=== PATIENT | female | born 1945 | race Caucasian/White ===

== ENCOUNTER 2017-08-03 08:03 | Day surgery (SDC) | payer MEDICARE, BC ==
[~2017-08-03] VITALS: Ht 167.6 cm; Wt 85.5 kg
[2017-08-03] VITALS (8 sets, daily range): BP systolic 139–147; BP diastolic 83–88; PULSE 77–86; RESP 18–20; TEMP 97.4–98.1; O2SAT 94–98
[2017-08-03] MEDS ORDERED: IOHEXOL 350 MG/ML 100 ML BTL (for Cath Lab) OTHER ONE (08:04)
[2017-08-03] MEDS ORDERED: AMLO5TAB2 PO (09:03)
[2017-08-03] MEDS ORDERED: FLUO10TA PO (09:03)
[2017-08-03] MEDS ORDERED: ATOR40TA16 PO (09:03)
[2017-08-03] MEDS ORDERED: COQ-50CA2 PO (09:03)
[2017-08-03] MEDS ORDERED: GLUC750C PO (09:03)
[2017-08-03] MEDS ORDERED: ASPI81TA11 PO (09:03)
[2017-08-03] MEDS ORDERED: NITR0.4S SL (09:03)
[2017-08-03] MEDS ORDERED: METO25TA6 PO (09:03)
[2017-08-03] MEDS ORDERED: LOSA25TA PO (09:03)
[2017-08-03 09:13] LABS: AUTOMATED NEUTROPHIL # 6.9 TH/MM3 (1.8-7.7); BASOPHIL # 0.1 TH/MM3 (0-0.2); BASOPHIL % 1.5 % (0.0-2.0); EOSINOPHIL # 0.2 TH/MM3 (0-0.4); EOSINOPHIL % 2.5 % (0.0-4.0); HEMATOCRIT 36.6 % (35.0-46.0); HEMO FLAGS DIFF FINAL; LYMPH % 18.9 % (9.0-44.0); LYMPHOCYTE # 1.9 TH/MM3 (1.0-4.8); MEAN CORPUSCULAR HEMOGLOBIN 27.7 PG (27.0-34.0); MEAN CORPUSCULAR HGB CONC 32.6 % (32.0-36.0); MONO % 8.5 % (0.0-8.0); NEUT % 68.6 % (16.0-70.0); PLATELET COUNT 302 TH/MM3 (150-450); RED BLOOD COUNT 4.31 MIL/MM3 (4.00-5.30)
[2017-08-03 09:23] LABS: APTT (PATIENT) 29.7 SEC (24.3-30.1); PROTHROMBIN TIME - PATIENT 10.9 SEC (9.8-11.6)
[2017-08-03 09:36] LABS: BICARBONATE 27.5 MEQ/L (21.0-32.0); POTASSIUM 3.7 MEQ/L (3.5-5.1)
[2017-08-03] MEDS ORDERED: HEPARIN-NS/PF INJ 1,000 ML ONE (10:03)
[2017-08-03] MEDS ORDERED: SODIUM CHLORID 0.9% 500 ML INJ 500 ML ONE (10:03)
[2017-08-03] MEDS ORDERED: MIDAZOLAM HCL 2 MG/2 ML VIAL ONE (10:03)
[2017-08-03] MEDS ORDERED: HEPARIN SODIUM - IV 10,000 UNITS/10 ML VIAL ONE (11:10)
[2017-08-03] MEDS ORDERED: TICAGRELOR 90 MG TAB PO ONE (12:01)
[2017-08-03] MEDS ORDERED: oxyCODONE/ACETAMINOPHEN 5 MG/325 MG TAB PO PRN (12:15)
[2017-08-03] MEDS ORDERED: ACETAMINOPHEN 325 MG TAB PO PRN (12:15)
[2017-08-03] MEDS ORDERED: ONDANSETRON HCL 4 MG/2 ML VIAL IV PUSH PRN (12:15)
[2017-08-03] MEDS ORDERED: MORPHINE SULFATE 4 MG/ML INJ IV PUSH PRN (12:15)
[2017-08-03] MEDS ORDERED: oxyCODONE/ACETAMINOPHEN 10 MG/325 MG TAB PO PRN (12:15)
[2017-08-03] MEDS ORDERED: SODIUM CHLOR 0.9% 250 ML INJ 250 ML IV PRN (12:15)
[2017-08-03] MEDS ORDERED: MISC INFORMATION XX ONE (12:15)
[2017-08-03] MEDS ORDERED: ATROPINE SULFATE 1 MG/ML VIAL IV PUSH PRN (12:15)
--- NOTE | 2017-08-03 16:06 | EKG ---
Date Performed: 08/03/2017 Time Performed: 09:01:54 PTAGE: 71 years EKG: Sinus rhythm Left axis deviation Possible left ventricular hypertrophy Lateral T wave changes are probably due to ventricular hypertrophy Poor R wave progression, cannot rule out old anterior infarction Cannot rule out old inferior infarction Abnormal ECG NO PREVIOUS TRACING DOCTOR: Roderick Clements Interpretating Date/Time 08/03/2017 16:06:07
[2017-08-03] MEDS: TICAGRELOR 90 MG TAB PO SCH (19:59)
[2017-08-03] MEDS ORDERED: ATORVASTATIN 40 MG TAB PO SCH (21:00)
[2017-08-04] VITALS (9 sets, daily range): BP systolic 129–149; BP diastolic 66–91; PULSE 72–87; RESP 16–20; TEMP 97–98.1; O2SAT 92–97
--- NOTE | 2017-08-04 05:44 | MA ---
cc: CUONG ROOT DO DATE August 03, 2017 PROCEDURE Left heart catheterization, coronary angiogram, bypass angiogram, Spider filter for distal protection, Jarret drug-eluting stent (2.5 x 8) to the SVG to posterior lateral branch. Moderate sedation of 105 minutes PREPROCEDURE DIAGNOSIS Chest pain/shortness of breath/fatigue. History of CABG x 5 (believed to have 3/5 grafts patent). POSTPROCEDURE DIAGNOSIS Unstable angina status post Jarret drug-eluting stent (2.5 x 8) to the SVG to the PLV, CABG x five (4/5 grafts patent). MEDICATIONS 1. Versed 1.5 mg. 2. Fentanyl 175 mcg. 3. Heparin 10,100 units. 4. Brilinta 180 mg. CONTRAST USED 200 cc. FLUOROSCOPY 7.1 minutes. MODERATE SEDATION 105 minutes ESTIMATED BLOOD LOSS 30 cc. PROCEDURAL SUMMARY Julisa Stratton is a pleasant 71-year-old female who sees my partner Dr. Peterson in the office. She underwent stress testing which was read as possibly normal, although difficult with possible breast attenuation artifact. She continued to have symptoms including chest pain, shortness of breath and fatigue concerning for an anginal equivalent. Because of this she was recommended cardiac catheterization. The risks, benefits and alternatives were explained to her and she consented as such. She was brought to lab and prepped in the usual sterile fashion. The right femoral artery was accessed using a modified Seldinger technique and placement of a 5-[place] sheath. This was easily aspirated and flushed. A JR-4 was advanced over a J-wire to the ascending aorta and across the aortic valve for measurement of left ventricular pressure. This was pulled back across the aortic valve showing no significant gradient of aortic stenosis. JR-4 was used for selective angiography of the vein graft to the first obtuse marginal, PLV and second obtuse marginal as well as the douglas RCA. A vein graft to the diagonal could not be found and was previously thought to be occluded on her previous catheterization. I attempted to use the JR-4 for engagement in the INIGUEZ was but was unable to. This was exchanged for an IM catheter and, due to the significant tortuosity of her subclavian was unable to engage the left main but a nonselective shot was taken of the INIGUEZ to LAD. This was exchanged out for a JL-4 which was used for angiography of the [place]ouglas left coronary artery system. Please see interventional notes below for further procedure notes. The sheath was sutured in place with a plan to remove once ACT levels were appropriate. The patient left the lab analyst cardiovascularly stable. FINDINGS LEFT MAIN: Normal-sized vessel with adequate reflux and 10% disease throughout. It bifurcates into an LAD and circumflex. LAD: Normal-sized vessel with 100% occlusion in the midportion. It does give off one small diagonal which has multiple subtotal occlusions throughout. LEFT CIRCUMFLEX: Normal-sized vessel with 100% occlusion in the midportion. It gives off the first obtuse marginal which looks like there is 100% occlusion in the midportion. RCA: Normal-sized vessel. Ostially there looks like there is at least 60% disease with an 80% lesion in the proximal portion. There is a subtotal occlusion of the PDA. There appears to be competitive flow in the distal PLV. INIGUEZ to LAD: Nonselective angiography shows the INIG[place]Z bifurcates with one-vessel going to the LAD and the other vessel going to the anterior wall. The vessel going to the LAD appears to have no significant lesions. It appears to touch down and distal runoff of the LAD is difficult but appears to be patent. SVG to DIAGONAL: 100% occluded from previous cardiac catheterization. SVG to OM1: Patent with good outflow and no significant disease. SVG to OM2: Patent with no significant disease throughout. SVG to PLV: 90% lesion in the proximal portion. Distally, the SVG fills antegrade to the distal PLB as well as retrograde into the distal RCA. LVEDP: 30. INTERVENTION Because of the significance of the lesion in the SVG to the RCA as well as her symptoms, I felt this was reasonable to intervene on. The sheath was exchanged for a 6-[place] sheath. I attempted to use a JR-4 guide but was unable to engage it well into the vein graft and so this was exchanged for a multipurpose guide. A [employer] wire was advanced in the distal portion of the vein grafts. A 3-mm Spider filter was then placed in the midportion of the graft. An Jarret drug-eluting stent (2.5 x 8) was then placed in the ostium of the vein graft and inflated. Because of the mismatch at the ostium of the vein graft compared to the overall size of the graft, a Non-Compliant balloon (2.75 x 6) was then used on the proximal portion of the stent. Filter was captured. Final angiography shows a well apposed stent with no perforations or dissections. She was loaded with 180mg of Brilinta. IMPRESSIONS: 1) Unstable angina with CP/SOB/Fatigue on multiple anti-anginals 2) CAD, Hx of CABG (4/5 grafts patent) 3) [place] ANN (2.5x8) to the ostial SVG to PLB, post dilated to 2.75 mm RECOMMENDATIONS: 1) ASA/Brilinta 2) Continue beta [place]/statin/ARB 3) Watch overnight, if stable in the morning plan discharge 4) Follow up with Dr. Peterson in 2 weeks Cuong Root DO VGP/SSB /10:00 PM /5:25 AM LC
[2017-08-04 07:14] LABS: AUTOMATED NEUTROPHIL # 7.5 TH/MM3 (1.8-7.7); BASOPHIL # 0.1 TH/MM3 (0-0.2); EOSINOPHIL # 0.2 TH/MM3 (0-0.4); EOSINOPHIL % 2.4 % (0.0-4.0); HEMATOCRIT 34.9 % (35.0-46.0); HEMO FLAGS DIFF FINAL; LYMPH % 13.5 % (9.0-44.0); LYMPHOCYTE # 1.4 TH/MM3 (1.0-4.8); MEAN CELL VOLUME 85.5 FL (80.0-100.0); MEAN CORPUSCULAR HEMOGLOBIN 28.1 PG (27.0-34.0); MEAN CORPUSCULAR HGB CONC 32.8 % (32.0-36.0); MONO % 9.3 % (0.0-8.0); NEUT % 73.8 % (16.0-70.0); PLATELET COUNT 282 TH/MM3 (150-450); RED BLOOD COUNT 4.08 MIL/MM3 (4.00-5.30); RED CELL DISTRIBUTION WIDTH 14.1 % (11.6-17.2); WHITE BLOOD COUNT 10.2 TH/MM3 (4.0-11.0)
[2017-08-04 07:17] LABS: BICARBONATE 29.1 MEQ/L (21.0-32.0); POTASSIUM 3.8 MEQ/L (3.5-5.1)
[2017-08-04] MEDS: TICAGRELOR 90 MG TAB PO SCH (08:59)
[2017-08-04] MEDS ORDERED: FLUoxetine HCL 10 MG CAP PO SCH (09:00)
[2017-08-04] MEDS ORDERED: amLODIPine BESYLATE 5 MG TAB PO SCH (09:00)
[2017-08-04] MEDS ORDERED: ASPIRIN EC 81 MG TABEC PO SCH (09:00)
[2017-08-04] MEDS ORDERED: LOSARTAN 25 MG TAB PO SCH (09:00)
[2017-08-04] MEDS ORDERED: METOPROLOL SUCCINATE 25 MG EXTENDED RELEASE TAB PO SCH (09:00)
--- NOTE | 2017-08-04 10:00 | PD.CARD.PN ---
Subjective Subjective Remarks No events overnight Feels well, no chest pain/SOB Objective Medications Current Medications Medications (Trade) Dose Ordered Sig/Ramakrishna Route Start Time Stop Time Status Last Admin (Norvasc) 5 mg DAILY PO 08/04/17 09:00 08/04/17 09:00 (Ecotrin Ec) 81 mg DAILY PO 08/04/17 09:00 08/04/17 08:59 (Lipitor) 40 mg HS PO 08/03/17 21:00 08/03/17 19:59 (PROzac) 10 mg DAILY PO 08/04/17 09:00 (Cozaar) 25 mg DAILY PO 08/04/17 09:00 08/04/17 08:59 (Toprol Xl) 25 mg DAILY PO 08/04/17 09:00 08/04/17 08:59 (Tylenol) 325 mg Q4H PRN PO 08/03/17 12:15 (Percocet 5-325 Mg) 1 tab Q4H PRN PO 08/03/17 12:15 08/03/17 22:28 (Percocet 10-325 Mg) 1 tab Q4H PRN PO 08/03/17 12:15 (Morphine Inj) 2 mg Q30M PRN IV PUSH 08/03/17 12:15 (Brilinta) 90 mg BID PO 08/03/17 21:00 08/04/17 08:59 (Atropine Inj) 0.5 mg UNSCH PRN IV PUSH 08/03/17 12:15 Sodium Chloride 250 ml @ 500 mls/hr ONCE PRN IV 08/03/17 12:15 08/04/17 12:14 (Zofran Inj) 4 mg Q4H PRN IV PUSH 08/03/17 12:15 08/03/17 13:40 Vital Signs / I&O Vital Signs Date Time Temp Pulse Resp B/P (MAP) Pulse Ox O2 Delivery O2 Flow Rate FiO2 08/04/17 07:30 97.4 80 16 129/71 (90) 92 08/04/17 07:30 97.4 80 16 129/71 (90) 92 08/04/17 06:00 72 08/04/17 05:00 72 08/04/17 04:00 97.0 87 20 149/66 (93) 94 08/04/17 03:00 80 08/04/17 02:00 80 08/04/17 01:00 82 08/04/17 00:00 80 08/04/17 00:00 98.1 81 20 144/91 (108) 97 08/03/17 23:00 80 08/03/17 22:00 82 08/03/17 21:00 86 08/03/17 20:00 77 08/03/17 20:00 98.1 81 20 147/88 (107) 95 08/03/17 19:00 86 08/03/17 17:45 78 08/03/17 17:30 98.1 84 18 143/83 (103) 98 08/03/17 12:15 93 Room Air I/O 08/03/17 08/03/17 08/03/17 08/04/17 08/04/17 08/04/17 07:00 15:00 23:00 07:00 15:00 23:00 Intake Total 240 ml Balance 240 ml Intake Oral 240 ml # Voids 1 2 Physical Exam GENERAL: NAD, AAOx3 SKIN: Warm and dry. HEAD: Atraumatic. Normocephalic. EYES: Pupils equal and round. No scleral icterus. No injection or drainage. ENT: No nasal bleeding or discharge. Mucous membranes pink and moist. NECK: Trachea midline. No JVD. CARDIOVASCULAR: Regular rate and rhythm. RESPIRATORY: No accessory muscle use. Clear to auscultation. Breath sounds equal bilaterally. GASTROINTESTINAL: Abdomen soft, non-tender, nondistended. Hepatic and splenic margins not palpable. MUSCULOSKELETAL: Extremities without clubbing, cyanosis, or edema. No obvious deformities. Right femoral no hematoma/bruit, distal pulses intact NEUROLOGICAL: Awake and alert. No obvious cranial nerve deficits. Motor grossly within normal limits. Five out of 5 muscle strength in the arms and legs. Normal speech. PSYCHIATRIC: Appropriate mood and affect; insight and judgment normal. Laboratory Laboratory Tests Test 08/04/17 05:38 White Blood Count 10.2 TH/MM3 Red Blood Count 4.08 MIL/MM3 Hemoglobin 11.5 GM/DL Hematocrit 34.9 % Mean Corpuscular Volume 85.5 FL Mean Corpuscular Hemoglobin 28.1 PG Mean Corpuscular Hemoglobin Concent 32.8 % Red Cell Distribution Width 14.1 % Platelet Count 282 TH/MM3 Mean Platelet Volume 7.3 FL Neutrophils (%) (Auto) 73.8 % Lymphocytes (%) (Auto) 13.5 % Monocytes (%) (Auto) 9.3 % Eosinophils (%) (Auto) 2.4 % Basophils (%) (Auto) 1.0 % Neutrophils # (Auto) 7.5 TH/MM3 Lymphocytes # (Auto) 1.4 TH/MM3 Monocytes # (Auto) 0.9 TH/MM3 Eosinophils # (Auto) 0.2 TH/MM3 Basophils # (Auto) 0.1 TH/MM3 CBC Comment DIFF FINAL Differential Comment Blood Urea Nitrogen 14 MG/DL Creatinine 0.56 MG/DL Random Glucose 106 MG/DL Calcium Level 9.0 MG/DL Sodium Level 138 MEQ/L Potassium Level 3.8 MEQ/L Chloride Level 101 MEQ/L Carbon Dioxide Level 29.1 MEQ/L Anion Gap 8 MEQ/L Estimat Glomerular Filtration Rate 107 ML/MIN Assessment and Plan Problem List: (1) Unstable angina ICD Codes: I20.0 - Unstable angina (2) Hx of CABG ICD Codes: Z95.1 - Presence of aortocoronary bypass graft (3) CAD (coronary artery disease) ICD Codes: I25.10 - Atherosclerotic heart disease of [place] coronary artery without angina pectoris (4) HLD (hyperlipidemia) ICD Codes: E78.5 - Hyperlipidemia, unspecified (5) HTN (hypertension) ICD Codes: I10 - Essential (primary) hypertension Assessment and Plan 1) Unstable angina with CP/SOB/Fatigue on multiple anti-anginals 2) CAD Hx of CABGx5 (4/5 grafts patent) [place] ANN (2.5x8) to SVG to PLB 3) ASA indefinitely, Brilinta for at least 12 months Discussed with the patient the importance of anti-platelet meds Will get a free 30 days of Brilinta and ask [facility] for refills, if too expensive will call myself or Dr. Peterson to change to Plavix 4) Cardiovascularly stable for discharge Follow up with Dr. JUAN in 4 weeks 5) Con't BB/Statin/ARB therapy 6) Greater than 45 minutes for discharge including scripts, giving information to the patient and answering questions for the patient Luis ACuong Raul CHEN Aug 04, 2017 10:00
[2017-08-04] MEDS ORDERED: BRIL90TA PO (10:02)
--- NOTE | 2017-08-06 08:53 | CATHPROC ---
[facility] HIS Report Study Information Study Number Admission Scheduled Start Study Start [id number] Aug 03 2017 8:03AM 08/03/2017 Aug 03 2017 9:50AM [facility] Cardiac Catheterization Admit Source Facility Department Other [facility] Physician and Clinical Staff Initial Cuong Atkinson Geothermal Field Technician Corby Perales,JAMES Recorder Chevy Bautista RCIS(BS) Scrub Raoul Mack RT(R) Scrub Brit Vaughan RN Procedures Performed Procedure Location (Site) Vessel Name Coronary Angiograms LCA Left Coronary Coronary Angiograms INIGUEZ-LAD Left Coronary Coronary Angiograms SVG-OM CIRC Coronary Angiograms SVG-OM 2 CIRC Coronary Angiograms SVG-PDA Right Coronary Drug Eluting Inflatio SVG-PDA Right Coronary PTCA SVG-PDA Right Coronary Wire insertion Fem Art (right) Femoral Art Equipment Time Reception Specialist Description Size Mfg Part Number Used/Scraped [id number] 11:11 [employer] WIRE, ASAArmorText PROWATER 180CM 180CM Used *[id number] TRANSDUCER, TRUWAVE [id number] 10:12 SALAZAR KULKARNI * Used W/STOCKCOCK *[id number]- INTRODUCER SET, 10:12 [employer] FR 5 SC-NT-U-SST Used MICROPUNCTURE, STIFFENED *[id number] 534-560T *[id number] 534-520T *[id number] *[id number] [id number] *[id number] *[id number] WIRE, HYDROSTEER 150CM [id number] 10:35 [employer]IG[employer] 150CM Used ANGLED GLIDE *[id number] ENDOVASCULAR WIRE, SPIDERFX 3.0 X [id number] 11:18 30 X 320CM Used COMPANY 320/190CM *[id number] 10:12 [employer] PACK, CCL CUSTOM * Used *[id number] BALLOON, 2.75 X 6MM NC [id number] 11:48 [employer] 6MM Used EUPHORA *[id number] 11:43 [employer] STENT, 2.5 8MM SHELLY 2.5 8MM Used *[id number] [id number] 11:27 [employer] STENT, 2.75 12MM SHELLY 2.75 12MM Used *[id number] 11:43 [employer] MEDICAL 30 MELIDA INDEFLATOR Used *[id number] 10:12 [employer] MEDICAL WIRE, 3MMJ .035 180CM 180CM Used *[id number] 10:39 [employer] MEDICAL WIRE, EXCHANGE 260CM 3MMJ 260CM Used *[id number] 10:12 NAMIC MANIFOLD, 4 PORT * Used *[id number] 10:12 [employer] OMNIPAQUE, 350 MG, 150ML 150ML [id number] Used [id number] 10:12 [facility] BLANKET,WARM AIR CCL * Used *[id number] 10:44 [employer] SHEATH, FR5 TERUMO (10CM) FR 5 Used *[id number] 10:46 [employer] SHEATH, FR5 TERUMO (10CM) FR 5 Used *[id number] 11:11 [employer] SHEATH, FR6 TERUMO (10CM) FR 6 Used *[id number] Equipment Model, Serial, Lot Number and Expiration Data Description Model Number Serial Number Lot Number Expiration Date BALLOON, 2.75 X 6MM NC [id number] 10-06-2018 EUPHORA INTRODUCER SET, [id number] 07-01-2020 MICROPUNCTURE, STIFFENED STENT, 2.5 8MM SHELLY [id number] 03-31-2019 WIRE, EXCHANGE 260CM 3MMJ [id number] 06-25-2020 WIRE, HYDROSTEER 150CM [id number] 03-25-2020 ANGLED GLIDE History: Current Medications Medication Dosage/Unit Route Frequency Last Date/Time Taken NORVASC ASA Statins (any) 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: Allergies Allergy Reaction lisinopril Cough epinephrine Hypotension History: Risk Factors Family History of Hypertension Dyslipidemia Previous ME Previous Heart Failure Premature CAD Yes Yes No No No Prior Valve Prior PCI Prior CABG Prior CABGDate Surgery No No Yes 10/26/2010 Cerebrovascular Peripheral Artery Chronic Lung On Dialysis Diabetes Disease Disease Disease No No No Yes No History: Stress Tests Stress or Imaging Studies Performed Yes Standard Exercise Stress Test No Stress Echo No Stress Test SPECT Stress Test SPECT Result Stress Test SPECT Ischemia Risk/Extent Yes Positive Low Stress Test CMR No Cardiac CTA Coronary Calcium Score No No History: Other Current Smoker No Labs Hgb (g/dl) Hct (%) RBC (MIL/MM3) WBC (l/cumm) Platelets (thousands) 11.60-17.00 35.00-51.00 4.00-5.90 4.00-11.00 150.00-450.00 12.0 36.6 4.3 10 302 Glucose (mg/dl) BUN (mg/dl) Creatinine (mg/dl) BUN:Creatinine (1:x) 74.00-106.00 7.00-18.00 0.50-1.30 10.00-20.00 102 23 0.3 76.7 Na (meq/l) K (meq/l) Cl (meq/l) CO2 (mmol/L) 136.00-145.00 3.50-5.10 98.00-107.00 21.00-32.00 140 3.7 104 27.5 PT (sec) PTT (sec) INR (PTT:PT) 9.80-11.60 24.30-30.10 0.90-1.10 10.9 29.7 1 CPK-MB (ng/ML) 0.50-3.60 Not Drawn Medication Medication Total Dose (Bolus/Oral) Medication Total Dosage/Unit 1% XYLOCAINE 20 mL BRILLINTA 180 mg FENTANYL 175 mcg HEPARIN 49931 units VERSED 1.5 mg Medications (Bolus/Oral) Medication Time Given Dosage/Unit Administered By Reason VERSED 08/03/2017 10:16:13 AM 0.5 mg Corby Perales 0.5 mg VERSED given in lab by Corby Perales RN in Left Forearm via Peripheral IV. Ordered by Cuong Lopez. FENTANYL 08/03/2017 10:16:26 AM 25 mcg Corby Perales 25 mcg FENTANYL given in lab by Corby Perales RN in Left Forearm via Peripheral IV. Ordered by Cuong Del Toro. 1% XYLOCAINE 08/03/2017 10:17:41 AM 20 mL Cuong Gunn 20 mL 1% XYLOCAINE given in lab by Cuong Gunn in Right Groin via Subcutaneous. Ordered by Cuong Del Toro. FENTANYL 08/03/2017 10:27:25 AM 50 mcg Corby Perales 50 mcg FENTANYL given in lab by FerCorby chatman RN in Left Forearm via Peripheral IV. Ordered by Cuong Del Toro. VERSED 08/03/2017 10:43:13 AM 0.5 mg Corby Perales 0.5 mg VERSED given in lab by Corby Perales RN in Left Forearm via Peripheral IV. Ordered by Cuong Lopez. FENTANYL 08/03/2017 10:43:21 AM 25 mcg Corby Perales 25 mcg FENTANYL given in lab by Corby Perales RN in Left Forearm via Peripheral IV. Ordered by Cuong Del Toro. VERSED 08/03/2017 11:03:44 AM 0.5 mg Corby Perales 0.5 mg VERSED given in lab by Corby Perales RN in Left Forearm via Peripheral IV. Ordered by Cuong Lopez. FENTANYL 08/03/2017 11:03:49 AM 25 mcg FerCorby chatman 25 mcg FENTANYL given in lab by Corby Perales RN in Left Forearm via Peripheral IV. Ordered by Cuong Del Toro. FENTANYL 08/03/2017 11:12:24 AM 50 mcg Corby Perales 50 mcg FENTANYL given in lab by Corby Perales RN in Left Forearm via Peripheral IV. Ordered by Cuong Del Toro. HEPARIN 08/03/2017 11:14:42 AM 6100 units Corby Perales 6100 units HEPARIN given in lab by Corby Perales RN in Left Forearm via Peripheral IV. Ordered by Cuong Samano. HEPARIN 08/03/2017 11:30:30 AM 2000 units Corby Perales 2000 units HEPARIN given in lab by Corby Perales RN via Peripheral IV. Ordered by Cuong Gunn . HEPARIN 08/03/2017 11:45:12 AM 2000 units Corby Perales 2000 units HEPARIN given in lab by Corby Perales RN via Peripheral IV. Ordered by Cuong Gunn . BRILLINTA 08/03/2017 12:03:23 PM 180 mg Corby Perales 180 mg BRILLINTA given in lab by Corby Perales RN in Per mouth via Oral. Ordered by Leo Gunn nt. Medication (Drip) Medication Time Given Dosage/Unit Concentration/Unit Diluent (ml) Solution IV Solutions 08/03/2017 9:55:37 AM 0 mL (IV) 500 NaCl .9 Patient arrived on IV Solutions in Left Forearm via Peripheral IV. Pump/Drip Flow = 20 ml/hr using Na Cl .9. Ordered by Cuong Gunn. Initial Case Assessment Cardiovascular HR Rhythm NIBP Chest Pain 72 SR 150/88 0 Edema Present Skin color Skin None Normal Warm Dry Circulatory - Right Pulses Dorsalis Pedis Femoral 1 1 Scale (0,1,2,3,4,d) Circulatory - Left Pulses Dorsalis Pedis Femoral 1 1 Scale (0,1,2,3,4,d) Circulatory - Lower Extremities Color Lower Right Color Lower Left Normal Normal Neurological State Oriented to time-place- Alert Moves all extremities person Respiration - General Respiration Rate SpO2 (%) (B/min) 13 96 Chronological Log Time Study Chronological Log 9:50:01 Patient arrived via Bed. 9:50:02 Patient Name, D.O.B, / Armband Verified By R.N. 9:50:03 Consent signed by the physician and the patient and verified by the [facility] [facility] staff. 9:50:04 Pre-op and post- op instructions given; patient acknowledges understanding of instructions. 9:50:05 Verbal Stimulation=2 Physical Stimulation=1 Airway=2 Respiration=2 TOTAL=7. (0=absent, 1=li mited, 2=present) 9:55:32 Patient has been NPO for Less than 6Hrs. 9:55:33 Skin Breakdown- 9:55:33 Patient Warmer Placed on the Table. 9:55:36 A # 20 IV was noted in the Forearm (left). Grade = 0 Patient arrived on IV Solutions in Left Forearm via Peripheral IV. Pump/Drip Flow = 20 ml/hr us ing NaCl .9. Ordered by 9:55:37 Cuong Gunn. 9:55:38 History and physical on the chart or being dictated. Assessment: Initial Case, HR=72 BPM, Rhythm=SR, DQYH=509/88 mmhg, Chest Pain=0, Edema=None, Col or=Normal, Skin = Warm, Dry Right Pulses: Dong Ped=1, Femoral=1 Left Pulses: Dong Ped=1, Femoral=1 9:55:39 Lower Right Extremities: Color=Normal Lower Left Extremities: Color=Normal Neurological: State=Alert, Ox3, TAYLOR Respiration: Resp=13 B/min, SpO2=96 % 10:00:00 MD arrived. Vitals capture started with the following parameters, Patient=Adult, Interval=3 min, Initial Pr afauxe=920 mmHg, 10:00:08 Deflation Rate=5 mmHg, Cuff placed on Left Ankle 10:00:51 HR=72 bpm, ARQA=370/88 mmhg, SpO2=97.0 %, Resp=16 B/min, Pain=0, Armando=10, Johnston=2 10:03:45 HR=75 bpm, OVMJ=976/92 mmhg, SpO2=97.0 %, Resp=7 B/min, Pain=0, Armando=10, Johnston=2 10:06:50 HR=72 bpm, IWQB=298/88 mmhg, SpO2=98.0 %, Resp=19 B/min, Pain=0, Armando=10, Johnston=2 10:08:00 Pressure channel 1 zeroed. 10:09:43 Reference ECG taken 10:09:48 HR=76 bpm, MGTA=080/90 mmhg, SpO2=96.0 %, Resp=12 B/min, Pain=0, Armando=10, Johnston=2 10:12:45 Bilateral groins prepped with 2% chlorhexidine, and draped after a 3 minute waiting time. 10:12:48 HR=71 bpm, FXRH=484/86 mmhg, SpO2=98.0 %, Resp=12 B/min, Pain=0, Armando=10, Johnston=2 10:15:46 HR=78 bpm, VTTF=879/85 mmhg, SpO2=97.0 %, Resp=16 B/min, Pain=0, Armando=10, Johnston=2 Time Out. Correct patient, correct procedure, correct physician, power injector not loaded with contrast with surgical 10:15:50 team present. Time Out Concurred by MD and individual staff in procedure. 10:16:12 Case Start 10:16:13 0.5 mg VERSED given in lab by Corby Perales RN in Left Forearm via Peripheral IV. Ordered by Cuong Gunn. 10:16:26 25 mcg FENTANYL given in lab by Corby Perales, RN in Left Forearm via Peripheral IV. Order ed by Cuong Gunn. 10:17:41 20 mL 1% XYLOCAINE given in lab by Cuong Gunn in Right Groin via Subcutaneous. Order ed by Cuong Gunn. A INTRODUCER SET, MICROPUNCTURE, STIFFENED FR 5 was advanced into the Fem Art (right) using the :18:27 Percutaneous technique. A SHEATH, FR5 TERUMO (10CM) FR 5 was exchanged in the Fem Art (right). This was necessary in or quan to 10:18:29 accomodate a larger catheter. 10:18:49 HR=76 bpm, BIHH=702/90 mmhg, SpO2=95.0 %, Resp=16 B/min, Pain=0, Armando=10, Johnston=2 Recorded Pressure: Ao, HR=64, Condition=Condition 1 10:21:14 (Aorta) Ao 162/78/110 10:21:47 HR=72 bpm, NMVE=973/88 mmhg, SpO2=95.0 %, Resp=16 B/min, Pain=0, Armando=10, Johnston=2 A JR 4.0 INFINITI CATHETER FR 5 was advanced over a wire. OMNIPAQUE, 350 MG, 150ML 150ML was us ed for 10:22:02 injections. Recorded Pressure: LV, HR=53, Condition=Condition 1 10:23:08 (Left Ventricle) LV 134/16/34 Recorded Pressure: LV, Ao, HR=73, Condition=Condition 1 10:23:14 (Left Ventricle) LV 146/21/34, (Aorta) Ao 153/79/110 10:23:45 The SVG-OM was injected and visualized at various angles. OMNIPAQUE, 350 MG, 150ML 150ML us ed. 10:24:47 HR=72 bpm, QJQF=921/87 mmhg, SpO2=95.0 %, Resp=14 B/min, Pain=0, Armando=10, Johnston=2 10:27:25 50 mcg FENTANYL given in lab by Corby Perales, RN in Left Forearm via Peripheral IV. Order ed by Cuong Gunn. 10:27:49 HR=70 bpm, BJYV=513/82 mmhg, SpO2=96.0 %, Resp=15 B/min, Pain=0, Armando=10, Johnston=2 10:28:51 The SVG-PDA was injected and visualized at various angles. OMNIPAQUE, 350 MG, 150ML 150ML u sed. 10:30:48 HR=75 bpm, GHJE=492/82 mmhg, SpO2=97.0 %, Resp=13 B/min, Pain=0, Armando=10, Johnston=2 Recorded Pressure: Ao, HR=69, Condition=Condition 1 10:31:33 (Aorta) Ao 145/81/107 10:32:10 The SVG-OM 2 was injected and visualized at various angles. OMNIPAQUE, 350 MG, 150ML 150ML used. 10:33:48 HR=70 bpm, FHSU=642/88 mmhg, SpO2=94.0 %, Resp=17 B/min, Pain=0, Armando=10, Johnston=2 10:35:44 A WIRE, HYDROSTEER 150CM ANGLED GLIDE 150CM was inserted via Fem Art (right). 10:36:50 HR=73 bpm, IGEW=031/85 mmhg, SpO2=91.0 %, Resp=20 B/min, Pain=0, Armando=10, Johnston=2 10:39:50 HR=73 bpm, MQHZ=241/81 mmhg, SpO2=92.0 %, Resp=8 B/min, Pain=0, Armando=10, Johnston=2 10:42:49 HR=71 bpm, XYPS=505/86 mmhg, SpO2=93.0 %, Resp=17 B/min, Pain=0, Armando=10, Johnston=2 10:43:13 0.5 mg VERSED given in lab by Corby Perales, JAMES in Left Forearm via Peripheral IV. Ordered by Cuong Gunn. 10:43:21 25 mcg FENTANYL given in lab by Corby Perales, JAMES in Left Forearm via Peripheral IV. Order ed by Cuong Gunn. 10:44:35 Catheter was removed A SHEATH, FR5 TERUMO (10CM) FR 5 was exchanged in the Fem Art (right). This was necessary in or quan to 10:44:38 accomodate a larger catheter. 10:45:49 HR=72 bpm, XWJA=096/85 mmhg, SpO2=97.0 %, Resp=17 B/min, Pain=0, Armando=10, Johnston=2 A ROSSY INFINITI CATHETER FR 5 was advanced over a wire. OMNIPAQUE, 350 MG, 150ML 150ML was used for 10:46:39 injections. 10:48:03 A WIRE, HYDROSTEER 150CM ANGLED GLIDE 150CM was inserted via Fem Art (right). 10:48:49 HR=66 bpm, FQIB=042/84 mmhg, SpO2=94.0 %, Resp=14 B/min, Pain=0, Armando=10, Johnston=2 10:51:47 HR=74 bpm, HXUR=689/91 mmhg, SpO2=92.0 %, Resp=20 B/min, Pain=0, Armando=10, Johnston=2 10:52:17 The INIGUEZ-LAD was injected and visualized at various angles. OMNIPAQUE, 350 MG, 150ML 150ML used. 10:54:50 HR=69 bpm, PXJN=037/89 mmhg, SpO2=95.0 %, Resp=16 B/min, Pain=0, Armando=10, Johnston=2 10:57:50 HR=68 bpm, ZHFY=335/81 mmhg, SpO2=94.0 %, Resp=16 B/min, Pain=0, Armando=10, Johnston=2 11:00:56 HR=62 bpm, JRCF=666/80 mmhg, SpO2=94.0 %, Resp=19 B/min, Pain=0, Armando=10, Johnston=2 11:03:44 0.5 mg VERSED given in lab by Corby Perales, RN in Left Forearm via Peripheral IV. Ordered by Cuong Gunn. 11:03:49 25 mcg FENTANYL given in lab by Corby Perales, JAMES in Left Forearm via Peripheral IV. Order ed by Cuong Gunn. 11:03:54 HR=67 bpm, FYEP=904/89 mmhg, SpO2=94.0 %, Resp=21 B/min, Pain=0, Armando=10, Johnston=2 11:06:53 HR=69 bpm, EMXM=471/85 mmhg, SpO2=96.0 %, Resp=14 B/min, Pain=0, Armando=10, Johnston=2 After removing the current catheter a JL 4.0 INFINITI CATHETER FR 5 was advanced over a WIRE, E XCHANGE 260CM 11:07:42 3MMJ 260CM. 11:09:55 HR=83 bpm, GYES=063/89 mmhg, SpO2=88.0 %, Resp=23 B/min, Pain=0, Armando=10, Johnston=2 11:11:45 The LCA was injected and visualized at various angles. OMNIPAQUE, 350 MG, 150ML 150ML used . A SHEATH, FR6 TERUMO (10CM) FR 6 was exchanged in the Fem Art (right). This was necessary in or quan to 11:12:14 accomodate a larger catheter. 11:12:24 50 mcg FENTANYL given in lab by Corby Perales RN in Left Forearm via Peripheral IV. Order ed by Cuong Gunn. 11:12:55 HR=66 bpm, IRHC=706/93 mmhg, SpO2=92.0 %, Resp=39 B/min, Pain=0, Armando=10, Johnston=2 11:14:42 6100 units HEPARIN given in lab by Corby Perales RN in Left Forearm via Peripheral IV. Or dered by Cuong Gunn. A JR 4.0 GUIDE CATHETER FR 6 was advanced over a wire. OMNIPAQUE, 350 MG, 150ML 150ML was used for 11:14:58 injections. 11:15:55 HR=38 bpm, TUPH=804/85 mmhg, SpO2=97.0 %, Resp=21 B/min, Pain=0, Armando=10, Johnston=2 11:18:56 HR=74 bpm, QDKX=674/87 mmhg, SpO2=91.0 %, Resp=26 B/min, Pain=0, Armando=10, Johnston=2 11:19:41 Catheter was removed A MPA-1 GUIDE CATHETER FR 6 was advanced over a wire. OMNIPAQUE, 350 MG, 150ML 150ML was used f or 11:21:32 injections. 11:21:56 HR=35 bpm, LDDA=278/90 mmhg, SpO2=95.0 %, Resp=30 B/min, Pain=0, Armando=10, Johnston=2 11:22:57 Activated Clotting Time Drawn 11:24:01 A WIRE, ASAHI PROWATER 180CM 180CM was inserted via Fem Art (right). 11:24:56 HR=74 bpm, XOOW=721/92 mmhg, SpO2=95.0 %, Resp=21 B/min, Pain=0, Armando=10, Johnston=2 11:27:14 A WIRE, SPIDERFX 3.0 X 320/190CM 30 X 320CM was inserted via Fem Art (right). 11:27:57 ACT (Normal Range 90-180) = 257 11:27:58 HR=66 bpm, VPON=465/96 mmhg, SpO2=93.0 %, Resp=40 B/min, Pain=0, Armando=10, Johnston=2 11:30:30 2000 units HEPARIN given in lab by Corby Perales, JAMES via Peripheral IV. Ordered by Cuong Leahy. 11:30:56 HR=71 bpm, AOTV=593/85 mmhg, SpO2=93.0 %, Resp=18 B/min, Pain=0, Armando=10, Johnston=2 11:33:57 HR=41 bpm, MRSP=389/86 mmhg, SpO2=96.0 %, Resp=17 B/min, Pain=0, Armando=10, Johnston=2 11:34:43 Wire removed 11:36:59 HR=56 bpm, EZFA=421/81 mmhg, SpO2=95.0 %, Resp=22 B/min, Pain=0, Armando=10, Johnston=2 11:37:38 A WIRE, SPIDERFX 3.0 X 320/190CM 30 X 320CM was inserted via Fem Art (right). 11:39:47 Activated Clotting Time Drawn 11:39:59 HR=27 bpm, IGHF=660/84 mmhg, SpO2=93.0 %, Resp=22 B/min, Pain=0, Armando=10, Johnston=2 SPIDER DEPLOYED 11:41:25 A STENT, 2.5 8MM SHELLY 2.5 8MM was advanced through a MPA-1 GUIDE CATHETER FR 6 over a WIRE, SPI DERFX 3.0 11:42:05 X 320/190CM 30 X 320CM. 11:42:59 HR=86 bpm, RJVM=950/889 mmhg, SpO2=93.0 %, Resp=23 B/min, Pain=0, Armando=10, Johnston=2 A STENT, 2.5 8MM SHELLY 2.5 8MM was deployed using a 30 MELIDA INDEFLATOR at 12 atmospheres for 20 s econds in 11:42:59 the SVG-PDA. 11:45:12 2000 units HEPARIN given in lab by Corby Perales RN via Peripheral IV. Ordered by Cuong Leahy. 11:45:44 ACT (Normal Range 90-180) = 263 11:46:02 HR=42 bpm, TTED=858/80 mmhg, SpO2=96.0 %, Resp=22 B/min, Pain=0, Armando=10, Johnston=2 A STENT, 2.5 8MM SHELLY 2.5 8MM was deployed using a 30 MELIDA INDEFLATOR at 18 atmospheres for 18 s econds in 11:46:04 the SVG-PDA. 11:46:33 The SVG-PDA was injected and visualized at various angles. OMNIPAQUE, 350 MG, 150ML 150ML u sed. 11:47:30 Delivery device removed A BALLOON, 2.75 X 6MM NC EUPHORA 6MM was inserted over WIRE, SPIDERFX 3.0 X 320/190CM 30 X 320C M via the 11:48:22 SVG-PDA. 11:49:02 HR=59 bpm, ZXPG=016/85 mmhg, SpO2=94.0 %, Resp=25 B/min, Pain=0, Armando=10, Johnston=2 A BALLOON, 2.75 X 6MM NC EUPHORA 6MM over a WIRE, SPIDERFX 3.0 X 320/190CM 30 X 320CM in the SV G-PDA 11:49:21 was inflated using a 30 MELIDA INDEFLATOR at 12 melida for 16 sec. A BALLOON, 2.75 X 6MM NC EUPHORA 6MM over a WIRE, SPIDERFX 3.0 X 320/190CM 30 X 320CM in the SV G-PDA 11:49:57 was inflated using a 30 MELIDA INDEFLATOR at 14 melida for 20 sec. 11:50:24 Balloon Removed. 11:52:00 HR=56 bpm, TDTE=292/88 mmhg, SpO2=95.0 %, Resp=18 B/min, Pain=0, Armando=10, Johnston=2 11:52:44 RETRIEVAL CATHETER INSERTED 11:53:01 SPIDER Wire removed 11:54:58 HR=61 bpm, BXIH=392/92 mmhg, SpO2=95.0 %, Resp=30 B/min, Pain=0, Armando=10, Johnston=2 11:55:38 Catheter was removed 11:58:01 HR=45 bpm, TIRM=839/101 mmhg, SpO2=96 %, Resp=20 B/min, Pain=0, Armando=10, Johnston=2 11:58:12 Case End 12:01:01 HR=68 bpm, DORX=688/81 mmhg, Pain=0, Armando=10, Johnston=2 12:03:23 180 mg BRILLINTA given in lab by Corby Perales, RN in Per mouth via Oral. Ordered by Cuong Cooper. 12:04:10 Vitals capture stopped. End Study - Contrast Media Used In Study Contrast Total Opened (mL) Total Used (mL) Total Wasted (mL) Omnipaque 200 200 0 End Study - Maximum Contrast Load Max Contrast Load (mL) 1450.0 End Study - Radiation Exposure Fluoro Time (minutes) 37.0 End Study - Patient Disposition Complications Transferred To Interventional Outcome No Outpatient Bed successful
== END 2017-08-04 11:15 | disposition home or self-care (01) ==
LOC: HCAT 08:03 → HDIC 08:04 → HCIS 17:24 → HCAT 08-04 11:15
PROVIDERS: ATTEND Nuclear Medicine Nuclear Cardiology
DX: R07.9 Chest pain, unspecified (principal); I25.110 Atherosclerotic heart disease of native coronary artery with unstable angina pectoris; R94.31 Abnormal electrocardiogram [ECG] [EKG]; I10 Essential (primary) hypertension; E78.5 Hyperlipidemia, unspecified; Z95.1 Presence of aortocoronary bypass graft
CPT/HCPCS: 80048; 85002; 85025; 85347; 85610; 85730; 92937; 93005; 93458; C1725; C1769; C1874; C1884; C1887; C1893; J1644; J2250; J2405; J3010; J7040; Q9967

== ENCOUNTER → 2017-08-25 | Outpatient (CLI) | payer MEDICARE, BC ==
[~2017-08-25] MED LIST: AMLO5TAB2 PO; ASPI81TA11 PO; ATOR40TA16 PO; BRIL90TA PO; COQ-50CA2 PO; FLUO10TA PO; GLUC750C PO; LOSA25TA PO; METO25TA6 PO; NITR0.4S SL
--- NOTE | 2017-08-31 11:18 | RSPPFT ---
DATE OF PROCEDURE: 08/25/17 COMMENTS: VOLUMES DYNAMIC: FVC and FEV1 moderately reduced. STATIC: TLC moderately reduced; FRC mildly reduced; RV normal FLOWS: FEV1% normal; FEF 25-75 moderately reduced. DIFFUSION: Moderately reduced. FLOW VOLUME LOOP: Restrictive configuration with terminal airflow obstruction. IMPRESSION: Moderately severe restrictive ventilatory defect with reduction in diffusion. There is terminal airflow obstruction and some improvement post-bronchodilator suggesting there may be a mild obstructive with reactive airways.
== END ==
LOC: HRSP 13:09
PROVIDERS: ATTEND Internal Medicine
DX: R06.02 Shortness of breath (principal); R05 Cough
CPT/HCPCS: 94060; 94620; 94726; 94729; 95012

== ENCOUNTER 2017-09-10 06:34 | Day surgery (SDC) | payer MEDICARE, BC ==
[2017-09-10] VITALS (8 sets, daily range): BP systolic 125–161; BP diastolic 66–93; PULSE 81–102; RESP 17–20; TEMP 98.4–98.6; O2SAT 92–99
[~2017-09-10] VITALS: Ht 165.1 cm; Wt 87.3 kg
[~2017-09-10 06:34] MED LIST changes: -ASPI81TA11 PO; +ASPI81TA23 PO; +METO1TAB42 PO; -METO25TA6 PO
[2017-09-10] MEDS ORDERED: VITACAP7 PO (06:54)
[2017-09-10] MEDS ORDERED: VITA500T4 PO (06:54)
[2017-09-10] MEDS ORDERED: PSYLPOW4 PO (06:54)
[2017-09-10] MEDS ORDERED: VITA2000 PO (06:54)
[2017-09-10] MEDS ORDERED: PLAV75TA29 PO (06:54)
[2017-09-10] MEDS ORDERED: MIRTA15 PO (06:54)
[2017-09-10] MEDS ORDERED: LACTCAP8 PO (06:54)
[2017-09-10] MEDS ORDERED: MSM1000C PO (06:54)
[2017-09-10] MEDS ORDERED: ESTETAB3 (06:54)
[2017-09-10] MEDS ORDERED: SODIUM CHLOR 0.9% 1000 ML IV SCH (07:00)
[2017-09-10] MEDS: LIDOCAINE 1%/EPINEPHrine 1:100,000 SOLN 20 ML VIAL ONE (07:12)
[2017-09-10 07:24] LABS: BASOPHIL # 0.1 TH/MM3 (0-0.2); BASOPHIL % 1.3 % (0.0-2.0); EOSINOPHIL # 0.3 TH/MM3 (0-0.4); EOSINOPHIL % 2.7 % (0.0-4.0); HEMATOCRIT 33.7 % (35.0-46.0); HEMO FLAGS DIFF FINAL; LYMPH % 17.2 % (9.0-44.0); LYMPHOCYTE # 1.7 TH/MM3 (1.0-4.8); MEAN CELL VOLUME 83.5 FL (80.0-100.0); MEAN CORPUSCULAR HGB CONC 33.5 % (32.0-36.0); MONO % 8.8 % (0.0-8.0); PLATELET COUNT 307 TH/MM3 (150-450); RED BLOOD COUNT 4.03 MIL/MM3 (4.00-5.30); RED CELL DISTRIBUTION WIDTH 14.5 % (11.6-17.2)
[2017-09-10 07:35] LABS: APTT (PATIENT) 29.2 SEC (24.3-30.1); PROTHROMBIN TIME - PATIENT 11.2 SEC (9.8-11.6)
[2017-09-10] MEDS ORDERED: LIDOCAINE HCL 1% 20 ML VIAL ONE (08:13)
[2017-09-10] MEDS ORDERED: MIDAZOLAM HCL 2 MG/2 ML VIAL ONE (08:19)
[2017-09-10] MEDS ORDERED: THROMBIN (TOPICAL) 5,000 UNIT VIAL ONE (08:20)
[2017-09-10] MEDS ORDERED: oxyCODONE/ACETAMINOPHEN 5 MG/325 MG TAB PO PRN (09:15)
[2017-09-10] MEDS ORDERED: GELATIN 12 MM/7 MM FOAM ONE (09:17)
--- NOTE | 2017-09-10 09:19 | PD.RAD ---
Post CT Procedure Prog Note Pre Procedure Diagnosis: (1) Lung mass Post Procedure Diagnosis: (1) Lung mass Procedure Date: Sep 10, 2017 Supervising Radiologist: Danny Stone JR Anesthesia: Conscious Sedation Plan of Activity Patient to Unit: ROPU Patient Condition: Good See PACS Report for procedural detail/treatment Biopsy Imaging Guidance: CT Biopsy Procedure: Mediastinal Mass Specimen: Core Biopsy Findings: Core sampling of large mediastinal mass performed without difficulty. Gelfoam/ thrombin utilized. No hemorrhage or PTX on post images. Jr. Chase,Danny Booker MD Sep 10, 2017 09:19
[2017-09-10] MEDS ORDERED: HYDROmorphone HCL PF 2 MG/ML VIAL ONE (09:20)
[2017-09-10] MEDS ORDERED: HYDROmorphone HCL PF 1 MG/ML VIAL IV PUSH ONE (09:30)
--- NOTE | 2017-09-10 09:49 | RADRPT ---
EXAM DATE/TIME: 09/10/2017 08:32 [facility] COMPARISON: No previous studies available for comparison. INDICATIONS : Right lung mass. SEDATION TIME: 30 minutes BIOPSY SITE: Right MEDICATION(S): 1.) 3 mg midazolam (Versed) IV 2.) 150 mcg fentanyl (Sublimaze) IV DEVICE(S): 1.) 18 gauge Temno core biopsy needle MEDICAL HISTORY : Cardiovascular disease. SURGICAL HISTORY : CABG ENCOUNTER: Initial ACUITY: 1 day PAIN SCORE: 0/10 LOCATION: Right chest A total of four core specimen(s) were obtained and sent to the laboratory for pathologic evaluation. PROCEDURE: 1. CT guided lung biopsy. 2. Conscious sedation with continuous EKG and oximetry monitoring. 3. EKG and oximetry remained stable throughout the procedure. Prior to the procedure informed consent was obtained. Any appropriate prior imaging studies were rev iewed. Using automated exposure control and adjustment of the mA and/or kV according to patient size, radiation dose was kept as low as reasonably achievable to obtain optimal diagnostic quality images. DICOM format image data is available electronically for review and comparison. The site was prepped in a sterile fashion. Full sterile technique was used, including cap, mask, emmy rile gloves and gown and a large sterile sheet. Hand hygiene and 2% chlorhexidine and/or betadine/al cohol prep was utilized per protocol for cutaneous antisepsis. The skin and subcutaneous tissues wer e infiltrated with local anesthetic solution. 1% lidocaine without epinephrine was utilized. With CT guidance the large mediastinal mass was localized. Utilizing a right parasternal approach bio psy was performed using the prescribed needle as above. Gelfoam and thrombin was injected to aid in h emostasis in this patient that is currently on Plavix. Adequate hemostasis was obtained with compress ion at the puncture site. Follow-up CT scan reveals no pneumothorax or hemorrhage. Conscious sedation was performed with the prescribed dosages and duration as above in the presence of an independent trained radiology nurse to assist in the monitoring of the patient. EKG and oximetry remained stable throughout the procedure. The patient tolerated the procedure well and there were no complications. The patient was sent to Radiology Outpatient Unit in stable condition. CONCLUSION: Uncomplicated CT guided core biopsy of a mediastinal mass. Danny Stnoe Jr., MD on September 10, 2017 at 9:45 Board Certified Radiologist. This report was verified electronically.
--- NOTE | 2017-09-10 12:08 | RADRPT ---
EXAM DATE/TIME: 09/10/2017 11:02 [facility] COMPARISON: No previous studies available for comparison. INDICATIONS : Evaluate for pneumothorax. Right lung biopsy. MEDICAL HISTORY : Cardiovascular disease. SURGICAL HISTORY : CABG. ENCOUNTER: Initial ACUITY: 1 day PAIN SCORE: 0/10 LOCATION: Bilateral chest FINDINGS: A single frontal view of the chest shows no pneumothorax following mediastinal biopsy. Large mediasti nal mass is seen on the right. Heart is mildly enlarged. Median sternotomy wires and mediastinal vasc ular clips noted. No effusions. CONCLUSION: No pneumothorax following mediastinal mass biopsy. Danny Stone Jr., MD on September 10, 2017 at 12:05 Board Certified Radiologist. This report was verified electronically.
[2017-09-10] MEDS ORDERED: ACETAMINOPHEN 325 MG TAB PO ONE (12:30)
== END 2017-09-10 13:20 | disposition home or self-care (01) ==
LOC: HRAD 06:34 → HRIP 06:38 → HRAD 13:20
PROVIDERS: ATTEND Internal Medicine
DX: C34.91 Malignant neoplasm of unspecified part of right bronchus or lung (principal); I25.10 Atherosclerotic heart disease of native coronary artery without angina pectoris; Z95.1 Presence of aortocoronary bypass graft
CPT/HCPCS: 32405; 71010; 77012; 85025; 85610; 85730; 88305; J1170; J2250; J3010; J7030

== ENCOUNTER 2017-09-11 11:04 | Observation (INO) | payer MEDICARE, BC ==
[~2017-09-11] VITALS: Ht 165.1 cm; Wt 87.0 kg
[2017-09-11] VITALS (7 sets, daily range): BP systolic 129–151; BP diastolic 69–84; PULSE 93–108; RESP 16–20; TEMP 97.6–99; O2SAT 92–96
[~2017-09-11 11:04] MED LIST changes: -BRIL90TA PO; -COQ-50CA2 PO; +ESTETAB3; -FLUO10TA PO; +LACTCAP8 PO; -METO1TAB42 PO; +MIRTA15 PO; +MSM1000C PO; +PLAV75TA29 PO; +PSYLPOW4 PO; +VITA2000 PO; +VITA500T4 PO; +VITACAP7 PO
[2017-09-11] MEDS ORDERED: IOHEXOL 350 MG/ML 10 ML VIAL (for RAD DIAG) IVCONTRAST ONE ×2 (11:05→15:43)
[2017-09-11] MEDS ORDERED: SODIUM CHLORIDE 0.9% FLUSH 10 ML FLUSH IVF PRN (11:30)
--- NOTE | 2017-09-11 11:41 | PD ---
HPI Chief Complaint: Respiratory Symptoms Time Seen by Provider: 11:24 Travel History International Travel<30 days: No Contact w/Intl Traveler<30days: No Traveled to known affect area: No History of Present Illness HPI 71-year-old female with history of chest mass recently biopsied yesterday with a needle biopsy right lower anterior chest wall, presents to emergency Department with increasing dyspnea shortness of breath and hypoxia. Patient states she was up all night despite. She was noted to have hypoxia in the 80s low 90s by EMS. Patient denies specific chest pain but overall feels unwell. Patient is followed by Dr. Hannon her quality control assistant. He denies fever, chills, or cough. Pain is about a 4 out of 10. Patient denies nausea or vomiting. She is allergic to lisinopril and epinephrine. PFSH Past Medical History Asthma: Yes Atrial Fibrillation: Yes Heart Rhythm Problems: Yes Cancer: Yes (MELANOMA) Cardiac Catheterization: Yes Cardiovascular Problems: Yes COPD: Yes Coronary Artery Disease: Yes Diabetes: No Diminished Hearing: No Endocrine: No Genitourinary: No Hiatal Hernia: Yes Hypertension: Yes Immune Disorder: No Reproductive: No Respiratory: Yes Thyroid Disease: No Past Surgical History Appendectomy: Yes Cardiac Surgery: Yes Coronary Artery Bypass Graft: Yes Thoracic Surgery: Yes Other Surgery: Yes (RIGHT LUNG BIOPSY) Social History Alcohol Use: No Tobacco Use: Yes Substance Use: No Allergies-Medications (Allergen,Severity, Reaction): Coded Allergies: epinephrine (Verified Adverse Reaction, Severe, Hypotension, 09/10/17) lisinopril (Verified Adverse Reaction, Severe, Cough, 09/10/17) Reported Meds & Prescriptions Reported Meds & Active Scripts Active Reported Probiotic (Lactobacillus Acidophilus) 10 Billion Cell Cap 1 Cap PO DAILY Psyllium Powder 100 % Pow 1 Scoop PO BID PRN 1 rounded TEASPOON in 8 oz of liquid at the first sign of irregularity. Vitamin B-12 (Cyanocobalamin) 500 Mcg Tab 1,000 Mcg PO DAILY B Complex (B-Complex Vitamins) 1 Cap 2 Cap PO DAILY Katharine-C 500 mg Tablet (Ascorbate Calcium/Bioflavonoid) 500 Mg-200 Mg Tablet DAILY Vitamin D3 (Cholecalciferol) 2,000 Unit Cap 2,000 Units PO DAILY Msm (Methylsulfonylmethane) 1,000 Mg Cap 1,500 Mg PO DAILY Mirtazapine 15 Mg Tab 22 Mg PO HS Plavix (Clopidogrel Bisulfate) 75 Mg Tab 75 Mg PO DAILY Nitrostat SL (Nitroglycerin) 0.4 Mg Subl 0.4 Mg SL DIRECTED PRN 1 tablet under the tongue as needed for chest pain. Repeat every 5 minutes for a total of 3 DOSES or call 911 if NO relief. Losartan (Losartan Potassium) 25 Mg Tab 50 Mg PO DAILY Glucosamine (Glucosamine Sulfate) 750 Mg Cap 1,500 Mg PO DAILY Atorvastatin (Atorvastatin Calcium) 40 Mg Tab 40 Mg PO HS Aspirin EC (Aspirin) 81 Mg Tabdr 81 Mg PO DAILY Review of Systems Except as stated in HPI: all other systems reviewed are Neg General / Constitutional: No: Fever Eyes: No: Visual changes HENT: No: Headaches Cardiovascular: Positive: Chest Pain or Discomfort, Dyspnea on exertion, No: Palpitations, Irregular Rhythm, Tachycardia, Diaphoresis, Edema, Cyanosis Respiratory: Positive: Shortness of Breath (see history present illness) Gastrointestinal: No: Abdominal Pain Genitourinary: No: Dysuria Musculoskeletal: No: Pain Skin: No Rash Neurologic: No: Weakness Psychiatric: No: Depression Endocrine: No: Polydipsia Hematologic/Lymphatic: No: Easy Bruising Physical Exam Narrative GENERAL: Patient is visibly dyspneic and anxious. SKIN: Warm and dry. Decreased pallor. Normal turgor. She has bruising around the needle biopsy site in the right anterior lower chest, without signs of acute bleeding or wound dehiscence. No signs of cellulitis. HEAD: Atraumatic. Normocephalic. EYES: Pupils equal and round. No scleral icterus. No injection or drainage. ENT: No nasal bleeding or discharge. Mucous membranes pink and moist. Pharynx is clear. Airway is patent. NECK: Trachea midline. Supple nontender. CARDIOVASCULAR: Regular rate and rhythm. No murmurs gallops or rubs appreciated. RESPIRATORY: No accessory muscle use. Clear to auscultation. Breath sounds equal bilaterally. No wheezes rales or crackles. GASTROINTESTINAL: Abdomen soft, non-tender, nondistended. Hepatic and splenic margins not palpable. MUSCULOSKELETAL: Extremities without clubbing, cyanosis, or edema. No obvious deformities. NEUROLOGICAL: Awake and alert. No obvious cranial nerve deficits. Motor grossly within normal limits. Five out of 5 muscle strength in the arms and legs. Normal speech. PSYCHIATRIC: Appropriate mood and affect; insight and judgment normal. Data Data Last Documented VS Vital Signs Date Time Temp Pulse Resp B/P (MAP) Pulse Ox O2 Delivery O2 Flow Rate FiO2 09/11/17 14:59 97.8 108 20 151/84 (106) 95 Nasal Cannula 3.00 Orders Orders Complete Blood Count With Diff (09/11/17 11:27) Comprehensive Metabolic Panel (09/11/17 11:27) B-Type Natriuretic Peptide (09/11/17 11:27) Act Partial Throm Time (Ptt) (09/11/17 11:27) Prothrombin Time / Inr (Pt) (09/11/17 11:27) Magnesium (Mg) (09/11/17 11:27) Ckmb (Isoenzyme) Profile (09/11/17 11:27) Troponin I (09/11/17 11:27) Urinalysis - C+S If Indicated (09/11/17 11:27) Iv Access Insert/Monitor (09/11/17 11:27) Electrocardiogram (09/11/17 11:27) Ecg Monitoring (09/11/17 11:27) Oximetry (09/11/17 11:27) Oxygen Administration (09/11/17 11:27) Sodium Chloride 0.9% Flush (Ns Flush) (09/11/17 11:30) Chest, Single Ap (09/11/17 11:49) Lactic Acid (09/11/17 12:11) Blood Culture (09/11/17 12:11) Ct Pulmonary Angiogram (09/11/17 12:15) Ceftriaxone Inj (Rocephin Inj) (09/11/17 12:30) Azithromycin Inj (Zithromax Inj) (09/11/17 12:30) Acetaminophen (Tylenol) (09/11/17 12:30) Albuterol-Ipratropium Neb (Duoneb Neb) (09/11/17 12:30) Methylprednisolone So Succ Inj (Solumedr (09/11/17 12:30) Iohexol 350 Inj (Omnipaque 350 Inj) (09/11/17 11:05) Consult Pulmonology (09/11/17 ) Labs Laboratory Tests Test 09/11/17 11:30 09/11/17 12:28 09/11/17 14:12 White Blood Count 13.4 TH/MM3 Red Blood Count 3.94 MIL/MM3 Hemoglobin 10.8 GM/DL Hematocrit 32.7 % Mean Corpuscular Volume 83.0 FL Mean Corpuscular Hemoglobin 27.4 PG Mean Corpuscular Hemoglobin Concent 33.0 % Red Cell Distribution Width 14.1 % Platelet Count 300 TH/MM3 Mean Platelet Volume 7.2 FL Neutrophils (%) (Auto) 81.9 % Lymphocytes (%) (Auto) 7.4 % Monocytes (%) (Auto) 9.6 % Eosinophils (%) (Auto) 0.1 % Basophils (%) (Auto) 1.0 % Neutrophils # (Auto) 11.0 TH/MM3 Lymphocytes # (Auto) 1.0 TH/MM3 Monocytes # (Auto) 1.3 TH/MM3 Eosinophils # (Auto) 0.0 TH/MM3 Basophils # (Auto) 0.1 TH/MM3 CBC Comment DIFF FINAL Differential Comment Prothrombin Time 11.6 SEC Prothromb Time International Ratio 1.0 RATIO Activated Partial Thromboplast Time 28.9 SEC Blood Urea Nitrogen 12 MG/DL Creatinine 0.63 MG/DL Random Glucose 140 MG/DL Total Protein 7.6 GM/DL Albumin 2.8 GM/DL Calcium Level 9.2 MG/DL Magnesium Level 1.7 MG/DL Alkaline Phosphatase 141 U/L Aspartate Amino Transf (AST/SGOT) 87 U/L Alanine Aminotransferase (ALT/SGPT) 21 U/L Total Bilirubin 0.6 MG/DL Sodium Level 135 MEQ/L Potassium Level 3.6 MEQ/L Chloride Level 98 MEQ/L Carbon Dioxide Level 27.9 MEQ/L Anion Gap 9 MEQ/L Estimat Glomerular Filtration Rate 93 ML/MIN Total Creatine Kinase 70 U/L Troponin I 0.02 NG/ML B-Type Natriuretic Peptide 212 PG/ML Lactic Acid Level 1.4 mmol/L [facility] Medical Decision Making Medical Screen Exam Complete: Yes Emergency Medical Condition: Yes Medical Record Reviewed: Yes Differential Diagnosis Dyspnea secondary to chest mass. Hemothorax. Pneumothorax. Pneumonia. Cardiac syndrome. Narrative Course Patient is dyspneic but appears medically stable. EKG shows sinus rhythm at 95 bpm with marked left axis deviation. Question anterior myocardial infarction by EKG, but this is reviewed with Dr. de la rosa who feels this is probably old. Labs ordered including CBC, CMP, magnesium, cardiac panel, and urinalysis. Chest x-ray is ordered. Patient is placed on 2 L nasal cannula O2. CBC shows leukocytosis of 13.4, hemoglobin is 12.8, hematocrit is 32.7. Differential shows 81.9% neutrophils, 7.4% lymphocytes, and 9.6% monocytes. Coagulation studies are normal. CMP is unremarkable except for sodium 135, random glucose is 140, alkaline phosphatase is elevated 141, BNP is 212, albumin is 2.8. Lactic acid is lactic acid is 1.4. Blood cultures are ordered due to the leukocytosis. Chest x-ray is read as unchanged from yesterday. CTA is ordered to rule out PE as well as possible pneumonia not seen on chest x- ray. Patient is given azithromycin 500 mg IV as well as 1000 mg ceftriaxone IV, 650 mg Tylenol by mouth. DuoNeb 3 is ordered. Methylprednisone 125 mg IV push was given. CTA shows: CONCLUSION: 1. No evidence for pulmonary embolism. 2. Large right upper lobe mass with scattered pulmonary nodules likely metastatic. 3. Mediastinal lymphadenopathy. 4. Patchy densities right lower lobe. 5. Small right pleural effusion. Call was placed to Dr. Hannon, the patient's quality control assistant to discuss the patient. Patient was discussed with Dr. Misha Hannon, who agreed the patient warranted observation. Dr. Hannon also recommended cardiology consult as the patient has recent stent placement and he wants to make sure she is on the correct medications as these were stopped for her needle biopsy yesterday. Call is placed to the hospitalist for admission. Diagnosis Primary Impression: Hypoxia Additional Impressions: Lung mass Elevated white blood cell count, unspecified Qualified Codes: D72.829 - Elevated white blood cell count, unspecified Admitting Information Admitting Physician Requests: Admit Condition: Stable Candelario Huynh Sep 11, 2017 11:41
[2017-09-11 11:46] LABS: BASOPHIL # 0.1 TH/MM3 (0-0.2); EOSINOPHIL % 0.1 % (0.0-4.0); HEMATOCRIT 32.7 % (35.0-46.0); HEMO FLAGS DIFF FINAL; LYMPH % 7.4 % (9.0-44.0); MEAN CORPUSCULAR HEMOGLOBIN 27.4 PG (27.0-34.0); MONO % 9.6 % (0.0-8.0); NEUT % 81.9 % (16.0-70.0); PLATELET COUNT 300 TH/MM3 (150-450); RED BLOOD COUNT 3.94 MIL/MM3 (4.00-5.30); RED CELL DISTRIBUTION WIDTH 14.1 % (11.6-17.2); WHITE BLOOD COUNT 13.4 TH/MM3 (4.0-11.0)
[2017-09-11 11:55] LABS: APTT (PATIENT) 28.9 SEC (24.3-30.1); PROTHROMBIN TIME - PATIENT 11.6 SEC (9.8-11.6)
[2017-09-11 12:13] LABS: ALT (GPT) 21 U/L (10-53); ANION GAP 9 MEQ/L (5-15); AST (GOT) 87 U/L (15-37); BICARBONATE 27.9 MEQ/L (21.0-32.0); BLOOD UREA NITROGEN 12 MG/DL (7-18); CHLORIDE 98 MEQ/L (98-107); GLOMERULAR FILTRATION RATE 93 ML/MIN (>89); MAGNESIUM 1.7 MG/DL (1.5-2.5); POTASSIUM 3.6 MEQ/L (3.5-5.1); SODIUM (NA) 135 MEQ/L (136-145)
[2017-09-11 12:18] LABS: ALKALINE PHOSPHATASE 141 U/L (45-117); TOTAL BILIRUBIN ADULT 0.6 MG/DL (0.2-1.0)
[2017-09-11 12:22] LABS: CREATINE KINASE 70 U/L (26-192)
--- NOTE | 2017-09-11 12:28 | RADRPT ---
EXAM DATE/TIME: 09/11/2017 12:02 [facility] COMPARISON: CHEST EXPIRATION ONLY, September 10, 2017, 11:02. INDICATIONS : Shortness of breath, s/p right lung biopsy yesterday. MEDICAL HISTORY : Myocardial infarction. Right lung mass, SURGICAL HISTORY : CABG. Right lung biopsy ENCOUNTER: Subsequent ACUITY: 2 days PAIN SCORE: 10/10 LOCATION: Right chest FINDINGS: There's been no change in the large mediastinal mass extending over the right hemithorax. There is no evidence of pneumothorax. The heart size is stable. No definite acute infiltrates. There no pleural effusions. Compared to the prior study there has been no significant changes. CONCLUSION: Stable AP view the chest compared to the prior study. No evidence of pneumothorax. Edwar Coon MD on September 11, 2017 at 12:26 Board Certified Radiologist. This report was verified electronically.
[2017-09-11] MEDS: RESP: ALBUTEROL 2.5 MG/IPRATROPIUM 0.5 MG NEB (SCH) INH ×3 (12:29→20:07)
[2017-09-11] MEDS ORDERED: methylPREDNISolone SOD SUCC 125 MG/2 ML VIAL IV PUSH ONE (12:30)
[2017-09-11] MEDS ORDERED: AZITHROMYCIN INJ 500 MG in SODIUM CHLOR 0.9% 250 ML INJ 250 ML IV ONE (12:30)
[2017-09-11] MEDS ORDERED: cefTRIAXone INJ 1,000 MG in SODIUM CHLORIDE 0.9% INJ 100 ML IV ONE (12:30)
[2017-09-11] MEDS ORDERED: ACETAMINOPHEN 325 MG TAB PO ONE (12:30)
--- NOTE | 2017-09-11 13:53 | RADRPT ---
EXAM DATE/TIME: 09/11/2017 13:23 [facility] COMPARISON: No previous studies available for comparison. INDICATIONS : Post needle biopsy for mass, evaluate for PE. Shortness of breath. IV CONTRAST: 75 cc Omnipaque 350 (iohexol) IV RADIATION DOSE: 23.17 CTDIvol (mGy) MEDICAL HISTORY : Cardiovascular disease. Hypertension. Chronic obstructive pulmonary disease.Asthma, Melanoma. SURGICAL HISTORY : None. ENCOUNTER: Initial ACUITY: 1 day PAIN SCALE: 6/10 LOCATION: chest TECHNIQUE: Volumetric scanning of the chest was performed using a pulmonary embolism protocol MIP images were re constructed. Using automated exposure control and adjustment of the mA and/or kV according to patien t size, radiation dose was kept as low as reasonably achievable to obtain optimal diagnostic quality images. DICOM format image data is available electronically for review and comparison. Follow-up recommendations for detected pulmonary nodules are based at a minimum on nodule size and pa tient risk factors according to Fleischner Society Guidelines. FINDINGS: PULMONARY ARTERIES: No filling defects are seen in the pulmonary arteries through the segmental level. LUNGS: There is a large right upper lobe mass which is contiguous with the mediastinum measuring 11.8 x 6.9 cm. A few scattered subcentimeter nodules measuring 5-6 mm in the right lung. Patchy densities right lower lobe. Nodule left lower lobe measures 1.3 x 0.8 cm. PLEURAE: There is no pleural thickening or pleural effusion on the left. Small right pleural effusion. MEDIASTINUM: There are some borderline prominent lymph nodes in AP window. Subcarinal adenopathy measures 1.6 cm i n AP dimension. Right distal paratracheal/precarinal adenopathy measures 3.0 x 1.4 cm.There is good v isualization of the great vessels of the middle mediastinum. MUSCULOSKELETAL: Within normal limits for patient age. MISCELLANEOUS: The visualized upper abdominal organs demonstrate no acute abnormality. CONCLUSION: 1. No evidence for pulmonary embolism. 2. Large right upper lobe mass with scattered pulmonary nodules likely metastatic. 3. Mediastinal lymphadenopathy. 4. Patchy densities right lower lobe. 5. Small right pleural effusion. Mumtaz Jang MD on September 11, 2017 at 13:30 Board Certified Radiologist. This report was verified electronically.
[2017-09-11 15:38] LABS: BLOOD, URINE NEG (NEG); GLUCOSE,URINE NEG (NEG); KETONE, URINE NEG (NEG); NITRITE,URINE NEG (NEG); PH, URINE 5.5 (5.0-8.5); URINE COLOR YELLOW (YELLW/STRAW)
[2017-09-11 15:39] LABS: WBC, URINE 0-2 /hpf (0-5)
[2017-09-11 15:40] LABS: BACTERIA, URINE RARE /hpf; COMMENT (UR) CULT NOT INDICATED; CULTURE IF INDICATED CULT NOT INDICATED; RBC, URINE 0 /hpf (0-3); TRANSITIONAL EPI CELLS, URINE 0-5 /hpf
[2017-09-11] MEDS ORDERED: NALOXONE HCL 0.4 MG/ML AMP IV PUSH PRN (15:45)
[2017-09-11] MEDS ORDERED: SODIUM CHLORIDE 0.9% FLUSH 10 ML FLUSH IV FLUSH PRN (15:45)
[2017-09-11] MEDS ORDERED: ONDANSETRON HCL 4 MG/2 ML VIAL IVP PRN (16:00)
[2017-09-11] MEDS ORDERED: MAGNESIUM HYDROXIDE SUSP 30 ML CUP PO PRN (16:00)
--- NOTE | 2017-09-11 16:53 | MB ---
cc: CHRIS CERVANTES MD, GLEN DATE OF CONSULTATION: 09/11/2017. REASON FOR CONSULTATION: Shortness of breath, fairly recent cardiac stenting. HISTORY OF PRESENT ILLNESS: The patient is a 71-year-old white female, followed in our office by Dr. Chris Cervantes, with a history of coronary artery disease, asthma, COPD, hypertension, remote history of paroxysmal atrial fibrillation who presented to the hospital with severe shortness of breath. She had undergone a needle biopsy of a right lung mass yesterday and shortly thereafter she began to experience progressively worsening shortness of breath. Since coming into the hospital, particularly with breathing treatments and oxygen and supplemental oxygen, her breathing has considerably improved. She denies any recent angina, dizziness, syncope, near-syncope, palpitations. Chronically she experiences intermittent dependent pedal edema. She has had minimal nonproductive cough and denies any wheezing. PAST MEDICAL HISTORY: 1. Coronary artery disease status post bypass surgery in 2010, status post stent of the vein graft to the posterolateral branch with a 2.5-mm Resolute Jarret stent 08/03/[address] Cuong Gunn. At that time, heart catheterization showed minimal left main disease, totally occluded mid left anterior descending, totally occluded mid left circumflex, totally occluded mid obtuse marginal, 80% mid right coronary artery stenosis, subtotally occluded posterior descending artery, patent left internal mammary artery to the left anterior descending, vein graft to the first obtuse marginal, vein graft to the second obtuse marginal, 90% lesion in the proximal portion of the vein graft to the posterolateral branch, known chronically occluded vein graft to the diagonal. 2. Asthma. 3. Paroxysmal atrial fibrillation in (from what I can tell it is only at the time of her bypass surgery). 4. Hyperlipidemia. 5. Hypertension 6. COPD. CARDIAC MEDICATIONS AT HOME: 1. Aspirin 81 milligrams daily. 2. Atorvastatin 40 milligrams at bedtime. 3. Losartan 50 milligrams daily. 4. Plavix 75 milligrams daily. ALLERGIES: 1. EPINEPHRINE. 2. LISINOPRIL. FAMILY HISTORY: Noncontributory. SOCIAL HISTORY: The patient quit smoking thirty years ago. She denies alcohol abuse. REVIEW OF SYSTEMS: Review of systems as in the history of present illness otherwise negative or noncontributory. She also denies headache, abdominal pain, melena, dyspepsia, bright red blood per rectum, fevers, chills. PHYSICAL EXAMINATION: VITAL SIGNS: On physical examination her blood pressure 151/84 with a pulse of 110, respirations 20. GENERAL: In general she is a well-developed, well-nourished white female in no acute distress HEAD, EYES, EARS, NOSE, THROAT: On HEENT examination, jugular venous pressure is normal. Carotid pulses are 2+ bilaterally and without bruits. CHEST: Examination of the chest reveals diminished breath sounds at the bases. CARDIAC: On cardiac examination she has a tachycardiac regular rhythm without S3, S4 or murmur. ABDOMEN: On abdominal examination she has a soft, obese, nontender abdomen. Bowel sounds are present. There is no definite hepatosplenomegaly. EXTREMITIES: Examination of extremities reveals no clubbing, cyanosis or edema. EKGS: EKG shows sinus rhythm, poor R-wave progression, left axis deviation. LABORATORY DATA: Laboratory data includes WBCs 13.4, hemoglobin 10.8, platelets 300. Potassium 3.6, BUN 12, creatinine 0.63. CK 70, troponin 0.02. Brain natriuretic peptide level 212. IMAGING STUDIES: Chest CT shows no evidence for pulmonary embolism, right upper lobe mass with scattered pulmonary nodules, mediastinal lymphadenopathy IMPRESSION: Probably overall stable cardiac status in this 71-year-old white female with a history of coronary artery disease status post bypass surgery 2010, status post stent of the vein graft to the posterolateral branch last month, history of hyperlipidemia, hypertension, COPD, paroxysmal atrial fibrillation. There is no definite evidence for acute coronary syndrome. No diagnostic S-T segment or T-wave changes are seen on EKG. Initial cardiac enzymes are negative. There is no definitive evidence for congestive heart failure. It appears most of her dyspnea is due to the large right upper lobe mass as well as COPD. She remains in sinus rhythm. From what I can tell, her atrial fibrillation was only at the time of her bypass surgery six years ago. Lastly, reportedly they did not have to stop her antiplatelet therapy for the needle biopsy yesterday. RECOMMENDATIONS: Continue her usual home cardiac medications. MD KANE Byrne/JCC /4:36 PM /4:47 PM [id number]
--- NOTE | 2017-09-11 16:55 | HHI.HP ---
HPI Service [facility] Primary Care Physician Ekta Bro MD Admission Diagnosis Hypoxia/Lung Mass/Dyspnea Diagnoses: Chief Complaint: Increase SOB Travel History International Travel<30 Days: No Contact w/Intl Traveler <30 Da: No Traveled to Known Affected Are: No Sepsis Criteria SIRS Criteria (2 or more): Heart rate over 90, WBC > 94318, < 4000 or > 10% bands Sepsis Criteria (SIRS+source): Infect source susp/known Criteria Outcome: Meets SIRS criteria, Meets sepsis criteria History of Present Illness Written by Kentrell Ovalle, acting as scribe for Dr. Billy on 09/11/17 at 16: 55. Patient is a 71 year old female with PMHX chest mass, COPD, CAD, Afib who came in to the hospital for increasing SOB. Patient had needle lung biopsy done yesterday Right lower anterior chest wall. States that yesterday, she was feeling "okay" after the needle biopsy and she went home with brother. Last night, she started to be SOB, unable to sleep. Shortness of breath continued until the AM, EMS called and noted her O2 sat 80's low 90's. She was given nebulizer treatments, IV steroid, antibiotics and states she felt improved on exam. Occasionally SOB especially with exertion Denies chest pain, palpitations. Denies fevers, chills, n/v/d. Denies pain or discomfort. Review of Systems Except as stated in HPI: all other systems reviewed are Neg Past Family Social History Past Medical History Asthma Atrial fibrillation, paroxysmal Melanoma COPD HTN HLD Past Surgical History Lung biopsy CABG in 2011 Stent placement Appendectomy Reported Medications Reported Meds & Active Scripts Active Reported Probiotic (Lactobacillus Acidophilus) 10 Billion Cell Cap 1 Cap PO DAILY Psyllium Powder 100 % Pow 1 Scoop PO BID PRN 1 rounded TEAS[place] in 8 oz of liquid at the first sign of irregularity. Vitamin B-12 (Cyanocobalamin) 500 Mcg Tab 1,000 Mcg PO DAILY B Complex (B-Complex Vitamins) 1 Cap 2 Cap PO DAILY Katharine-C 500 mg Tablet (Ascorbate Calcium/Bioflavonoid) 500 Mg-200 Mg Tablet DAILY Vitamin D3 (Cholecalciferol) 2,000 Unit Cap 2,000 Units PO DAILY Msm (Methylsulfonylmethane) 1,000 Mg Cap 1,500 Mg PO DAILY Mirtazapine 15 Mg Tab 22 Mg PO HS Plavix (Clopidogrel Bisulfate) 75 Mg Tab 75 Mg PO DAILY Nitrostat SL (Nitroglycerin) 0.4 Mg Subl 0.4 Mg SL DIRECTED PRN 1 tablet under the tongue as needed for chest pain. Repeat every 5 minutes for a total of 3 DOSES or call 911 if NO relief. Losartan (Losartan Potassium) 25 Mg Tab 50 Mg PO DAILY Glucosamine (Glucosamine Sulfate) 750 Mg Cap 1,500 Mg PO DAILY Atorvastatin (Atorvastatin Calcium) 40 Mg Tab 40 Mg PO HS Aspirin EC (Aspirin) 81 Mg Tabdr 81 Mg PO DAILY Allergies: Coded Allergies: epinephrine (Verified Adverse Reaction, Severe, Hypotension, 09/10/17) lisinopril (Verified Adverse Reaction, Severe, Cough, 09/10/17) Active Ordered Medications Current Medications Medications (Trade) Dose Ordered Sig/Ramakrishna Route Start Time Stop Time Status Last Admin (NS Flush) 2 ml UNSCH PRN IVF 09/11/17 11:30 (NS Flush) 2 ml UNSCH PRN IV FLUSH 09/11/17 15:45 (NS Flush) 2 ml BID IV FLUSH 09/11/17 21:00 (Zofran Inj) 4 mg Q6H PRN IVP 09/11/17 16:00 (Narcan Inj) 0.4 mg UNSCH PRN IV PUSH 09/11/17 15:45 (Milk Of Magnesia Liq) 30 ml Q12HR PRN PO 09/11/17 16:00 (Plavix) 75 mg DAILY PO 09/11/17 16:45 09/11/17 17:08 (Ecotrin Ec) 81 mg DAILY PO 09/11/17 16:45 09/11/17 17:08 (Lipitor) 40 mg HS PO 09/11/17 21:00 (Cozaar) 50 mg DAILY PO 09/11/17 16:45 09/11/17 17:08 (Duoneb Neb) 1 ampule TID NEB INH 09/11/17 20:00 UNV (SoluMEDROL INJ) 40 mg Q8HR IV PUSH 09/11/17 22:00 UNV Family History Father's of cancer from smoking Mother of complications of COPD Siblings have coronary artery bypass and stent placements Social History Denies alcohol use Former smoker, quit 30 years ago Denies illicit drug use Physical Exam Vital Signs Vital Signs Date Time Temp Pulse Resp B/P (MAP) Pulse Ox O2 Delivery O2 Flow Rate FiO2 09/11/17 16:25 97.8 102 20 129/69 (89) 96 Nasal Cannula 3.00 09/11/17 14:59 97.8 108 20 151/84 (106) 95 Nasal Cannula 3.00 09/11/17 12:30 99 16 141/79 (99) 96 Nasal Cannula 2.00 09/11/17 11:05 99.0 93 20 133/74 (93) 95 09/11/17 11:05 94 20 95 Nasal Cannula 2.00 09/11/17 11:05 95 Nasal Cannula 2.00 09/11/17 11:05 95 Nasal Cannula 2.00 Physical Exam GENERAL: This is an obese, well-developed patient, short of breath. SKIN: No rashes, ecchymoses or lesions. Cool and dry. HEAD: Normocephalic. EYES: Pupils equal round and reactive. Extraocular motions intact. No scleral icterus. No injection or drainage. ENT: Nose without bleeding. Throat without erythema. Uvula midline. Airway patent. NECK: Trachea midline. Supple. CARDIOVASCULAR: Irregular without murmurs, gallops, or rubs. RESPIRATORY:No rales, or rhonchi. Left side wheezing. GASTROINTESTINAL: Abdomen soft, non-tender, nondistended. Bowel sounds active 4. MUSCULOSKELETAL: Extremities without clubbing, cyanosis, or edema. No joint tenderness, effusion, or edema noted. No calf tenderness. NEUROLOGICAL: Awake and alert. Cranial nerves II through XII intact. Motor and sensory grossly within normal limits. Normal speech. Laboratory Laboratory Tests Test 09/11/17 11:30 09/11/17 12:28 09/11/17 14:12 White Blood Count 13.4 Red Blood Count 3.94 Hemoglobin 10.8 Hematocrit 32.7 Mean Corpuscular Volume 83.0 Mean Corpuscular Hemoglobin 27.4 Mean Corpuscular Hemoglobin Concent 33.0 Red Cell Distribution Width 14.1 Platelet Count 300 Mean Platelet Volume 7.2 Neutrophils (%) (Auto) 81.9 Lymphocytes (%) (Auto) 7.4 Monocytes (%) (Auto) 9.6 Eosinophils (%) (Auto) 0.1 Basophils (%) (Auto) 1.0 Neutrophils # (Auto) 11.0 Lymphocytes # (Auto) 1.0 Monocytes # (Auto) 1.3 Eosinophils # (Auto) 0.0 Basophils # (Auto) 0.1 CBC Comment DIFF FINAL Differential Comment Prothrombin Time 11.6 Prothromb Time International Ratio 1.0 Activated Partial Thromboplast Time 28.9 Blood Urea Nitrogen 12 Creatinine 0.63 Random Glucose 140 Total Protein 7.6 Albumin 2.8 Calcium Level 9.2 Magnesium Level 1.7 Alkaline Phosphatase 141 Aspartate Amino Transf (AST/SGOT) 87 Alanine Aminotransferase (ALT/SGPT) 21 Total Bilirubin 0.6 Sodium Level 135 Potassium Level 3.6 Chloride Level 98 Carbon Dioxide Level 27.9 Anion Gap 9 Estimat Glomerular Filtration Rate 93 Total Creatine Kinase 70 Troponin I 0.02 B-Type Natriuretic Peptide 212 Lactic Acid Level 1.4 Urine Color YELLOW Urine Turbidity CLEAR Urine pH 5.5 Urine Specific Witten 1.028 Urine Protein NEG Urine Glucose (UA) NEG Urine Ketones NEG Urine Occult Blood NEG Urine Nitrite NEG Urine Bilirubin NEG Urine Urobilinogen LESS THAN 2.0 Urine Leukocyte Esterase NEG Urine RBC 0 Urine WBC 0-2 Urine Transitional Epithelial Cells 0-5 Urine Bacteria RARE Microscopic Urinalysis Comment CULT NOT INDICATED Date/Time Source Procedure Growth Status 09/11/17 12:28 Blood Peripheral Aerobic Blood Culture Pending Received 09/11/17 12:28 Blood Peripheral Anaerobic Blood Culture Pending Received Result Diagram: 09/11/17 1130 09/11/17 [address] Angiography 09/11/17 1215 Signed Impressions: Service Date/Time: Monday, September 11, 2017 13:23 - CONCLUSION: 1. No evidence for pulmonary embolism. 2. Large right upper lobe mass with scattered pulmonary nodules likely metastatic. 3. Mediastinal lymphadenopathy. 4. Patchy densities right lower lobe. 5. Small right pleural effusion. Mumtaz Jang MD Chest X-Ray 09/11/17 1149 Signed Impressions: Service Date/Time: Monday, September 11, 2017 12:02 - CONCLUSION: Stable AP view the chest compared to the prior study. No evidence of pneumothorax. Edwar J. Siragusa, MD Caprini VTE Risk Assessment Caprini VTE Risk Assessment: Mod/High Risk (score >= 2) Caprini Risk Assessment Model Point Value = 1 Point Value = 2 Point Value = 3 Point Value = 5 Age 41-60 Minor surgery BMI > 25 kg/m2 Swollen legs Varicose veins or History of unexplained or recurrent spontaneous Oral contraceptives or hormone replacement Sepsis (< 1 month) Serious lung disease, including pneumonia (< 1 month) Abnormal pulmonary function Acute myocardial infarction Congestive heart failure (< 1 month) History of inflammatory bowel disease Medical patient at bed rest Age 61-74 Arthroscopic surgery Major open surgery (> 45 min) Laparoscopic surgery (> 45 min) Malignancy Confined to bed (> 72 hours) Immobilizing plaster cast Central venous access Age >= 75 History of VTE Family history of VTE Factor V Leiden Prothrombin [id number] Lupus anticoagulant Anticardiolipin antibodies Elevated serum homocysteine Heparin-induced thrombocytopenia Other congenital or acquired thrombophilia Stroke (< 1 month) Elective arthroplasty Hip, pelvis, or leg fracture Acute spinal cord injury (< 1 month) Prophylaxis Regimen Total Risk Factor Score Risk Level Prophylaxis Regimen 0-1 Low Early ambulation 2 Moderate Order ONE of the following: *Sequential Compression Device (SCD) *Heparin 5000 units SQ BID 3-4 Higher Order ONE of the following medications: *Heparin 5000 units SQ TID *Enoxaparin/Lovenox 40 mg SQ daily (WT < 150 kg, CrCl > 30 mL/min) *Enoxaparin/Lovenox 30 mg SQ daily (WT < 150 kg, CrCl > 10-29 mL/min) *Enoxaparin/Lovenox 30 mg SQ BID (WT < 150 kg, CrCl > 30 mL/min) AND/OR *Sequential Compression Device (SCD) 5 or more Highest Order ONE of the following medications: *Heparin 5000 units SQ TID (Preferred with Epidurals) *Enoxaparin/Lovenox 40 mg SQ daily (WT < 150 kg, CrCl > 30 mL/min) *Enoxaparin/Lovenox 30 mg SQ daily (WT < 150 kg, CrCl > 10-29 mL/min) *Enoxaparin/Lovenox 30 mg SQ BID (WT < 150 kg, CrCl > 30 mL/min) AND *Sequential Compression Device (SCD) Assessment and Plan Problem List: (1) CAD (coronary artery disease) ICD Code: I25.10 - Atherosclerotic heart disease of [place] coronary artery without angina pectoris (2) HTN (hypertension) ICD Code: I10 - Essential (primary) hypertension (3) HLD (hyperlipidemia) ICD Code: E78.5 - Hyperlipidemia, unspecified (4) Lung mass ICD Code: R91.8 - Other nonspecific abnormal finding of lung field (5) Hypoxia ICD Code: R09.02 - Hypoxemia Status: Acute (6) Hx of CABG ICD Code: Z95.1 - Presence of aortocoronary bypass graft Assessment and Plan Patient is a 71 year old female with PMHX chest mass, COPD, CAD, Afib who came in to the hospital for increasing SOB. Acute Respiratory Failure Sepsis Right Chest Mass, S/P Needle Lung Biopsy Suspect Inflammation vs PNA Infection vs COPD exacerbation R/O PE - WBC 13.4, HR>90 - Chest x-ray showed stable AP view and chest compared to prior study. No evidence of pneumothorax. - CTA showed 1. No evidence for pulmonary embolism. 2. Large right upper lobe mass with scattered pulmonary nodules likely metastatic. 3. Mediastinal lymphadenopathy. 4. Patchy densities right lower lobe. 5. Small right pleural effusion. - Suspicious for inflammatory changes possibly status post needle lung biopsy , also patient may have accumulated blood in the pleura - She was given ceftriaxone IV, azithromycin IV, Solu-Medrol 125 mg 1 dose ED - Continue medium dose Solu-Medrol 40 mg every 8 hours - Blood cultures, follow-up results. Lactic acid 1.4 - Duonebs scheduled and PRN - O2 nc, maintain O2 sat greater than 90% - Walk test, may need O2 at home - Consult pulmonology, pt. being followed by Dr. Hannon for further recommendations Afib, paroxysmal, chronic CAD, Hx CABG HTN - BNP 212 - Continue atorvastatin, aspirin, Plavix, losartan - Monitor BP trend - Consult cardiology secondary to patient's cardiac history that may contribute to respiratory failure Case management - Consult for walk test possibly may need O2 for home DVT Prop SCDs Code Status Full code Discussed Condition With Patient, nursing, ED Attending This note was transcribed by graham [Kentrell Ovalle]. I, Dr. El Billy personally performed the history, physical exam, and medical decision making; and confirmed the accuracy of the information in the transcribed note. Authenticated by Dr. El Billy on 11/17/17 at 18:23. Kentrell Li Sep 11, 2017 16:55 El Billy MD Sep 11, 2017 18:24
[2017-09-11] MEDS: CLOPIDOGREL 75 MG TAB PO SCH (17:08)
[2017-09-11] MEDS: ASPIRIN EC 81 MG TABEC PO SCH (17:08)
[2017-09-11] MEDS: LOSARTAN 50 MG TAB PO SCH (17:08)
[2017-09-11] MEDS ORDERED: PSYLLIUM FIBER SF/GF 6 GM POWD PKT PO PRN (18:15)
[2017-09-11] MEDS ORDERED: methylPREDNISolone SOD SUCC 40 MG/1 ML VIAL IV PUSH ONE (18:30)
[2017-09-11] MEDS ORDERED: NITROGLYCERIN 0.4 MG SL 25 TABS/BTL SL PRN (18:30)
--- NOTE | 2017-09-11 18:37 | EKG ---
Date Performed: 09/11/2017 Time Performed: 11:24:36 PTAGE: 71 years EKG: Sinus rhythm MARKED LEFT AXIS DEVIATION LEFT VENTRICULAR HYPERTROPHY AND ST-T CHANGE POSSIBLE ANTERIOR MYOCARDIAL INFARCTION ABNORMAL ECG PREVIOUS TRACING 08/03/2017 09..54 Since previous tracing, no significant change noted DOCTOR: Pipe Javed Interpretating Date/Time 09/11/2017 18:36:30
[2017-09-11] MEDS: ATORVASTATIN 40 MG TAB PO SCH (20:04)
[2017-09-11] MEDS: MIRTAZAPINE 15 MG TAB PO SCH (20:04)
[2017-09-11] MEDS: SODIUM CHLORIDE 0.9% FLUSH 10 ML FLUSH IV FLUSH SCH (20:04)
[2017-09-11] MEDS ORDERED: ATORVASTATIN 40 MG TAB PO SCH (21:00)
[2017-09-11 21:13] LABS: TRANSFERRIN IRON PROFILE 236 MG/DL (200-360)
[2017-09-11 21:16] LABS: FERRITIN 273 NG/ML (8-252)
--- NOTE | 2017-09-11 21:17 | MB ---
cc: LUKE PERSON M.D. DATE OF CONSULTATION: 09/11/2017. REASON FOR CONSULTATION / CHIEF COMPLAINT: Dr. Hannon requests a consultation for Mrs. Stratton with newly diagnosed nonsmall cell lung cancer. REFERRING PHYSICIAN: Dr. Hannon. HISTORY OF PRESENT ILLNESS: Mrs. Stratton is a 71-year-old woman with history of coronary artery disease. She is a well-known patient of Dr. Mindy Peterson. She has a history of hypertension, paroxysmal atrial fibrillation. She had coronary artery bypass grafting [place] [address] Cuong Gunn. She had progressive symptoms of shortness of breath. Evaluation by her previous bottle washer diagnosed her with asthma which she disagrees with. She was found to have a 90% lesion that was stented several weeks ago. After the stent placement, her shortness of breath did not improve. She came under the care of Dr. Misha Hannon. Dr. Hannon coordinated additional imaging studies. She was found to have abnormality with a large right lung mass measuring 9.1 cm on chest x-ray. CT scan of the thorax was recommended and performed on the same day. CT scan of the chest further delineated the large anterior mediastinal mass on the right side measuring 11.5 cm. There is pre-tracheal and pre-carinal adenopathy and mildly enlarged AP window and anterior mediastinal lymph nodes. She was recommended to proceed with a biopsy. She underwent a right lung mass biopsy September 10, 2017. Post biopsy she had worsened symptoms of shortness of breath. She presented back to the emergency room with acute symptoms post biopsy. She was seen by Dr. Sree Damon and Dr. Hannon. Hematology / oncology is consulted for the newly diagnosed nonsmall cell lung cancer, squamous cell histology. Biopsy results for the right lung needle showed a poorly differentiated squamous cell carcinoma signed out by Dr. Carrasquillo. CT angiogram from 09/11 showed the same lung mass. No evidence of pulmonary embolism. There is mediastinal adenopathy and a small right-sided pleural effusion. She has worsening symptoms from the lung mass. She has evidence of anemia with a hemoglobin of 10.8. MCV is trending down. She denies any overt bleeding. She has been compliant with her anti-platelet therapy for her stent. She reports some weight loss, decrease in appetite. She has had shortness of breath that required evaluation that finally lead to this diagnosis. PAST MEDICAL HISTORY: 1. COPD. 2. History of tobacco use; quit 30 years ago. 3. Paroxysmal atrial fibrillation. 4. Malignant melanoma resected right forearm. 5. Hypertension. 6. Fatty liver disease. 7. Anemia. 8. Unintentional weight loss. 9. Coronary artery disease. PAST SURGICAL HISTORY: 1. CT-guided lung biopsy. 2. CABG in 2010. 3. Stent placement. 4. Appendectomy. FAMILY HISTORY: The father of metastatic head and neck cancer diagnosed at age 57. SOCIAL HISTORY: She lives alone with several cats. She denies any alcohol use. She quit smoking thirty years ago after her father . She denies any illicit drug use. PHYSICAL EXAMINATION: VITAL SIGNS: Temperature 97.6, heart rate 100, respiratory rate 20, blood pressure 134/78, oxygen saturation 96%. GENERAL: Ms. Stratton is a well-developed, well-nourished woman who looks her stated age. Her pupils are round and reactive to light and accommodation. She has a fair complexion. She is tachycardic after respiratory treatment. HEAD, EYES, EARS, NOSE, THROAT: Her pupils are round and reactive to light and accommodation. LUNGS: Clear. CARDIOVASCULAR: Tachycardia. ABDOMEN: Benign. EXTREMITIES: Enlarged lower extremities with new edema. NEUROLOGICAL EXAM: Nonfocal. She occasionally is breathless with speaking long sentences. LABS: Significant for: Hemoglobin 10.8. BUN and creatinine are normal. ASSESSMENT AND PLAN: Ms. Stratton is a 71-year-old woman with multiple medical problems newly diagnosed nonsmall cell lung cancer. She presented with shortness of breath attributed to cardiac etiology. All the while she has a large left lung mass with mediastinal adenopathy. I had a lengthy discussion with Ms. Stratton and plan to stage her. I will obtain a CT scan of the abdomen and pelvis. Ideally we should have a CT / PET scan on an outpatient basis. Given her acute symptoms, she would benefit from treatment immediately. I will consult with radiation oncology. I am not certain that she does not have metastatic disease. She is acutely symptomatic from the chest mass. We discussed the role of chemotherapy for palliation. Our best response rates are around 35%. We discussed concurrent chemotherapy and radiation to treat a locally advanced disease; however, this would not be indicated if she is proven to have metastatic disease elsewhere. Ideally we should stabilize her and let her go home on oxygen and follow up in clinic on an outpatient basis. I can see her on Thursday to initiate treatment as an outpatient. We need to take care to select chemotherapy that would be most healthy for the heart given her coronary artery disease and recent stent placement. I am concerned about new microcytic anemia. Her hemoglobin is trending down and MCV is trending down. Iron studies are obtained, although they may be difficult to interpret. No transfusion is needed. She will need to stay on antiplatelet therapy as recommended by her flight line service attendant. Her questions were answered to her satisfaction. I will coordinate her care with the radiation oncologist and bottle washer also per her request. MD SURYA Ledezma/JCCintia /8:43 PM /8:55 PM
[2017-09-12] VITALS (11 sets, daily range): BP systolic 121–156; BP diastolic 67–82; PULSE 68–106; RESP 18–24; TEMP 97.3–98.6; O2SAT 92–98
[2017-09-12] MEDS: methylPREDNISolone SOD SUCC 40 MG/1 ML VIAL IV PUSH SCH ×2 (02:07→06:01)
[2017-09-12 02:26] LABS: AUTOMATED NEUTROPHIL # 13.5 TH/MM3 (1.8-7.7); BASOPHIL % 0.2 % (0.0-2.0); HEMATOCRIT 33.9 % (35.0-46.0); HEMO FLAGS DIFF FINAL; MEAN CELL VOLUME 83.5 FL (80.0-100.0); MEAN CORPUSCULAR HEMOGLOBIN 27.4 PG (27.0-34.0); MEAN CORPUSCULAR HGB CONC 32.9 % (32.0-36.0); MONO % 2.2 % (0.0-8.0); NEUT % 90.6 % (16.0-70.0); PLATELET COUNT 310 TH/MM3 (150-450); RED BLOOD COUNT 4.07 MIL/MM3 (4.00-5.30); RED CELL DISTRIBUTION WIDTH 14.6 % (11.6-17.2); WHITE BLOOD COUNT 14.9 TH/MM3 (4.0-11.0)
[2017-09-12 02:50] LABS: CREATINE KINASE 150 U/L (26-192)
[2017-09-12] MEDS ORDERED: SODIUM CHLOR 0.9% 250 ML INJ 250 ML IV ONE (06:00)
[2017-09-12] MEDS ORDERED: methylPREDNISolone SOD SUCC 40 MG/1 ML VIAL IV PUSH SCH (07:00)
[2017-09-12] MEDS: RESP: ALBUTEROL 2.5 MG/IPRATROPIUM 0.5 MG NEB (SCH) INH ×3 (07:37→20:55)
[2017-09-12] MEDS ORDERED: ACETAMINOPHEN 325 MG TAB PO PRN (07:45)
[2017-09-12] MEDS ORDERED: DIATRIZOATE MEGLUM/DIATRIZOATE SOD 9 ML CUP PO ONE (08:30)
[2017-09-12] MEDS: VITAMIN B COMPLEX/VIT C TAB PO SCH (08:56)
[2017-09-12] MEDS: CHOLECALCIFEROL (VIT D3) 1000 UNIT TAB PO SCH (08:57)
[2017-09-12] MEDS: LOSARTAN 50 MG TAB PO SCH (08:57)
[2017-09-12] MEDS: LACTOBACILLUS ACIDOPHILUS TAB PO SCH (08:57)
[2017-09-12] MEDS: CLOPIDOGREL 75 MG TAB PO SCH (08:58)
[2017-09-12] MEDS: ASPIRIN EC 81 MG TABEC PO SCH (08:58)
[2017-09-12] MEDS ORDERED: METHYLSULFONYLMETHANE 1500 MG PO SCH (09:00)
[2017-09-12] MEDS ORDERED: ASPIRIN EC 81 MG TABEC PO SCH (09:00)
[2017-09-12] MEDS ORDERED: LOSARTAN 25 MG TAB PO SCH (09:00)
[2017-09-12] MEDS ORDERED: CLOPIDOGREL 75 MG TAB PO SCH (09:00)
[2017-09-12] MEDS ORDERED: NON-FORMULARY DRUG (Glucosamine 1,500 MG) PO SCH (09:00)
[2017-09-12] MEDS: CYANOCOBALAMIN 1,000 MCG TAB PO SCH (09:15)
[2017-09-12] MEDS: SODIUM CHLORIDE 0.9% FLUSH 10 ML FLUSH IV FLUSH SCH ×2 (09:15→21:32)
--- NOTE | 2017-09-12 10:41 | PD.CARD.PN ---
Subjective Subjective Remarks Dyspnea "much better". No CP, dizziness, palpitations. Slept well. Objective Medications Item Value Date Time Atorvastatin 40 mg 09/11/172099 Calcium HS/PO 09/11/172003 (Lipitor) Clopidogrel 75 mg 09/11/171644 Bisulfate DAILY/PO 09/12/17857 (Plavix) Aspirin 81 mg 09/11/171644 (Ecotrin Ec) DAILY/PO 09/12/17857 Losartan Potassium 50 mg 09/11/171644 (Cozaar) DAILY/PO 09/12/17 0857 Current Medications Medications (Trade) Dose Ordered Sig/Ramakrishna Route Start Time Stop Time Status Last Admin (NS Flush) 2 ml UNSCH PRN IV FLUSH 09/11/17 15:45 (NS Flush) 2 ml BID IV FLUSH 09/11/17 21:00 09/12/17 09:15 (Zofran Inj) 4 mg Q6H PRN IVP 09/11/17 16:00 (Narcan Inj) 0.4 mg UNSCH PRN IV PUSH 09/11/17 15:45 (Milk Of [place] Liq) 30 ml Q12HR PRN PO 09/11/17 16:00 (Plavix) 75 mg DAILY PO 09/11/17 16:45 09/12/17 08:58 (Ecotrin Ec) 81 mg DAILY PO 09/11/17 16:45 09/12/17 08:58 (Lipitor) 40 mg HS PO 09/11/17 21:00 09/11/17 20:04 (Cozaar) 50 mg DAILY PO 09/11/17 16:45 09/12/17 08:57 (Duoneb Neb) 1 ampule TID NEB INH 09/11/17 20:00 09/12/17 07:37 (SoluMEDROL INJ) 40 mg Q8HR IV PUSH 09/11/17 22:00 09/12/17 06:01 (Vitamin D3) 2,000 units DAILY PO 09/12/17 09:00 09/12/17 08:57 (Vitamin B12) 1,000 mcg DAILY PO 09/12/17 09:00 09/12/17 09:15 (Lactinex) 1 tab DAILY PO 09/12/17 09:00 09/12/17 08:57 (Remeron) 15 mg HS PO 09/11/17 21:00 09/11/17 20:04 (Allbee C) 2 tab DAILY PO 09/12/17 09:00 09/12/17 08:56 (Metamucil Smooth Texture Sf/ Gf Pkt) 1 pkt BID PRN PO 09/11/17 18:15 (Nitrostat Sl) 0.4 mg Q5M PRN SL 09/11/17 18:30 (Tylenol) 650 mg Q4H PRN PO 09/12/17 07:45 09/12/17 08:03 Vital Signs / I&O Vital Signs Date Time Temp Pulse Resp B/P (MAP) Pulse Ox O2 Delivery O2 Flow Rate FiO2 09/12/17 09:06 20 09/12/17 08:00 102 09/12/17 07:49 97.6 96 24 142/82 (102) 98 09/12/17 07:37 96 Nasal Cannula 2.00 09/12/17 03:56 98.1 89 18 142/75 (97) 92 09/12/17 00:00 98.2 68 18 138/78 (98) 97 09/11/17 20:44 98.5 105 18 141/84 (103) 92 09/11/17 20:09 95 Nasal Cannula 2.00 09/11/17 17:25 97.6 100 20 134/78 (96) 96 09/11/17 16:25 97.8 102 20 129/69 (89) 96 Nasal Cannula 3.00 09/11/17 14:59 97.8 108 20 151/84 (106) 95 Nasal Cannula 3.00 09/11/17 12:30 99 16 141/79 (99) 96 Nasal Cannula 2.00 09/11/17 11:05 99.0 93 20 133/74 (93) 95 09/11/17 11:05 94 20 95 Nasal Cannula 2.00 09/11/17 11:05 95 Nasal Cannula 2.00 09/11/17 11:05 95 Nasal Cannula 2.00 I/O 09/11/17 09/11/17 09/11/17 09/12/17 09/12/17 09/12/17 07:00 15:00 23:00 07:00 15:00 23:00 Intake Total 350 ml 200 ml 350 ml Balance 350 ml 200 ml 350 ml Intake Oral 200 ml 100 ml IV Total 350 ml 250 ml # Voids 1 Physical Exam GENERAL: Well developed, well nourished. No acute distress. HEENT: Jugular venous pressure is normal. CHEST: Lungs clear to auscultation bilaterally. Unlabored respiratory effort. CARDIAC: Regular rate and rhythm without S3, S4, or murmur. ABDOMEN: Soft, nontender, no hepatosplenomegaly. Bowel sounds present. EXTREMITIES: No clubbing, cyanosis, or edema. Laboratory Laboratory Tests Test 09/11/17 11:30 09/11/17 12:28 09/11/17 14:12 09/11/17 19:20 White Blood Count 13.4 TH/MM3 Red Blood Count 3.94 MIL/MM3 Hemoglobin 10.8 GM/DL Hematocrit 32.7 % Mean Corpuscular Volume 83.0 FL Mean Corpuscular Hemoglobin 27.4 PG Mean Corpuscular Hemoglobin Concent 33.0 % Red Cell Distribution Width 14.1 % Platelet Count 300 TH/MM3 Mean Platelet Volume 7.2 FL Neutrophils (%) (Auto) 81.9 % Lymphocytes (%) (Auto) 7.4 % Monocytes (%) (Auto) 9.6 % Eosinophils (%) (Auto) 0.1 % Basophils (%) (Auto) 1.0 % Neutrophils # (Auto) 11.0 TH/MM3 Lymphocytes # (Auto) 1.0 TH/MM3 Monocytes # (Auto) 1.3 TH/MM3 Eosinophils # (Auto) 0.0 TH/MM3 Basophils # (Auto) 0.1 TH/MM3 CBC Comment DIFF FINAL Differential Comment Prothrombin Time 11.6 SEC Prothromb Time International Ratio 1.0 RATIO Activated Partial Thromboplast Time 28.9 SEC Blood Urea Nitrogen 12 MG/DL Creatinine 0.63 MG/DL Random Glucose 140 MG/DL Total Protein 7.6 GM/DL Albumin 2.8 GM/DL Calcium Level 9.2 MG/DL Magnesium Level 1.7 MG/DL Alkaline Phosphatase 141 U/L Aspartate Amino Transf (AST/SGOT) 87 U/L Alanine Aminotransferase (ALT/SGPT) 21 U/L Total Bilirubin 0.6 MG/DL Sodium Level 135 MEQ/L Potassium Level 3.6 MEQ/L Chloride Level 98 MEQ/L Carbon Dioxide Level 27.9 MEQ/L Anion Gap 9 MEQ/L Estimat Glomerular Filtration Rate 93 ML/MIN Total Creatine Kinase 70 U/L 75 U/L Troponin I 0.02 NG/ML B-Type Natriuretic Peptide 212 PG/ML Lactic Acid Level 1.4 mmol/L Urine Color YELLOW Urine Turbidity CLEAR Urine pH 5.5 Urine Specific Patten 1.028 Urine Protein NEG mg/dL Urine Glucose (UA) NEG mg/dL Urine Ketones NEG mg/dL Urine Occult Blood NEG Urine Nitrite NEG Urine Bilirubin NEG Urine Urobilinogen LESS THAN 2.0 MG/DL Urine Leukocyte Esterase NEG Urine RBC 0 /hpf Urine WBC 0-2 /hpf Urine Transitional Epithelial Cells 0-5 /hpf Urine Bacteria RARE /hpf Microscopic Urinalysis Comment CULT NOT INDICATED Iron Level 21 MCG/DL Total Iron Binding Capacity 330 MCG/DL Percent Iron Saturation 6.4 % Ferritin 273 NG/ML Test 09/12/17 01:47 09/12/17 01:48 Total Creatine Kinase 150 U/L Troponin I LESS THAN 0.02 NG/ML White Blood Count 14.9 TH/MM3 Red Blood Count 4.07 MIL/MM3 Hemoglobin 11.2 GM/DL Hematocrit 33.9 % Mean Corpuscular Volume 83.5 FL Mean Corpuscular Hemoglobin 27.4 PG Mean Corpuscular Hemoglobin Concent 32.9 % Red Cell Distribution Width 14.6 % Platelet Count 310 TH/MM3 Mean Platelet Volume 7.7 FL Neutrophils (%) (Auto) 90.6 % Lymphocytes (%) (Auto) 7.0 % Monocytes (%) (Auto) 2.2 % Eosinophils (%) (Auto) 0.0 % Basophils (%) (Auto) 0.2 % Neutrophils # (Auto) 13.5 TH/MM3 Lymphocytes # (Auto) 1.0 TH/MM3 Monocytes # (Auto) 0.3 TH/MM3 Eosinophils # (Auto) 0.0 TH/MM3 Basophils # (Auto) 0.0 TH/MM3 CBC Comment DIFF FINAL Differential Comment Imaging Last [address] Angiography 09/11/17 1215 Signed Impressions: Service Date/Time: Monday, September 11, 2017 13:23 - CONCLUSION: 1. No evidence for pulmonary embolism. 2. Large right upper lobe mass with scattered pulmonary nodules likely metastatic. 3. Mediastinal lymphadenopathy. 4. Patchy densities right lower lobe. 5. Small right pleural effusion. Mumtaz Jang MD Chest X-Ray 09/11/17 1149 Signed Impressions: Service Date/Time: Monday, September 11, 2017 12:02 - CONCLUSION: Stable AP view the chest compared to the prior study. No evidence of pneumothorax. Edwar Coon MD Assessment and Plan Problem List: (1) CAD (coronary artery disease) ICD Codes: I25.10 - Atherosclerotic heart disease of [place] coronary artery without angina pectoris Plan: Overall stable cardiac status. Status post stent of vein graft to posterolateral branch last month. No definite recurrent angina. Suspect dyspnea primarily pulmonary in origin. REC continue usual cardiac medications, including Plavix/aspirin will f/u as needed (2) HTN (hypertension) ICD Codes: I10 - Essential (primary) hypertension Status: Chronic Plan: Slightly elevated BP's. Rec continue to monitor. (3) HLD (hyperlipidemia) ICD Codes: E78.5 - Hyperlipidemia, unspecified Status: Chronic Plan: Continue statin, outpatient monitoring and f/u. Code Status full code Discussed Condition With patient Problem Qualifiers (1) CAD (coronary artery disease): Qualified Codes: I25.10 - Atherosclerotic heart disease of [place] coronary artery without angina pectoris (2) HTN (hypertension): Qualified Codes: I10 - Essential (primary) hypertension (3) HLD (hyperlipidemia): Qualified Codes: E78.2 - Mixed hyperlipidemia Edgar Damon MD Sep 12, 2017 10:41
--- NOTE | 2017-09-12 11:04 | RADRPT ---
EXAM DATE/TIME: 09/12/2017 10:44 [facility] COMPARISON: CT PULMONARY ANGIOGRAM, September 11, 2017, 13:23. INDICATIONS : Lung mass; evaluate for metastatic disease. IV CONTRAST: 90 cc Omnipaque 350 (iohexol) IV ORAL CONTRAST: Prescribed oral contrast ingested. RADIATION DOSE: 16.03 CTDIvol (mGy) MEDICAL HISTORY : Cardiovascular disease. Chronic obstructive pulmonary disease. Hernia, hiatal.Hypertension, Melanoma. SURGICAL HISTORY : Appendectomy. CABG ENCOUNTER: Initial ACUITY: 1 day PAIN SCALE: 0/10 LOCATION: chest TECHNIQUE: Volumetric scanning of the abdomen and pelvis was performed. Using automated exposure control and ad justment of the mA and/or kV according to patient size, radiation dose was kept as low as reasonably achievable to obtain optimal diagnostic quality images. DICOM format image data is available electro nically for review and comparison. FINDINGS: LOWER LUNGS: Atelectasis at the lung bases. LIVER: Homogeneous density without lesion. There is no dilation of the biliary tree. No calcified gall[place] es. SPLEEN: Normal size without lesion. PANCREAS: Within normal limits. KIDNEYS: Normal in size and shape. There is no mass, stone or hydronephrosis. ADRENAL GLANDS: Within normal limits. VASCULAR: Diffuse arterial calcification. No abdominal aortic aneurysm. BOWEL/MESENTERY: Scattered colonic diverticula. No evidence of acute diverticulitis. No bowel dilatation. No free air or free fluid. Appendix not identified. ABDOMINAL WALL: Within normal limits. RETROPERITONEUM: There is no lymphadenopathy. BLADDER: No wall thickening or mass. REPRODUCTIVE: Within normal limits. INGUINAL: There is no lymphadenopathy or hernia. MUSCULOSKELETAL: Within normal limits for patient age. CONCLUSION: No evidence of metastatic disease in the abdomen and pelvis. Tramaine Minor MD on September 12, 2017 at 10:59 Board Certified Radiologist. This report was verified electronically.
--- NOTE | 2017-09-12 12:31 | HHI.PR ---
Subjective Remarks Stable, no active complain... Patient's ring facer and oncologist, CTA negative for PE Objective Vitals Vital Signs Date Time Temp Pulse Resp B/P (MAP) Pulse Ox O2 Delivery O2 Flow Rate FiO2 09/12/17 11:51 98.2 106 24 156/80 (105) 94 09/12/17 09:06 20 09/12/17 08:00 102 09/12/17 07:49 97.6 96 24 142/82 (102) 98 09/12/17 07:37 96 Nasal Cannula 2.00 09/12/17 03:56 98.1 89 18 142/75 (97) 92 09/12/17 00:00 98.2 68 18 138/78 (98) 97 09/11/17 20:44 98.5 105 18 141/84 (103) 92 09/11/17 20:09 95 Nasal Cannula 2.00 09/11/17 17:25 97.6 100 20 134/78 (96) 96 09/11/17 16:25 97.8 102 20 129/69 (89) 96 Nasal Cannula 3.00 09/11/17 14:59 97.8 108 20 151/84 (106) 95 Nasal Cannula 3.00 I/O 09/11/17 09/11/17 09/11/17 09/12/17 09/12/17 09/12/17 07:00 15:00 23:00 07:00 15:00 23:00 Intake Total 350 ml 200 ml 350 ml Balance 350 ml 200 ml 350 ml Intake Oral 200 ml 100 ml IV Total 350 ml 250 ml # Voids 1 Result Diagram: 09/12/17 0148 09/11/17 1130 Objective Remarks GENERAL: This is a well-nourished, well-developed patient, in no apparent distress. SKIN: No rashes, warm and dry HEAD: Atraumatic. Normocephalic. EYES: Pupils equal round and reactive. Extraocular motions intact. No scleral icterus. ENT: Nose without bleeding, or drainage, Airway patent. NECK: Trachea midline. Supple CARDIOVASCULAR: Irregularly irregular without murmurs, gallops, or rubs. RESPIRATORY: Fair air entry bilaterally. No wheezes, rales, or rhonchi. GASTROINTESTINAL: Abdomen soft, non-tender, nondistended. Positive bowel sounds MUSCULOSKELETAL: Extremities without clubbing, cyanosis, or edema. Pedal pulses appreciated NEUROLOGICAL: Awake and alert. Moves all extremity. Normal speech.no focal neurological deficit A/P Problem List: (1) CAD (coronary artery disease) ICD Code: I25.10 - Atherosclerotic heart disease of [place] coronary artery without angina pectoris (2) HTN (hypertension) ICD Code: I10 - Essential (primary) hypertension Status: Chronic (3) HLD (hyperlipidemia) ICD Code: E78.5 - Hyperlipidemia, unspecified Status: Chronic (4) Lung mass ICD Code: R91.8 - Other nonspecific abnormal finding of lung field (5) Hypoxia ICD Code: R09.02 - Hypoxemia Status: Acute (6) Hx of CABG ICD Code: Z95.1 - Presence of aortocoronary bypass graft Assessment and Plan Patient is a 71 year old female with PMHX chest mass, COPD, CAD, Afib who came in to the hospital for increasing SOB. Acute Respiratory Failure Sepsis Right Chest Mass, S/P Needle Lung Biopsy Suspect Inflammation vs PNA Infection vs COPD exacerbation R/O PE - Chest x-ray showed stable AP view and chest compared to prior study. No evidence of pneumothorax. - CTA showed 1. No evidence for pulmonary embolism. 2. Large right upper lobe mass with scattered pulmonary nodules likely metastatic. 3. Mediastinal lymphadenopathy. 4. Patchy densities right lower lobe. 5. Small right pleural effusion. - Suspicious for inflammatory changes possibly status post needle lung biopsy , also patient may have accumulated blood in the pleura - She was given ceftriaxone IV, azithromycin IV, Solu-Medrol 125 mg 1 dose ED - Continue medium dose Solu-Medrol 40 mg every 8 hours - Blood cultures, follow-up results. Lactic acid 1.4 - Duonebs scheduled and PRN - O2 nc, maintain O2 sat greater than 90% - Walk test, may need O2 at home -Appreciate pulmonary consultation started on prednisone and Symbicort -Appreciate Dr. Sosa consult>> recommended radiation therapy, palliative chemotherapy, ordered CT abdomen and pelvic for staging Afib, paroxysmal, chronic CAD, Hx CABG HTN - BNP 212 - Continue atorvastatin, aspirin, Plavix, losartan - Monitor BP trend -Appreciate consultation Case management - Consult for walk test possibly may need O2 for home DVT Prop SCDs Problem Qualifiers (1) CAD (coronary artery disease): Qualified Codes: I25.10 - Atherosclerotic heart disease of [place] coronary artery without angina pectoris (2) HTN (hypertension): Qualified Codes: I10 - Essential (primary) hypertension (3) HLD (hyperlipidemia): Qualified Codes: E78.2 - Mixed hyperlipidemia Angelo Navarro MD Sep 12, 2017 12:31
--- NOTE | 2017-09-12 14:43 | MB ---
cc: FREDERIC CAMP M.D., RUBY ANNE E. M.D. DATE OF CONSULTATION: 09/12/2017. HISTORY OF PRESENT ILLNESS: This is a 71-year-old female who came in to the hospital with symptoms of increasing shortness of breath and a feeling of pressure in her chest. Several weeks ago because of progressive feelings of heaviness in her chest, she had a coronary angiogram. Apparently, a 90% obstruction was noted and stenting was performed. It is also noted that she has had quadruple bypass surgery several years ago in the past. Unfortunately this did not alleviate her pulmonary symptoms. She was seen by Dr. Hannon and chest x-ray revealed a large mass involving the right lung. CT scan revealed a large anterior mediastinal mass measuring 11.5 cm in size. There is pretracheal and precarinal adenopathy and an enlarged AP window and anterior mediastinal nodes. She underwent a right lung biopsy on September 10, 2017. Unfortunately her pulmonary symptoms worsened and she subsequently came into the emergency room, where she is presently. 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 On admission to the hospital, the CT angiogram was performed which again showed the large lung mass with no evidence of a pulmonary embolism. Since being in the hospital, her pulmonary status has stabilized. She is using oxygen by 2 liters but she is no longer short of breath and she feels significantly better. It is noted that she lives alone with her three cats. She has no local family. She did previously smoke but stopped many years ago. PAST MEDICAL AND SURGICAL HISTORY: Includes: 1. History of past tobacco use having quit many years ago. 2. COPD. 3. Paroxysmal atrial fibrillation. 4. Coronary artery disease with vessel bypass surgery and recent stenting. 5. Malignant melanoma resected from the right forearm. 6. Hypertension. 7. Anemia. 8. Weight loss. 9. Coronary artery bypass surgery in 2010. 10. Coronary artery stenting in the past several weeks. 11. Appendectomy. SOCIAL HISTORY / FAMILY HISTORY: She lives alone with cats. She has never been . She has no children. There is no local family. ALLERGIES: 1. EPINEPHRINE. 2. LISINOPRIL. REVIEW OF SYSTEMS: A Detailed system review is well documented in her hospital chart. Her symptomatology has been associated with a feeling of heaviness in her chest and worsening shortness of breath. She has a cough, which is mostly dry and there is no hemoptysis. She had also has decreased appetite with nonspecific weight loss. She denies other head, eyes, ears, nose or throat Complaints. No GI, , endocrine, neurologic, musculoskeletal or other specific symptoms noted today. PHYSICAL EXAMINATION: GENERAL: Today on exam she is alert and oriented and sitting comfortably in bed in no distress. VITAL SIGNS: Her last recorded vital signs included that she is afebrile, pulse of 106 and regular, respiratory rate of 24, blood pressure of 156/80 and O2 sat on 2 liters of oxygen of 94%. SKIN, HEAD, EYES, EARS, NOSE, THROAT: There is no jaundice. Her conjunctivae and eyelids were normal. She had full EOMs. Inspection of the oral cavity and oropharynx was normal. There is no adenopathy in any region including supraclavicular regions. Trachea is midline. Thyroid is not enlarged. LUNGS: Her lung foy were clear. There is no effusion. HEART: Her heart sounds were normal. There are murmurs, rubs or bruits. ABDOMEN: There are no abdominal masses, tenderness or splenomegaly. EXTREMITIES: No ankle edema. NEUROLOGIC: Power and tone were normal. REVIEW OF DATA TODAY: I have reviewed this lady's pathology report as indicated in the history. I have also discussed her care with Dr. Sosa. She has had a CT scan of the abdomen and pelvis which shows no evidence of metastatic disease. She underwent a CT angiogram with this hospitalization and this revealed a large right upper lobe mass contiguous with the mediastinum measuring 11.8 and 6.9 cm. There are few scattered sub centimeter nodules measuring 5-6 mm in the right lung and patchy densities right lower lobe, nodule left lower lobe being 1.3 x 0.8 cm. There is no pleural effusion. There are some borderline prominent lymph nodes in the AP window, subcarinal adenopathy measures 1.6 cm. The right distal paratracheal and precarinal adenopathy measuring 3.0 x 1.4 cm. All of this data was discussed with and shared with the patient. RECOMMENDATIONS: This lady has a large anterior mediastinal mass. It is causing her symptoms of shortness of breath and chest heaviness. There is no clear evidence of metastatic disease at this time. I believe she would benefit by combined radiation treatment and chemotherapy. I think we have to endeavor to shrink this mass as much as possible to improve her pulmonary status. After we complete this, she be a candidate for PDL-1 medications which in some patients have been extremely helpful and has been shown to have an improved progression-free survival; however, in the short-term I think we need to work hard to shrink this tumor and improve her well-being in the short-term. I have discussed this with her. I have discussed potential acute side effects including fatigue and esophagitis. Esophagitis can lead to the need for PEG tube feeding but this should resolve after treatment is completed. As well, there will be some damage to normal lung; however, if we can significantly reduce the volume of this tumor that should negate any negative effects of the radiation treatment on her lung tissue; however, this is very difficult to predict and I have discussed this with her. I hope to simulate this lady tomorrow and have her treatment started in the immediate future. MD IRENE Guillaume/THAD /1:10 PM /2:28 PM
--- NOTE | 2017-09-12 19:53 | PD.ONC.PN ---
Subjective Subjective Remarks "I want a PET SCan" Discussed CT scan abdomen findings. Objective Data Date Time Temp Pulse Resp B/P (MAP) Pulse Ox O2 Delivery O2 Flow Rate FiO2 09/12/17 15:50 97.3 101 24 121/67 (85) 92 09/12/17 11:51 98.2 106 24 156/80 (105) 94 09/12/17 09:06 20 09/12/17 08:00 102 09/12/17 07:49 97.6 96 24 142/82 (102) 98 09/12/17 07:37 96 Nasal Cannula 2.00 09/12/17 03:56 98.1 89 18 142/75 (97) 92 09/12/17 00:00 98.2 68 18 138/78 (98) 97 09/11/17 20:44 98.5 105 18 141/84 (103) 92 09/11/17 20:09 95 Nasal Cannula 2.00 09/12/17 09/12/17 09/12/17 07:00 15:00 23:00 Intake Total 350 ml Balance 350 ml Result Diagram: 09/12/17 0148 09/11/17 1130 Laboratory Results Laboratory Tests Test 09/12/17 01:47 09/12/17 01:48 Total Creatine Kinase 150 U/L Troponin I LESS THAN 0.02 NG/ML White Blood Count 14.9 TH/MM3 Red Blood Count 4.07 MIL/MM3 Hemoglobin 11.2 GM/DL Hematocrit 33.9 % Mean Corpuscular Volume 83.5 FL Mean Corpuscular Hemoglobin 27.4 PG Mean Corpuscular Hemoglobin Concent 32.9 % Red Cell Distribution Width 14.6 % Platelet Count 310 TH/MM3 Mean Platelet Volume 7.7 FL Neutrophils (%) (Auto) 90.6 % Lymphocytes (%) (Auto) 7.0 % Monocytes (%) (Auto) 2.2 % Eosinophils (%) (Auto) 0.0 % Basophils (%) (Auto) 0.2 % Neutrophils # (Auto) 13.5 TH/MM3 Lymphocytes # (Auto) 1.0 TH/MM3 Monocytes # (Auto) 0.3 TH/MM3 Eosinophils # (Auto) 0.0 TH/MM3 Basophils # (Auto) 0.0 TH/MM3 CBC Comment DIFF FINAL Differential Comment Culture Results Microbiology Date/Time Source Procedure Growth Status 09/11/17 12:28 Blood Peripheral Aerobic Blood Culture - Preliminary NO GROWTH IN 1 DAY Resulted 09/11/17 12:28 Blood Peripheral Anaerobic Blood Culture - Preliminary NO GROWTH IN 1 DAY Resulted 09/11/17 12:20 Blood Peripheral Aerobic Blood Culture - Preliminary NO GROWTH IN 1 DAY Resulted 09/11/17 12:20 Blood Peripheral Anaerobic Blood Culture - Preliminary NO GROWTH IN 1 DAY Resulted Imaging Studies Last 24 hours Impressions Abdomen/Pelvis CT 09/12/17 0600 Signed Impressions: Service Date/Time: Tuesday, September 12, 2017 10:44 - CONCLUSION: No evidence of metastatic disease in the abdomen and pelvis. Tramaine Minor MD Administered Medications Medications (Trade) Dose Ordered Sig/Ramakrishna Route PRN Reason Start Time Stop Time Status Last Admin Dose Admin Sodium Chloride (NS Flush) 2 ml BID IV FLUSH 09/11/17 21:00 09/12/17 09:15 Clopidogrel Bisulfate (Plavix) 75 mg DAILY PO 09/11/17 16:45 09/12/17 08:58 Aspirin (Ecotrin Ec) 81 mg DAILY PO 09/11/17 16:45 09/12/17 08:58 Atorvastatin Calcium (Lipitor) 40 mg HS PO 09/11/17 21:00 09/11/17 20:04 Losartan Potassium (Cozaar) 50 mg DAILY PO 09/11/17 16:45 09/12/17 08:57 Albuterol/ Ipratropium (Duoneb Neb) 1 ampule TID NEB INH 09/11/17 20:00 09/12/17 14:40 Cholecalciferol (Vitamin D3) 2,000 units DAILY PO 09/12/17 09:00 09/12/17 08:57 Cyanocobalamin (Vitamin B12) 1,000 mcg DAILY PO 09/12/17 09:00 09/12/17 09:15 Lactobacillus Acidophilus (Lactinex) 1 tab DAILY PO 09/12/17 09:00 09/12/17 08:57 Mirtazapine (Remeron) 15 mg HS PO 09/11/17 21:00 09/11/17 20:04 Vitamin B Complex/ Vitamin C (Allbee C) 2 tab DAILY PO 09/12/17 09:00 09/12/17 08:56 Acetaminophen (Tylenol) 650 mg Q4H PRN PO headache/fever/pain1-4 09/12/17 07:45 09/12/17 08:03 Objective Remarks GENERAL: Well-nourished, Elderly, well-developed patient. SKIN: Warm and dry. HEAD: Normocephalic. EYES: No scleral icterus. No injection or drainage. NECK: Supple, trachea midline. No JVD or lymphadenopathy. LYMPHATIC: No adenopathy. CARDIOVASCULAR: Regular rate and rhythm without murmurs. Midline scar. RESPIRATORY: Breath sounds equal bilaterally. No accessory muscle use. GASTROINTESTINAL: Abdomen soft, non-tender, mildly distended/ large. EXTREMITIES: No cyanosis, or edema. MUSCULOSKELETAL: Adequate muscle tone. NEUROLOGICAL: No obvious focal deficit. Awake, alert, and oriented x3. PSYCHIATRIC: Appropriate mood and affect; insight and judgment normal. Assessment/Plan Problem List: (1) Non-small cell cancer of right lung ICD Codes: C34.91 - Malignant neoplasm of unspecified part of right bronchus or lung Status: Acute Plan: Newly dx locally advanced NSCLCA. Squamous cell histology. Recommend concurrent chemo XRT. Discussed with Dr. Gonzalez plan to simulate tomorrow. FU in oncology clinic at on Thursday AM to discuss chemotherapy. Plan concurrent tx, start SRINATH to improve her breathing. Complete staging as out pt. CT abdomen was negative for metastatic disease. Assessment 71 y/o woman with multiple medical problems with locally advanced NSCLCA. Plan to tx concurrent chemo and XRT. Rupali Sosa MD Sep 12, 2017 19:53
[2017-09-12] MEDS ORDERED: diphenhydrAMINE HCL 25 MG CAP PO ONE (21:15)
[2017-09-12] MEDS ORDERED: ZOLPIDEM TARTRATE 5 MG TAB PO ONE (21:30)
[2017-09-12] MEDS: predniSONE 20 MG TAB PO SCH (21:33)
[2017-09-12] MEDS: MIRTAZAPINE 15 MG TAB PO SCH (21:33)
[2017-09-12] MEDS: ATORVASTATIN 40 MG TAB PO SCH (21:33)
[2017-09-12] MEDS: BUDESONIDE-FORMOTEROL 160/4.5 MCG INHALER INH SCH (21:47)
[2017-09-13] VITALS (8 sets, daily range): BP systolic 141–167; BP diastolic 77–94; PULSE 89–102; RESP 18–24; TEMP 97.2–98.2; O2SAT 92–95
[2017-09-13] MEDS: RESP: ALBUTEROL 2.5 MG/IPRATROPIUM 0.5 MG NEB (SCH) INH ×3 (07:05→14:58)
[2017-09-13] MEDS: LACTOBACILLUS ACIDOPHILUS TAB PO SCH (08:34)
[2017-09-13] MEDS: CYANOCOBALAMIN 1,000 MCG TAB PO SCH (08:34)
[2017-09-13] MEDS: VITAMIN B COMPLEX/VIT C TAB PO SCH (08:36)
[2017-09-13] MEDS: ASPIRIN EC 81 MG TABEC PO SCH (08:36)
[2017-09-13] MEDS: CHOLECALCIFEROL (VIT D3) 1000 UNIT TAB PO SCH (08:36)
[2017-09-13] MEDS: BUDESONIDE-FORMOTEROL 160/4.5 MCG INHALER INH SCH (08:37)
[2017-09-13] MEDS: CLOPIDOGREL 75 MG TAB PO SCH (08:37)
[2017-09-13] MEDS: predniSONE 20 MG TAB PO SCH (08:39)
[2017-09-13] MEDS: LOSARTAN 50 MG TAB PO SCH (08:39)
--- NOTE | 2017-09-13 09:24 | PD.ONC.PN ---
Subjective Subjective Remarks Afebrile overnight. Patient resting in room. Waiting to go down for simulation. NO complaints. Objective Data Date Time Temp Pulse Resp B/P (MAP) Pulse Ox O2 Delivery O2 Flow Rate FiO2 09/13/17 07:20 97.2 102 24 159/82 (107) 95 09/13/17 07:06 93 21 09/13/17 04:38 09/13/17 04:05 91 141/77 (98) 09/13/17 03:55 89 09/13/17 03:10 97.7 95 18 163/94 (117) 92 09/13/17 00:16 101 09/12/17 23:07 98.6 95 18 134/74 (94) 93 09/12/17 20:57 93 21 09/12/17 20:46 98.3 94 18 129/72 (91) 93 09/12/17 20:00 100 09/12/17 15:50 97.3 101 24 121/67 (85) 92 09/12/17 11:51 98.2 106 24 156/80 (105) 94 09/13/17 09/13/17 09/13/17 07:00 15:00 23:00 Intake Total 500 ml Output Total 2 ml Balance 498 ml Result Diagram: 09/12/17 0148 09/11/17 1130 Culture Results Microbiology Date/Time Source Procedure Growth Status 09/11/17 12:28 Blood Peripheral Aerobic Blood Culture - Preliminary NO GROWTH IN 1 DAY Resulted 09/11/17 12:28 Blood Peripheral Anaerobic Blood Culture - Preliminary NO GROWTH IN 1 DAY Resulted 09/11/17 12:20 Blood Peripheral Aerobic Blood Culture - Preliminary NO GROWTH IN 1 DAY Resulted 09/11/17 12:20 Blood Peripheral Anaerobic Blood Culture - Preliminary NO GROWTH IN 1 DAY Resulted Administered Medications Medications (Trade) Dose Ordered Sig/Ramakrishna Route PRN Reason Start Time Stop Time Status Last Admin Dose Admin Sodium Chloride (NS Flush) 2 ml BID IV FLUSH 09/11/17 21:00 09/12/17 21:32 Clopidogrel Bisulfate (Plavix) 75 mg DAILY PO 09/11/17 16:45 09/13/17 08:37 Aspirin (Ecotrin Ec) 81 mg DAILY PO 09/11/17 16:45 09/13/17 08:36 Atorvastatin Calcium (Lipitor) 40 mg HS PO 09/11/17 21:00 09/12/17 21:33 Losartan Potassium (Cozaar) 50 mg DAILY PO 09/11/17 16:45 09/13/17 08:39 Albuterol/ Ipratropium (Duoneb Neb) 1 ampule TID NEB INH 09/11/17 20:00 09/13/17 07:05 Cholecalciferol (Vitamin D3) 2,000 units DAILY PO 09/12/17 09:00 09/13/17 08:36 Cyanocobalamin (Vitamin B12) 1,000 mcg DAILY PO 09/12/17 09:00 09/13/17 08:34 Lactobacillus Acidophilus (Lactinex) 1 tab DAILY PO 09/12/17 09:00 09/13/17 08:34 Mirtazapine (Remeron) 15 mg HS PO 09/11/17 21:00 09/12/17 21:33 Vitamin B Complex/ Vitamin C (Allbee C) 2 tab DAILY PO 09/12/17 09:00 09/13/17 08:36 Acetaminophen (Tylenol) 650 mg Q4H PRN PO headache/fever/pain1-4 09/12/17 07:45 09/12/17 08:03 Prednisone (Deltasone) 20 mg BID PO 09/12/17 21:00 09/13/17 08:39 Budesonide/ Formoterol Fumarate (Symbicort 160-4.5 Inh) 2 puff Q12HR INH 09/12/17 21:00 09/13/17 08:37 Objective Remarks GENERAL: Elderly female sitting up on side of bed in nad. On supplemental O2 via NC SKIN: Warm and dry. HEAD: Normocephalic. EYES: No injection or drainage. NECK: Supple, trachea midline. CARDIOVASCULAR: Regular rate and rhythm RESPIRATORY: diminished at bases, occasional rhonchi. GASTROINTESTINAL: Abdomen soft, non-tender, nondistended. EXTREMITIES: No cyanosis NEUROLOGICAL: awake and alert, normal speech. Assessment/Plan Problem List: (1) Non-small cell cancer of right lung ICD Codes: C34.91 - Malignant neoplasm of unspecified part of right bronchus or lung Status: Acute Plan: Newly dx locally advanced NSCLCA. Squamous cell histology. Recommend concurrent chemo XRT. Discussed with Dr. Gonzalez plan to simulate tomorrow. FU in oncology clinic at on Terry AM to discuss chemotherapy. Plan concurrent tx, start SRINATH to improve her breathing. Complete staging as out pt. CT abdomen was negative for metastatic disease. Assessment 71 y/o woman with locally advanced NSCLCA. Plan to tx concurrent chemo and XRT. h/o COPD. History of tobacco use; quit 30 years ago. Paroxysmal atrial fibrillation. Malignant melanoma resected right forearm. Hypertension. Fatty liver disease. Anemia. Unintentional weight loss. Coronary artery disease. Plan 1. follow up tomorrow at 930AM in [facility] 2. simulation today Delilah Cole Sep 13, 2017 09:24
[2017-09-13] MEDS ORDERED: NEBULIZER1 MI1 (09:55)
--- NOTE | 2017-09-13 14:32 | HHI.DS ---
Discharge Summary Admission Date Sep 11, 2017 at 15:42 Discharge Date: Sep 13, 2017 Admitting Diagnosis Hypoxia/Lung Mass/Dyspnea (1) CAD (coronary artery disease) ICD Code: I25.10 - Atherosclerotic heart disease of [place] coronary artery without angina pectoris (2) HTN (hypertension) ICD Code: I10 - Essential (primary) hypertension Status: Chronic (3) HLD (hyperlipidemia) ICD Code: E78.5 - Hyperlipidemia, unspecified Status: Chronic (4) Lung mass ICD Code: R91.8 - Other nonspecific abnormal finding of lung field (5) Hypoxia ICD Code: R09.02 - Hypoxemia Status: Acute (6) Hx of CABG ICD Code: Z95.1 - Presence of aortocoronary bypass graft Procedures See below Brief History - From Admission Written by Kentrell Ovalle, acting as scribe for Dr. Billy on 09/11/17 at 16: 55. Patient is a 71 year old female with PMHX chest mass, COPD, CAD, Afib who came in to the hospital for increasing SOB. Patient had needle lung biopsy done yesterday Right lower anterior chest wall. States that yesterday, she was feeling "okay" after the needle biopsy and she went home with brother. Last night, she started to be SOB, unable to sleep. Shortness of breath continued until the AM, EMS called and noted her O2 sat 80's low 90's. She was given nebulizer treatments, IV steroid, antibiotics and states she felt improved on exam. Occasionally SOB especially with exertion Denies chest pain, palpitations. Denies fevers, chills, n/v/d. Denies pain or discomfort. CBC/BMP: 09/12/17 0148 09/11/17 1130 Significant Findings Laboratory Tests Test 09/11/17 11:30 09/11/17 12:28 09/11/17 14:12 09/11/17 19:20 White Blood Count 13.4 TH/MM3 (4.0-11.0) Red Blood Count 3.94 MIL/MM3 (4.00-5.30) Hemoglobin 10.8 GM/DL (11.6-15.3) Hematocrit 32.7 % (35.0-46.0) Neutrophils (%) (Auto) 81.9 % (16.0-70.0) Lymphocytes (%) (Auto) 7.4 % (9.0-44.0) Monocytes (%) (Auto) 9.6 % (0.0-8.0) Neutrophils # (Auto) 11.0 TH/MM3 (1.8-7.7) Monocytes # (Auto) 1.3 TH/MM3 (0-0.9) Random Glucose 140 MG/DL (74-106) Albumin 2.8 GM/DL (3.4-5.0) Alkaline Phosphatase 141 U/L (45-117) Aspartate Amino Transf (AST/SGOT) 87 U/L (15-37) Sodium Level 135 MEQ/L (136-145) B-Type Natriuretic Peptide 212 PG/ML (0-100) Urine Bacteria RARE /hpf (NONE) Iron Level 21 MCG/DL (50-170) Percent Iron Saturation 6.4 % (20-50) Ferritin 273 NG/ML (8-252) Test 09/12/17 01:47 09/12/17 01:48 Troponin I LESS THAN 0.02 NG/ML White Blood Count 14.9 TH/MM3 (4.0-11.0) Hemoglobin 11.2 GM/DL (11.6-15.3) Hematocrit 33.9 % (35.0-46.0) Neutrophils (%) (Auto) 90.6 % (16.0-70.0) Lymphocytes (%) (Auto) 7.0 % (9.0-44.0) Neutrophils # (Auto) 13.5 TH/MM3 (1.8-7.7) PE at Discharge GENERAL: This is a well-nourished, well-developed patient, in no apparent distress. SKIN: No rashes, warm and dry HEAD: Atraumatic. Normocephalic. EYES: Pupils equal round and reactive. Extraocular motions intact. No scleral icterus. ENT: Nose without bleeding, or drainage, Airway patent. NECK: Trachea midline. Supple CARDIOVASCULAR: Irregularly irregular without murmurs, gallops, or rubs. RESPIRATORY: Fair air entry bilaterally. No wheezes, rales, or rhonchi. GASTROINTESTINAL: Abdomen soft, non-tender, nondistended. Positive bowel sounds MUSCULOSKELETAL: Extremities without clubbing, cyanosis, or edema. Pedal pulses appreciated NEUROLOGICAL: Awake and alert. Moves all extremity. Normal speech.no focal neurological deficit Hospital Course Patient is a 71 year old female with PMHX chest mass, COPD, CAD, Afib who came in to the hospital for increasing SOB. Acute Respiratory Failure Sepsis Right Chest Mass, S/P Needle Lung Biopsy Suspect Inflammation vs PNA Infection vs COPD exacerbation R/O PE Chest x-ray showed stable AP view and chest compared to prior study. No evidence of pneumothorax. CTA showed 1. No evidence for pulmonary embolism. 2. Large right upper lobe mass with scattered pulmonary nodules likely metastatic. 3. Mediastinal lymphadenopathy. 4. Patchy densities right lower lobe. 5. Small right pleural effusion. Suspicious for inflammatory changes possibly status post needle lung biopsy, also patient may have accumulated blood in the pleura She was given ceftriaxone IV, azithromycin IV, Solu-Medrol 125 mg 1 dose ED Continue medium dose Solu-Medrol 40 mg every 8 hours Blood cultures,Duonebs scheduled and PRN O2 nc, maintain O2 sat greater than 90% pulmonary consulted started on prednisone and Symbicort Medical oncology Dr. Sosa consulted>> recommended radiation therapy, palliative chemotherapy, ordered CT abdomen and pelvic for staging Patient cleared to be discharged and follow up as an outpatient [place] encounter performed with the patient on discharge day, as well as physical exam, summary of hospitalization course and postdischarge plan has been D/W the patient. D/W nurse D/W family independence case manager. Discharge medications reviewed and printed and signed, post discharge follow up visit with PCP and other specialist as well as Brief hospital course and discharge summary has been placed. Pt Condition on Discharge: Stable Discharge Disposition: Discharge Home Discharge Time: > 30 minutes Discharge Instructions DIET: Follow Instructions for: Heart Healthy Diet Activities you can perform: Weight Bearing as Jamie Follow up Referrals: Oncology - 1 Week with Rupali Sosa MD Pulmonology - 1 Week with Charo Hannon MD New Medications: Nebulizer (Nebulizer) 1 Mis Mis EA .ROUTE DIRECTED for Breathing Treatment, #1 0 Refills Continued Medications: Ascorbate Calcium/Bioflavonoid (Katharine-C 500 mg Tablet) 500 Mg-200 Mg Tablet DAILY Aspirin (Aspirin EC) 81 Mg Tabdr 81 MG PO DAILY, TAB 0 Refills Atorvastatin (Atorvastatin) 40 Mg Tab 40 MG PO HS for Cholesterol Management, TAB 0 Refills B-Complex Vitamins (B Complex) 1 Cap 2 CAP PO DAILY for Nutritional Supplement, #30 CAP 0 Refills Cholecalciferol (Vitamin D3) 2,000 Unit Cap 2000 UNITS PO DAILY for Nutritional Supplement, #1 BOTTLE 0 Refills Clopidogrel (Plavix) 75 Mg Tab 75 MG PO DAILY for Blood Clot Prevention, #30 TAB 0 Refills Cyanocobalamin (Vitamin B-12) 500 Mcg Tab 1000 MCG PO DAILY for Nutritional Supplement, #1 BOTTLE 0 Refills Glucosamine (Glucosamine) 750 Mg Cap 1500 MG PO DAILY for Herbal Supplements, CAP 0 Refills Lactobacillus Acidophilus (Probiotic) 10 Billion Cell Cap 1 CAP PO DAILY for Nutritional Supplement, #90 CAP 0 Refills Losartan (Losartan) 25 Mg Tab 50 MG PO DAILY for Blood Pressure Management, TAB 0 Refills Mirtazapine (Mirtazapine) 15 Mg Tab 22 MG PO HS for Depression Control, #30 TAB 0 Refills Nitroglycerin SL (Nitrostat SL) 0.4 Mg Subl 0.4 MG SL DIRECTED PRN for CHEST PAIN, TAB.SL 0 Refills 1 tablet under the tongue as needed for chest pain. Repeat every 5 minutes for a total of 3 DOSES or call 911 if NO relief. Angelo Navarro MD Sep 13, 2017 14:32
[2017-09-13] MEDS ORDERED: ALBU1.25 NEB (15:39)
--- NOTE | 2017-09-14 07:50 | MD ---
cc: Charo HOFFMAN ADMISSION DATE: 09/11/2017 DISCHARGE DATE: 09/13/2017 BRIEF HISTORY: Ms. Stratton is a 71-year-old white female known to me prior to this admission being evaluated as an outpatient for a large mediastinal and right upper lobe mass. That was biopsied as an outpatient last week and is returned as squamous cell carcinoma. She had severe shortness of breath 24 hours after the procedure and was referred back to the emergency room. On presentation she was in respiratory distress with low O2 sats and was admitted for observation. Follow up CT scan revealed no evidence of pneumothorax. No pulmonary embolism and no new infiltrates just the large mass. She was probably having an acute exacerbation of COPD, was treated with aerosolized bronchodilators and corticosteroids and improved rather rapidly. When I saw her later the evening of admission she was comfortable at rest. Since that time Dr. Sosa is seen her in consultation and is recommending combined radiation and chemotherapy. Her pulmonary status has improved dramatically and O2 sats are currently 95% on room air and O2 walk test revealed no significant desaturation. She had not previously been on bronchodilators. She does have underlying COPD with a prior smoking history, so she will go home on a nebulizer with Albuterol and atrovent two to three times a day, a tapering course of steroids over the next 5-7 days and Symbicort. Although the patient is requesting oxygen, it is unnecessary and I have explained that her. Her followup will be with Dr. Sosa and radiation therapy, that is being arranged today before discharge. I will see her back in several weeks in the office to follow up the underlying COPD. The patient is stable at the time of discharge, afebrile, pulse 90, respirations 18, O2 sat 95% with clear lung foy and no edema. MD FELISHA Fair/RODO /10:27 AM /7:54 AM
== END 2017-09-13 16:36 | disposition home or self-care (01) ==
LOC: NEPE 11:04 → NEDA 15:42 → NEPGCP 16:56
PROVIDERS: ADMIT Hospitalist; ATTEND Hospitalist
DX: R06.03 Acute respiratory distress (principal); J44.1 Chronic obstructive pulmonary disease with (acute) exacerbation; C34.11 Malignant neoplasm of upper lobe, right bronchus or lung; R59.1 Generalized enlarged lymph nodes; R09.02 Hypoxemia; R06.00 Dyspnea, unspecified; I25.10 Atherosclerotic heart disease of native coronary artery without angina pectoris; I10 Essential (primary) hypertension; I48.0 Paroxysmal atrial fibrillation; D64.9 Anemia, unspecified; K44.9 Diaphragmatic hernia without obstruction or gangrene; Z85.820 Personal history of malignant melanoma of skin; Z95.1 Presence of aortocoronary bypass graft; Z72.0 Tobacco use; Z95.5 Presence of coronary angioplasty implant and graft
CPT/HCPCS: 71010; 71275; 74177; 77334; 80053; 81001; 82550; 82728; 83540; 83550; 83605; 83735; 83880; 84484; 85025; 85610; 85730; 87040; 93005; 94620; 94640; 94664; 96365; 96375; 96376; 99285; G0378; G0463; J0456; J0696; J2920; J2930; J7050; J7512; Q9963; Q9967; 77263; 99204; 99212

== ENCOUNTER 2017-09-21 18:31 | Inpatient (IN) | payer MEDICARE, BC ==
[~2017-09-21] VITALS: Ht 165.1 cm; Wt 86.9 kg
[~2017-09-21 18:31] MED LIST changes: +ALBU1.25 NEB; -AMLO5TAB2 PO; +NEBULIZER1 MI1
[2017-09-21 18:33] VITALS: BP 132/88; PULSE 172; RESP 28; O2SAT 91
[2017-09-21 19:05] LABS: AUTOMATED NEUTROPHIL # 8.3 TH/MM3 (1.8-7.7); BASOPHIL # 0.2 TH/MM3 (0-0.2); BASOPHIL % 1.4 % (0.0-2.0); EOSINOPHIL # 0.2 TH/MM3 (0-0.4); EOSINOPHIL % 1.7 % (0.0-4.0); HEMATOCRIT 32.6 % (35.0-46.0); HEMO FLAGS DIFF FINAL; LYMPHOCYTE # 1.3 TH/MM3 (1.0-4.8); MEAN CELL VOLUME 84.4 FL (80.0-100.0); MEAN CORPUSCULAR HEMOGLOBIN 27.8 PG (27.0-34.0); MEAN CORPUSCULAR HGB CONC 32.9 % (32.0-36.0); MONO % 7.2 % (0.0-8.0); NEUT % 77.7 % (16.0-70.0); PLATELET COUNT 323 TH/MM3 (150-450); RED BLOOD COUNT 3.86 MIL/MM3 (4.00-5.30); RED CELL DISTRIBUTION WIDTH 14.7 % (11.6-17.2); WHITE BLOOD COUNT 10.7 TH/MM3 (4.0-11.0)
[2017-09-21 19:19] LABS: APTT (PATIENT) 27.2 SEC (24.3-30.1); PROTHROMBIN TIME - PATIENT 11.5 SEC (9.8-11.6)
[2017-09-21 19:35] LABS: BICARBONATE 29.1 MEQ/L (21.0-32.0); MAGNESIUM 1.7 MG/DL (1.5-2.5); POTASSIUM 4.1 MEQ/L (3.5-5.1)
[2017-09-21] MEDS ORDERED: DILTIAZEM INJ 125 MG in SODIUM CHLORIDE 0.9% INJ 100 ML IV PRN ×3 (19:45→22:00)
[2017-09-21] MEDS ORDERED: DILTIAZEM HCL 25 MG/5 ML VIAL IV PUSH ONE (19:45)
--- NOTE | 2017-09-21 19:45 | PD ---
HPI Chief Complaint: Cardiac Complaint Time Seen by Provider: 19:24 Travel History International Travel<30 days: No Contact w/Intl Traveler<30days: No Traveled to known affect area: No History of Present Illness HPI 71-year-old female complains of palpitation, heart racing and shortness of breath. Patient states that the symptoms started 3 days ago. Patient states that the palpitation has been intermittent however mostly constant for the past 2 days. Patient states that she has shortness of breath with that. Patient denies any coughing congestion fever chills. Patient denies any chest pain. Patient states that she has history of atrial fibrillation in 2010 which lasted a short period of time and resolved completely. Patient has history of CAD status post stent placement 6 weeks ago. Patient is on aspirin 81 mg daily and Plavix daily. Patient states that she took aspirin and Plavix today. Patient also has history hypertension, hyperlipidemia. Patient quit smoking 30 years ago. Patient recently was diagnosed with right lung cancer pending radiation and chemotherapy. Patient's neurologist seen Dr. Peterson. Patient's oncologist Dr. Sosa. [facility] Past Medical History Hx Anticoagulant Therapy: Yes (PLAVIX) Asthma: Yes Atrial Fibrillation: Yes Heart Rhythm Problems: Yes (AFIB) Cancer: Yes (MELANOMA) Cardiac Catheterization: Yes Cardiovascular Problems: Yes COPD: Yes Coronary Artery Disease: Yes Diabetes: No Diminished Hearing: No Endocrine: No Gastrointestinal Disorders: Yes (HIATAL HERNIA) Genitourinary: No Hiatal Hernia: Yes Hypertension: Yes Immune Disorder: No Implanted Vascular Access Dvce: Yes Reproductive: No Respiratory: Yes Thyroid Disease: No Tetanus Vaccination: Unknown Influenza Vaccination: Yes Past Surgical History Appendectomy: Yes Body Medical Devices: CARDIAC STENTS Cardiac Surgery: Yes Coronary Artery Bypass Graft: Yes Thoracic Surgery: Yes Other Surgery: Yes (RIGHT LUNG BIOPSY) Social History Alcohol Use: No Tobacco Use: No Substance Use: No Allergies-Medications (Allergen,Severity, Reaction): Coded Allergies: epinephrine (Verified Adverse Reaction, Severe, Hypotension, 09/21/17) lisinopril (Verified Adverse Reaction, Severe, Cough, 09/21/17) Reported Meds & Prescriptions Reported Meds & Active Scripts Active Albuterol Neb (Albuterol Sulfate) 1.25 Mg/3 Ml Neb 1.25 Mg NEB Q6HR NEB PRN Reported Probiotic (Lactobacillus Acidophilus) 10 Billion Cell Cap 1 Cap PO DAILY Psyllium Powder 100 % Pow 1 Scoop PO BID PRN 1 rounded TEAS[place] in 8 oz of liquid at the first sign of irregularity. Vitamin B-12 (Cyanocobalamin) 500 Mcg Tab 1,000 Mcg PO DAILY B Complex (B-Complex Vitamins) 1 Cap 2 Cap PO DAILY Katharine-C 500 mg Tablet (Ascorbate Calcium/Bioflavonoid) 500 Mg-200 Mg Tablet DAILY Vitamin D3 (Cholecalciferol) 2,000 Unit Cap 2,000 Units PO DAILY Msm (Methylsulfonylmethane) 1,000 Mg Cap 1,500 Mg PO DAILY Mirtazapine 15 Mg Tab 22 Mg PO HS Plavix (Clopidogrel Bisulfate) 75 Mg Tab 75 Mg PO DAILY Nitrostat SL (Nitroglycerin) 0.4 Mg Subl 0.4 Mg SL DIRECTED PRN 1 tablet under the tongue as needed for chest pain. Repeat every 5 minutes for a total of 3 DOSES or call 911 if NO relief. Losartan (Losartan Potassium) 25 Mg Tab 50 Mg PO DAILY Glucosamine (Glucosamine Sulfate) 750 Mg Cap 1,500 Mg PO DAILY Atorvastatin (Atorvastatin Calcium) 40 Mg Tab 40 Mg PO HS Aspirin EC (Aspirin) 81 Mg Tabdr 81 Mg PO DAILY Review of Systems General / Constitutional: No: Fever Eyes: No: Visual changes HENT: No: Headaches Cardiovascular: Positive: Palpitations, Tachycardia, No: Chest Pain or Discomfort Respiratory: Positive: Shortness of Breath Gastrointestinal: No: Abdominal Pain Genitourinary: No: Dysuria Musculoskeletal: No: Pain Skin: No Rash Neurologic: No: Weakness Psychiatric: No: Depression Endocrine: No: Polydipsia Hematologic/Lymphatic: No: Easy Bruising Physical Exam Narrative GENERAL: Well-nourished, well-developed patient. SKIN: Focused skin assessment warm/dry. HEAD: Normocephalic. EYES: No scleral icterus. No injection or drainage. NECK: Supple, trachea midline. No JVD or lymphadenopathy. CARDIOVASCULAR: Irregularly irregular rate and rhythm without murmurs, gallops, or rubs. RESPIRATORY: Breath sounds equal bilaterally. No accessory muscle use. GASTROINTESTINAL: Abdomen soft, non-tender, nondistended. MUSCULOSKELETAL: No cyanosis, or edema. BACK: Nontender without obvious deformity. No CVA tenderness. Neurologic exam normal. Data Data Last Documented VS Vital Signs Date Time Temp Pulse Resp B/P (MAP) Pulse Ox O2 Delivery O2 Flow Rate FiO2 09/21/17 21:00 112 20 116/74 (88) 98 Nasal Cannula 3.00 Orders Orders Electrocardiogram (09/21/17 18:37) Basic Metabolic Panel (Bmp) (09/21/17 18:37) B-Type Natriuretic Peptide (09/21/17 18:37) Ckmb (Isoenzyme) Profile (09/21/17 18:37) Complete Blood Count With Diff (09/21/17 18:37) Magnesium (Mg) (09/21/17 18:37) Prothrombin Time / Inr (Pt) (09/21/17 18:37) Act Partial Throm Time (Ptt) (09/21/17 18:37) Troponin I (09/21/17 18:37) Chest, Pa & Lat (09/21/17 18:37) Vital Signs (Adult) Q15MX4,Q4H (09/21/17 19:32) Human Resources Operations Director / Telemetry ROSANNE.Q8H (09/21/17 19:32) Cardiac Rhythm ROSANNE.Q8H (09/21/17 19:32) Notify Dr: Other (09/21/17 19:32) Diltiazem Inj (Cardizem Inj) (09/21/17 19:45) Diltiazem Inj (Cardizem Inj) (09/21/17 19:45) Sodium Chlor 0.9% 1000 Ml Inj (Ns 1000 M (09/21/17 21:00) Metoprolol Tartrate (Lopressor) (09/21/17 21:30) Labs Laboratory Tests Test 09/21/17 18:48 White Blood Count 10.7 TH/MM3 Red Blood Count 3.86 MIL/MM3 Hemoglobin 10.7 GM/DL Hematocrit 32.6 % Mean Corpuscular Volume 84.4 FL Mean Corpuscular Hemoglobin 27.8 PG Mean Corpuscular Hemoglobin Concent 32.9 % Red Cell Distribution Width 14.7 % Platelet Count 323 TH/MM3 Mean Platelet Volume 7.5 FL Neutrophils (%) (Auto) 77.7 % Lymphocytes (%) (Auto) 12.0 % Monocytes (%) (Auto) 7.2 % Eosinophils (%) (Auto) 1.7 % Basophils (%) (Auto) 1.4 % Neutrophils # (Auto) 8.3 TH/MM3 Lymphocytes # (Auto) 1.3 TH/MM3 Monocytes # (Auto) 0.8 TH/MM3 Eosinophils # (Auto) 0.2 TH/MM3 Basophils # (Auto) 0.2 TH/MM3 CBC Comment DIFF FINAL Differential Comment Prothrombin Time 11.5 SEC Prothromb Time International Ratio 1.0 RATIO Activated Partial Thromboplast Time 27.2 SEC Blood Urea Nitrogen 18 MG/DL Creatinine 0.73 MG/DL Random Glucose 152 MG/DL Calcium Level 8.9 MG/DL Magnesium Level 1.7 MG/DL Sodium Level 142 MEQ/L Potassium Level 4.1 MEQ/L Chloride Level 108 MEQ/L Carbon Dioxide Level 29.1 MEQ/L Anion Gap 5 MEQ/L Estimat Glomerular Filtration Rate 79 ML/MIN Total Creatine Kinase 74 U/L Troponin I 0.14 NG/ML B-Type Natriuretic Peptide 333 PG/ML [facility] Medical Decision Making Medical Screen Exam Complete: Yes Emergency Medical Condition: Yes Interpretation(s) 2055 PM. Chest x-ray shows right lung mass. Stable chest. CBC with hemoglobin 10.7 hematocrit 32.6. WBC 10.7. 77 neutrophil. Troponin 0.14. BNP 333. Differential Diagnosis Differential diagnosis including atrial fibrillation with RVR, electrolyte imbalance, thyroid disease. Narrative Course 71-year-old female complains of palpitation and heart racing. EKG showed atrial fibrillation with RVR. Patient with history of CAD status post stent placement 6 weeks ago. Patient on aspirin and Plavix. Cardizem 15 mg IV bolus and Cardizem drip started. Normal saline solution 1 25 cc an hour. Metoprolol 25 mg by mouth given. Lovenox 70 acute given. I spoke with farm equipment maintenance supervisor Dr. Beauchamp. Advised continue Lovenox and metoprolol 25 mg 2 times a day. Continue with Cardizem drip. Cardiology consultation with Dr. Peterson. Consultation with Dr. Sosa, oncologist and Dr. Hannon heading repairer. Diagnosis Primary Impression: Atrial fibrillation with RVR Additional Impression: Elevated troponin Admitting Information Admitting Physician Requests: Admit Brayan Guzmán MD Sep 21, 2017 19:45
[2017-09-21 20:07] VITALS: BP 127/78; PULSE 132; RESP 20; O2SAT 98
--- NOTE | 2017-09-21 20:31 | RADRPT ---
EXAM DATE/TIME: 09/21/2017 19:10 [place] COMPARISON: CHEST SINGLE AP, September 11, 2017, 12:02. INDICATIONS : Patient experiencing chest pain and shortness of breath. MEDICAL HISTORY : Cardiovascular disease. Chronic obstructive pulmonary disease. Hernia, hiatal.Hypertension, SURGICAL HISTORY : Appendectomy. CABG. ENCOUNTER: Initial ACUITY: 3 days PAIN SCORE: 2/10 LOCATION: Bilateral upper chest FINDINGS: PA and lateral views of the chest demonstrate a large stable mass lesion in the anterior right medias tinum extending into the right hemithorax. Heart size remains normal and well compensated. Stable pos tsurgical changes characteristic of prior CABG. Osseous structures are intact with some degenerative changes in the dorsal spine. CONCLUSION: Stable chest with a large mass lesion filling the anterior mediastinal space and extending into the right upper mid chest. Pradeep El MD on September 21, 2017 at 20:26 Board Certified Radiologist. This report was verified electronically.
[2017-09-21 21:00] VITALS: BP 116/74; PULSE 112; RESP 20; O2SAT 98
[2017-09-21] MEDS ORDERED: SODIUM CHLOR 0.9% 1000 ML INJ 1,000 ML IV SCH (21:00)
[2017-09-21] MEDS ORDERED: METOPROLOL TARTRATE 25 MG TAB PO ONE (21:30)
[2017-09-21] MEDS ORDERED: ENOXAPARIN SODIUM 80 MG/0.8 ML SYRINGE SQ ONE (21:30)
[2017-09-21] MEDS ORDERED: SODIUM CHLORIDE 0.9% FLUSH 10 ML FLUSH IV FLUSH PRN (21:45)
[2017-09-21 22:15] VITALS: BP_SYST 124; BP_SYST 131; BP_DIAS 78; BP_DIAS 84; PULSE 102; PULSE 20; PULSE 94; RESP 20; O2SAT 98
[2017-09-21] MEDS ORDERED: SYMB160A INH (22:23)
--- NOTE | 2017-09-21 22:56 | HHI.HP ---
[facility] Primary [facility] Physician Ekta Bro MD Admission Diagnosis atrial fibrillation with RVR. Diagnoses: Travel History International Travel<30 Days: No Contact w/Intl Traveler <30 Da: No Traveled to Known Affected Are: No History of Present Illness 71-year-old female with a past medical history significant for non-small cell lung cancer, squamous cell, coronary artery disease status post CABG 5 and cardiac stenting 6 weeks ago, hypertension and hyperlipidemia presents with chest pressure, shortness of breath and heart palpitations since Thursday. The patient states her chest pressure is chronic and unchanged from normal. EKG in the emergency department significant for atrial fibrillation with rapid ventricular response. Troponin 0.14. On presentation to the emergency department, the patient's pulse was 172, respiratory rate 28, blood pressure 132 /88 and pulse ox 91% on room air. She was placed on a Cardizem drip and her pulse came down to 102. The patient is supposed to start chemotherapy with Dr. Sosa tomorrow. Review of Systems Denies fever or chills Denies blurry vision, otorrhea, rhinorrhea Denies sore throat and cough No chest pain, Positive palpitations and shortness of breath with chest pressure No abdominal pain Denies constipation/diarrhea/nausea/vomiting Denies muscle pain/weakness No rashes Past Family Social History Past Medical History Non-small cell lung cancer CAD status post stent placement 6 weeks ago Hypertension Hyperlipidemia Past Surgical History Appendectomy CABG 5 in 2010 Reported Medications Reported Meds & Active Scripts Active Albuterol Neb (Albuterol Sulfate) 1.25 Mg/3 Ml Neb 1.25 Mg NEB Q6HR NEB PRN Reported Symbicort Inh (Budesonide/Formoterol Fumarate) 160-4.5 Mcg/Act Aero 1 Puff INH Q12HR Probiotic (Lactobacillus Acidophilus) 10 Billion Cell Cap 1 Cap PO DAILY Psyllium Powder 100 % Pow 1 Scoop PO BID PRN 1 rounded TEASPO[place] in 8 oz of liquid at the first sign of irregularity. Vitamin B-12 (Cyanocobalamin) 500 Mcg Tab 1,000 Mcg PO DAILY B Complex (B-Complex Vitamins) 1 Cap 2 Cap PO DAILY Katharine-C 500 mg Tablet (Ascorbate Calcium/Bioflavonoid) 500 Mg-200 Mg Tablet DAILY Vitamin D3 (Cholecalciferol) 2,000 Unit Cap 2,000 Units PO DAILY Msm (Methylsulfonylmethane) 1,000 Mg Cap 1,500 Mg PO DAILY Mirtazapine 15 Mg Tab 22 Mg PO HS Plavix (Clopidogrel Bisulfate) 75 Mg Tab 75 Mg PO DAILY Nitrostat SL (Nitroglycerin) 0.4 Mg Subl 0.4 Mg SL DIRECTED PRN 1 tablet under the tongue as needed for chest pain. Repeat every 5 minutes for a total of 3 DOSES or call 911 if NO relief. Losartan (Losartan Potassium) 25 Mg Tab 50 Mg PO DAILY Glucosamine (Glucosamine Sulfate) 750 Mg Cap 1,500 Mg PO DAILY Atorvastatin (Atorvastatin Calcium) 40 Mg Tab 40 Mg PO HS Aspirin EC (Aspirin) 81 Mg Tabdr 81 Mg PO DAILY Allergies: Coded Allergies: epinephrine (Verified Adverse Reaction, Severe, Hypotension, 09/21/17) lisinopril (Verified Adverse Reaction, Severe, Cough, 09/21/17) Family History Diabetes mellitus in mother and brother. Social History Quit smoking 31 years ago, [id number] history of smoking. Rare alcohol. Denies illicit drugs. Physical Exam Vital Signs Vital Signs Date Time Temp Pulse Resp B/P (MAP) Pulse Ox O2 Delivery O2 Flow Rate FiO2 09/21/17 22:26 09/21/17 22:15 102 20 124/78 (93) 98 Nasal Cannula 3.00 09/21/17 22:15 94 20 131/84 (100) 98 Nasal Cannula 3.00 09/21/17 21:00 112 20 116/74 (88) 98 Nasal Cannula 3.00 09/21/17 20:09 132 127/78 09/21/17 20:07 132 20 127/78 (94) 98 Nasal Cannula 2.00 09/21/17 19:27 152 24 98 Nasal Cannula 2.00 09/21/17 18:33 172 28 132/88 (103) 91 Physical Exam GENERAL: female sitting up in bed SKIN: No rashes, ecchymoses or lesions. Cool and dry. HEAD: Atraumatic. Normocephalic. No temporal or scalp tenderness. EYES: Pupils equal round and reactive. Extraocular motions intact. No scleral icterus. No injection or drainage. ENT: Nose without bleeding, purulent drainage or septal hematoma. Throat without erythema, tonsillar hypertrophy or exudate. Uvula midline. Airway patent. NECK: Trachea midline. No JVD or lymphadenopathy. Supple, nontender, no meningeal signs. CARDIOVASCULAR: Tachycardic. Irregularly irregular rhythm. No murmurs/rubs/ gallops. RESPIRATORY: Clear to auscultation. Breath sounds equal bilaterally. No wheezes , rales, or rhonchi. GASTROINTESTINAL: Abdomen soft, non-tender, nondistended. No hepato-splenomegaly , or palpable masses. No guarding. MUSCULOSKELETAL: Extremities without clubbing, cyanosis, or edema. No joint tenderness, effusion, or edema noted. No calf tenderness. Negative Homans sign bilaterally. NEUROLOGICAL: Awake and alert. Cranial nerves II through XII intact. Motor and sensory grossly within normal limits. Normal speech. Laboratory Laboratory Tests Test 09/21/17 18:48 White Blood Count 10.7 Red Blood Count 3.86 Hemoglobin 10.7 Hematocrit 32.6 Mean Corpuscular Volume 84.4 Mean Corpuscular Hemoglobin 27.8 Mean Corpuscular Hemoglobin Concent 32.9 Red Cell Distribution Width 14.7 Platelet Count 323 Mean Platelet Volume 7.5 Neutrophils (%) (Auto) 77.7 Lymphocytes (%) (Auto) 12.0 Monocytes (%) (Auto) 7.2 Eosinophils (%) (Auto) 1.7 Basophils (%) (Auto) 1.4 Neutrophils # (Auto) 8.3 Lymphocytes # (Auto) 1.3 Monocytes # (Auto) 0.8 Eosinophils # (Auto) 0.2 Basophils # (Auto) 0.2 CBC Comment DIFF FINAL Differential Comment Prothrombin Time 11.5 Prothromb Time International Ratio 1.0 Activated Partial Thromboplast Time 27.2 Blood Urea Nitrogen 18 Creatinine 0.73 Random Glucose 152 Calcium Level 8.9 Magnesium Level 1.7 Sodium Level 142 Potassium Level 4.1 Chloride Level 108 Carbon Dioxide Level 29.1 Anion Gap 5 Estimat Glomerular Filtration Rate 79 Total Creatine Kinase 74 Troponin I 0.14 B-Type Natriuretic Peptide 333 Result Diagram: 09/21/17184709/21/171847 Caprini VTE Risk Assessment Caprini VTE Risk Assessment: Mod/High Risk (score >= 2) Caprini Risk Assessment Model Point Value = 1 Point Value = 2 Point Value = 3 Point Value = 5 Age 41-60 Minor surgery BMI > 25 kg/m2 Swollen legs Varicose veins or History of unexplained or recurrent spontaneous Oral contraceptives or hormone replacement Sepsis (< 1 month) Serious lung disease, including pneumonia (< 1 month) Abnormal pulmonary function Acute myocardial infarction Congestive heart failure (< 1 month) History of inflammatory bowel disease Medical patient at bed rest Age 61-74 Arthroscopic surgery Major open surgery (> 45 min) Laparoscopic surgery (> 45 min) Malignancy Confined to bed (> 72 hours) Immobilizing plaster cast Central venous access Age >= 75 History of VTE Family history of VTE Factor V Leiden Prothrombin 62580T Lupus anticoagulant Anticardiolipin antibodies Elevated serum homocysteine Heparin-induced thrombocytopenia Other congenital or acquired thrombophilia Stroke (< 1 month) Elective arthroplasty Hip, pelvis, or leg fracture Acute spinal cord injury (< 1 month) Prophylaxis Regimen Total Risk Factor Score Risk Level Prophylaxis Regimen 0-1 Low Early ambulation 2 Moderate Order ONE of the following: *Sequential Compression Device (SCD) *Heparin 5000 units SQ BID 3-4 Higher Order ONE of the following medications: *Heparin 5000 units SQ TID *Enoxaparin/Lovenox 40 mg SQ daily (WT < 150 kg, CrCl > 30 mL/min) *Enoxaparin/Lovenox 30 mg SQ daily (WT < 150 kg, CrCl > 10-29 mL/min) *Enoxaparin/Lovenox 30 mg SQ BID (WT < 150 kg, CrCl > 30 mL/min) AND/OR *Sequential Compression Device (SCD) 5 or more Highest Order ONE of the following medications: *Heparin 5000 units SQ TID (Preferred with Epidurals) *Enoxaparin/Lovenox 40 mg SQ daily (WT < 150 kg, CrCl > 30 mL/min) *Enoxaparin/Lovenox 30 mg SQ daily (WT < 150 kg, CrCl > 10-29 mL/min) *Enoxaparin/Lovenox 30 mg SQ BID (WT < 150 kg, CrCl > 30 mL/min) AND *Sequential Compression Device (SCD) Assessment and Plan Assessment and Plan 71-year-old female with a past medical history significant for non-small cell lung cancer, coronary artery disease status post stenting 6 weeks ago, hypertension and hyperlipidemia presents with heart palpitations, shortness of breath and chest pressure 3 days. 1. Atrial fibrillation with rapid ventricular response EKG significant for A. fib with RVR, images reviewed by me Bri morin Metoprolol 25 mg twice a day Telemetry 2. CAD/elevated troponin/chest pressure Troponin elevated to 0.14 Therapeutic Lovenox Continue Plavix, holding aspirin Trend troponins/EKGs Cardiology consulted, appreciate recommendations. 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 Non-small cell lung cancer Patient was supposed to start chemotherapy tomorrow Consult oncology Dr. Sosa 4. Hypertension Continue losartan 5. Hyperlipidemia Continue home statin 6. Depression/insomnia Continue home Remeron FEN NPO after midnight NS at 125 cc/hr Electrolytes: Monitor and replete when necessary Therapeutic Lovenox This discussed with ER physician at length Physician Certification 2 Midnight Certification Type: Admission for Inpatient Services Order for Inpatient Services The services are ordered in accordance with Medicare regulations or non- Medicare payer requirements, as applicable. In the case of services not specified as inpatient-only, they are appropriately provided as inpatient services in accordance with the 2-midnight benchmark. Estimated LOS (days): 2 2 days is the estimated time the patient will need to remain in the hospital, assuming treatment plan goals are met and no additional complications. Post-Hospital Plan: Not yet determined Joanne Albarran MD Sep 21, 2017 22:56
[2017-09-21 23:00] VITALS: BP 139/78; PULSE 88; TEMP 98.5; O2SAT 98
[2017-09-21] MEDS: MIRTAZAPINE 15 MG TAB PO SCH (23:00)
[2017-09-21] MEDS: ATORVASTATIN 40 MG TAB PO SCH (23:00)
[2017-09-22] VITALS (25 sets, daily range): BP systolic 124–161; BP diastolic 81–122; PULSE 70–138; RESP 20–42; TEMP 98.1–98.6; O2SAT 91–97
[2017-09-22] MEDS ORDERED: RESP: ALBUTEROL 2.5 MG/IPRATROPIUM 0.5 MG NEB (PRN) NEB (05:00)
[2017-09-22 05:31] LABS: BLOOD GAS BASE EXCESS -0.5 mmol/L (-2-2); BLOOD GAS CARBOXYHEMOGLOBIN 0.8 % (0-4); BLOOD GAS HCO3 24 mmol/L (22-26); BLOOD GAS METHEMOGLOBIN 1.2 % (0-2); BLOOD GAS O2 HGB SATURATION 91 % (90-100); BLOOD GAS OXYGEN CONTENT 14.7 Vol % (12.0-20.0); BLOOD GAS PCO2 43 mmHg (38-42); BLOOD GAS PO2 75 mmHg (61-120); BLOOD GAS TOTAL HGB 11.4 G/DL (12.0-16.0); CRITICAL VALUE NO; DRAW SITE RT RADIAL; LITER FLOW 4 L/M; NUMBER OF ARTERIAL PUNCTURES 1; OXYGEN DEVICE NASAL CANNULA; STAT YES; TEMP CORR TO 98.6; ULNAR PULSE PRESENT
--- NOTE | 2017-09-22 05:50 | RADRPT ---
EXAM DATE/TIME: 09/22/2017 05:19 [place] COMPARISON: CHEST PA & LAT, September 21, 2017, 19:10. CHEST SINGLE AP, September 11, 2017, 12:02. INDICATIONS : Short of breath. MEDICAL HISTORY : Cardiovascular disease. Chronic obstructive pulmonary disease. Hernia, hiatal.Hypertension, SURGICAL HISTORY : Appendectomy. CABG. ENCOUNTER: Subsequent ACUITY: 2 weeks PAIN SCORE: 0/10 LOCATION: Bilateral chest FINDINGS: The patient is status post sternotomy. There is increased density in the right perihilar region. Ther e is diffuse increased interstitial markings which have worsened since the prior exam. Significant ef fusions are not closing. CONCLUSION: 1. Worsening interstitial disease likely representing worsening edema. 2. Masslike area seen in the right perihilar region. Fernando Mercado MD on September 22, 2017 at 5:47 Board Certified Radiologist. This report was verified electronically.
[2017-09-22] MEDS ORDERED: FUROSEMIDE 40 MG/4 ML VIAL IV PUSH ONE (06:15)
[2017-09-22 06:41] LABS: HEMATOCRIT 35.5 % (35.0-46.0); MEAN CELL VOLUME 84.7 FL (80.0-100.0); MEAN CORPUSCULAR HEMOGLOBIN 27.2 PG (27.0-34.0); MEAN CORPUSCULAR HGB CONC 32.1 % (32.0-36.0); PLATELET COUNT 305 TH/MM3 (150-450); RED BLOOD COUNT 4.19 MIL/MM3 (4.00-5.30); REVIEW FLAG FINAL; WHITE BLOOD COUNT 13.2 TH/MM3 (4.0-11.0)
[2017-09-22 07:00] LABS: BICARBONATE 26.9 MEQ/L (21.0-32.0); POTASSIUM 3.7 MEQ/L (3.5-5.1)
[2017-09-22] MEDS ORDERED: DILTIAZEM HCL 30 MG TAB PO PRN (07:45)
--- NOTE | 2017-09-22 08:04 | MB ---
cc: [facility] DATE OF CONSULTATION 09/22/2017 REASON FOR CONSULTATION A-fib. HISTORY OF PRESENT ILLNESS Ms. Julisa Stratton is a 71-year-old patient of mine who does have a prior history of CABG. She underwent cardiac catheterization and stenting of the SVG to the PLB last month utilizing a ANN. She subsequently was diagnosed with a lung cancer after finding a large mass on CT. The patient presented to the office yesterday with A-fib, RVR. 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 The patient does have ongoing shortness of breath. PAST MEDICAL HISTORY 1. Significant for CAD with prior CABG and recent ANN. 2. Non-small cell lung cancer with a 12 x 7 right upper lobe mass. 3. Hypertension. 4. Hyperlipidemia. 5. COPD. 6. Obesity. OUTPATIENT MEDICATIONS 1. Symbicort. 2. Probiotic. 3. Vitamins. 4. Aspirin. 5. Plavix. 6. Losartan. 7. Atorvastatin. ALLERGIES LISINOPRIL. EPINEPHRINE. FAMILY HISTORY Positive for diabetes. SOCIAL HISTORY The patient is a former smoker. REVIEW OF SYSTEMS Except what is mentioned in the HPI, all 12 systems are negative. PHYSICAL EXAMINATION VITAL SIGNS: 98.1, 97, 35, 131/91. GENERAL: She is an overweight female who is tachypneic and in moderate respiratory distress. NECK: Free from JVD. LUNGS: Decreased but clear to auscultation. CARDIOVASCULAR EXAMINATION: She has an irregular tachycardic rhythm; no rubs or gallops were appreciated. ABDOMEN: Soft. EXTREMITIES: Free from edema. LAB VALUES White count of 13.2. Creatinine 0.6. Serial troponins of 0.14, 0.23, 0.22. BNP of 333. TELEMETRY A-fib with rapid ventricular rate. IMPRESSIONS Atrial fibrillation - This is essentially new onset atrial fibrillation as she has not had any for several years since her CABG. She presented in A-fib, RVR to the 170s yesterday. She is on a Cardizem drip with reasonable rate control around 100 to 110 beat/minute. At this point I am going to start to change her over to the p.o. Cardizem . Of note, she will not be able to tolerate q. 2 nebs as this will significantly increase her heart rate. Regarding anticoagulation, her CHADS-VASC score is 3 with a 0.4, over 65, hypertension and female. We discussed the risks and benefits yesterday in the office as her rate is around 3 or 4 percent per year off of strong anticoagulation. Given her risk of bleeding and recent ANN that would mandate she stays on Plavix, she has elected to stay on aspirin and Plavix and not any stronger anticoagulation at this point. Shortness of breath - While clearly there is a component from the A-fib, at this point with her heart rate just over 100, I believe her dyspnea is disproportionate to her A-fib and likely reflects her lung cancer. Diastolic heart failure - The patient does have mildly elevated BNP. While this is a nonspecific finding, she likely does have some mild CHF. Beta blockers are felt relatively contraindicated given her lung cancer and severe COPD. CAD - The patient had a history of CABG and recent ANN. She will continue on aspirin and Plavix. She is felt to be stable from this regard. Non-ST elevation AZ - This is a secondary AZ second to her A-fib, RVR. There is no intention of going to cardiac catheterization at this point. Mindy Peterson M.D. TRUDY/ANTHONY /7:27 AM /7:36 AM
[2017-09-22] MEDS: BUDESONIDE-FORMOTEROL 160/4.5 MCG INHALER INH SCH ×2 (08:41→20:35)
[2017-09-22] MEDS: LOSARTAN 25 MG TAB PO SCH (08:56)
[2017-09-22] MEDS: METOPROLOL TARTRATE 25 MG TAB PO SCH ×2 (08:57→20:39)
[2017-09-22] MEDS: CLOPIDOGREL 75 MG TAB PO SCH (08:57)
[2017-09-22] MEDS: LACTOBACILLUS ACIDOPHILUS TAB PO SCH (08:57)
[2017-09-22] MEDS: ASPIRIN EC 81 MG TABEC PO SCH (09:15)
--- NOTE | 2017-09-22 09:19 | HHI.PR ---
Subjective Remarks f/u; a-fib/ sob/ lung cancer still with sob although she says that she's slightly improved. denies chest pain. still on cardizem drip. d/w the RN. Objective Vitals Vital Signs Date Time Temp Pulse Resp B/P (MAP) Pulse Ox O2 Delivery O2 Flow Rate FiO2 09/22/17 07:30 98.6 100 36 161/122 (135) 91 09/22/17 05:15 95 Nasal Cannula 4.00 09/22/17 04:00 98.1 97 42 131/91 (104) 91 09/22/17 02:00 88 09/22/17 01:00 94 09/22/17 00:00 99 09/21/17 23:00 98.5 88 139/78 (98) 98 09/21/17 22:26 09/21/17 22:15 102 20 124/78 (93) 98 Nasal Cannula 3.00 09/21/17 22:15 94 20 131/84 (100) 98 Nasal Cannula 3.00 09/21/17 21:00 112 20 116/74 (88) 98 Nasal Cannula 3.00 09/21/17 20:09 132 127/78 09/21/17 20:07 132 20 127/78 (94) 98 Nasal Cannula 2.00 09/21/17 19:27 152 24 98 Nasal Cannula 2.00 09/21/17 18:33 172 28 132/88 (103) 91 Result Diagram: 09/22/17 0603 09/22/17 0603 Imaging Last Impressions Chest X-Ray 09/21/17 1837 Signed Impressions: Service Date/Time: Thursday, September 21, 2017 19:10 - CONCLUSION: Stable chest with a large mass lesion filling the anterior mediastinal space and extending into the right upper mid chest. Pradeep El MD Objective Remarks GENERAL: with some respiratory distress CARDIOVASCULAR: Regular rate and irregular rhythm without murmurs, gallops, or rubs. RESPIRATORY: Clear to auscultation. Breath sounds equal bilaterally. No wheezes , rales, or rhonchi. GASTROINTESTINAL: Abdomen soft, non-tender, nondistended. Normal, active bowel sounds MUSCULOSKELETAL: Extremities without clubbing, cyanosis, or edema. NEURO: Alert & Oriented x4 to person, place, time, situation. Moves all ext x4 Medications and IVs Current Medications Diltiazem HCl (Cardizem Inj) 15 mg ONCE ONCE IV PUSH Last administered on 19:42; Start 09/21/17 at 19:45; Stop 09/21/17 at 19:46; Status DC Diltiazem HCl 125 mg/Sodium Chloride 125 ml @ 5 mls/hr TITRATE PRN IV Tachycardia Last administered on 09/21/17 20:09; Start 09/21/17 at 19:45; Stop 09/21/17 at 21:46; Status DC Sodium Chloride 1,000 ml @ 125 mls/hr Q8H IV Last administered on 09/21/17 21:21; Start 09/21/17 at 21:00; Stop 09/22/17 at 06:12; Status DC Metoprolol Tartrate (Lopressor) 25 mg ONCE ONCE PO Last administered on 21:47; Start 09/21/17 at 21:30; Stop 09/21/17 at 21:31; Status DC Enoxaparin Sodium (Lovenox Inj) 70 mg ONCE ONCE SQ Last administered on 21:47; Start 09/21/17 at 21:30; Stop 09/21/17 at 21:31; Status DC Metoprolol Tartrate (Lopressor) 25 mg Q12HR PO Last administered on 09/22/17 08:57; Start 09/22/17 at 09:00 Diltiazem HCl 125 mg/Sodium Chloride 125 ml @ 5 mls/hr TITRATE PRN IV Tachycardia; Start 09/21/17 at 21:45; Stop 09/21/17 at 21:51; Status DC Sodium Chloride (NS Flush) 2 ml UNSCH PRN IV FLUSH FLUSH AFTER USING IV ACCESS ; Start 09/21/17 at 21:45 Sodium Chloride (NS Flush) 2 ml BID IV FLUSH ; Start 09/22/17 at 09:00 Atorvastatin Calcium (Lipitor) 40 mg HS PO ; Start 09/21/17 at 22:00 Clopidogrel Bisulfate (Plavix) 75 mg DAILY PO Last administered on 09/22/17 08:57; Start 09/22/17 at 09:00 Lactobacillus Acidophilus (Lactinex) 1 tab DAILY PO Last administered on 08:57; Start 09/22/17 at 09:00 Losartan Potassium (Cozaar) 50 mg DAILY PO Last administered on 09/22/17 08: 56; Start 09/22/17 at 09:00 Mirtazapine (Remeron) 22 mg HS PO ; Start 09/21/17 at 22:00 Diltiazem HCl 125 mg/Sodium Chloride 125 ml @ 5 mls/hr TITRATE PRN IV Tachycardia; Start 09/21/17 at 22:00 Budesonide/ Formoterol Fumarate (Symbicort 160-4.5 Inh) 1 puff Q12HR INH Last administered on 09/22/17 08:41; Start 09/22/17 at 09:00 Albuterol/ Ipratropium (Duoneb Neb) 1 ampule Q2HR NEB PRN NEB SOB/WHEEZING Last administered on 09/22/17 05:14; Start 09/22/17 at 05:00 Furosemide (Lasix Inj) 40 mg ONCE ONCE IV PUSH Last administered on 07:15; Start 09/22/17 at 06:15; Stop 09/22/17 at 06:16; Status DC Diltiazem HCl (Cardizem Cd) 300 mg DAILY PO ; Start 09/22/17 at 09:00 Diltiazem HCl (Cardizem) 30 mg Q6HR PRN PO RAPID HEART RATE > 100 BPM; Start 09/22/17 at 07:45 A/P Assessment and Plan 1. Atrial fibrillation with rapid ventricular response EKG significant for A. fib with RVR Cardizem drip Metoprolol 25 mg twice a day cardizem was added. continue Telemetry continue with aspirin and plavix for now with no further anticoagulation. cardiology consult appreciated. 2. CAD/elevated troponin/chest pressure with recent stent placement. Troponin elevated to 0.14 continue aspirin and plavix dc'ed therapeutic Lovenox- as noted above. cardiology consult appreciated. 3. Non-small cell lung cancer Patient was supposed to start chemotherapy today Consulted oncology Dr. Sosa will consider pulmonary evaluation ( ) if sob doesn't improve. change duoneb to Xopenex due to rapid a-fib ( d/w the pharmacy). 4. Hypertension Continue losartan 5. Hyperlipidemia Continue home statin 6. Depression/insomnia Continue home Tonya Howell MD Sep 22, 2017 09:19
[2017-09-22] MEDS: DILTIAZEM-CD 300 MG CAP ER PO SCH (10:43)
[2017-09-22] MEDS ORDERED: RESP: LEVALBUTEROL HYDROCHLORIDE 0.63 MG/3 ML NEB (PRN) NEB (12:00)
--- NOTE | 2017-09-22 17:13 | EKG ---
Date Performed: 09/22/2017 Time Performed: 06:28:24 PTAGE: 71 years EKG: Atrial fibrillation Left axis deviation Inferior infarct - age undetermined QRS changes V3/ V4 may be due to LVH but cannot rule out anterior infarct Lateral ST-T changes are nonspecific When c ompared to previous tracing rate has decresed. Since previous tracing, no significant change noted Ab normal ECG PREVIOUS TRACING : 09/22/2017 01.19 DOCTOR: Mindy Peterson Interpretating Date/Time 09/22/2017 17:13:30
--- NOTE | 2017-09-22 17:13 | EKG ---
Date Performed: 09/22/2017 Time Performed: 01:19:06 PTAGE: 71 years EKG: Atrial fibrillation Leftward axis Possible anterior infarct - age undetermined Lateral ST-T changes are nonspecific When compared to previous tracing, the rate has decreased. Abnormal ECG PREVIOUS TRACING : 09/21/2017 18.41 DOCTOR: Mindy Peterson Interpretating Date/Time 09/22/2017 17:12:49
--- NOTE | 2017-09-22 17:13 | EKG ---
Date Performed: 09/21/2017 Time Performed: 18:41:53 PTAGE: 71 years EKG: ATRIAL FIBRILLATION WITH RAPID VENTRICULAR RESPONSE INFERIOR MYOCARDIAL INFARCTION When com pared to previous tracing, patient is now in atrial Fibrillation with rapid ventricular rate. ABNORMA L ECG PREVIOUS TRACING : 09/11/2017 11.24 DOCTOR: Mindy Peterson Interpretating Date/Time 09/22/2017 17:12:02
--- NOTE | 2017-09-22 19:44 | MB ---
cc: RANDELL GUZMÁN MD, RUBY ANNE E. M.D. DATE OF CONSULTATION 09/22/[address] Randell Guzmán CHIEF COMPLAINT Dr. King requests a consultation for Ms. Stratton regarding her recent diagnosis of xyu-jrgqo-xvfy lung cancer. HISTORY OF PRESENT ILLNESS Ms. Stratton is a 71-year-old woman presenting with shortness of breath. CT-guided lung biopsy confirmed a diagnosis of kdh-sihnw-qycu lung cancer, squamous cell histology. Her course was complicated by pneumothorax after a CT-guided biopsy. Imaging study shows no disease outside of the chest. The right mediastinal mass measured 11.5 cm. She also has pretracheal and precarinal adenopathy. Her course was complicated by coronary artery disease and recent stent placement. She is a well-known patient to Dr. Mindy Peterson. She was pending to start concurrent chemotherapy and radiation today. She reports having palpitation and increased heart rate since Thursday. She stayed home over the week end and presented to Dr. Peterson on an emergent basis on Thursday09/21/2017. She was not able to sisal picker her medications for her atrial fibrillation, rapid ventricular response. She ultimately presented to the emergency room and was seen by Dr. Randell Guzmán. She was admitted to the hospital. She continued anticoagulant therapy with aspirin and Plavix. She was started on a Cardizem drip with improvement in her heart rate. Her shortness of breath, however, still persists. Dr. Peterson is managing her atrial fibrillation which is now rate controlled. She is however disproportionately still short of breath reflecting the disease in the lung which is still untreated. She denies any fevers, chills or night sweats. Her main symptom is shortness of breath. She is concerned of being brought lying down. She would like to proceed with her treatment. She s eager to start her treatment. She denies any bleeding associated with anticoagulant therapy with aspirin and Plavix. She has not had an opportunity to see a surgeon for port. She is unable to lay down at this point. The rest of her review of systems is negative. She is stable from a COPD standpoint. PAST MEDICAL HISTORY 1. Anemia, 2. Arthritis 3. Qux-ggyba-trff lung cancer, 4. Coronary artery disease 5. Emphysema 6. Hypertension 7. Atrial fibrillation 8. History of malignant melanoma 9. History of pneumonia. 10. Previous TIA 11. Locally advanced uil-syhwk-rlzt lung cancer, squamous cell histology. PAST SURGICAL HISTORY 1. CT-guided biopsy 2. Appendectomy 3. Tubal ligation 4. Colonoscopy 5. Heart bypass in 2010. 6. Breast biopsy in 1979. ALLERGIES LISINOPRIL FAMILY HISTORY Father of metastatic head and neck cancer age 57. SOCIAL HISTORY She lives alone. She has a brother nearby. She denies any alcohol or illicit drug use. She quit smoking 30 years ago. MEDICATIONS Current, 1. Xopenex. 2. Aspirin. 3. Lopressor. 4. Plavix 5. Lactinex. 6. Cozaar. 7. Symbicort 8. Cardizem PHYSICAL EXAMINATION VITAL SIGNS: Temperature 98.2, heart rate 70, respiratory rate 20, blood pressure 139/90, saturation 95%. GENERAL: Ms. Stratton is a pale appearing woman who is overtly short of breath. She has difficulty with long sentences. HEENT: Her pupils are round, reactive to light and accommodation. Oropharynx is clear. NECK: Supple. LUNGS: Clear. CARDIOVASCULAR: A rate-controlled rhythm. ABDOMEN: Large and benign. EXTREMITIES: Lower extremity with no edema. NEUROLOGIC: Nonfocal. LABORATORY DATA BUN of 12, creatinine 0.6, hemoglobin of 11.4, white blood cell count 13.2. ASSESSMENT/PLAN Ms. Stratton is a 71-year-old woman with locally advanced jtz-gliki-mqjn lung cancer. She has a large mass in the anterior mediastinum measuring at least 11.5 cm. She is pending to start concurrent chemotherapy and radiation and was admitted to the hospital instead with atrial fibrillation, rapid ventricular response. We discussed the risks and benefits of chemotherapy and radiation. We will coordinate her chemotherapy along with radiation. Dr. Gonzalez will be consulted. She was supposed to have her filming today. We discussed coordinating her chemotherapy anticipate tomorrow to start pending her radiation. We will check with cardiology for clearance for her to start chemotherapy. She has a mild increase in her troponin. This is after her atrial fibrillation, rapid ventricular response. We discussed the risks and benefits of concurrent chemotherapy and radiation as definitive treatment for her lung cancer. She is most symptomatic. She is in a vicious [place] of needing to control her heart rate, being able to start her treatment to improve her shortness of breath. She is acutely symptomatic for the non-small cell lung cancer. For this reason, I recommend starting treatment in the hospital as soon as possible. We will try to coordinate with radiation oncology treatment related with radiation. Risk and benefit of chemo was reviewed. MD SURYA Ledezma/ /6:33 PM /7:24 PM
[2017-09-22] MEDS: ATORVASTATIN 40 MG TAB PO SCH (20:35)
[2017-09-22] MEDS: MIRTAZAPINE 15 MG TAB PO SCH (20:40)
[2017-09-22] MEDS: SODIUM CHLORIDE 0.9% FLUSH 10 ML FLUSH IV FLUSH SCH ×2 (20:50→21:00)
[2017-09-23] VITALS (14 sets, daily range): BP systolic 104–143; BP diastolic 62–92; PULSE 78–92; RESP 18–24; TEMP 97.7–98.8; O2SAT 90–95
[2017-09-23] MEDS: BUDESONIDE-FORMOTEROL 160/4.5 MCG INHALER INH SCH ×2 (08:32→23:08)
[2017-09-23] MEDS: DILTIAZEM-CD 300 MG CAP ER PO SCH (08:32)
[2017-09-23] MEDS: METOPROLOL TARTRATE 25 MG TAB PO SCH ×2 (08:32→23:08)
[2017-09-23] MEDS: CLOPIDOGREL 75 MG TAB PO SCH (08:32)
[2017-09-23] MEDS: LOSARTAN 25 MG TAB PO SCH (08:32)
[2017-09-23] MEDS: ASPIRIN EC 81 MG TABEC PO SCH (08:32)
[2017-09-23] MEDS: SODIUM CHLORIDE 0.9% FLUSH 10 ML FLUSH IV FLUSH SCH ×2 (08:33→23:08)
[2017-09-23] MEDS: LACTOBACILLUS ACIDOPHILUS TAB PO SCH (08:33)
--- NOTE | 2017-09-23 09:26 | HHI.PR ---
Subjective Remarks in no acute distress. but still with some sob and currently on oxygen via N/C. denies chest pain. Objective Vitals Vital Signs Date Time Temp Pulse Resp B/P (MAP) Pulse Ox O2 Delivery O2 Flow Rate FiO2 09/23/17 08:21 98.8 91 24 130/84 (99) 95 09/23/17 07:57 92 09/23/17 06:00 80 09/23/17 05:00 84 09/23/17 04:00 81 09/23/17 04:00 98.7 86 24 116/73 (87) 92 09/23/17 03:00 82 09/23/17 02:15 87 09/23/17 02:00 78 09/23/17 01:00 78 09/23/17 00:00 98.3 79 24 120/82 (95) 95 09/23/17 00:00 94 09/23/17 00:00 82 09/22/17 23:00 108 09/22/17 22:00 138 09/22/17 22:00 138 09/22/17 21:00 106 09/22/17 20:00 98.5 104 24 141/95 (110) 94 09/22/17 20:00 100 09/22/17 19:00 94 09/22/17 18:02 100 09/22/17 18:00 100 09/22/17 17:44 98.2 70 20 139/90 (106) 95 09/22/17 17:37 79 09/22/17 17:12 100 09/22/17 16:15 85 09/22/17 15:00 89 09/22/17 14:24 89 09/22/17 12:51 84 09/22/17 12:00 70 130/90 09/22/17 11:41 98.4 89 20 124/81 (95) 97 09/22/17 11:06 104 I/O 09/22/17 09/22/17 09/22/17 09/23/17 09/23/17 09/23/17 07:00 15:00 23:00 07:00 15:00 23:00 Intake Total 720 ml 150 ml Output Total 2060 ml 200 ml Balance -1340 ml -50 ml Intake Oral 720 ml 150 ml Output Urine Total 2060 ml 200 ml # Voids 4 # Bowel Movements 1 Result Diagram: 09/22/17 0603 09/22/17 0603 Imaging Last Impressions Chest X-Ray 09/22/17 0000 Signed Impressions: Service Date/Time: Friday, September 22, 2017 05:19 - CONCLUSION: 1. Worsening interstitial disease likely representing worsening edema. 2. Masslike area seen in the right perihilar region. Fernando Mercado MD Objective Remarks GENERAL: with some respiratory distress CARDIOVASCULAR: Regular rate and irregular rhythm without murmurs, gallops, or rubs. RESPIRATORY: Clear to auscultation. Breath sounds equal bilaterally. No wheezes , rales, or rhonchi. GASTROINTESTINAL: Abdomen soft, non-tender, nondistended. Normal, active bowel sounds MUSCULOSKELETAL: Extremities without clubbing, cyanosis, or edema. NEURO: Alert & Oriented x4 to person, place, time, situation. Moves all ext x4 Medications and IVs Current Medications Diltiazem HCl (Cardizem Inj) 15 mg ONCE ONCE IV PUSH Last administered on 19:42; Start 09/21/17 at 19:45; Stop 09/21/17 at 19:46; Status DC Diltiazem HCl 125 mg/Sodium Chloride 125 ml @ 5 mls/hr TITRATE PRN IV Tachycardia Last administered on 09/21/17 20:09; Start 09/21/17 at 19:45; Stop 09/21/17 at 21:46; Status DC Sodium Chloride 1,000 ml @ 125 mls/hr Q8H IV Last administered on 09/21/17 21:21; Start 09/21/17 at 21:00; Stop 09/22/17 at 06:12; Status DC Metoprolol Tartrate (Lopressor) 25 mg ONCE ONCE PO Last administered on 21:47; Start 09/21/17 at 21:30; Stop 09/21/17 at 21:31; Status DC Enoxaparin Sodium (Lovenox Inj) 70 mg ONCE ONCE SQ Last administered on 21:47; Start 09/21/17 at 21:30; Stop 09/21/17 at 21:31; Status DC Metoprolol Tartrate (Lopressor) 25 mg Q12HR PO Last administered on 09/23/17 08:32; Start 09/22/17 at 09:00 Diltiazem HCl 125 mg/Sodium Chloride 125 ml @ 5 mls/hr TITRATE PRN IV Tachycardia; Start 09/21/17 at 21:45; Stop 09/21/17 at 21:51; Status DC Sodium Chloride (NS Flush) 2 ml UNSCH PRN IV FLUSH FLUSH AFTER USING IV ACCESS ; Start 09/21/17 at 21:45 Sodium Chloride (NS Flush) 2 ml BID IV FLUSH Last administered on 09/23/17 08 :33; Start 09/22/17 at 09:00 Atorvastatin Calcium (Lipitor) 40 mg HS PO Last administered on 09/22/17 20: 35; Start 09/21/17 at 22:00 Clopidogrel Bisulfate (Plavix) 75 mg DAILY PO Last administered on 09/23/17 08:32; Start 09/22/17 at 09:00 Lactobacillus Acidophilus (Lactinex) 1 tab DAILY PO Last administered on 08:33; Start 09/22/17 at 09:00 Losartan Potassium (Cozaar) 50 mg DAILY PO Last administered on 09/23/17 08: 32; Start 09/22/17 at 09:00 Mirtazapine (Remeron) 22 mg HS PO Last administered on 09/22/17 20:40; Start 09/21/17 at 22:00 Diltiazem HCl 125 mg/Sodium Chloride 125 ml @ 5 mls/hr TITRATE PRN IV Tachycardia; Start 09/21/17 at 22:00 Budesonide/ Formoterol Fumarate (Symbicort 160-4.5 Inh) 1 puff Q12HR INH Last administered on 09/23/17 08:32; Start 09/22/17 at 09:00 Albuterol/ Ipratropium (Duoneb Neb) 1 ampule Q2HR NEB PRN NEB SOB/WHEEZING Last administered on 09/22/17 05:14; Start 09/22/17 at 05:00; Stop 09/22/17 at 11:55; Status DC Furosemide (Lasix Inj) 40 mg ONCE ONCE IV PUSH Last administered on 07:15; Start 09/22/17 at 06:15; Stop 09/22/17 at 06:16; Status DC Diltiazem HCl (Cardizem Cd) 300 mg DAILY PO Last administered on 09/23/17 08: 32; Start 09/22/17 at 09:00 Diltiazem HCl (Cardizem) 30 mg Q6HR PRN PO RAPID HEART RATE > 100 BPM; Start 09/22/17 at 07:45 Aspirin (Ecotrin Ec) 81 mg DAILY PO Last administered on 09/23/17 08:32; Start 09/22/17 at 09:15 Levalbuterol HCl (Xopenex Neb) 0.63 mg Q6HR NEB PRN NEB SOB/WHEEZING Last administered on 09/23/17 03:57; Start 09/22/17 at 12:00 Granisetron HCl (Kytril Inj) 1 mg ONCE ONCE IV PUSH ; Start 09/23/17 at 11:00 ; Stop 09/23/17 at 11:01 Dexamethasone Sodium Phosphate 20 mg/Sodium Chloride 55 ml @ 220 mls/hr ONCE ONCE IV ; Start 09/23/17 at 11:00; Stop 09/23/17 at 11:14 Diphenhydramine HCl (Benadryl) 25 mg ONCE ONCE PO ; Start 09/23/17 at 11:00; Stop 09/23/17 at 11:01 Famotidine (Pepcid Inj) 20 mg ONCE ONCE IV PUSH ; Start 09/23/17 at 11:00; Stop 09/23/17 at 11:01 Paclitaxel 87.3 mg/Sodium Chloride 264.55 ml @ 132.275 mls/hr ONCE ONCE IV ; Start 09/23/17 at 12:00; Stop 09/23/17 at 13:59 Carboplatin 284 mg/Sodium Chloride 250 ml @ 500 mls/hr ONCE ONCE IV ; Start 09/23/17 at 14:00; Stop 09/23/17 at 14:29 A/P Assessment and Plan A/P 1. Atrial fibrillation with rapid ventricular response- HR overall better. EKG significant for A. fib with RVR Cardizem drip continue po metoprolol and cardizem. continue Telemetry continue with aspirin and plavix for now with no further anticoagulation- per cardiology. cardiology following. 2. CAD/elevated troponin/chest pressure with recent stent placement. Troponin elevated to 0.14 continue aspirin and plavix cardiology consult appreciated. 3. Non-small cell lung cancer Consulted oncology Dr. Deveras plan for chemo/radiation- as inpatient. change duoneb to Xopenex due to rapid a-fib ( d/w the pharmacy). pulmonary consulted. 4. Hypertension Continue losartan 5. Hyperlipidemia Continue home statin 6. Depression/insomnia Continue home Remeron DVT prophylaxis with SCD's. consult PT when stable. Tonya Davis MD Sep 23, 2017 09:26
--- NOTE | 2017-09-23 10:42 | PD.ONC.PN ---
Subjective Subjective Remarks Afebrile overnight. Patient resting in bed. Remains short of breath and anxious. "I feel the same way I always do." Denies nausea. Nervous about getting chemotherapy. Afraid she will get nauseated. Objective Data Date Time Temp Pulse Resp B/P (MAP) Pulse Ox O2 Delivery O2 Flow Rate FiO2 09/23/17 08:21 98.8 91 24 130/84 (99) 95 09/23/17 07:57 92 09/23/17 06:00 80 09/23/17 05:00 84 09/23/17 04:00 81 09/23/17 04:00 98.7 86 24 116/73 (87) 92 09/23/17 03:00 82 09/23/17 02:15 87 09/23/17 02:00 78 09/23/17 01:00 78 09/23/17 00:00 98.3 79 24 120/82 (95) 95 09/23/17 00:00 94 09/23/17 00:00 82 09/22/17 23:00 108 09/22/17 22:00 138 09/22/17 22:00 138 09/22/17 21:00 106 09/22/17 20:00 98.5 104 24 141/95 (110) 94 09/22/17 20:00 100 09/22/17 19:00 94 09/22/17 18:02 100 09/22/17 18:00 100 09/22/17 17:44 98.2 70 20 139/90 (106) 95 09/22/17 17:37 79 09/22/17 17:12 100 09/22/17 16:15 85 09/22/17 15:00 89 09/22/17 14:24 89 09/22/17 12:51 84 09/22/17 12:00 70 130/90 09/22/17 11:41 98.4 89 20 124/81 (95) 97 09/22/17 11:06 104 09/23/17 09/23/17 09/23/17 07:00 15:00 23:00 Intake Total 150 ml 240 ml Output Total 200 ml 100 ml Balance -50 ml 140 ml Result Diagram: 09/22/1703 09/22/1703 Administered Medications Medications (Trade) Dose Ordered Sig/Ramakrishna Route PRN Reason Start Time Stop Time Status Last Admin Dose Admin Metoprolol Tartrate (Lopressor) 25 mg Q12HR PO 09/22/17 09:00 09/23/17 08:32 Sodium Chloride (NS Flush) 2 ml BID IV FLUSH 09/22/17 09:00 09/23/17 08:33 Atorvastatin Calcium (Lipitor) 40 mg HS PO 09/21/17 22:00 09/22/17 20:35 Clopidogrel Bisulfate (Plavix) 75 mg DAILY PO 09/22/17 09:00 09/23/17 08:32 Lactobacillus Acidophilus (Lactinex) 1 tab DAILY PO 09/22/17 09:00 09/23/17 08:33 Losartan Potassium (Cozaar) 50 mg DAILY PO 09/22/17 09:00 09/23/17 08:32 Mirtazapine (Remeron) 22 mg HS PO 09/21/17 22:00 09/22/17 20:40 Budesonide/ Formoterol Fumarate (Symbicort 160-4.5 Inh) 1 puff Q12HR INH 09/22/17 09:00 09/23/17 08:32 Diltiazem HCl (Cardizem Cd) 300 mg DAILY PO 09/22/17 09:00 09/23/17 08:32 Aspirin (Ecotrin Ec) 81 mg DAILY PO 09/22/17 09:15 09/23/17 08:32 Levalbuterol HCl (Xopenex Neb) 0.63 mg Q6HR NEB PRN NEB SOB/WHEEZING 09/22/17 12:00 09/23/17 03:57 Objective Remarks GENERAL: Elderly female sitting up in bed in [facility]. SKIN: Warm and dry. HEAD: Normocephalic. EYES: No injection or drainage. NECK: Supple, trachea midline. CARDIOVASCULAR: +S1/S2 RESPIRATORY: diminished at bases, anterior foy with occasional rhonchi. GASTROINTESTINAL: Abdomen soft, non-tender, nondistended. EXTREMITIES: No cyanosis NEUROLOGICAL: awake and alert, normal speech. moving all extremities. Assessment/Plan Problem List: (1) Non-small cell cancer of right lung ICD Codes: C34.91 - Malignant neoplasm of unspecified part of right bronchus or lung Status: Acute Plan: --starting radiation tonight at 6PM --will give radiation sensitizing dose Carbo/Taxol today. +large mass in the anterior mediastinum measuring at least +squamous cell histology. +pretracheal and precarinal adenopathy. --was going to start concurrent chemo/XRT inpatient but was admitted (2) CAD (coronary artery disease) ICD Codes: I25.10 - Atherosclerotic heart disease of [place] coronary artery without angina pectoris Plan: --coronary artery disease and recent stent --placement. --patient of Mindy Peterson. --presented to Dr. Peterson on an emergent basis on Thursday09/21/2017. She was not able to burr picker her medications for her atrial fibrillation, rapid ventricular response. She ultimately presented to the emergency room and was seen by Dr. Brayan Guzmán. She was admitted to the hospital. She continued anticoagulant therapy with aspirin and Plavix. She was started on a Cardizem drip with improvement in her heart rate. (3) COPD (chronic obstructive pulmonary disease) ICD Codes: J44.9 - Chronic obstructive pulmonary disease, unspecified (4) Atrial fibrillation with RVR ICD Codes: I48.91 - Unspecified atrial fibrillation Status: Acute Plan: --rate controlled --on PO Cardizem and Lopressor. Assessment 71y/o female with newly diagnosed lpf-myoto-nazj lung cancer. h/o Anemia, Arthritis. Coronary artery disease. Emphysema. Hypertension. Atrial fibrillation. History of malignant melanoma. History of pneumonia. Previous TIA Locally advanced sbx-juboy-dniz lung cancer, squamous cell histology. Plan 1. start chemotherapy with Carbo/Taxol today 2. monitor CBC, CMP, magnesium Delilah Cole Sep 23, 2017 10:42
[2017-09-23] MEDS ORDERED: diphenhydrAMINE HCL 25 MG CAP PO ONE (11:00)
[2017-09-23] MEDS ORDERED: GRANISETRON HCL 1 MG/ML VIAL IV PUSH ONE (11:00)
[2017-09-23] MEDS ORDERED: FAMOTIDINE 20 MG/2 ML VIAL IV PUSH ONE (11:00)
[2017-09-23] MEDS ORDERED: DEXAMETHASONE INJ 20 MG in SODIUM CHLORIDE 0.9% INJ 50 ML IV ONE (11:00)
[2017-09-23] MEDS ORDERED: SODIUM CHLOR 0.9% IV ONE ×2 (12:00→14:00)
[2017-09-23] MEDS ORDERED: PACLITAXEL IV ONE (12:00)
[2017-09-23] MEDS ORDERED: LORazepam 0.5 MG TAB PO ONE (12:45)
[2017-09-23 13:14] LABS: AUTOMATED NEUTROPHIL # 13.4 TH/MM3 (1.8-7.7); BASOPHIL # 0.2 TH/MM3 (0-0.2); EOSINOPHIL # 0.1 TH/MM3 (0-0.4); EOSINOPHIL % 0.6 % (0.0-4.0); HEMO FLAGS DIFF FINAL; LYMPH % 5.3 % (9.0-44.0); LYMPHOCYTE # 0.8 TH/MM3 (1.0-4.8); MEAN CELL VOLUME 85.1 FL (80.0-100.0); MEAN CORPUSCULAR HEMOGLOBIN 27.5 PG (27.0-34.0); MEAN CORPUSCULAR HGB CONC 32.2 % (32.0-36.0); MONO % 7.5 % (0.0-8.0); NEUT % 85.6 % (16.0-70.0); PLATELET COUNT 300 TH/MM3 (150-450); RED BLOOD COUNT 3.76 MIL/MM3 (4.00-5.30); RED CELL DISTRIBUTION WIDTH 14.9 % (11.6-17.2); WHITE BLOOD COUNT 15.6 TH/MM3 (4.0-11.0)
[2017-09-23 13:31] LABS: ANION GAP 2 MEQ/L (5-15); AST (GOT) 64 U/L (15-37); BICARBONATE 31.8 MEQ/L (21.0-32.0); BLOOD UREA NITROGEN 13 MG/DL (7-18); CHLORIDE 104 MEQ/L (98-107); GLOMERULAR FILTRATION RATE 90 ML/MIN (>89); MAGNESIUM 1.8 MG/DL (1.5-2.5); POTASSIUM 3.8 MEQ/L (3.5-5.1); SODIUM (NA) 138 MEQ/L (136-145)
[2017-09-23 13:35] LABS: ALKALINE PHOSPHATASE 137 U/L (45-117); ALT (GPT) 87 U/L (10-53); TOTAL BILIRUBIN ADULT 0.6 MG/DL (0.2-1.0)
[2017-09-23] MEDS ORDERED: CARBOPLATIN IV ONE (14:00)
[2017-09-23] MEDS ORDERED: FUROSEMIDE 20 MG TAB PO ONE (15:00)
[2017-09-23] MEDS ORDERED: ONDANSETRON HCL 4 MG/2 ML VIAL IV PUSH PRN (17:30)
--- NOTE | 2017-09-23 18:43 | PD.CARD.PN ---
Subjective Subjective Remarks Follow up for Dr. Peterson No events overnight Started on chemo, for radiation today Objective Medications Current Medications Medications (Trade) Dose Ordered Sig/Ramakrishna Route Start Time Stop Time Status Last Admin (Lopressor) 25 mg Q12HR PO 09/22/17 09:00 09/23/17 08:32 (NS Flush) 2 ml UNSCH PRN IV FLUSH 09/21/17 21:45 (NS Flush) 2 ml BID IV FLUSH 09/22/17 09:00 09/23/17 08:33 (Lipitor) 40 mg HS PO 09/21/17 22:00 09/22/17 20:35 (Plavix) 75 mg DAILY PO 09/22/17 09:00 09/23/17 08:32 (Lactinex) 1 tab DAILY PO 09/22/17 09:00 09/23/17 08:33 (Cozaar) 50 mg DAILY PO 09/22/17 09:00 09/23/17 08:32 (Remeron) 22 mg HS PO 09/21/17 22:00 09/22/17 20:40 Diltiazem HCl 125 mg/Sodium Chloride 125 ml @ 5 mls/hr TITRATE PRN IV 09/21/17 22:00 (Symbicort 160-4.5 Inh) 1 puff Q12HR INH 09/22/17 09:00 09/23/17 08:32 (Cardizem Cd) 300 mg DAILY PO 09/22/17 09:00 09/23/17 08:32 (Cardizem) 30 mg Q6HR PRN PO 09/22/17 07:45 (Ecotrin Ec) 81 mg DAILY PO 09/22/17 09:15 09/23/17 08:32 (Atrovent Neb) 0.5 mg TID NEB NEB 09/23/17 14:00 (Zofran Inj) 4 mg Q6H PRN IV PUSH 09/23/17 17:30 Vital Signs / I&O Vital Signs Date Time Temp Pulse Resp B/P (MAP) Pulse Ox O2 Delivery O2 Flow Rate FiO2 09/23/17 15:07 97.8 92 22 143/92 (109) 90 09/23/17 13:00 90 Nasal Cannula 5.00 09/23/17 10:58 98.4 89 18 104/62 (76) 94 09/23/17 08:21 98.8 91 24 130/84 (99) 95 09/23/17 07:57 92 09/23/17 06:00 80 09/23/17 05:00 84 09/23/17 04:00 81 09/23/17 04:00 98.7 86 24 116/73 (87) 92 09/23/17 03:00 82 09/23/17 02:15 87 09/23/17 02:00 78 09/23/17 01:00 78 09/23/17 00:00 98.3 79 24 120/82 (95) 95 09/23/17 00:00 94 09/23/17 00:00 82 09/22/17 23:00 108 09/22/17 22:00 138 09/22/17 22:00 138 09/22/17 21:00 106 09/22/17 20:00 98.5 104 24 141/95 (110) 94 09/22/17 20:00 100 09/22/17 19:00 94 I/O 09/22/17 09/22/17 09/22/17 09/23/17 09/23/17 09/23/17 07:00 15:00 23:00 07:00 15:00 23:00 Intake Total 720 ml 150 ml 240 ml 319.5 ml Output Total 2060 ml 200 ml 100 ml Balance -1340 ml -50 ml 140 ml 319.5 ml Intake Oral 720 ml 150 ml 240 ml IV Total 319.5 ml Output Urine Total 2060 ml 200 ml 100 ml # Voids 4 # Bowel Movements 1 Physical Exam GENERAL: AAOx3 SKIN: Warm and dry. HEAD: Atraumatic. Normocephalic. EYES: Pupils equal and round. No scleral icterus. No injection or drainage. ENT: No nasal bleeding or discharge. Mucous membranes pink and moist. NECK: Trachea midline. No JVD. CARDIOVASCULAR: Irregularly irregular RESPIRATORY: No accessory muscle use. Decreased breath sounds bilaterally GASTROINTESTINAL: Abdomen soft, non-tender, nondistended. Hepatic and splenic margins not palpable. MUSCULOSKELETAL: Extremities without clubbing, cyanosis, or edema. No obvious deformities. NEUROLOGICAL: Awake and alert. No obvious cranial nerve deficits. Motor grossly within normal limits. Five out of 5 muscle strength in the arms and legs. Normal speech. PSYCHIATRIC: Appropriate mood and affect; insight and judgment normal. Laboratory Laboratory Tests Test 09/23/17 12:40 White Blood Count 15.6 TH/MM3 Red Blood Count 3.76 MIL/MM3 Hemoglobin 10.3 GM/DL Hematocrit 32.0 % Mean Corpuscular Volume 85.1 FL Mean Corpuscular Hemoglobin 27.5 PG Mean Corpuscular Hemoglobin Concent 32.2 % Red Cell Distribution Width 14.9 % Platelet Count 300 TH/MM3 Mean Platelet Volume 7.5 FL Neutrophils (%) (Auto) 85.6 % Lymphocytes (%) (Auto) 5.3 % Monocytes (%) (Auto) 7.5 % Eosinophils (%) (Auto) 0.6 % Basophils (%) (Auto) 1.0 % Neutrophils # (Auto) 13.4 TH/MM3 Lymphocytes # (Auto) 0.8 TH/MM3 Monocytes # (Auto) 1.2 TH/MM3 Eosinophils # (Auto) 0.1 TH/MM3 Basophils # (Auto) 0.2 TH/MM3 CBC Comment DIFF FINAL Differential Comment Blood Urea Nitrogen 13 MG/DL Creatinine 0.65 MG/DL Random Glucose 127 MG/DL Total Protein 7.4 GM/DL Albumin 2.7 GM/DL Calcium Level 9.0 MG/DL Magnesium Level 1.8 MG/DL Alkaline Phosphatase 137 U/L Aspartate Amino Transf (AST/SGOT) 64 U/L Alanine Aminotransferase (ALT/SGPT) 87 U/L Total Bilirubin 0.6 MG/DL Sodium Level 138 MEQ/L Potassium Level 3.8 MEQ/L Chloride Level 104 MEQ/L Carbon Dioxide Level 31.8 MEQ/L Anion Gap 2 MEQ/L Estimat Glomerular Filtration Rate 90 ML/MIN Assessment and Plan Problem List: (1) Non-small cell cancer of right lung ICD Codes: C34.91 - Malignant neoplasm of unspecified part of right bronchus or lung Status: Acute (2) CAD (coronary artery disease) ICD Codes: I25.10 - Atherosclerotic heart disease of [place] coronary artery without angina pectoris (3) Hx of CABG ICD Codes: Z95.1 - Presence of aortocoronary bypass graft (4) Atrial fibrillation with RVR ICD Codes: I48.91 - Unspecified atrial fibrillation Status: Acute (5) Elevated troponin ICD Codes: R74.8 - Abnormal levels of other serum enzymes Status: Acute (6) HLD (hyperlipidemia) ICD Codes: E78.5 - Hyperlipidemia, unspecified Status: Chronic (7) HTN (hypertension) ICD Codes: I10 - Essential (primary) hypertension Status: Chronic (8) Lung mass ICD Codes: R91.8 - Other nonspecific abnormal finding of lung field Assessment and Plan 1) Afib with RVR Was placed on medications by Dr. JUAN, but never got to start them due to SOB and coming into the ER Currently better controlled on Cardizem/Lopressor Patient discussed anti-coagulation with Dr. JUAN, and wants to con't on ASA/ Plavix and not be placed on NOAC/Coumadin 2) SOB Multifactorial in nature 3) Lung CA For chemo and radiation 4) CAD/Hx CABG Con't ASA/Plavix Cuong Gunn DO Sep 23, 2017 18:43
[2017-09-23] MEDS ORDERED: SODIUM CHLOR 0.9% 1000 ML INJ 1,000 ML IV SCH (20:15)
[2017-09-23] MEDS: RESP: IPRATROPIUM 0.5 MG/2.5 ML NEB NEB SCH (20:30)
--- NOTE | 2017-09-23 20:48 | MB ---
cc: FLOYD LEON M.D. DATE OF CONSULTATION: 09/23/2017 REASON FOR CONSULTATION: [id number] placement, urgent HISTORY OF PRESENT ILLNESS The patient is a 71-year-old female who has history of non-small cell carcinoma of the lung who developed atrial fibrillation with rapid ventricular rate over the weekend. This is now been controlled and the patient needs to have IV access for IV chemotherapy with Taxol and carboplatin. The patient has already begun radiation therapy. She has a very large tumor with mediastinal mass. PAST MEDICAL HISTORY: Significant for: 1. Hypertension. 2. Hyperlipidemia. 3. Coronary artery disease with stent placement six weeks ago. 4. Nonsmall cell lung cancer. 5. CABG x5 in 2010. REVIEW OF SYSTEMS: Positive for palpitations and shortness of breath with chest pressure. The remaining 10-point review of systems is negative. PHYSICAL EXAMINATION: Reveals an obese female, who is laying with nasal cannula in her mouth but is arousable. VITAL SIGNS: Blood pressure 143/92, pulse 92, irregular. Respiratory rate 22, temperature 97.8, 90% sat with five liters cannula in the mouth. CHEST: Chest demonstrates decreased breath sounds on the right. No rales or crackles. Cardiac exam reveals irregular rate. Abdomen: Abdomen is soft and nontender. Pulses are present. NEUROLOGIC EXAMINATION: The patient is alert, oriented. She follows commands and is alert and oriented. LABORATORY VALUES: WBC 15.6, platelet count 300,000, hemoglobin 10.3, hematocrit 32.0. Chemistry: Sodium 138, potassium 3.8, BUN and creatinine 13/0.65. Bilirubin is normal. AST, ALT and alkaline phosphatase are all slightly elevated. Coagulation: INR is 1.0. PT 11.5. IMAGING STUDIES: Demonstrates a large mediastinal mass with mass like area in the perihilar region. ASSESSMENT Non small-cell lung cancer with need for urgent IV chemotherapy. PLAN Edreqe-B-Ccfl tomorrow in approximately 16 hours. Chemotherapy may be started immediately after the port is placed. I have discussed with the patient risks of the procedure with increased risk of bleeding given the fact that she is on aspirin and Plavix and this cannot be stopped due to her stent. I have also discussed with her the risk of pneumothorax, catheter thrombosis, catheter infection and catheter shearing. I have discussed remedies, consequences, alternatives and convalescence. She vocalizes understanding and has agreed to proceed. MD JIN Melendez/RODO /8:06 PM /8:35 PM
[2017-09-23] MEDS: ATORVASTATIN 40 MG TAB PO SCH (23:07)
[2017-09-23] MEDS: MIRTAZAPINE 15 MG TAB PO SCH (23:07)
[2017-09-24] VITALS (11 sets, daily range): BP systolic 108–135; BP diastolic 58–91; PULSE 74–90; RESP 16–22; TEMP 97–98.6; O2SAT 91–98
[2017-09-24] MEDS: RESP: IPRATROPIUM 0.5 MG/2.5 ML NEB NEB SCH ×3 (07:39→18:58)
--- NOTE | 2017-09-24 08:22 | RC ---
cc: CHRISTINA LANGLEY MD,LUKE Waters M.D. DATE OF SERVICE 09/23/2017 DATE OF 1945 DIAGNOSIS Locally advanced glm-pbida-shmh carcinoma. CHIEF COMPLAINT Shortness of breath. REASON FOR VISIT The patient being evaluated for continuation of care. HISTORY OF PRESENT ILLNESS This is a 71-year-old white female, a patient of Dr. Gonzalez, who was seen by him initially on 09/12/2017. The patient started experiencing increased shortness of breath and as a result of this came in to the hospital, was admitted the day before yesterday. A consult has now been placed for continuation of care, startup radiation therapy. I have checked the plan that is made for radiation therapy and discussed this case today with Dr. Sosa. PAST MEDICAL HISTORY 1. As above. 2. History of COPD. 3. Atrial fibrillation. 4. Coronary artery disease, vessel bypass. 5. Malignant melanoma. 6. Hypertension. 7. Anemia. 8. Weight loss. 9. Coronary stenting. 10. Appendectomy. MEDICATIONS As per hospital chart. ALLERGIES EPINEPHRINE. LISINOPRIL. FAMILY HISTORY As previously recorded. SOCIAL HISTORY As recorded in the electronic medical records. REVIEW OF SYSTEMS CONSTITUTIONAL: Decreased appetite. General malaise. The patient say she feels better after being admitted to the hospital. ALLERGIC: Unremarkable. EYES: Unremarkable. ENT: Unremarkable. NECK: Unremarkable. INTEGUMENTARY: Unremarkable. CARDIOVASCULAR: Unremarkable. Denies any chest pain. RESPIRATORY: Shortness of breath which is better since being admitted into the hospital. Cough is stable. No hemoptysis. GASTROINTESTINAL: Unremarkable. GENITOURINARY: Unremarkable. MUSCULOSKELETAL: Unremarkable. NEUROLOGIC: Unremarkable. PSYCHIATRIC: Unremarkable. ENDOCRINE: Unremarkable. HEMATOLOGIC: Unremarkable. DERMATOLOGICAL: Unremarkable. PHYSICAL EXAMINATION GENERAL: The patient is oriented x3, in no acute distress or discomfort at the present time. VITAL SIGNS: Temperature 97.8, pulse 92, respiratory rate 22, blood pressure 143/92, pulse ox 98% on oxygen. PAIN RATING SCALE: 0/10. LUNGS: :To auscultation there is decreased ventilatory and respiratory effort, more so in the right upper lobe. Otherwise clear to auscultation. HEART: Appears to be regular in rate and rhythm; no murmurs. NECK: Palpation of the neck and bilateral supraclavicular areas are free. ABDOMEN: Palpation of the abdominal cavity reveals no hepatosplenomegaly. No pain elicited. NEUROLOGICAL: Neurological deficit not detected. Cognitive functions are preserved. Motor functions preserved. EXTREMITIES: Without edema bilaterally lower extremities. No other positive findings. CHEST X-RAY 09/22/2017. IMPRESSION Worsening interstitial disease likely representing worsening edema. Mass-like area seen in the right perihilar region. PATHOLOGY As recorded in the electronic medical records. 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 The patient is being evaluated for continuation of care. PLAN I have discussed this case today with Dr. Sosa. Dr. Gonzalez has evaluated the patient and explained radiation purposes, side effects and complications. The plan is to start radiation therapy. We will start radiation therapy today. The patient advised if I could be of any further assistance to please let me know, otherwise we will proceed as above. Christina Langley MD Radiation Oncologist ABIEL PARISI/ANTHONY /6:02 PM /7:57 AM LC
[2017-09-24 08:31] LABS: AUTOMATED NEUTROPHIL # 16.5 TH/MM3 (1.8-7.7); BASOPHIL # 0.1 TH/MM3 (0-0.2); BASOPHIL % 0.3 % (0.0-2.0); HEMATOCRIT 32.7 % (35.0-46.0); HEMO FLAGS DIFF FINAL; LYMPH % 2.5 % (9.0-44.0); LYMPHOCYTE # 0.4 TH/MM3 (1.0-4.8); MEAN CELL VOLUME 85.2 FL (80.0-100.0); MEAN CORPUSCULAR HEMOGLOBIN 27.5 PG (27.0-34.0); MEAN CORPUSCULAR HGB CONC 32.3 % (32.0-36.0); NEUT % 96.2 % (16.0-70.0); PLATELET COUNT 308 TH/MM3 (150-450); RED BLOOD COUNT 3.84 MIL/MM3 (4.00-5.30); RED CELL DISTRIBUTION WIDTH 14.8 % (11.6-17.2); WHITE BLOOD COUNT 17.2 TH/MM3 (4.0-11.0)
[2017-09-24] MEDS: BUDESONIDE-FORMOTEROL 160/4.5 MCG INHALER INH SCH ×2 (08:33→21:10)
[2017-09-24] MEDS: LOSARTAN 25 MG TAB PO SCH (08:33)
[2017-09-24] MEDS: SODIUM CHLORIDE 0.9% FLUSH 10 ML FLUSH IV FLUSH SCH ×2 (08:33→21:12)
[2017-09-24] MEDS: ASPIRIN EC 81 MG TABEC PO SCH (08:33)
[2017-09-24] MEDS: LACTOBACILLUS ACIDOPHILUS TAB PO SCH (08:33)
[2017-09-24] MEDS: CLOPIDOGREL 75 MG TAB PO SCH (08:33)
[2017-09-24] MEDS: METOPROLOL TARTRATE 25 MG TAB PO SCH ×2 (08:33→21:12)
[2017-09-24] MEDS: DILTIAZEM-CD 300 MG CAP ER PO SCH (08:37)
[2017-09-24] MEDS ORDERED: DEXT 5%-NACL 0.9% 1000 ML INJ 1,000 ML IV SCH (08:45)
[2017-09-24 09:10] LABS: ALKALINE PHOSPHATASE 145 U/L (45-117); ALT (GPT) 81 U/L (10-53); ANION GAP 5 MEQ/L (5-15); AST (GOT) 55 U/L (15-37); BICARBONATE 31.9 MEQ/L (21.0-32.0); BLOOD UREA NITROGEN 16 MG/DL (7-18); CHLORIDE 104 MEQ/L (98-107); GLOMERULAR FILTRATION RATE 112 ML/MIN (>89); MAGNESIUM 2.1 MG/DL (1.5-2.5); POTASSIUM 4.7 MEQ/L (3.5-5.1); SODIUM (NA) 141 MEQ/L (136-145); TOTAL BILIRUBIN ADULT 0.5 MG/DL (0.2-1.0)
--- NOTE | 2017-09-24 11:27 | PD.ONC.PN ---
Subjective Subjective Remarks Afebrile Anxious about port placement today Tolerated radiation last night Reports her breathing is about the same No other acute complaints Objective Data Date Time Temp Pulse Resp B/P (MAP) Pulse Ox O2 Delivery O2 Flow Rate FiO2 09/24/17 10:09 82 09/24/17 08:57 91 Nasal Cannula 4.00 09/24/17 08:26 98.6 88 20 131/81 (98) 91 09/24/17 07:39 98 Nasal Cannula 4.00 09/24/17 04:53 89 09/24/17 04:00 87 22 125/82 (96) 91 09/24/17 00:09 86 09/24/17 00:00 Nasal Cannula 4.00 09/24/17 00:00 97.3 74 16 108/58 (75) 96 09/23/17 22:29 87 09/23/17 20:34 95 Nasal Cannula 4.00 09/23/17 20:00 97.7 83 20 124/69 (87) 92 09/23/17 15:07 97.8 92 22 143/92 (109) 90 09/23/17 13:00 90 Nasal Cannula 5.00 09/24/17 09/24/17 09/24/17 07:00 15:00 23:00 Intake Total 306 ml Output Total 400 ml Balance -94 ml Result Diagram: 09/24/1774409/24/17744 Laboratory Results Laboratory Tests Test 09/23/17 12:40 09/24/17 07:45 White Blood Count 15.6 TH/MM3 17.2 TH/MM3 Red Blood Count 3.76 MIL/MM3 3.84 MIL/MM3 Hemoglobin 10.3 GM/DL 10.6 GM/DL Hematocrit 32.0 % 32.7 % Mean Corpuscular Volume 85.1 FL 85.2 FL Mean Corpuscular Hemoglobin 27.5 PG 27.5 PG Mean Corpuscular Hemoglobin Concent 32.2 % 32.3 % Red Cell Distribution Width 14.9 % 14.8 % Platelet Count 300 TH/MM3 308 TH/MM3 Mean Platelet Volume 7.5 FL 7.5 FL Neutrophils (%) (Auto) 85.6 % 96.2 % Lymphocytes (%) (Auto) 5.3 % 2.5 % Monocytes (%) (Auto) 7.5 % 1.0 % Eosinophils (%) (Auto) 0.6 % 0.0 % Basophils (%) (Auto) 1.0 % 0.3 % Neutrophils # (Auto) 13.4 TH/MM3 16.5 TH/MM3 Lymphocytes # (Auto) 0.8 TH/MM3 0.4 TH/MM3 Monocytes # (Auto) 1.2 TH/MM3 0.2 TH/MM3 Eosinophils # (Auto) 0.1 TH/MM3 0.0 TH/MM3 Basophils # (Auto) 0.2 TH/MM3 0.1 TH/MM3 CBC Comment DIFF FINAL DIFF FINAL Differential Comment Blood Urea Nitrogen 13 MG/DL 16 MG/DL Creatinine 0.65 MG/DL 0.54 MG/DL Random Glucose 127 MG/DL 129 MG/DL Total Protein 7.4 GM/DL 7.7 GM/DL Albumin 2.7 GM/DL 2.6 GM/DL Calcium Level 9.0 MG/DL 9.2 MG/DL Magnesium Level 1.8 MG/DL 2.1 MG/DL Alkaline Phosphatase 137 U/L 145 U/L Aspartate Amino Transf (AST/SGOT) 64 U/L 55 U/L Alanine Aminotransferase (ALT/SGPT) 87 U/L 81 U/L Total Bilirubin 0.6 MG/DL 0.5 MG/DL Sodium Level 138 MEQ/L 141 MEQ/L Potassium Level 3.8 MEQ/L 4.7 MEQ/L Chloride Level 104 MEQ/L 104 MEQ/L Carbon Dioxide Level 31.8 MEQ/L 31.9 MEQ/L Anion Gap 2 MEQ/L 5 MEQ/L Estimat Glomerular Filtration Rate 90 ML/MIN 112 ML/MIN Administered Medications Medications (Trade) Dose Ordered Sig/Ramakrishna Route PRN Reason Start Time Stop Time Status Last Admin Dose Admin Metoprolol Tartrate (Lopressor) 25 mg Q12HR PO 09/22/17 09:00 09/24/17 08:33 Sodium Chloride (NS Flush) 2 ml BID IV FLUSH 09/22/17 09:00 09/23/17 23:08 Atorvastatin Calcium (Lipitor) 40 mg HS PO 09/21/17 22:00 09/23/17 23:07 Clopidogrel Bisulfate (Plavix) 75 mg DAILY PO 09/22/17 09:00 09/24/17 08:33 Lactobacillus Acidophilus (Lactinex) 1 tab DAILY PO 09/22/17 09:00 09/24/17 08:33 Losartan Potassium (Cozaar) 50 mg DAILY PO 09/22/17 09:00 09/24/17 08:33 Mirtazapine (Remeron) 22 mg HS PO 09/21/17 22:00 09/23/17 23:07 Budesonide/ Formoterol Fumarate (Symbicort 160-4.5 Inh) 1 puff Q12HR INH 09/22/17 09:00 09/24/17 08:33 Diltiazem HCl (Cardizem Cd) 300 mg DAILY PO 09/22/17 09:00 09/24/17 08:37 Aspirin (Ecotrin Ec) 81 mg DAILY PO 09/22/17 09:15 09/24/17 08:33 Ipratropium [place] (Atrovent Neb) 0.5 mg TID NEB NEB 09/23/17 14:00 09/24/17 07:39 Dextrose/Sodium Chloride 1,000 ml @ 42 mls/hr [id number] IV 09/24/17 08:45 09/24/17 09:53 Objective Remarks GENERAL: Chronically ill-appearing elderly female getting ready to go down for port placement. She appears somewhat SOB with activity SKIN: Warm and dry. HEAD: Normocephalic. EYES: No injection or drainage. NECK: Supple, trachea midline. CARDIOVASCULAR: Regular rate and rhythm without murmurs. RESPIRATORY: Bilateral crackles at the bases. On 4 L nasal cannula GASTROINTESTINAL: Abdomen soft, non-tender, nondistended. EXTREMITIES: No cyanosis, or edema. MUSCULOSKELETAL: Adequate muscle tone. NEUROLOGICAL: No obvious focal deficit. Awake, alert, and oriented x3. Assessment/Plan Problem List: (1) Non-small cell cancer of right lung ICD Codes: C34.91 - Malignant neoplasm of unspecified part of right bronchus or lung Status: Acute Plan: --Status post radiation last night --will give radiation sensitizing dose Carbo/Taxol today. +large mass in the anterior mediastinum measuring at least +squamous cell histology. +pretracheal and precarinal adenopathy. --was going to start concurrent chemo/XRT outpatient but was admitted (2) CAD (coronary artery disease) ICD Codes: I25.10 - Atherosclerotic heart disease of [place] coronary artery without angina pectoris Plan: --coronary artery disease and recent stent --placement. --patient of Mindy Peterson. --Currently on aspirin and Plavix (3) COPD (chronic obstructive pulmonary disease) ICD Codes: J44.9 - Chronic obstructive pulmonary disease, unspecified (4) Atrial fibrillation with RVR ICD Codes: I48.91 - Unspecified atrial fibrillation Status: Acute Plan: --rate controlled --on PO Cardizem and Lopressor. Assessment 71y/o female with newly diagnosed fcg-tzhrw-ipsb lung cancer. h/o Anemia, Arthritis. Coronary artery disease. Emphysema. Hypertension. Atrial fibrillation. History of malignant melanoma. History of pneumonia. Previous TIA Locally advanced avg-vyxpy-fyhb lung cancer, squamous cell histology. Plan 1. Patient tolerated radiation sensitizing dose of carboplatin and Taxol yesterday 2. Port placement today. Platelets ordered to give during procedure 3. Monitor CBC, CMP and magnesium. 4.Plan in place for XRT M-F into October. Attending Statement The exam, history, and the medical decision-making described in the above note were completed with the assistance of the mid-level provider. I reviewed and agree with the findings presented. I attest that I had a [id number] encounter with the patient on the same day, and personally performed and documented my assessment and findings in the medical record. PT seen and examined. Upset she did not eat anything and is NPO for port placement. Pending cont XRT. Breathing better post chemo. Anticipate DC home before weekend, fu in clinic for next chemo. Elizabeth Henry Sep 24, 2017 11:27 Rupali Sosa MD Sep 24, 2017 22:55
[2017-09-24] MEDS ORDERED: diphenhydrAMINE HCL 25 MG CAP PO PRN (12:00)
[2017-09-24] MEDS ORDERED: ACETAMINOPHEN 325 MG TAB PO PRN (12:00)
[2017-09-24] MEDS ORDERED: ceFAZolin INJ 1,000 MG VIAL IV ONE (12:25)
[2017-09-24] MEDS ORDERED: LIDOCAINE HCL 1% 20 ML VIAL INFIL ONE (12:37)
[2017-09-24] MEDS ORDERED: ceFAZolin INJ 1,000 MG VIAL IRRIGATION ONE (12:37)
[2017-09-24] MEDS ORDERED: HEPARIN SODIUM - IV 10,000 UNITS/10 ML VIAL OTHER ONE (12:37)
--- NOTE | 2017-09-24 13:29 | HHI.PR ---
cc: Bashir Sena MD Immediate Post Op Note Procedure Date: Sep 24, 2017 Pre Op Diagnosis: Non small cell carcinoma lung with need for IV chemoRx Post Op Diagnosis: Same Surgeon: Bashir Sena Steam Box Operator(s): Suzanne Rascon CFA Procedure: Lqcwwx-n-mxyw placement with intraoperative use of fluoroscopy Complications: None Specimen(s) removed: None Estimated blood loss: 30 ml Anesthesia: TIVA Drains: None IVF (200 ml) Patient to: PACU Patient Condition: Good Date/Time of Procedure: SEE SURGICAL CARE RECORD Bashir Sena MD Sep 24, 2017 13:28
[2017-09-24] MEDS ORDERED: DO NOT ADM ANY ANTICOAGULANT DRUGS PRN (13:30)
--- NOTE | 2017-09-24 13:41 | HHI.PR ---
Subjective Remarks in no acute distress. had port placement today. denies pain. Objective Vitals Vital Signs Date Time Temp Pulse Resp B/P (MAP) Pulse Ox O2 Delivery O2 Flow Rate FiO2 09/24/17 10:09 82 09/24/17 08:57 91 Nasal Cannula 4.00 09/24/17 08:26 98.6 88 20 131/81 (98) 91 09/24/17 07:39 98 Nasal Cannula 4.00 09/24/17 04:53 89 09/24/17 04:00 87 22 125/82 (96) 91 09/24/17 00:09 86 09/24/17 00:00 Nasal Cannula 4.00 09/24/17 00:00 97.3 74 16 108/58 (75) 96 09/23/17 22:29 87 09/23/17 20:34 95 Nasal Cannula 4.00 09/23/17 20:00 97.7 83 20 124/69 (87) 92 09/23/17 15:07 97.8 92 22 143/92 (109) 90 I/O 09/23/17 09/23/17 09/23/17 09/24/17 09/24/17 09/24/17 07:00 15:00 23:00 07:00 15:00 23:00 Intake Total 150 ml 240 ml 319.5 ml 306 ml 200 ml Output Total 200 ml 100 ml 200 ml 400 ml 30 ml Balance -50 ml 140 ml 119.5 ml -94 ml 170 ml Intake Oral 150 ml 240 ml IV Total 319.5 ml 306 ml Other 200 ml Output Urine Total 200 ml 100 ml 200 ml 400 ml Estimated Blood Loss 30 ml # Voids 3 Result Diagram: 09/24/17 0745 09/24/17 0745 Imaging Last Impressions Chest X-Ray 09/22/17 0000 Signed Impressions: Service Date/Time: Friday, September 22, 2017 05:19 - CONCLUSION: 1. Worsening interstitial disease likely representing worsening edema. 2. Masslike area seen in the right perihilar region. Fernando Mercado MD Objective Remarks GENERAL: with some respiratory distress CARDIOVASCULAR: Regular rate and irregular rhythm without murmurs, gallops, or rubs. RESPIRATORY: Clear to auscultation. Breath sounds equal bilaterally. No wheezes , rales, or rhonchi. GASTROINTESTINAL: Abdomen soft, non-tender, nondistended. Normal, active bowel sounds MUSCULOSKELETAL: Extremities without clubbing, cyanosis, or edema. NEURO: Alert & Oriented x4 to person, place, time, situation. Moves all ext x4 Procedures port placement. Medications and IVs Current Medications Diltiazem HCl (Cardizem Inj) 15 mg ONCE ONCE IV PUSH Last administered on 19:42; Start 09/21/17 at 19:45; Stop 09/21/17 at 19:46; Status DC Diltiazem HCl 125 mg/Sodium Chloride 125 ml @ 5 mls/hr TITRATE PRN IV Tachycardia Last administered on 09/21/17 20:09; Start 09/21/17 at 19:45; Stop 09/21/17 at 21:46; Status DC Sodium Chloride 1,000 ml @ 125 mls/hr Q8H IV Last administered on 09/21/17 21:21; Start 09/21/17 at 21:00; Stop 09/22/17 at 06:12; Status DC Metoprolol Tartrate (Lopressor) 25 mg ONCE ONCE PO Last administered on 21:47; Start 09/21/17 at 21:30; Stop 09/21/17 at 21:31; Status DC Enoxaparin Sodium (Lovenox Inj) 70 mg ONCE ONCE SQ Last administered on 21:47; Start 09/21/17 at 21:30; Stop 09/21/17 at 21:31; Status DC Metoprolol Tartrate (Lopressor) 25 mg Q12HR PO Last administered on 09/24/17 08:33; Start 09/22/17 at 09:00 Diltiazem HCl 125 mg/Sodium Chloride 125 ml @ 5 mls/hr TITRATE PRN IV Tachycardia; Start 09/21/17 at 21:45; Stop 09/21/17 at 21:51; Status DC Sodium Chloride (NS Flush) 2 ml UNSCH PRN IV FLUSH FLUSH AFTER USING IV ACCESS ; Start 09/21/17 at 21:45 Sodium Chloride (NS Flush) 2 ml BID IV FLUSH Last administered on 09/23/17 23 :08; Start 09/22/17 at 09:00 Atorvastatin Calcium (Lipitor) 40 mg HS PO Last administered on 09/23/17 23: 07; Start 09/21/17 at 22:00 Clopidogrel Bisulfate (Plavix) 75 mg DAILY PO Last administered on 09/24/17 08:33; Start 09/22/17 at 09:00 Lactobacillus Acidophilus (Lactinex) 1 tab DAILY PO Last administered on 08:33; Start 09/22/17 at 09:00 Losartan Potassium (Cozaar) 50 mg DAILY PO Last administered on 09/24/17 08: 33; Start 09/22/17 at 09:00 Mirtazapine (Remeron) 22 mg HS PO Last administered on 09/23/17 23:07; Start 09/21/17 at 22:00 Diltiazem HCl 125 mg/Sodium Chloride 125 ml @ 5 mls/hr TITRATE PRN IV Tachycardia; Start 09/21/17 at 22:00 Budesonide/ Formoterol Fumarate (Symbicort 160-4.5 Inh) 1 puff Q12HR INH Last administered on 09/24/17 08:33; Start 09/22/17 at 09:00 Albuterol/ Ipratropium (Duoneb Neb) 1 ampule Q2HR NEB PRN NEB SOB/WHEEZING Last administered on 09/22/17 05:14; Start 09/22/17 at 05:00; Stop 09/22/17 at 11:55; Status DC Furosemide (Lasix Inj) 40 mg ONCE ONCE IV PUSH Last administered on 07:15; Start 09/22/17 at 06:15; Stop 09/22/17 at 06:16; Status DC Diltiazem HCl (Cardizem Cd) 300 mg DAILY PO Last administered on 09/24/17 08: 37; Start 09/22/17 at 09:00 Diltiazem HCl (Cardizem) 30 mg Q6HR PRN PO RAPID HEART RATE > 100 BPM; Start 09/22/17 at 07:45 Aspirin (Ecotrin Ec) 81 mg DAILY PO Last administered on 09/24/17 08:33; Start 09/22/17 at 09:15 Levalbuterol HCl (Xopenex Neb) 0.63 mg Q6HR NEB PRN NEB SOB/WHEEZING Last administered on 09/23/17 03:57; Start 09/22/17 at 12:00; Stop 09/23/17 at 12 :50; Status DC Granisetron HCl (Kytril Inj) 1 mg ONCE ONCE IV PUSH Last administered on 09/23 13:10; Start 09/23/17 at 11:00; Stop 09/23/17 at 11:01; Status DC Dexamethasone Sodium Phosphate 20 mg/Sodium Chloride 55 ml @ 220 mls/hr ONCE ONCE IV Last administered on 09/23/17 13:09; Start 09/23/17 at 11:00; Stop 09/23/17 at 11:14; Status DC Diphenhydramine HCl (Benadryl) 25 mg ONCE ONCE PO Last administered on 13:09; Start 09/23/17 at 11:00; Stop 09/23/17 at 11:01; Status DC Famotidine (Pepcid Inj) 20 mg ONCE ONCE IV PUSH Last administered on 13:10; Start 09/23/17 at 11:00; Stop 09/23/17 at 11:01; Status DC Paclitaxel 87.3 mg/Sodium Chloride 264.55 ml @ 132.275 mls/hr ONCE ONCE IV Last administered on 09/23/17 14:00; Start 09/23/17 at 12:00; Stop 09/23/17 at 13:59; Status DC Carboplatin 284 mg/Sodium Chloride 250 ml @ 500 mls/hr ONCE ONCE IV Last administered on 09/23/17 15:56; Start 09/23/17 at 14:00; Stop 09/23/17 at 14 :29; Status DC Lorazepam (Ativan) 0.5 mg ONCE ONCE PO Last administered on 09/23/17 13:08; Start 09/23/17 at 12:45; Stop 09/23/17 at 12:46; Status DC Furosemide (Lasix) 20 mg ONCE ONCE PO Last administered on 09/23/17 15:52; Start 09/23/17 at 15:00; Stop 09/23/17 at 15:01; Status DC Ipratropium [place] (Atrovent Neb) 0.5 mg TID NEB NEB Last administered on 07:39; Start 09/23/17 at 14:00 Ondansetron HCl (Zofran Inj) 4 mg Q6H PRN IV PUSH nausea; Start 09/23/17 at 17 :30 Sodium Chloride 1,000 ml @ 42 mls/hr [id number] IV Last administered on 23:08; Start 09/23/17 at 20:15; Stop 09/24/17 at 08:37; Status DC Dextrose/Sodium Chloride 1,000 ml @ 42 mls/hr [id number] IV Last administered on 09/24/17 09:53; Start 09/24/17 at 08:45; Stop 09/24/17 at 13:30; Status DC Acetaminophen (Tylenol) 650 mg Q4H PRN PO SEE LABEL COMMENTS; Start 09/24/17 at 12:00 Diphenhydramine HCl (Benadryl) 25 mg Q4H PRN PO SEE LABEL COMMENTS; Start at 12:00 Acetaminophen/ Hydrocodone Bitart ([place] 5-325 Mg) 1 tab Q4H PRN PO pain 1-10 ; Start 09/24/17 at 13:30 A/P Assessment and Plan A/P 1. Atrial fibrillation with rapid ventricular response- HR overall better. continue po metoprolol and cardizem. continue Telemetry continue with aspirin and plavix with no further anticoagulation- per cardiology. cardiology following. 2. CAD/elevated troponin/chest pressure with recent stent placement. continue aspirin and plavix cardiology consult appreciated. 3. Non-small cell lung cancer Consulted oncology ( ) and radiation oncology. s/p port placement today. plan for chemo/radiation- as inpatient. continue neb treatment. pulmonary consulted ( ). 4. Hypertension Continue losartan 5. Hyperlipidemia Continue home statin 6. Depression/insomnia Continue home Remeron DVT prophylaxis with SCD's. consult PT when stable. Tonya Davis MD Sep 24, 2017 13:41
--- NOTE | 2017-09-24 14:20 | RADRPT ---
EXAM DATE/TIME: 09/24/2017 13:52 [facility] COMPARISON: CHEST SINGLE AP, September 22, 2017, 5:19. INDICATIONS : Evaluate for pneumothorax. Infusaport placement. MEDICAL HISTORY : Cardiovascular disease. Chronic obstructive pulmonary disease. Hernia, hiatal. Hypertension. Melanoma . SURGICAL HISTORY : Appendectomy. CABG ENCOUNTER: Initial ACUITY: 1 day PAIN SCORE: 0/10 LOCATION: Bilateral chest FINDINGS: Single view of the thorax demonstrates placement of [id number] via right jugular approach. The cat heter overlies the course of the SVC with the tip at the level right atrium. There is no pneumothorax. The heart is enlarged. Patient is post median sternotomy. There is diffuse bilateral parenchymal infi ltrate and small bilateral effusions. CONCLUSION: 1. The [id number] in good position without evidence of pneumothorax. There are extensive bilateral infiltrates. El Mcdonald MD on September 24, 2017 at 14:17 Board Certified Radiologist. This report was verified electronically.
[2017-09-24] MEDS: ACETAMINOPHEN/HYDROcodone 325 MG/5 MG TAB PO PRN ×2 (15:11→21:11)
--- NOTE | 2017-09-24 21:07 | PD.CARD.PN ---
Subjective Subjective Remarks Follow up for Dr. Peterson No events overnight Started on chemo, radiation tomorrow Feels like breathing is better at this time Objective Medications Current Medications Medications (Trade) Dose Ordered Sig/Ramakrishna Route Start Time Stop Time Status Last Admin (Lopressor) 25 mg Q12HR PO 09/22/17 09:00 09/24/17 08:33 (NS Flush) 2 ml UNSCH PRN IV FLUSH 09/21/17 21:45 (NS Flush) 2 ml BID IV FLUSH 09/22/17 09:00 09/23/17 23:08 (Lipitor) 40 mg HS PO 09/21/17 22:00 09/23/17 23:07 (Plavix) 75 mg DAILY PO 09/22/17 09:00 09/24/17 08:33 (Lactinex) 1 tab DAILY PO 09/22/17 09:00 09/24/17 08:33 (Cozaar) 50 mg DAILY PO 09/22/17 09:00 09/24/17 08:33 (Remeron) 22 mg HS PO 09/21/17 22:00 09/23/17 23:07 Diltiazem HCl 125 mg/Sodium Chloride 125 ml @ 5 mls/hr TITRATE PRN IV 09/21/17 22:00 (Symbicort 160-4.5 Inh) 1 puff Q12HR INH 09/22/17 09:00 09/24/17 08:33 (Cardizem Cd) 300 mg DAILY PO 09/22/17 09:00 09/24/17 08:37 (Cardizem) 30 mg Q6HR PRN PO 09/22/17 07:45 (Ecotrin Ec) 81 mg DAILY PO 09/22/17 09:15 09/24/17 08:33 (Atrovent Neb) 0.5 mg TID NEB NEB 09/23/17 14:00 09/24/17 18:58 (Zofran Inj) 4 mg Q6H PRN IV PUSH 09/23/17 17:30 (Tylenol) 650 mg Q4H PRN PO 09/24/17 12:00 (Benadryl) 25 mg Q4H PRN PO 09/24/17 12:00 ([place] 5-325 Mg) 1 tab Q4H PRN PO 09/24/17 13:30 09/24/17 15:11 Miscellaneous Information ALL NURSING DEPARTME... UNSCH PRN .XX 09/24/17 13:30 09/25/17 13:29 Vital Signs / I&O Vital Signs Date Time Temp Pulse Resp B/P (MAP) Pulse Ox O2 Delivery O2 Flow Rate FiO2 09/24/17 18:58 92 Simple Mask 8.00 09/24/17 16:20 92 Simple Mask 8.00 09/24/17 15:18 98.6 86 20 122/82 (95) 94 09/24/17 15:00 98.2 80 28 103/63 (76) 98 Simple Mask 8 09/24/17 14:30 80 27 112/68 (83) 98 Simple Mask 8 09/24/17 14:15 81 24 102/62 (75) 95 Simple Mask 8 09/24/17 14:00 83 28 109/61 (77) 95 Simple Mask 8 09/24/17 13:45 80 28 107/63 (78) 95 Simple Mask 8 09/24/17 13:30 98.0 83 24 107/63 (78) 95 Simple Mask 8 09/24/17 10:09 82 09/24/17 08:57 91 Nasal Cannula 4.00 09/24/17 08:26 98.6 88 20 131/81 (98) 91 09/24/17 07:39 98 Nasal Cannula 4.00 09/24/17 04:53 89 09/24/17 04:00 87 22 125/82 (96) 91 09/24/17 00:09 86 09/24/17 00:00 Nasal Cannula 4.00 09/24/17 00:00 97.3 74 16 108/58 (75) 96 09/23/17 22:29 87 I/O 09/23/17 09/23/17 09/23/17 09/24/17 09/24/17 09/24/17 07:00 15:00 23:00 07:00 15:00 23:00 Intake Total 150 ml 240 ml 319.5 ml 306 ml 200 ml 250 ml Output Total 200 ml 100 ml 200 ml 400 ml 30 ml Balance -50 ml 140 ml 119.5 ml -94 ml 170 ml 250 ml Intake Oral 150 ml 240 ml IV Total 319.5 ml 306 ml 250 ml Other 200 ml Output Urine Total 200 ml 100 ml 200 ml 400 ml Estimated Blood Loss 30 ml # Voids 3 0 3 Physical Exam GENERAL: AAOx3 SKIN: Warm and dry. HEAD: Atraumatic. Normocephalic. EYES: Pupils equal and round. No scleral icterus. No injection or drainage. ENT: No nasal bleeding or discharge. Mucous membranes pink and moist. NECK: Trachea midline. No JVD. CARDIOVASCULAR: Irregularly irregular RESPIRATORY: No accessory muscle use. Decreased breath sounds bilaterally GASTROINTESTINAL: Abdomen soft, non-tender, nondistended. Hepatic and splenic margins not palpable. MUSCULOSKELETAL: Extremities without clubbing, cyanosis, or edema. No obvious deformities. NEUROLOGICAL: Awake and alert. No obvious cranial nerve deficits. Motor grossly within normal limits. Five out of 5 muscle strength in the arms and legs. Normal speech. PSYCHIATRIC: Appropriate mood and affect; insight and judgment normal. Laboratory Laboratory Tests Test 09/24/17 07:45 White Blood Count 17.2 TH/MM3 Red Blood Count 3.84 MIL/MM3 Hemoglobin 10.6 GM/DL Hematocrit 32.7 % Mean Corpuscular Volume 85.2 FL Mean Corpuscular Hemoglobin 27.5 PG Mean Corpuscular Hemoglobin Concent 32.3 % Red Cell Distribution Width 14.8 % Platelet Count 308 TH/MM3 Mean Platelet Volume 7.5 FL Neutrophils (%) (Auto) 96.2 % Lymphocytes (%) (Auto) 2.5 % Monocytes (%) (Auto) 1.0 % Eosinophils (%) (Auto) 0.0 % Basophils (%) (Auto) 0.3 % Neutrophils # (Auto) 16.5 TH/MM3 Lymphocytes # (Auto) 0.4 TH/MM3 Monocytes # (Auto) 0.2 TH/MM3 Eosinophils # (Auto) 0.0 TH/MM3 Basophils # (Auto) 0.1 TH/MM3 CBC Comment DIFF FINAL Differential Comment Blood Urea Nitrogen 16 MG/DL Creatinine 0.54 MG/DL Random Glucose 129 MG/DL Total Protein 7.7 GM/DL Albumin 2.6 GM/DL Calcium Level 9.2 MG/DL Magnesium Level 2.1 MG/DL Alkaline Phosphatase 145 U/L Aspartate Amino Transf (AST/SGOT) 55 U/L Alanine Aminotransferase (ALT/SGPT) 81 U/L Total Bilirubin 0.5 MG/DL Sodium Level 141 MEQ/L Potassium Level 4.7 MEQ/L Chloride Level 104 MEQ/L Carbon Dioxide Level 31.9 MEQ/L Anion Gap 5 MEQ/L Estimat Glomerular Filtration Rate 112 ML/MIN Imaging Last 24 hours Impressions Chest X-Ray 09/24/17 0000 Signed Impressions: Service Date/Time: August 13:52 - CONCLUSION: 1. The Bwxqys-g-Ylgg in good position without evidence of pneumothorax. There are extensive bilateral infiltrates. El Mcdonald MD Assessment and Plan Problem List: (1) Non-small cell cancer of right lung ICD Codes: C34.91 - Malignant neoplasm of unspecified part of right bronchus or lung Status: Acute (2) CAD (coronary artery disease) ICD Codes: I25.10 - Atherosclerotic heart disease of [place] coronary artery without angina pectoris (3) Hx of CABG ICD Codes: Z95.1 - Presence of aortocoronary bypass graft (4) Atrial fibrillation with RVR ICD Codes: I48.91 - Unspecified atrial fibrillation Status: Acute (5) Elevated troponin ICD Codes: R74.8 - Abnormal levels of other serum enzymes Status: Acute (6) HLD (hyperlipidemia) ICD Codes: E78.5 - Hyperlipidemia, unspecified Status: Chronic (7) HTN (hypertension) ICD Codes: I10 - Essential (primary) hypertension Status: Chronic (8) Lung mass ICD Codes: R91.8 - Other nonspecific abnormal finding of lung field Assessment and Plan 1) Afib with RVR Was placed on medications by Dr. JUAN, but never got to start them due to SOB and coming into the ER Currently controlled on Cardizem/Lopressor Patient discussed anti-coagulation with Dr. JUAN, and wants to con't on ASA/ Plavix and not be placed on NOAC/Coumadin 2) SOB Multifactorial in nature Place on Lasix daily 3) Lung CA For chemo and radiation 4) CAD/Hx CABG Con't ASA/Plavix 5) Will see PRN, call with questions Cuong Gunn DO Sep 24, 2017 21:06
[2017-09-24] MEDS: MIRTAZAPINE 15 MG TAB PO SCH (21:11)
[2017-09-24] MEDS: ATORVASTATIN 40 MG TAB PO SCH (21:12)
[2017-09-25] VITALS (13 sets, daily range): BP systolic 108–138; BP diastolic 64–91; PULSE 74–90; RESP 16–23; TEMP 97.5–99.1; O2SAT 91–100
[2017-09-25] MEDS: RESP: IPRATROPIUM 0.5 MG/2.5 ML NEB NEB SCH ×3 (08:07→19:18)
[2017-09-25 08:30] LABS: AUTOMATED NEUTROPHIL # 16.9 TH/MM3 (1.8-7.7); BASOPHIL # 0.1 TH/MM3 (0-0.2); BASOPHIL % 0.8 % (0.0-2.0); EOSINOPHIL % 0.1 % (0.0-4.0); HEMATOCRIT 32.2 % (35.0-46.0); HEMO FLAGS DIFF FINAL; LYMPH % 2.2 % (9.0-44.0); LYMPHOCYTE # 0.4 TH/MM3 (1.0-4.8); MEAN CELL VOLUME 85.7 FL (80.0-100.0); MEAN CORPUSCULAR HEMOGLOBIN 27.6 PG (27.0-34.0); MEAN CORPUSCULAR HGB CONC 32.2 % (32.0-36.0); MONO % 2.6 % (0.0-8.0); NEUT % 94.3 % (16.0-70.0); PLATELET COUNT 283 TH/MM3 (150-450); RED BLOOD COUNT 3.76 MIL/MM3 (4.00-5.30); RED CELL DISTRIBUTION WIDTH 14.9 % (11.6-17.2); WHITE BLOOD COUNT 17.9 TH/MM3 (4.0-11.0)
--- NOTE | 2017-09-25 08:39 | MP ---
cc: FLOYD LEON M.D., RONALD J. M.D. DEVERAS, RUBY ANNE E. M.D. DATE OF SURGERY: 09/24/2017 PROCEDURE Bygcov-T-Lcpf placement with intraoperative use of both fluoroscopy and ultrasound. PREOPERATIVE DIAGNOSIS Non-small cell carcinoma of the lung with need for IV chemotherapy. POSTOPERATIVE DIAGNOSIS Non-small cell carcinoma of the lung with need for IV chemotherapy. ANESTHESIA TIVA. SURGEON Nathen. ESTIMATED BLOOD LOSS 30 mL. FLUIDS 200 mL crystalloid. COMPLICATIONS None. DRAINS None. SPECIMEN None. PROCEDURE IN DETAIL The patient was taken to the operating room and placed on the operating table in the supine position. After placing a shoulder roll along the spine, the neck and chest were prepped and draped in the usual fashion. A timeout was taken confirming the correct patient, site and procedure to be performed. Skin and subcutaneous tissue was infiltrated with local anesthetic, and using the ultrasound probe the right internal jugular vein was located and accessed directly with the needle under direct vision. A guidewire was passed and seen to pass down into the superior vena cava. A small branch was initially encountered and the guidewire would not pass; repositioning the needle and replacing the guidewire allowed for easy passage of the wire. At this point the port pocket was prepared and incision was made and electrocautery used to create a hemostatic pocket. An introducer and sheath were then passed over the guidewire and a tunneling device used to bring the catheter from the insertion site to the port pocket. The introducer and guidewire were removed and the catheter passed down the sheath. The sheath was peeled away. A kink in the catheter was taken out so that a smooth course was obtained and the catheter withdrawn so that the tip was in the superior vena cava. The catheter was trimmed to length and attached to the port which then had the hub snapped on to secure the port to the catheter. The port was placed into the pocket and with hemostasis assured, the port was transfixed to the pocket at two points with 2-0 Prolene suture. The pocket was then closed with interrupted 3-0 Vicryl suture as was the percutaneous puncture site. Careful examination of the entire course of the catheter was seen to be smooth without kinks. The port was accessed with a Solis needle and good blood return was achieved. The port was re-flushed with 5 cc of 100 units per cc of heparinized saline. The skin was closed at the port pocket with 5-0 PDS. Both the percutaneous puncture site and the port pocket were dressed with Steri-Strips. The patient was taken back to the recovery room in stable condition. Sponge and needle counts were reported to be correct. A stat. chest x-ray demonstrated no evidence of pneumothorax. MD JIN Melendez/JOHNNY /8:00 AM /8:27 AM [email or web address]
[2017-09-25] MEDS: FUROSEMIDE 20 MG TAB PO SCH (09:02)
[2017-09-25] MEDS: ASPIRIN EC 81 MG TABEC PO SCH (09:02)
[2017-09-25] MEDS: CLOPIDOGREL 75 MG TAB PO SCH (09:02)
[2017-09-25] MEDS: DILTIAZEM-CD 300 MG CAP ER PO SCH (09:02)
[2017-09-25] MEDS: METOPROLOL TARTRATE 25 MG TAB PO SCH ×2 (09:03→21:15)
[2017-09-25] MEDS: ACETAMINOPHEN/HYDROcodone 325 MG/5 MG TAB PO PRN ×2 (09:03→21:16)
[2017-09-25] MEDS: SODIUM CHLORIDE 0.9% FLUSH 10 ML FLUSH IV FLUSH SCH ×2 (09:03→21:17)
[2017-09-25] MEDS: BUDESONIDE-FORMOTEROL 160/4.5 MCG INHALER INH SCH ×2 (09:03→21:15)
[2017-09-25] MEDS: LACTOBACILLUS ACIDOPHILUS TAB PO SCH (09:03)
[2017-09-25] MEDS: LOSARTAN 25 MG TAB PO SCH (09:03)
[2017-09-25 09:05] LABS: ANION GAP 6 MEQ/L (5-15); AST (GOT) 52 U/L (15-37); BICARBONATE 30.3 MEQ/L (21.0-32.0); BLOOD UREA NITROGEN 25 MG/DL (7-18); CHLORIDE 104 MEQ/L (98-107); GLOMERULAR FILTRATION RATE 99 ML/MIN (>89); POTASSIUM 4.6 MEQ/L (3.5-5.1); SODIUM (NA) 140 MEQ/L (136-145)
[2017-09-25 09:06] LABS: MAGNESIUM 2.1 MG/DL (1.5-2.5)
[2017-09-25 09:11] LABS: ALKALINE PHOSPHATASE 140 U/L (45-117); ALT (GPT) 63 U/L (10-53); TOTAL BILIRUBIN ADULT 0.3 MG/DL (0.2-1.0)
--- NOTE | 2017-09-25 11:06 | HHI.PR ---
Subjective Subjective Notes Resting in bed watching TV No issues Tells me she is going to start chemotherapy Thursday Objective Vitals/I&O Vital Signs Date Time Temp Pulse Resp B/P (MAP) Pulse Ox O2 Delivery O2 Flow Rate FiO2 09/25/17 09:14 99 Simple Mask 6.00 09/25/17 08:58 97.5 85 20 127/64 (85) Labs Laboratory Tests Test 09/25/17 07:43 White Blood Count 17.9 Red Blood Count 3.76 Hemoglobin 10.4 Hematocrit 32.2 Mean Corpuscular Volume 85.7 Mean Corpuscular Hemoglobin 27.6 Mean Corpuscular Hemoglobin Concent 32.2 Red Cell Distribution Width 14.9 Platelet Count 283 Mean Platelet Volume 7.8 Neutrophils (%) (Auto) 94.3 Lymphocytes (%) (Auto) 2.2 Monocytes (%) (Auto) 2.6 Eosinophils (%) (Auto) 0.1 Basophils (%) (Auto) 0.8 Neutrophils # (Auto) 16.9 Lymphocytes # (Auto) 0.4 Monocytes # (Auto) 0.5 Eosinophils # (Auto) 0.0 Basophils # (Auto) 0.1 CBC Comment DIFF FINAL Differential Comment Blood Urea Nitrogen 25 Creatinine 0.60 Random Glucose 116 Total Protein 7.2 Albumin 2.5 Calcium Level 9.0 Magnesium Level 2.1 Alkaline Phosphatase 140 Aspartate Amino Transf (AST/SGOT) 52 Alanine Aminotransferase (ALT/SGPT) 63 Total Bilirubin 0.3 Sodium Level 140 Potassium Level 4.6 Chloride Level 104 Carbon Dioxide Level 30.3 Anion Gap 6 Estimat Glomerular Filtration Rate 99 Cardiovascular: Regular Lungs: Clear Abdomen: Non-distended, Non-tender Extremities: No edema Narrative Exam RIGHT chest port in place without hematoma A/P Assessment and Plan 71 year old female with non small cell carcinoma; POD1 port placement -No issues with port site -No hematoma -GS will sign off;please call with questions Attending Note - Dr. Sena No hematoma; minimal ecchymosis The exam, history, and the medical decision-making described in the above note were completed with the assistance of the mid-level provider. I reviewed and agree with the findings presented. I attest that I had a obvm-[id number] encounter with the patient on the same day, and personally performed and documented my assessment and findings in the medical record. Ana White Sep 25, 2017 11:06 Bashir Sena MD Sep 26, 2017 17:43
--- NOTE | 2017-09-25 12:36 | PD.ONC.PN ---
Subjective Subjective Remarks Afebrile Pt on simple mask; reports she began on this yesterday "My breathing is about the same" Reports her brother in [place] has been helping her with feeding her animals while she's been in the hospital We discussed that she will need additional help once she is discharged with making it to radiation appointments, etc. No oozing from recent port placement Objective Data Date Time Temp Pulse Resp B/P (MAP) Pulse Ox O2 Delivery O2 Flow Rate FiO2 09/25/17 11:41 98 Nasal Cannula 5.00 09/25/17 11:36 98.6 86 20 115/70 (85) 100 09/25/17 09:14 99 Simple Mask 6.00 09/25/17 08:58 97.5 85 20 127/64 (85) 100 09/25/17 08:08 99 Simple Mask 8.00 09/25/17 07:48 82 09/25/17 05:52 98.1 80 23 115/77 (90) 91 09/25/17 04:33 79 09/25/17 00:46 97.5 74 16 138/91 (107) 99 09/25/17 00:04 76 09/24/17 22:10 16 09/24/17 21:18 Venturi Mask 8.00 09/24/17 21:18 97.0 90 22 135/91 (106) 96 09/24/17 20:16 83 09/24/17 18:58 92 Simple Mask 8.00 09/24/17 16:20 92 Simple Mask 8.00 09/24/17 15:18 98.6 86 20 122/82 (95) 94 09/24/17 15:00 98.2 80 28 103/63 (76) 98 Simple Mask 8 09/24/17 14:30 80 27 112/68 (83) 98 Simple Mask 8 09/24/17 14:15 81 24 102/62 (75) 95 Simple Mask 8 09/24/17 14:00 83 28 109/61 (77) 95 Simple Mask 8 09/24/17 13:45 80 28 107/63 (78) 95 Simple Mask 8 09/24/17 13:30 98.0 83 24 107/63 (78) 95 Simple Mask 8 09/25/17 09/25/17 09/25/17 07:00 15:00 23:00 Output Total 725 ml Balance -725 ml Result Diagram: 09/25/17 0743 09/25/17 0743 Laboratory Results Laboratory Tests Test 09/25/17 07:43 White Blood Count 17.9 TH/MM3 Red Blood Count 3.76 MIL/MM3 Hemoglobin 10.4 GM/DL Hematocrit 32.2 % Mean Corpuscular Volume 85.7 FL Mean Corpuscular Hemoglobin 27.6 PG Mean Corpuscular Hemoglobin Concent 32.2 % Red Cell Distribution Width 14.9 % Platelet Count 283 TH/MM3 Mean Platelet Volume 7.8 FL Neutrophils (%) (Auto) 94.3 % Lymphocytes (%) (Auto) 2.2 % Monocytes (%) (Auto) 2.6 % Eosinophils (%) (Auto) 0.1 % Basophils (%) (Auto) 0.8 % Neutrophils # (Auto) 16.9 TH/MM3 Lymphocytes # (Auto) 0.4 TH/MM3 Monocytes # (Auto) 0.5 TH/MM3 Eosinophils # (Auto) 0.0 TH/MM3 Basophils # (Auto) 0.1 TH/MM3 CBC Comment DIFF FINAL Differential Comment Blood Urea Nitrogen 25 MG/DL Creatinine 0.60 MG/DL Random Glucose 116 MG/DL Total Protein 7.2 GM/DL Albumin 2.5 GM/DL Calcium Level 9.0 MG/DL Magnesium Level 2.1 MG/DL Alkaline Phosphatase 140 U/L Aspartate Amino Transf (AST/SGOT) 52 U/L Alanine Aminotransferase (ALT/SGPT) 63 U/L Total Bilirubin 0.3 MG/DL Sodium Level 140 MEQ/L Potassium Level 4.6 MEQ/L Chloride Level 104 MEQ/L Carbon Dioxide Level 30.3 MEQ/L Anion Gap 6 MEQ/L Estimat Glomerular Filtration Rate 99 ML/MIN Administered Medications Medications (Trade) Dose Ordered Sig/Ramakrishna Route PRN Reason Start Time Stop Time Status Last Admin Dose Admin Metoprolol Tartrate (Lopressor) 25 mg Q12HR PO 09/22/17 09:00 09/25/17 09:03 Sodium Chloride (NS Flush) 2 ml BID IV FLUSH 09/22/17 09:00 09/25/17 09:03 Atorvastatin Calcium (Lipitor) 40 mg HS PO 09/21/17 22:00 09/24/17 21:12 Clopidogrel Bisulfate (Plavix) 75 mg DAILY PO 09/22/17 09:00 09/25/17 09:02 Lactobacillus Acidophilus (Lactinex) 1 tab DAILY PO 09/22/17 09:00 09/25/17 09:03 Losartan Potassium (Cozaar) 50 mg DAILY PO 09/22/17 09:00 09/25/17 09:03 Mirtazapine (Remeron) 22 mg HS PO 09/21/17 22:00 09/24/17 21:11 Budesonide/ Formoterol Fumarate (Symbicort 160-4.5 Inh) 1 puff Q12HR INH 09/22/17 09:00 09/25/17 09:03 Diltiazem HCl (Cardizem Cd) 300 mg DAILY PO 09/22/17 09:00 09/25/17 09:02 Aspirin (Ecotrin Ec) 81 mg DAILY PO 09/22/17 09:15 09/25/17 09:02 Ipratropium [place] (Atrovent Neb) 0.5 mg TID NEB NEB 09/23/17 14:00 09/25/17 08:07 Acetaminophen/ Hydrocodone Bitart ([place] 5-325 Mg) 1 tab Q4H PRN PO pain 1-10 09/24/17 13:30 09/24/17 21:11 Furosemide (Lasix) 20 mg DAILY PO 09/25/17 09:00 09/25/17 09:02 Objective Remarks GENERAL: Chronically ill-appearing elderly female resting in bed wearing simple mask. SKIN: Warm and dry. HEAD: Normocephalic. EYES: No injection or drainage. NECK: Supple, trachea midline. CARDIOVASCULAR: Regular rate and rhythm without murmurs. RESPIRATORY: Clear anteriorly. On 5 L simple mask GASTROINTESTINAL: Abdomen soft, non-tender, nondistended. EXTREMITIES: No cyanosis, or edema. MUSCULOSKELETAL: Adequate muscle tone. NEUROLOGICAL: No obvious focal deficit. Awake, alert, and oriented x3. Assessment/Plan Problem List: (1) Non-small cell cancer of right lung ICD Codes: C34.91 - Malignant neoplasm of unspecified part of right bronchus or lung Status: Acute Plan: Patient got a radiation sensitizing dose of carbotaxol this week +large mass in the anterior mediastinum measuring at least +squamous cell histology. +pretracheal and precarinal adenopathy. --was going to start concurrent chemo/XRT outpatient but was admitted (2) CAD (coronary artery disease) ICD Codes: I25.10 - Atherosclerotic heart disease of [place] coronary artery without angina pectoris Plan: --coronary artery disease and recent stent --placement. --patient of Mindy Peterson. --Currently on aspirin and Plavix (3) COPD (chronic obstructive pulmonary disease) ICD Codes: J44.9 - Chronic obstructive pulmonary disease, unspecified (4) Atrial fibrillation with RVR ICD Codes: I48.91 - Unspecified atrial fibrillation Status: Acute Plan: --rate controlled --on PO Cardizem and Lopressor. Assessment 71y/o female with newly diagnosed peb-fcnej-mgat lung cancer. h/o Anemia, Arthritis. Coronary artery disease. Emphysema. Hypertension. Atrial fibrillation. History of malignant melanoma. History of pneumonia. Previous TIA Locally advanced hyd-rqkrg-yoxh lung cancer, squamous cell histology. Plan 1. Tolerated port placement yesterday 2. Okay for discharge from oncology standpoint once respiratory supplies, O2 can be set up at home 3. Follow-up in clinic next week to discuss future chemotherapy Attending Statement The exam, history, and the medical decision-making described in the above note were completed with the assistance of the mid-level provider. I reviewed and agree with the findings presented. I attest that I had a [id number]-rv-hemq encounter with the patient on the same day, and personally performed and documented my assessment and findings in the medical record. Discussed w/ Dr. Love. Port site look good, no bleeding. Out pt XRt will continue, plan next chemo on Thursday or Thu, she prefer PO. Discussed DC planning and follow up. Problem Qualifiers (1) COPD (chronic obstructive pulmonary disease): Qualified Codes: J44.9 - Chronic obstructive pulmonary disease, unspecified Elizabeth Henry Sep 25, 2017 12:36 Rupali Sosa MD Sep 25, 2017 18:29
[2017-09-25] MEDS ORDERED: OXYGENDME NAS.CANULA (12:42)
--- NOTE | 2017-09-25 12:57 | HHI.PR ---
Subjective Remarks Patient denies dyspnea at rest. She ambulated with the nurse this morning. She was placed on a facemask last night after sedation from the port however has been weaned to 5 L nasal cannula this morning and doing very well on that. Patient is going for radiation this afternoon. Objective Vitals Vital Signs Date Time Temp Pulse Resp B/P (MAP) Pulse Ox O2 Delivery O2 Flow Rate FiO2 09/25/17 11:41 98 Nasal Cannula 5.00 09/25/17 11:36 98.6 86 20 115/70 (85) 100 09/25/17 09:14 99 Simple Mask 6.00 09/25/17 08:58 97.5 85 20 127/64 (85) 100 09/25/17 08:08 99 Simple Mask 8.00 09/25/17 07:48 82 09/25/17 05:52 98.1 80 23 115/77 (90) 91 09/25/17 04:33 79 09/25/17 00:46 97.5 74 16 138/91 (107) 99 09/25/17 00:04 76 09/24/17 22:10 16 09/24/17 21:18 Venturi Mask 8.00 09/24/17 21:18 97.0 90 22 135/91 (106) 96 09/24/17 20:16 83 09/24/17 18:58 92 Simple Mask 8.00 09/24/17 16:20 92 Simple Mask 8.00 09/24/17 15:18 98.6 86 20 122/82 (95) 94 09/24/17 15:00 98.2 80 28 103/63 (76) 98 Simple Mask 8 09/24/17 14:30 80 27 112/68 (83) 98 Simple Mask 8 09/24/17 14:15 81 24 102/62 (75) 95 Simple Mask 8 09/24/17 14:00 83 28 109/61 (77) 95 Simple Mask 8 09/24/17 13:45 80 28 107/63 (78) 95 Simple Mask 8 09/24/17 13:30 98.0 83 24 107/63 (78) 95 Simple Mask 8 I/O 09/24/17 09/24/17 09/24/17 09/25/17 09/25/17 09/25/17 07:00 15:00 23:00 07:00 15:00 23:00 Intake Total 306 ml 200 ml 250 ml Output Total 400 ml 30 ml 725 ml Balance -94 ml 170 ml 250 ml -725 ml IV Total 306 ml 250 ml Other 200 ml Output Urine Total 400 ml 725 ml Estimated Blood Loss 30 ml # Voids 0 3 Result Diagram: 09/25/17 0743 09/25/17 0743 Imaging Last Impressions Chest X-Ray 09/24/17 0000 Signed Impressions: Service Date/Time: August 13:52 - CONCLUSION: 1. The Rxfqwg-q-Fnpa in good position without evidence of pneumothorax. There are extensive bilateral infiltrates. El Mcdonald MD Objective Remarks GENERAL: Well-nourished, well-developed pleasant CF patient. SKIN: Warm and dry. HEAD: Normocephalic. EYES: No scleral icterus. No injection or drainage. NECK: Supple, trachea midline. No JVD or lymphadenopathy. CARDIOVASCULAR: Regular rate and rhythm without murmurs, gallops, or rubs. RESPIRATORY: Breath sounds equal bilaterally. No wheezes Rales or rhonchi. No accessory muscle use on 5L NC GASTROINTESTINAL: Abdomen soft, non-tender, nondistended. EXTREMITIES: No cyanosis, or edema. NEUROLOGICAL: Awake, alert, and oriented x 3. Non-focal. Procedures port placement. A/P Assessment and Plan -Afib with RVR - now in normal sinus rhythm. Continue aspirin and Plavix with no further anticoagulation per cardiology. Continue by mouth metoprolol and Cardizem. -Acute resp failure - improving, on 5 L NC. etiology due to lung CA and the RVR , underlying COPD. Was not previously on O2, will need this arranged for home. -Type II NSTEMI due to demand ischemia from the RVR, Coronary artery disease with recent drug-eluting stent, history of CABG in 2010 - continue with aspirin and Plavix. She was seen by her rn advanced this hospitalization. Follow-up outpatient with Dr. Peterson. -NSCLC - Lung cancer large mass in anterior mediastinum measuring 12 cm x 7 cm, with pretracheal and precarinal adenopathy, multiple bilateral pulmonary nodules likely metastatic. Status post port yesterday. S/p radiation sensitizing dose of carbotaxol this week with Dr. Sosa. For first radiation treatment today, then will do Mon-Fri treatments. Discussed with Dr. Sosa. -COPD - followed by Dr. Hannon as outpatient. cont nebs as needed. -Hypertension Continue losartan -Hyperlipidemia Continue home statin -Depression/insomnia Continue home Remeron DVT px - SCDs D/w Dr. Sosa, RN, and patient's brother at bedside. Discharge Planning Needs [facility], home O2 Possible DC home tomorrow Aleja Love MD Sep 25, 2017 12:57
--- NOTE | 2017-09-25 12:58 | HHI.FF ---
Face to Face Verification Diagnosis: (1) Non-small cell cancer of right lung (2) COPD (chronic obstructive pulmonary disease) (3) Atrial fibrillation with RVR Physical Therapy Order: Evaluate and Treat Home Health Nursing Order: Medical education Oxygen administration education Medication education-adverse effect Nursing assessment with vital signs I have seen patient Julisa Stratton on 09/25/17. My clinical findings support the need for the requested home health care services because: Ltd mobility - disease progression Patient has SOB I certify that my clinical findings support that this patient is homebound because: Hx COPD- exertion dyspnea/weakness Poor cardiac reserve Aleja Love MD Sep 25, 2017 12:58
[2017-09-25] MEDS ORDERED: DILT300C3 PO (12:59)
[2017-09-25] MEDS: ATORVASTATIN 40 MG TAB PO SCH (21:16)
[2017-09-25] MEDS: MIRTAZAPINE 15 MG TAB PO SCH (21:17)
[2017-09-26] VITALS (12 sets, daily range): BP systolic 105–133; BP diastolic 66–78; PULSE 70–94; RESP 18–22; TEMP 98.2–99.3; O2SAT 94–100
[2017-09-26] MEDS: RESP: IPRATROPIUM 0.5 MG/2.5 ML NEB NEB SCH ×3 (07:37→20:09)
[2017-09-26] MEDS: LACTOBACILLUS ACIDOPHILUS TAB PO SCH (09:00)
[2017-09-26] MEDS: BUDESONIDE-FORMOTEROL 160/4.5 MCG INHALER INH SCH ×2 (09:00→21:16)
[2017-09-26] MEDS: CLOPIDOGREL 75 MG TAB PO SCH (09:03)
[2017-09-26] MEDS: LOSARTAN 25 MG TAB PO SCH (09:03)
[2017-09-26] MEDS: DILTIAZEM-CD 300 MG CAP ER PO SCH (09:03)
[2017-09-26] MEDS: ASPIRIN EC 81 MG TABEC PO SCH (09:03)
[2017-09-26] MEDS: METOPROLOL TARTRATE 25 MG TAB PO SCH ×2 (09:04→21:00)
[2017-09-26] MEDS: FUROSEMIDE 20 MG TAB PO SCH (09:04)
[2017-09-26] MEDS: SODIUM CHLORIDE 0.9% FLUSH 10 ML FLUSH IV FLUSH SCH ×2 (09:05→21:17)
[2017-09-26 11:20] LABS: BLOOD, URINE NEG (NEG); COMMENT (UR) CULT NOT INDICATED; CULTURE IF INDICATED CULT NOT INDICATED; GLUCOSE,URINE NEG (NEG); HYALINE CAST, URINE 3 /lpf (RARE); KETONE, URINE NEG (NEG); NITRITE,URINE NEG (NEG); SQUAMOUS EPITHELIAL CELL URINE <1 /hpf (0-5); URINE COLOR LIGHT-YELLOW (YELLW/STRAW)
--- NOTE | 2017-09-26 12:37 | HHI.PR ---
Subjective Remarks Patient feels dyspnea has not improved. She is anxious about going home. Her brother is driving from [place] to be with her tomorrow but [facility] Patient remains in normal sinus rhythm on telemetry. Objective Vitals Vital Signs Date Time Temp Pulse Resp B/P (MAP) Pulse Ox O2 Delivery O2 Flow Rate FiO2 09/26/17 08:45 96 Nasal Cannula 4.00 09/26/17 08:45 89 09/26/17 08:00 98.2 89 18 119/72 (88) 96 09/26/17 07:37 95 Nasal Cannula 5.00 09/26/17 04:08 70 09/26/17 04:00 98.9 84 20 126/78 (94) 100 09/26/17 00:46 70 09/26/17 00:00 98.7 80 20 105/66 (79) 96 09/25/17 22:16 20 09/25/17 21:15 Nasal Cannula 4.00 09/25/17 20:04 90 09/25/17 20:00 99.1 87 20 116/74 (88) 96 09/25/17 19:18 95 Nasal Cannula 5.00 09/25/17 16:44 2.00 09/25/17 16:27 99.1 88 20 108/69 (82) 98 09/25/17 15:54 2.00 09/25/17 14:28 97 Nasal Cannula 5.00 I/O 09/25/17 09/25/17 09/25/17 09/26/17 09/26/17 09/26/17 07:00 15:00 23:00 07:00 15:00 23:00 Intake Total 720 ml Output Total 725 ml 600 ml 400 ml Balance -725 ml 120 ml -400 ml Intake Oral 720 ml Output Urine Total 725 ml 600 ml 400 ml # Bowel Movements 0 Result Diagram: 09/25/1743 09/25/17 0743 Objective Remarks GENERAL: Well-nourished, well-developed pleasant CF patient. SKIN: Warm and dry. HEAD: Normocephalic. EYES: No scleral icterus. No injection or drainage. NECK: Supple, trachea midline. No JVD or lymphadenopathy. CARDIOVASCULAR: Regular rate and rhythm without murmurs, gallops, or rubs. RESPIRATORY: Breath sounds equal bilaterally. No wheezes Rales or rhonchi. No accessory muscle use on NC. Right chest and neck with some minimal bruising mildly tender to palpation at the port site no erythema or drainage. GASTROINTESTINAL: Abdomen soft, non-tender, nondistended. EXTREMITIES: No cyanosis, or edema. NEUROLOGICAL: Awake, alert, and oriented x 3. Non-focal. Procedures port placement. A/P Assessment and Plan -Afib with RVR - now in normal sinus rhythm. Continue aspirin and Plavix with no further anticoagulation per cardiology. Continue by mouth metoprolol and Cardizem. -Acute resp failure - improving, on 5 L NC. etiology due to lung CA and the RVR , underlying COPD. oxygen is being arranged for home. -Type II NSTEMI due to demand ischemia from the RVR, Coronary artery disease with recent drug-eluting stent, history of CABG in 2010 - continue with aspirin and Plavix. She was seen by her social media marketing analyst this hospitalization. Follow-up outpatient with Dr. Peterson. -NSCLC - Lung cancer large mass in anterior mediastinum measuring 12 cm x 7 cm, with pretracheal and precarinal adenopathy, multiple bilateral pulmonary nodules likely metastatic. Status post port yesterday. S/p radiation sensitizing dose of carbotaxol on 10/[address] Sosa. Status post first dose of radiation on 09/25, then will do Mon-Fri treatments. Discussed with Dr. Sosa. -Leukocytosis. Likely reactive from the Decadron she received 20 mg on 10/23. We'll repeat CBC in the morning. UA was negative. Chest x-ray previously showed bilateral infiltrates which is likely reflective of the known metastatic pulmonary nodules. -COPD - followed by Dr. Hannon as outpatient. cont nebs as needed. -Hypertension Continue losartan -Hyperlipidemia Continue home statin -Depression/insomnia Continue home Remeron DVT px - SCDs Discharge Planning [facility], home O2 Possible DC home tomorrow Aleja Love MD Sep 26, 2017 12:37
[2017-09-26] MEDS: cefTRIAXone INJ 1,000 MG in SODIUM CHLORIDE 0.9% INJ 100 ML IV SCH (13:06)
--- NOTE | 2017-09-26 15:26 | HHI.PR ---
Subjective Remarks ALERT ON O2 NO DISRESS Objective Vital Signs Date Time Temp Pulse Resp B/P (MAP) Pulse Ox O2 Delivery O2 Flow Rate FiO2 09/26/17 12:00 99.3 85 20 119/73 (88) 98 09/26/17 08:45 96 Nasal Cannula 4.00 09/26/17 08:45 89 09/26/17 08:00 98.2 89 18 119/72 (88) 96 09/26/17 07:37 95 Nasal Cannula 5.00 09/26/17 04:08 70 09/26/17 04:00 98.9 84 20 126/78 (94) 100 09/26/17 00:46 70 09/26/17 00:00 98.7 80 20 105/66 (79) 96 09/25/17 22:16 20 09/25/17 21:15 Nasal Cannula 4.00 09/25/17 20:04 90 09/25/17 20:00 99.1 87 20 116/74 (88) 96 09/25/17 19:18 95 Nasal Cannula 5.00 09/25/17 16:44 2.00 09/25/17 16:27 99.1 88 20 108/69 (82) 98 09/25/17 15:54 2.00 I/O 09/25/17 09/25/17 09/25/17 09/26/17 09/26/17 09/26/17 07:00 15:00 23:00 07:00 15:00 23:00 Intake Total 720 ml Output Total 725 ml 600 ml 400 ml Balance -725 ml 120 ml -400 ml Intake Oral 720 ml Output Urine Total 725 ml 600 ml 400 ml # Bowel Movements 0 Result Diagram: 09/25/17 0743 09/25/17 0743 Objective Remarks GENERAL: SKIN: Warm and dry. HEAD: Atraumatic. Normocephalic. EYES: Pupils equal and round. No scleral icterus. No injection or drainage. ENT: No nasal bleeding or discharge. Mucous membranes pink and moist. NECK: Trachea midline. No JVD. CARDIOVASCULAR: Regular rate and rhythm. RESPIRATORY: No accessory muscle use. Clear to auscultation. Breath sounds equal bilaterally. GASTROINTESTINAL: Abdomen soft, non-tender, nondistended. Hepatic and splenic margins not palpable. MUSCULOSKELETAL: Extremities without clubbing, cyanosis, or edema. No obvious deformities. NEUROLOGICAL: Awake and alert. No obvious cranial nerve deficits. Motor grossly within normal limits. Five out of 5 muscle strength in the arms and legs. Normal speech. PSYCHIATRIC: Appropriate mood and affect; insight and judgment normal. Assessment and Plan Assessment and Plan LUNG CA COPD RESPIRATORY FAILURE PLAN O2 BRONCHODILATORS INCREASE ACTIVITY Isaiah Colon MD Sep 26, 2017 15:26
[2017-09-26] MEDS: ATORVASTATIN 40 MG TAB PO SCH (21:15)
[2017-09-26] MEDS: MIRTAZAPINE 15 MG TAB PO SCH (21:16)
[2017-09-27] VITALS (8 sets, daily range): BP systolic 103–126; BP diastolic 63–70; PULSE 92–140; RESP 18–19; TEMP 96.8–98.8; O2SAT 93–96
[2017-09-27] MEDS: RESP: IPRATROPIUM 0.5 MG/2.5 ML NEB NEB SCH ×2 (07:37→12:51)
[2017-09-27] MEDS: LOSARTAN 25 MG TAB PO SCH (08:20)
[2017-09-27] MEDS: DILTIAZEM-CD 300 MG CAP ER PO SCH (08:25)
[2017-09-27] MEDS: ASPIRIN EC 81 MG TABEC PO SCH (08:26)
[2017-09-27] MEDS: FUROSEMIDE 20 MG TAB PO SCH (08:26)
[2017-09-27] MEDS: CLOPIDOGREL 75 MG TAB PO SCH (08:27)
[2017-09-27] MEDS: METOPROLOL TARTRATE 25 MG TAB PO SCH (08:27)
[2017-09-27] MEDS: LACTOBACILLUS ACIDOPHILUS TAB PO SCH (08:27)
[2017-09-27] MEDS: BUDESONIDE-FORMOTEROL 160/4.5 MCG INHALER INH SCH (08:28)
[2017-09-27] MEDS: SODIUM CHLORIDE 0.9% FLUSH 10 ML FLUSH IV FLUSH SCH (08:28)
[2017-09-27 09:46] LABS: AUTOMATED NEUTROPHIL # 6.5 TH/MM3 (1.8-7.7); BASOPHIL % 0.5 % (0.0-2.0); EOSINOPHIL # 0.1 TH/MM3 (0-0.4); EOSINOPHIL % 1.2 % (0.0-4.0); HEMATOCRIT 29.8 % (35.0-46.0); HEMO FLAGS DIFF FINAL; LYMPH % 4.5 % (9.0-44.0); LYMPHOCYTE # 0.3 TH/MM3 (1.0-4.8); MEAN CELL VOLUME 83.1 FL (80.0-100.0); MEAN CORPUSCULAR HEMOGLOBIN 27.5 PG (27.0-34.0); MEAN CORPUSCULAR HGB CONC 33.1 % (32.0-36.0); MONO % 2.3 % (0.0-8.0); NEUT % 91.5 % (16.0-70.0); PLATELET COUNT 255 TH/MM3 (150-450); RED BLOOD COUNT 3.59 MIL/MM3 (4.00-5.30); RED CELL DISTRIBUTION WIDTH 14.5 % (11.6-17.2); WHITE BLOOD COUNT 7.1 TH/MM3 (4.0-11.0)
[2017-09-27 10:16] LABS: BICARBONATE 37.3 MEQ/L (21.0-32.0); POTASSIUM 3.9 MEQ/L (3.5-5.1)
[2017-09-27] MEDS ORDERED: METOPROLOL TARTRATE 50 MG TAB PO ONE (10:30)
[2017-09-27] MEDS: cefTRIAXone INJ 1,000 MG in SODIUM CHLORIDE 0.9% INJ 100 ML IV SCH (11:40)
--- NOTE | 2017-09-27 13:23 | HHI.PR ---
Subjective Remarks ALERT ON O2 NO DISRESS Objective Vital Signs Date Time Temp Pulse Resp B/P (MAP) Pulse Ox O2 Delivery O2 Flow Rate FiO2 09/27/17 12:05 96.8 126 18 103/63 (76) 96 09/27/17 09:36 140 09/27/17 09:36 97.4 122 18 122/70 (87) 95 09/27/17 09:36 95 Nasal Cannula 3.00 09/27/17 07:39 93 Nasal Cannula 3.00 09/27/17 04:45 114 19 126/68 (87) 93 09/27/17 04:14 116 09/27/17 03:30 126 09/27/17 02:45 135 09/27/17 00:28 98.8 92 19 124/67 (86) 94 09/27/17 00:00 Nasal Cannula 3.00 09/26/17 21:16 Nasal Cannula 3.00 09/26/17 20:10 94 Nasal Cannula 5.00 09/26/17 20:07 80 09/26/17 20:00 98.4 94 20 133/78 (96) 97 09/26/17 17:00 98.8 91 22 114/69 (84) 96 I/O 09/26/17 09/26/17 09/26/17 09/27/17 09/27/17 09/27/17 06:59 14:59 22:59 06:59 14:59 22:59 Intake Total 1200 ml 200 ml Output Total 400 ml 500 ml 1200 ml Balance -400 ml 700 ml -1000 ml Intake Oral 1200 ml 200 ml Output Urine Total 400 ml 500 ml 1200 ml # Voids 6 1 # Bowel Movements 0 3 Result Diagram: 09/27/1734 09/27/1734 Objective Remarks GENERAL: SKIN: Warm and dry. HEAD: Atraumatic. Normocephalic. EYES: Pupils equal and round. No scleral icterus. No injection or drainage. ENT: No nasal bleeding or discharge. Mucous membranes pink and moist. NECK: Trachea midline. No JVD. CARDIOVASCULAR: Regular rate and rhythm. RESPIRATORY: No accessory muscle use. Clear to auscultation. Breath sounds equal bilaterally. GASTROINTESTINAL: Abdomen soft, non-tender, nondistended. Hepatic and splenic margins not palpable. MUSCULOSKELETAL: Extremities without clubbing, cyanosis, or edema. No obvious deformities. NEUROLOGICAL: Awake and alert. No obvious cranial nerve deficits. Motor grossly within normal limits. Five out of 5 muscle strength in the arms and legs. Normal speech. PSYCHIATRIC: Appropriate mood and affect; insight and judgment normal. Assessment and Plan Assessment and Plan LUNG CA COPD RESPIRATORY FAILURE PLAN O2 as needed BRONCHODILATORS INCREASE ACTIVITY FU CXRAY Isaiah Colon MD Sep 27, 2017 13:23
[2017-09-27] MEDS ORDERED: METO-309 PO (13:30)
[2017-09-27] MEDS ORDERED: IPRASOL INH (13:30)
--- NOTE | 2017-09-27 13:39 | HHI.DS ---
Discharge Summary Admission Date Sep 21, 2017 at 21:38 Discharge Date: Sep 27, 2017 Admitting Diagnosis atrial fibrillation with RVR. (1) Acute hypoxemic respiratory failure ICD Code: J96.01 - Acute respiratory failure with hypoxia (2) Non-small cell cancer of right lung ICD Code: C34.91 - Malignant neoplasm of unspecified part of right bronchus or lung Status: Acute (3) COPD (chronic obstructive pulmonary disease) ICD Code: J44.9 - Chronic obstructive pulmonary disease, unspecified (4) HTN (hypertension) ICD Code: I10 - Essential (primary) hypertension Status: Chronic (5) CAD (coronary artery disease) ICD Code: I25.10 - Atherosclerotic heart disease of [place] coronary artery without angina pectoris (6) Atrial fibrillation with RVR ICD Code: I48.91 - Unspecified atrial fibrillation Status: Acute (7) Elevated troponin ICD Code: R74.8 - Abnormal levels of other serum enzymes Status: Acute (8) Non-ST elevation myocardial infarction (NSTEMI), type 2 ICD Code: I21.A1 - Myocardial infarction type 2 Procedures port placement. Brief History - From Admission 71-year-old female with a past medical history significant for non-small cell lung cancer, squamous cell, coronary artery disease status post CABG 5 and cardiac stenting 6 weeks ago, hypertension and hyperlipidemia presents with chest pressure, shortness of breath and heart palpitations since Thursday. The patient states her chest pressure is chronic and unchanged from normal. EKG in the emergency department significant for atrial fibrillation with rapid ventricular response. Troponin 0.14. On presentation to the emergency department, the patient's pulse was 172, respiratory rate 28, blood pressure 132 /88 and pulse ox 91% on room air. She was placed on a Cardizem drip and her pulse came down to 102. The patient is supposed to start chemotherapy with Dr. Sosa tomorrow. CBC/BMP: 09/27/17 0934 09/27/17 0934 Significant Findings Laboratory Tests Test 09/25/17 07:43 09/26/17 10:55 09/27/17 09:34 White Blood Count 17.9 TH/MM3 (4.0-11.0) Red Blood Count 3.76 MIL/MM3 (4.00-5.30) 3.59 MIL/MM3 (4.00-5.30) Hemoglobin 10.4 GM/DL (11.6-15.3) 9.9 GM/DL (11.6-15.3) Hematocrit 32.2 % (35.0-46.0) 29.8 % (35.0-46.0) Neutrophils (%) (Auto) 94.3 % (16.0-70.0) 91.5 % (16.0-70.0) Lymphocytes (%) (Auto) 2.2 % (9.0-44.0) 4.5 % (9.0-44.0) Neutrophils # (Auto) 16.9 TH/MM3 (1.8-7.7) Lymphocytes # (Auto) 0.4 TH/MM3 (1.0-4.8) 0.3 TH/MM3 (1.0-4.8) Blood Urea Nitrogen 25 MG/DL (7-18) Random Glucose 116 MG/DL (74-106) 151 MG/DL (74-106) Albumin 2.5 GM/DL (3.4-5.0) Alkaline Phosphatase 140 U/L (45-117) Aspartate Amino Transf (AST/SGOT) 52 U/L (15-37) Alanine Aminotransferase (ALT/SGPT) 63 U/L (10-53) Creatinine 0.47 MG/DL (0.50-1.00) Chloride Level 96 MEQ/L (98-107) Carbon Dioxide Level 37.3 MEQ/L (21.0-32.0) PE at Discharge GENERAL: Well-nourished, well-developed pleasant CF patient. SKIN: Warm and dry. HEAD: Normocephalic. EYES: No scleral icterus. No injection or drainage. NECK: Supple, trachea midline. No JVD or lymphadenopathy. CARDIOVASCULAR: Regular rate and rhythm without murmurs, gallops, or rubs. RESPIRATORY: Breath sounds equal bilaterally. No wheezes Rales or rhonchi. No accessory muscle use on NC. Right chest and neck with some minimal bruising mildly tender to palpation at the port site no erythema or drainage. GASTROINTESTINAL: Abdomen soft, non-tender, nondistended. EXTREMITIES: No cyanosis, or edema. NEUROLOGICAL: Awake, alert, and oriented x 3. Non-focal. Pt update on day of discharge Patient is feeling well. She went back into atrial fibrillation and heart rate was elevated in the 120s this morning however is now controlled in the 90s to 100 range after increasing metoprolol to 50 mg every 8 hours. She is asymptomatic. On 3 L nasal cannula. Her brother is driving from [place] and will be here in one hour. She would like to go home. Hospital Course Paroxysmal atrial fibrillation with rapid ventricular rate. Patient is back in atrial fibrillation heart rate was slightly elevated this morning so her metoprolol was increased to 50 mg every 8 hours. She is also on Cardizem CD 300 mg daily. Blood pressure stable. She was seen by cardiology Dr. Gunn and will continue on aspirin and Plavix. -Acute resp failure - improving, now on 3 L nasal cannula. etiology due to lung CA and the RVR, underlying COPD. oxygen has been arranged for home. Nebulizer and DuoNeb's also provided. -Type II NSTEMI due to demand ischemia from the RVR, Coronary artery disease with recent drug-eluting stent, history of CABG in 2010 - continue with aspirin and Plavix. She was seen by her district representative this hospitalization. Follow-up outpatient with Dr. Peterson. -NSCLC - Lung cancer large mass in anterior mediastinum measuring 12 cm x 7 cm, with pretracheal and precarinal adenopathy, multiple bilateral pulmonary nodules likely metastatic. Status post right port placement on September [address] Sena. S/p radiation sensitizing dose of carbotaxol on 10/[address] Sosa. Status post first dose of radiation on 09/25, then will do Mon-Fri treatments. Discussed previously with Dr. Sosa. -Leukocytosis. Likely reactive from the Decadron she received 20 mg on 10/23. White blood cell count normal on repeat CBC this morning. UA was negative. Chest x-ray previously showed bilateral infiltrates which is likely reflective of the known metastatic pulmonary nodules. -COPD - followed by Dr. Hannon as outpatient. cont nebs as needed. Discharge home today with home health care. Follow-up with radiation oncology tomorrow. Follow-up with Dr. Sosa this week. Pt Condition on Discharge: Fair Discharge Disposition: Disch w/ Home Health Serv Discharge Time: > 30 minutes Discharge Instructions DIET: Follow Instructions for: Heart Healthy Diet Activities you can perform: Regular-No Restrictions Follow up Referrals: Oncology - 2-3 Days with Rupali Sosa MD New Medications: Ipratropium-Albuterol Neb (Duoneb) 0.5-2.5 Mg/3 Ml Neb 1 NEBULE INH Q4HR NEB for SHORTNESS OF BREATH, #120 NEBULE 0 Refills Oxygen (O2) (Oxygen (O2)) Device LITER RODO.CANULA CONTINUOUS for Prevent Hypoxemia, #5 Oxygen Concentrator Portable Gaseous 2 L/min via Nasal Canula Continuous For 99 months Diltiazem CD 24 HR (Diltiazem CD 24 HR) 300 Mg Caper 300 MG PO DAILY for Regulate Heart Beat, #30 CAP Metoprolol Tartrate (Lopressor) 50 Mg Tab 50 MG PO Q8HR for control heart rate, #90 TAB Continued Medications: Albuterol Neb (Albuterol Neb) 1.25 Mg/3 Ml Neb 1.25 MG NEB Q6HR NEB PRN for SHORTNESS OF BREATH, #50 NEBULE 0 Refills Ascorbate Calcium/Bioflavonoid (Katharine-C 500 mg Tablet) 500 Mg-200 Mg Tablet DAILY Aspirin DR (Aspirin EC) 81 Mg Tabdr 81 MG PO DAILY, TAB 0 Refills Atorvastatin (Atorvastatin) 40 Mg Tab 40 MG PO HS for Cholesterol Management, TAB 0 Refills B-Complex Vitamins (B Complex) 1 Cap 2 CAP PO DAILY for Nutritional Supplement, #30 CAP 0 Refills Budesonide-Formoterol Inh (Symbicort Inh) 160-4.5 Mcg/Act Aero 1 PUFF INH Q12HR, #1 INHALER 0 Refills Cholecalciferol (Vitamin D3) 2,000 Unit Cap 2000 UNITS PO DAILY for Nutritional Supplement, #1 BOTTLE 0 Refills Clopidogrel (Plavix) 75 Mg Tab 75 MG PO DAILY for Blood Clot Prevention, #30 TAB 0 Refills Cyanocobalamin (Vitamin B-12) 500 Mcg Tab 1000 MCG PO DAILY for Nutritional Supplement, #1 BOTTLE 0 Refills Glucosamine (Glucosamine) 750 Mg Cap 1500 MG PO DAILY for Herbal Supplements, CAP 0 Refills Lactobacillus Acidophilus (Probiotic) 10 Billion Cell Cap 1 CAP PO DAILY for Nutritional Supplement, #90 CAP 0 Refills Losartan (Losartan) 25 Mg Tab 50 MG PO DAILY for Blood Pressure Management, TAB 0 Refills Methylsulfonylmethane (Msm) 1,000 Mg Cap 1500 MG PO DAILY, CAP 0 Refills Mirtazapine (Mirtazapine) 15 Mg Tab 22 MG PO HS for Depression Control, #30 TAB 0 Refills Nitroglycerin SL (Nitrostat SL) 0.4 Mg Subl 0.4 MG SL DIRECTED PRN for CHEST PAIN, TAB.SL 0 Refills 1 tablet under the tongue as needed for chest pain. Repeat every 5 minutes for a total of 3 DOSES or call 911 if NO relief. Psyllium Powder (Psyllium Powder) 100 % Pow 1 SCOOP PO BID PRN for CONSTIPATION, CONTAINER 0 Refills 1 rounded TEASPOON in 8 oz of liquid at the first sign of irregularity. Aleja Love MD Sep 27, 2017 13:39
[2017-09-27] MEDS ORDERED: METOPROLOL TARTRATE 50 MG TAB PO SCH (14:00)
--- NOTE | 2017-09-27 15:23 | RADRPT ---
EXAM DATE/TIME: 09/27/2017 14:20 [facility] COMPARISON: CHEST SINGLE AP, September 22, 2017, 5:19. INDICATIONS : Short of breath. MEDICAL HISTORY : Cardiovascular disease. Chronic obstructive pulmonary disease. Hernia, SURGICAL HISTORY : Appendectomy. CABG ENCOUNTER: Initial ACUITY: 1 day PAIN SCORE: 0/10 LOCATION: Bilateral chest FINDINGS: Stable right IJ [id number]. There is improved airspace disease in the right lower lobe. Continued right perihilar opacity with mild left lower lung zone airspace disease. Cardiomediastinal contours a re stable. Remainder of the exam is unchanged. CONCLUSION: 1. Improved right lower lung zone airspace disease. 2. Stable left lower lung zone airspace disease. 3. Redemonstration of right perihilar masslike opacity. Thierry Maurer MD on September 27, 2017 at 15:20 Board Certified Radiologist. This report was verified electronically.
== END 2017-09-27 16:30 | disposition home health service (06) | DRG 280 ==
LOC: NEPC 18:31 → NEDA 21:38 → HCIN 22:54
PROVIDERS: ADMIT Family Medicine; ATTEND Family Medicine
PROC: 3E03305 Introduction of Other Antineoplastic into Peripheral Vein, Percutaneous Approach (ICD-10-PCS; principal; 2017-09-23)
PROC: DB023ZZ Beam Radiation of Lung using Electrons (ICD-10-PCS; 2017-09-23)
PROC: 0JH60XZ Insertion of Tunneled Vascular Access Device into Chest Subcutaneous Tissue and Fascia, Open Approach (ICD-10-PCS; 2017-09-24)
PROC: 02HV33Z Insertion of Infusion Device into Superior Vena Cava, Percutaneous Approach (ICD-10-PCS; 2017-09-24)
DX: I48.0 Paroxysmal atrial fibrillation (principal); I21.A1 Myocardial infarction type 2; J96.01 Acute respiratory failure with hypoxia; C34.91 Malignant neoplasm of unspecified part of right bronchus or lung; J43.9 Emphysema, unspecified; D64.9 Anemia, unspecified; I50.30 Unspecified diastolic (congestive) heart failure; I11.0 Hypertensive heart disease with heart failure; Z95.1 Presence of aortocoronary bypass graft; D72.829 Elevated white blood cell count, unspecified; I25.10 Atherosclerotic heart disease of native coronary artery without angina pectoris; E78.5 Hyperlipidemia, unspecified; F32.9 Major depressive disorder, single episode, unspecified; G47.00 Insomnia, unspecified; T38.0X5A Adverse effect of glucocorticoids and synthetic analogues, initial encounter; M19.90 Unspecified osteoarthritis, unspecified site; E66.9 Obesity, unspecified; Z86.73 Personal history of transient ischemic attack (TIA), and cerebral infarction without residual deficits; Z85.820 Personal history of malignant melanoma of skin; Z87.891 Personal history of nicotine dependence; Z79.02 Long term (current) use of antithrombotics/antiplatelets; Z79.82 Long term (current) use of aspirin; Z95.5 Presence of coronary angioplasty implant and graft; Z68.31 Body mass index [BMI] 31.0-31.9, adult; Z88.8 Allergy status to other drugs, medicaments and biological substances
CPT/HCPCS: 36600; 71010; 71020; 76000; 76937; 77386; 77387; 80048; 80053; 81001; 82550; 82805; 83735; 83880; 84484; 85025; 85027; 85610; 85730; 86900; 86901; 93005; 94620; 94640; 94664; 96365; 96375; C1788; J0690; J0696; J1100; J1626; J1644; J1650; J1940; J7030; J7042; J7050; J7614; J7644; J9045; J9267

== ENCOUNTER 2017-11-03 19:55 | Inpatient (IN) | payer MEDICARE, BC ==
[~2017-11-03] VITALS: Ht 165.1 cm; Wt 75.6 kg
[~2017-11-03 19:55] MED LIST changes: +DILT300C3 PO; +IPRASOL INH; +METO-309 PO; -NEBULIZER1 MI1; +OXYGENDME NAS.CANULA; +SYMB160A INH
[2017-11-03] MEDS ORDERED: IOHEXOL 350 MG/ML 10 ML VIAL (for RAD DIAG) IVCONTRAST ONE (19:56)
[2017-11-03 20:08] VITALS: BP 104/65; PULSE 120; RESP 24; TEMP 98.5; O2SAT 100
[2017-11-03] MEDS ORDERED: SODIUM CHLOR 0.9% 1000 ML INJ 1,000 ML IV ONE (20:15)
[2017-11-03] MEDS ORDERED: DILTIAZEM HCL 25 MG/5 ML VIAL IV ONE (20:15)
[2017-11-03] MEDS ORDERED: SODIUM CHLORIDE 0.9% FLUSH 10 ML FLUSH IVF PRN (20:15)
--- NOTE | 2017-11-03 20:39 | RADRPT ---
EXAM DATE/TIME: 11/03/2017 20:31 [facility] COMPARISON: No previous studies available for comparison. INDICATIONS : Short of breath. MEDICAL HISTORY : Carcinoma, lung. SURGICAL HISTORY : CABG. Coronary artery stent. Infusaport. ENCOUNTER: Initial ACUITY: 7 - 11 months PAIN SCORE: 0/10 LOCATION: Bilateral chest FINDINGS: Bilateral consolidation again noted, perihilar on the right and basilar on the left. No significant c hange in the interim. No large effusion seen. No pneumothorax. Large right central mass again noted. Right internal jugular [id number] catheter again seen, tip in the right atrium. CONCLUSION: No significant change. Fernando Hines MD on November 03, 2017 at 20:35 Board Certified Radiologist. This report was verified electronically.
[2017-11-03] MEDS ORDERED: DILTIAZEM INJ 125 MG in SODIUM CHLORIDE 0.9% INJ 100 ML IV PRN (21:00)
[2017-11-03] MEDS ORDERED: DILTIAZEM HCL 25 MG/5 ML VIAL IV PUSH ONE (21:00)
[2017-11-03 21:31] LABS: AUTOMATED NEUTROPHIL # 0.7 TH/MM3 (1.8-7.7); BASOPHIL % 1.2 % (0.0-2.0); EOSINOPHIL % 0.6 % (0.0-4.0); HEMATOCRIT 24.8 % (35.0-46.0); HEMOGLOBIN 8.5 GM/DL (11.6-15.3); LYMPHOCYTE # 0.3 TH/MM3 (1.0-4.8); MEAN CELL VOLUME 85.2 FL (80.0-100.0); MEAN CORPUSCULAR HEMOGLOBIN 29.2 PG (27.0-34.0); MEAN CORPUSCULAR HGB CONC 34.2 % (32.0-36.0); MEAN PLATELET VOLUME 7.1 FL (7.0-11.0); MONO % 21.8 % (0.0-8.0); MONOCYTE # 0.3 TH/MM3 (0-0.9); NEUT % 54.4 % (16.0-70.0); PLATELET COUNT 168 TH/MM3 (150-450); RED CELL DISTRIBUTION WIDTH 17.5 % (11.6-17.2); WHITE BLOOD COUNT 1.3 TH/MM3 (4.0-11.0)
[2017-11-03 21:42] LABS: INTERNATIONAL NORMALIZED RATIO 1.2 RATIO; PROTHROMBIN TIME - PATIENT 11.8 SEC (9.8-11.6)
--- NOTE | 2017-11-03 22:00 | PD ---
HPI Chief Complaint: Cardiac Complaint Time Seen by Provider: 20:09 Travel History International Travel<30 days: No Contact w/Intl Traveler<30days: No Traveled to known affect area: No History of Present Illness HPI Patient is a 72-year-old female who comes in complaining of palpitations. She says it started this evening while she was watching television. She has history of A. fib, and was taking Cardizem for this. She also has history of lung cancer, and was recently noted to have low blood pressure. At her last visit with the oncologist, she was advised to stop taking some of the Cardizem. She is also on metoprolol. She denies chest pain. She does have shortness of breath. She says she always has shortness of breath, but it is worse today. She denies fever or chills. She has not had any leg swelling or pain. She did not take any Cardizem today. Exertion seems to make her symptoms worse. PFSH Past Medical History Hx Anticoagulant Therapy: Yes (PLAVIX) Asthma: Yes Atrial Fibrillation: Yes Heart Rhythm Problems: Yes (AFIB) Cancer: Yes (MELANOMA) Cardiac Catheterization: Yes Cardiovascular Problems: Yes Chemotherapy: Yes (last dose Thursday10/27/17) COPD: Yes Coronary Artery Disease: Yes Diabetes: No Diminished Hearing: No Endocrine: No Gastrointestinal Disorders: Yes (HIATAL HERNIA) Genitourinary: No Hiatal Hernia: Yes Hypertension: Yes Immune Disorder: No Implanted Vascular Access Dvce: Yes Reproductive: No Respiratory: Yes Thyroid Disease: No ?: Not Past Surgical History Appendectomy: Yes Body Medical Devices: CARDIAC STENTS Cardiac Surgery: Yes Coronary Artery Bypass Graft: Yes Thoracic Surgery: Yes Other Surgery: Yes (RIGHT LUNG BIOPSY) Social History Alcohol Use: No Tobacco Use: No Substance Use: No Allergies-Medications (Allergen,Severity, Reaction): Coded Allergies: epinephrine (Verified Adverse Reaction, Severe, Hypotension, 11/03/17) lisinopril (Verified Adverse Reaction, Severe, Cough, 11/03/17) Reported Meds & Prescriptions Reported Meds & Active Scripts Active Duoneb (Ipratropium-Albuterol Neb) 0.5-2.5 Mg/3 Ml Neb 1 Nebule INH Q4HR NEB Oxygen (O2) Device Liter RODO.CANULA CONTINUOUS Oxygen Concentrator Portable Gaseous 2 L/min via Nasal Canula Continuous For 99 months Albuterol Neb (Albuterol Sulfate) 1.25 Mg/3 Ml Neb 1.25 Mg NEB Q6HR NEB PRN Reported Metoprolol Tartrate 100 Mg Tab 100 Mg PO BID Diltiazem ER 24 HR 240 Mg Vignesh 240 Mg PO HS Diltiazem (Diltiazem HCl) 120 Mg Tab 120 Mg PO AC BREAKFAST Probiotic (Lactobacillus Acidophilus) 10 Billion Cell Cap 1 Cap PO DAILY Psyllium Powder 100 % Pow 1 Scoop PO BID PRN 1 rounded TEASPOON in 8 oz of liquid at the first sign of irregularity. Vitamin B-12 (Cyanocobalamin) 500 Mcg Tab 1,000 Mcg PO DAILY B Complex (B-Complex Vitamins) 1 Cap 2 Cap PO DAILY Katharine-C 500 mg Tablet (Ascorbate Calcium/Bioflavonoid) 500 Mg-200 Mg Tablet DAILY Vitamin D3 (Cholecalciferol) 2,000 Unit Cap 2,000 Units PO DAILY Msm (Methylsulfonylmethane) 1,000 Mg Cap 1,500 Mg PO DAILY Mirtazapine 15 Mg Tab 22 Mg PO HS Plavix (Clopidogrel Bisulfate) 75 Mg Tab 75 Mg PO DAILY Nitrostat SL (Nitroglycerin) 0.4 Mg Subl 0.4 Mg SL DIRECTED PRN 1 tablet under the tongue as needed for chest pain. Repeat every 5 minutes for a total of 3 DOSES or call 911 if NO relief. Glucosamine (Glucosamine Sulfate) 750 Mg Cap 1,500 Mg PO DAILY Atorvastatin (Atorvastatin Calcium) 40 Mg Tab 40 Mg PO HS Aspirin EC (Aspirin) 81 Mg Tabdr 81 Mg PO DAILY Review of Systems Except as stated in HPI: all other systems reviewed are Neg General / Constitutional: No: Fever, Chills HENT: No: Headaches, Lightheadedness Cardiovascular: Positive: Palpitations, No: Chest Pain or Discomfort Respiratory: Positive: Shortness of Breath, No: Cough Gastrointestinal: No: Nausea, Vomiting Genitourinary: No: Dysuria Musculoskeletal: No: Myalgias, Edema Skin: No Rash, No Change in Pigmentation Neurologic: No: Weakness, Dizziness Physical Exam Narrative GENERAL: Awake and alert, in no acute distress. SKIN: Focused skin assessment warm/dry. HEAD: Atraumatic. Normocephalic. EYES: Pupils equal and round. No scleral icterus. ENT: Mucous membranes pink and moist. NECK: Trachea midline. No JVD. CARDIOVASCULAR: Tachycardia. No murmur appreciated. RESPIRATORY: No accessory muscle use. Clear to auscultation. Breath sounds equal bilaterally. GASTROINTESTINAL: Abdomen soft, non-tender, nondistended. MUSCULOSKELETAL: No obvious deformities. No clubbing. No cyanosis. No edema. NEUROLOGICAL: Awake and alert. No obvious cranial nerve deficits. Motor grossly within normal limits. Normal speech. PSYCHIATRIC: Appropriate mood and affect; insight and judgment normal. Data Data Last Documented VS Vital Signs Date Time Temp Pulse Resp B/P (MAP) Pulse Ox O2 Delivery O2 Flow Rate FiO2 11/03/17 23:10 105 24 136/77 (96) 97 Nasal Cannula 3.00 11/03/17 20:08 98.5 Orders Orders Complete Blood Count With Diff (11/03/17 20:09) Comprehensive Metabolic Panel (11/03/17 20:09) Act Partial Throm Time (Ptt) (11/03/17 20:09) Prothrombin Time / Inr (Pt) (11/03/17 20:09) Ckmb (Isoenzyme) Profile (11/03/17 20:09) Troponin I (11/03/17 20:09) Urinalysis - C+S If Indicated (11/03/17 20:09) Iv Access Insert/Monitor (11/03/17 20:09) Ecg Monitoring (11/03/17 20:09) Oximetry (11/03/17 20:09) Oxygen Administration (11/03/17 20:09) Chest, Single Ap (11/03/17 20:09) Ct Pulmonary Angiogram (11/03/17 20:09) Sodium Chloride 0.9% Flush (Ns Flush) (11/03/17 20:15) Sodium Chlor 0.9% 1000 Ml Inj (Ns 1000 M (11/03/17 20:15) Diltiazem Inj (Cardizem Inj) (11/03/17 20:15) Diltiazem Inj (Cardizem Inj) (11/03/17 21:00) Vital Signs (Adult) Q15MX4,Q4H (11/03/17 21:00) Accredited Legal Secretary / Telemetry ROSANNE.Q8H (11/03/17 21:00) Cardiac Rhythm ROSANNE.Q8H (11/03/17 21:00) Notify Dr: Other (11/03/17 21:00) Diltiazem Inj (Cardizem Inj) (11/03/17 21:00) Electrocardiogram (11/03/17 20:07) Iohexol 350 Inj (Omnipaque 350 Inj) (11/03/17 19:56) Admit Order (Ed Use Only) (11/03/17 ) Labs Laboratory Tests Test 11/03/17 21:00 11/03/17 21:50 White Blood Count 1.3 TH/MM3 Red Blood Count 2.90 MIL/MM3 Hemoglobin 8.5 GM/DL Hematocrit 24.8 % Mean Corpuscular Volume 85.2 FL Mean Corpuscular Hemoglobin 29.2 PG Mean Corpuscular Hemoglobin Concent 34.2 % Red Cell Distribution Width 17.5 % Platelet Count 168 TH/MM3 Mean Platelet Volume 7.1 FL Neutrophils (%) (Auto) 54.4 % Lymphocytes (%) (Auto) 22.0 % Monocytes (%) (Auto) 21.8 % Eosinophils (%) (Auto) 0.6 % Basophils (%) (Auto) 1.2 % Neutrophils # (Auto) 0.7 TH/MM3 Lymphocytes # (Auto) 0.3 TH/MM3 Monocytes # (Auto) 0.3 TH/MM3 Eosinophils # (Auto) 0.0 TH/MM3 Basophils # (Auto) 0.0 TH/MM3 CBC Comment AUTO DIFF Differential Total Cells Counted 100 Neutrophils % (Manual) 44 % Band Neutrophils % 7 % Lymphocytes % 26 % Monocytes % 22 % Neutrophils # (Manual) 0.7 TH/MM3 Nucleated Red Blood Cells 1 /100 WBC Differential Comment FINAL DIFF MANUAL Atypical Lymphocytes % Plasma Cells 1 % Platelet Estimate NORMAL Platelet Morphology Comment NORMAL Acanthocytes OCC Prothrombin Time 11.8 SEC Prothromb Time International Ratio 1.2 RATIO Activated Partial Thromboplast Time 36.6 SEC Blood Urea Nitrogen 14 MG/DL Creatinine 0.57 MG/DL Random Glucose 97 MG/DL Total Protein 6.2 GM/DL Albumin 2.6 GM/DL Calcium Level 8.1 MG/DL Alkaline Phosphatase 99 U/L Aspartate Amino Transf (AST/SGOT) 24 U/L Alanine Aminotransferase (ALT/SGPT) 22 U/L Total Bilirubin 0.6 MG/DL Sodium Level 141 MEQ/L Potassium Level 3.8 MEQ/L Chloride Level 105 MEQ/L Carbon Dioxide Level 29.1 MEQ/L Anion Gap 7 MEQ/L Estimat Glomerular Filtration Rate 105 ML/MIN Total Creatine Kinase 41 U/L Troponin I 0.02 NG/ML Urine Color LIGHT-YELLOW Urine Turbidity CLEAR Urine pH 7.0 Urine Specific [place] 1.007 Urine Protein NEG mg/dL Urine Glucose (UA) NEG mg/dL Urine Ketones NEG mg/dL Urine Occult Blood NEG Urine Nitrite NEG Urine Bilirubin NEG Urine Urobilinogen LESS THAN 2.0 MG/DL Urine Leukocyte Esterase TRACE Urine WBC 2 /hpf Urine Squamous Epithelial Cells <1 /hpf Urine Mucus FEW /lpf Microscopic Urinalysis Comment CULT NOT INDICATED MDM Medical Decision Making Medical Screen Exam Complete: Yes Emergency Medical Condition: Yes Medical Record Reviewed: Yes Interpretation(s) ECG shows A. fib with RVR at a rate of 138, no evidence of ischemia. Differential Diagnosis Atrial fibrillation versus PE versus electrolyte abnormality versus sepsis Narrative Course Patient is a 72-year-old female who comes in complaining of palpitations. She is found to be in A. fib with RVR. There established, labs sent. Patient connected to the ekg monitor tech. Given IV fluids and a bolus of Cardizem. Her pulse improved somewhat with the first bolus of Cardizem, but then again to rise. She is given a second bolus of Cardizem with some improvement. She was then started on a Cardizem drip for rate control. CTA of the chest was ordered to rule out PE. There is no evidence of pulmonary embolism. There was concern for possible clot in the superior vena cava, however patient is not having symptoms of superior vena cava syndrome. This is likely due to the contrast being injected through her [id number]. Patient will be admitted for further management. Critical Care Narrative Aggregate critical care time was 40 minutes. Time to perform other separately billable procedures was not included in the critical care time. My time did not include minutes spent treating any other patients simultaneously or on activities that did not directly contribute to the patient's treatment. The services I provided to this patient were to treat and/or prevent clinically significant deterioration that could result in: Serious illness or I provided critical care services requiring my management, as noted below: Chart data review, documentation time, medication orders and management, vital sign assessments/reviewing monitor data, ordering and reviewing lab tests, ordering and interpreting/reviewing x-rays and diagnostic studies, care of the patient and discussion of the patient with the admitting physicians. Diagnosis Primary Impression: Atrial fibrillation with RVR Admitting Information Admitting Physician Requests: Admit Juanita Le MD Nov 03, 2017 22:00
[2017-11-03 22:05] LABS: ALBUMIN 2.6 GM/DL (3.4-5.0); AST (GOT) 24 U/L (15-37); BICARBONATE 29.1 MEQ/L (21.0-32.0); BLOOD UREA NITROGEN 14 MG/DL (7-18); CALCIUM 8.1 MG/DL (8.5-10.1); CHLORIDE 105 MEQ/L (98-107); CREATININE 0.57 MG/DL (0.50-1.00); GLOMERULAR FILTRATION RATE 105 ML/MIN (>89); GLUCOSE,RANDOM 97 MG/DL (74-106); SODIUM (NA) 141 MEQ/L (136-145)
[2017-11-03 22:10] LABS: ALKALINE PHOSPHATASE 99 U/L (45-117); ALT (GPT) 22 U/L (10-53); TOTAL BILIRUBIN ADULT 0.6 MG/DL (0.2-1.0); TOTAL PROTEIN 6.2 GM/DL (6.4-8.2); TROPONIN I 0.02 NG/ML (0.02-0.05)
[2017-11-03 22:24] LABS: BILIRUBIN, URINE NEG (NEG); BLOOD, URINE NEG (NEG); GLUCOSE,URINE NEG (NEG); KETONE, URINE NEG (NEG); MUCUS URINE FEW /lpf (OCC); NITRITE,URINE NEG (NEG); SQUAMOUS EPITHELIAL CELL URINE <1 /hpf (0-5); URINE COLOR LIGHT-YELLOW (YELLW/STRAW); URINE LEUKOCYTE ESTERASE TRACE (NEG)
[2017-11-03 22:51] LABS: BANDS 7 % (0-6); CORRECTED NUCLEATED RBC 1 /100 WBC (0-0); LYMPHOCYTES 26 % (9-44); MONOCYTES 22 % (0-8); NEUTROPHIL # MANUAL DIFF 0.7 TH/MM3 (1.8-7.7); NUCLEATED RED BLOOD CELL 1 (0-0); PLASMA CELLS 1 % (0-0); POLYS (SEG NEUTROPHILS) 44 % (16-70)
[2017-11-03 22:52] LABS: ACANTHOCYTES OCC (NORMAL)
--- NOTE | 2017-11-03 22:52 | RADRPT ---
EXAM DATE/TIME: 11/03/2017 22:21 [facility] COMPARISON: CT PULMONARY ANGIOGRAM, September 11, 2017, 13:23. INDICATIONS : Chest pain. IV CONTRAST: 75 cc Omnipaque 350 (iohexol) IV RADIATION DOSE: 10.20 CTDIvol (mGy) MEDICAL HISTORY : Cardiovascular disease. Carcinoma, not otherwise specified. Hernia, hiatal.Chemo SURGICAL HISTORY : None. ENCOUNTER: Initial ACUITY: 1 day PAIN SCALE: 5/10 LOCATION: Bilateral chest TECHNIQUE: Volumetric scanning of the chest was performed using a pulmonary embolism protocol MIP images were re constructed. Using automated exposure control and adjustment of the mA and/or kV according to patien t size, radiation dose was kept as low as reasonably achievable to obtain optimal diagnostic quality images. DICOM format image data is available electronically for review and comparison. Follow-up recommendations for detected pulmonary nodules are based at a minimum on nodule size and pa tient risk factors according to Fleischner Society Guidelines. FINDINGS: No pulmonary embolus is demonstrated. Large right upper lobe paramediastinal mass is again demonstrated. There is pericardial and mediastin al invasion. The mass is approximately 7.2 x 9.8 cm in greatest transaxial dimension, previously 6.9 x 11.8 cm. There is mediastinal adenopathy again seen, slightly decreased. The lymph node anterior to the krysten is 15 x 25 mm, previously 14 x 30 mm. 26 x 21 x 21 mm filling defect seen in the right atrium. It appears contiguous with a low density sup erior vena cava and the superior vena cava is potentially thrombosed. Contrast injection was via isi ent's right internal jugular [id number]-[id number] catheter. Patchy atelectasis seen of the visualized lung b ases. SVC nonopacification may be on the basis of timing and method of contrast administration, not t frank thrombosed. CONCLUSION: 1. No pulmonary embolus. 2. Large right upper lobe paramediastinal mass again noted, slightly smaller in the interim. The medi astinal adenopathy has decreased slightly in the interim as well. 3. 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 Please see above and correlate clinically. If this is a real finding, I believe there is thrombus that extends into the right atrium. No filling defect s are seen of the other cardiac chambers. Fernando Hines MD on November 03, 2017 at 22:42 Board Certified Radiologist. This report was verified electronically.
[2017-11-03 23:10] VITALS: BP 136/77; PULSE 105; RESP 24; O2SAT 97
[2017-11-03] MEDS ORDERED: DILT120T PO (23:22)
[2017-11-03] MEDS ORDERED: DILT1TAB4 PO (23:22)
[2017-11-03] MEDS ORDERED: METO100T PO (23:22)
[2017-11-03 23:25] VITALS: BP 127/98; PULSE 105; RESP 24; O2SAT 99
[2017-11-03 23:30] VITALS: BP 148/82; PULSE 106; RESP 23; O2SAT 100
[2017-11-03] MEDS ORDERED: NALOXONE HCL 0.4 MG/ML AMP IV PUSH PRN (23:30)
[2017-11-03] MEDS ORDERED: SODIUM CHLORIDE 0.9% FLUSH 10 ML FLUSH IV FLUSH PRN (23:30)
[2017-11-04] VITALS (34 sets, daily range): BP systolic 72–146; BP diastolic 54–84; PULSE 84–126; RESP 18–24; TEMP 97.6–98.8; O2SAT 94–100
[2017-11-04 03:58] LABS: AUTOMATED NEUTROPHIL # 0.8 TH/MM3 (1.8-7.7); BASOPHIL % 0.9 % (0.0-2.0); EOSINOPHIL % 0.9 % (0.0-4.0); HEMATOCRIT 27.3 % (35.0-46.0); HEMOGLOBIN 9.2 GM/DL (11.6-15.3); LYMPH % 24.5 % (9.0-44.0); LYMPHOCYTE # 0.4 TH/MM3 (1.0-4.8); MEAN CELL VOLUME 84.8 FL (80.0-100.0); MEAN CORPUSCULAR HEMOGLOBIN 28.5 PG (27.0-34.0); MEAN CORPUSCULAR HGB CONC 33.6 % (32.0-36.0); MEAN PLATELET VOLUME 6.9 FL (7.0-11.0); MONO % 21.6 % (0.0-8.0); MONOCYTE # 0.3 TH/MM3 (0-0.9); NEUT % 52.1 % (16.0-70.0); PLATELET COUNT 185 TH/MM3 (150-450); RED BLOOD COUNT 3.23 MIL/MM3 (4.00-5.30); RED CELL DISTRIBUTION WIDTH 17.1 % (11.6-17.2); WHITE BLOOD COUNT 1.5 TH/MM3 (4.0-11.0)
[2017-11-04 04:06] LABS: BICARBONATE 29.8 MEQ/L (21.0-32.0); CALCIUM 8.4 MG/DL (8.5-10.1); CREATININE 0.45 MG/DL (0.50-1.00)
[2017-11-04 04:10] LABS: TROPONIN I 0.03 NG/ML (0.02-0.05)
--- NOTE | 2017-11-04 04:45 | HHI.HP ---
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 Peterson), hypertension and hyperlipidemia presents with palpitations that started 2017 while she was watching television. She had her first known episode of atrial fibrillation with RVR in August 2017 and was started on Cardizem for his well as metoprolol. She had not taken her Cardizem and there is some question of whether the oncologist may have recommended that she stopped due to low blood pressure. She was in atrial fibrillation with RVR in the ED and is admitted on Cardizem drip for rate control. The patient is seen in her hospital room. She is short of breath with minimal exertion and with conversation. CT pulmonary angiogram showed no PE, large right upper lobe paramediastinal mass that was slightly smaller since prior study and mediastinal adenopathy that was also slightly decreased in size since prior study. There was a questionable thrombus of these. Vena cava possibly extending into the right atrium versus a shadow from contrast injected into the [id number]. Her chest x-ray showed no significant change from prior study. She denies any associated chest pain. She denies any recent fevers, chills, nausea, vomiting, or cold or flu symptoms. She does report some diarrhea that was managed with a prescription medication. Her last episode was yesterday morning. Review of Systems Except as stated in HPI: all other systems reviewed are Neg Past Family Social History Past Medical History Malignant melanoma Pneumonia TIA Atrial fibrillation with rapid ventricular response History of lung cancer Coronary artery disease status post quintuple bypass and cardiac stent placement 12 weeks ago COPD - follows with Dr. Misha Hannon Hypertension Hyperlipidemia . Past Surgical History CABG 5 Cardiac stent/cardiac catheterization Appendectomy Bilateral tubal ligation Colonoscopy Breast biopsy Adnrca-b-Aebf placement 09/24/2017 . Reported Medications Reported Meds & Active Scripts Active Duoneb (Ipratropium-Albuterol Neb) 0.5-2.5 Mg/3 Ml Neb 1 Nebule INH Q4HR NEB Oxygen (O2) Device Liter RODO.CANULA CONTINUOUS Oxygen Concentrator Portable Gaseous 2 L/min via Nasal Canula Continuous For 99 months Albuterol Neb (Albuterol Sulfate) 1.25 Mg/3 Ml Neb 1.25 Mg NEB Q6HR NEB PRN Reported Metoprolol Tartrate 100 Mg Tab 100 Mg PO BID Diltiazem ER 24 HR 240 Mg Vignesh 240 Mg PO HS Diltiazem (Diltiazem HCl) 120 Mg Tab 120 Mg PO AC BREAKFAST Probiotic (Lactobacillus Acidophilus) 10 Billion Cell Cap 1 Cap PO DAILY Psyllium Powder 100 % Pow 1 Scoop PO BID PRN 1 rounded TEASPOON in 8 oz of liquid at the first sign of irregularity. Vitamin B-12 (Cyanocobalamin) 500 Mcg Tab 1,000 Mcg PO DAILY B Complex (B-Complex Vitamins) 1 Cap 2 Cap PO DAILY Katharine-C 500 mg Tablet (Ascorbate Calcium/Bioflavonoid) 500 Mg-200 Mg Tablet DAILY Vitamin D3 (Cholecalciferol) 2,000 Unit Cap 2,000 Units PO DAILY Msm (Methylsulfonylmethane) 1,000 Mg Cap 1,500 Mg PO DAILY Mirtazapine 15 Mg Tab 22 Mg PO HS Plavix (Clopidogrel Bisulfate) 75 Mg Tab 75 Mg PO DAILY Nitrostat SL (Nitroglycerin) 0.4 Mg Subl 0.4 Mg SL DIRECTED PRN 1 tablet under the tongue as needed for chest pain. Repeat every 5 minutes for a total of 3 DOSES or call 911 if NO relief. Glucosamine (Glucosamine Sulfate) 750 Mg Cap 1,500 Mg PO DAILY Atorvastatin (Atorvastatin Calcium) 40 Mg Tab 40 Mg PO HS Aspirin EC (Aspirin) 81 Mg Tabdr 81 Mg PO DAILY . Allergies: Coded Allergies: epinephrine (Verified Adverse Reaction, Severe, Hypotension, 11/03/17) lisinopril (Verified Adverse Reaction, Severe, Cough, 11/03/17) Active Ordered Medications Current Medications Sodium Chloride (NS Flush) 2 ml UNSCH PRN IVF FLUSH AFTER USING IV ACCESS; Start 11/03/17 at 20:15; Stop 11/03/17 at 23:28; Status DC Sodium Chloride 1,000 ml @ 999 mls/hr BOLUS ONCE IV Last administered on at 20:27; Start 11/03/17 at 20:15; Stop 11/03/17 at 21:15; Status DC Diltiazem HCl (Cardizem Inj) 20 mg ONCE ONCE IV Last administered on 11/03/17at 20:27; Start 11/03/17 at 20:15; Stop 11/03/17 at 20:16; Status DC Diltiazem HCl (Cardizem Inj) 20 mg BOLUS ONCE IV PUSH Last administered on 11/03at 21:45; Start 11/03/17 at 21:00; Stop 11/03/17 at 21:01; Status DC Diltiazem HCl 125 mg/Sodium Chloride 125 ml @ 5 mls/hr TITRATE PRN IV Tachycardia; Start 11/03/17 at 21:00 Iohexol (Omnipaque 350 Inj) 75 ml [facility] [place] ONCE IVCONTRAST ; Start 11/03/17 at 19: 56; Stop 11/03/17 at 22:41; Status DC Sodium Chloride (NS Flush) 2 ml UNSCH PRN IV FLUSH FLUSH AFTER USING IV ACCESS ; Start 11/03/17 at 23:30 Sodium Chloride (NS Flush) 2 ml BID IV FLUSH ; Start 11/04/17 at 09:00 Naloxone HCl (Narcan Inj) 0.4 mg UNSCH PRN IV PUSH SEE LABEL COMMENTS; Start at 23:30 Aspirin (Ecotrin Ec) 81 mg DAILY PO ; Start 11/04/17 at 09:00; Stop 11/04/17 at 09:00; Status DC Atorvastatin Calcium (Lipitor) 40 mg HS PO ; Start 11/04/17 at 21:00 Clopidogrel Bisulfate (Plavix) 75 mg DAILY PO ; Start 11/04/17 at 09:00; Stop at 09:00; Status DC Metoprolol Tartrate (Lopressor) 100 mg BID PO ; Start 11/04/17 at 09:00 Aspirin (Ecotrin Ec) 81 mg DAILY PO Last administered on 11/04/17at 05:38; Start 11/04/17 at 05:00 Clopidogrel Bisulfate (Plavix) 75 mg DAILY PO Last administered on 11/04/17at 05 :38; Start 11/04/17 at 05:00 Sodium Chloride (Howell Rodo [place]) 2 spray Q4H PRN EACH NARE NASAL CONGESTION; Start 11/04/17 at 05:00 Albuterol/ Ipratropium (Duoneb Neb) 1 ampule Q6HR NEB NEB ; Start 11/04/17 at 10:00 Albuterol/ Ipratropium (Duoneb Neb) 1 ampule Q2HR NEB PRN NEB SOB/WHEEZING; Start 11/04/17 at 05:00 Acetaminophen/ Hydrocodone Bitart ([place] 5-325 Mg) 1 tab Q4H PRN PO pain 3 - 10; Start 11/04/17 at 05:00 . Family History Father with metastatic head and neck cancer, age 57 . Social History Tobacco: Quit smoking 30 years ago Physical Exam Vital Signs Vital Signs Date Time Temp Pulse Resp B/P (MAP) Pulse Ox O2 Delivery O2 Flow Rate FiO2 11/04/17 02:30 98.0 104 20 129/81 (97) 95 11/04/17 02:15 102 22 122/77 (92) 99 11/04/17 01:00 112 24 146/70 (95) 100 Nasal Cannula 3.00 11/04/17 00:30 110 22 142/83 (102) 98 Nasal Cannula 3.00 11/04/17 00:00 104 24 124/79 (94) 100 Nasal Cannula 3.00 11/03/17 23:30 106 23 148/82 (104) 100 Nasal Cannula 3.00 11/03/17 23:25 105 24 127/98 (108) 99 Nasal Cannula 3.00 11/03/17 23:10 105 24 136/77 (96) 97 Nasal Cannula 3.00 11/03/17 20:15 Nasal Cannula 3.00 11/03/17 20:13 100 Nasal Cannula 3.00 11/03/17 20:08 98.5 120 24 104/65 (78) 100 Physical Exam GENERAL: This is a chronically ill-appearing patient, in no apparent distress. SKIN: No rashes. Cool and dry. HEAD: Atraumatic. Normocephalic. EYES: No scleral icterus. No injection or drainage. ENT: Nose without bleeding, purulent drainage. NECK: Trachea midline. No JVD. CARDIOVASCULAR: Regular rate and rhythm without murmurs, gallops, or rubs. RESPIRATORY: Diminished air exchange noted on the right with some faint wheezing. Left lung sounds clear. Dyspnea, with minimal exertion and with conversation. GASTROINTESTINAL: Abdomen soft, non-tender, nondistended. No guarding. MUSCULOSKELETAL: Extremities without clubbing, cyanosis, or edema. No calf tenderness. NEUROLOGICAL: Awake and alert. Motor and sensory grossly within normal limits. Normal speech. . Laboratory Laboratory Tests Test 11/03/17 21:00 11/03/17 21:50 11/04/17 03:22 White Blood Count 1.3 1.5 Red Blood Count 2.90 3.23 Hemoglobin 8.5 9.2 Hematocrit 24.8 27.3 Mean Corpuscular Volume 85.2 84.8 Mean Corpuscular Hemoglobin 29.2 28.5 Mean Corpuscular Hemoglobin Concent 34.2 33.6 Red Cell Distribution Width 17.5 17.1 Platelet Count 168 185 Mean Platelet Volume 7.1 6.9 Neutrophils (%) (Auto) 54.4 52.1 Lymphocytes (%) (Auto) 22.0 24.5 Monocytes (%) (Auto) 21.8 21.6 Eosinophils (%) (Auto) 0.6 0.9 Basophils (%) (Auto) 1.2 0.9 Neutrophils # (Auto) 0.7 0.8 Lymphocytes # (Auto) 0.3 0.4 Monocytes # (Auto) 0.3 0.3 Eosinophils # (Auto) 0.0 0.0 Basophils # (Auto) 0.0 0.0 CBC Comment AUTO DIFF AUTO DIFF Differential Total Cells Counted 100 Neutrophils % (Manual) 44 Band Neutrophils % 7 Lymphocytes % 26 Monocytes % 22 Neutrophils # (Manual) 0.7 Nucleated Red Blood Cells 1 Differential Comment FINAL DIFF MANUAL Atypical Lymphocytes Plasma Cells 1 Platelet Estimate NORMAL Platelet Morphology Comment NORMAL Acanthocytes OCC Prothrombin Time 11.8 Prothromb Time International Ratio 1.2 Activated Partial Thromboplast Time 36.6 Blood Urea Nitrogen 14 10 Creatinine 0.57 0.45 Random Glucose 97 99 Total Protein 6.2 Albumin 2.6 Calcium Level 8.1 8.4 Alkaline Phosphatase 99 Aspartate Amino Transf (AST/SGOT) 24 Alanine Aminotransferase (ALT/SGPT) 22 Total Bilirubin 0.6 Sodium Level 141 143 Potassium Level 3.8 4.0 Chloride Level 105 106 Carbon Dioxide Level 29.1 29.8 Anion Gap 7 7 Estimat Glomerular Filtration Rate 105 137 Total Creatine Kinase 41 40 Troponin I 0.02 0.03 Urine Color LIGHT-YELLOW Urine Turbidity CLEAR Urine pH 7.0 Urine Specific [place] 1.007 Urine Protein NEG Urine Glucose (UA) NEG Urine Ketones NEG Urine Occult Blood NEG Urine Nitrite NEG Urine Bilirubin NEG Urine Urobilinogen LESS THAN 2.0 Urine Leukocyte Esterase TRACE Urine WBC 2 Urine Squamous Epithelial Cells <1 Urine Mucus FEW Microscopic Urinalysis Comment CULT NOT INDICATED Result Diagram: 11/04/17 0322 11/04/17 0322 Imaging Last Impressions Chest X-Ray 11/03/172008 Signed Impressions: Service Date/Time: Friday, November 03, 2017 20:31 - CONCLUSION: No significant change. Fernando Hines MD CT Angiography 11/03/172008 Signed Impressions: Service Date/Time: Friday, November 03, 2017 22:21 - CONCLUSION: 1. No pulmonary embolus. 2. Large right upper lobe paramediastinal mass again noted, slightly smaller in the interim. The mediastinal adenopathy has decreased slightly in the interim as well. 3. 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 Please see above and correlate clinically. If this is a real finding, I believe there is thrombus that extends into the right atrium. No filling defects are seen of the other cardiac chambers. Fernando Hines MD . Caprini VTE Risk Assessment Caprini VTE Risk Assessment: Mod/High Risk (score >= 2) Caprini Risk Assessment Model Point Value = 1 Point Value = 2 Point Value = 3 Point Value = 5 Age 41-60 Minor surgery BMI > 25 kg/m2 Swollen legs Varicose veins or History of unexplained or recurrent spontaneous Oral contraceptives or hormone replacement Sepsis (< 1 month) Serious lung disease, including pneumonia (< 1 month) Abnormal pulmonary function Acute myocardial infarction Congestive heart failure (< 1 month) History of inflammatory bowel disease Medical patient at bed rest Age 61-74 Arthroscopic surgery Major open surgery (> 45 min) Laparoscopic surgery (> 45 min) Malignancy Confined to bed (> 72 hours) Immobilizing plaster cast Central venous access Age >= 75 History of VTE Family history of VTE Factor V Leiden Prothrombin [id number] Lupus anticoagulant Anticardiolipin antibodies Elevated serum homocysteine Heparin-induced thrombocytopenia Other congenital or acquired thrombophilia Stroke (< 1 month) Elective arthroplasty Hip, pelvis, or leg fracture Acute spinal cord injury (< 1 month) Prophylaxis Regimen Total Risk Factor Score Risk Level Prophylaxis Regimen 0-1 Low Early ambulation 2 Moderate Order ONE of the following: *Sequential Compression Device (SCD) *Heparin 5000 units SQ BID 3-4 Higher Order ONE of the following medications: *Heparin 5000 units SQ TID *Enoxaparin/Lovenox 40 mg SQ daily (WT < 150 kg, CrCl > 30 mL/min) *Enoxaparin/Lovenox 30 mg SQ daily (WT < 150 kg, CrCl > 10-29 mL/min) *Enoxaparin/Lovenox 30 mg SQ BID (WT < 150 kg, CrCl > 30 mL/min) AND/OR *Sequential Compression Device (SCD) 5 or more Highest Order ONE of the following medications: *Heparin 5000 units SQ TID (Preferred with Epidurals) *Enoxaparin/Lovenox 40 mg SQ daily (WT < 150 kg, CrCl > 30 mL/min) *Enoxaparin/Lovenox 30 mg SQ daily (WT < 150 kg, CrCl > 10-29 mL/min) *Enoxaparin/Lovenox 30 mg SQ BID (WT < 150 kg, CrCl > 30 mL/min) AND *Sequential Compression Device (SCD) Assessment and Plan Problem List: (1) Atrial fibrillation with RVR ICD Code: I48.91 - Unspecified atrial fibrillation (2) Non-small cell cancer of right lung ICD Code: C34.91 - Malignant neoplasm of unspecified part of right bronchus or lung Status: Acute (3) COPD (chronic obstructive pulmonary disease) ICD Code: J44.9 - Chronic obstructive pulmonary disease, unspecified (4) CAD (coronary artery disease) ICD Code: I25.10 - Atherosclerotic heart disease of [place] coronary artery without angina pectoris Assessment and Plan 72-year-old female with a past medical history significant for 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 Peterson), hypertension and hyperlipidemia presents with palpitations that started 2017 while she was watching television. She had her first known episode of atrial fibrillation with RVR in August 2017 and was started on Cardizem for his well as metoprolol. She had not taken her Cardizem and there is some question of whether the oncologist may have recommended that she stopped due to low blood pressure. She was in atrial fibrillation with RVR in the ED and is admitted on Cardizem drip for rate control. Atrial fibrillation with RVR Abnormal CT pulmonary angiogram - may be secondary to IV contrast in patient's infusaport vs thrombus in SVC extending into right atrium - On cardizem drip - bp stable - resume home metoprolol - cardiology consulted - appreciate assistance Shortness of breath - COPD exacerbation vs lung CA vs CAD vs atrial fibriall CAD s/p stent placement 12 weeks ago and CABG x 5 - resume home plavix, aspirin, beta [place] - monitor VS q4h - serial cardiac enzymes and EKGs to r/o ACS Non-small cell CA of right lung - consider consulting Dr. Sosa if needed - [place] 5/325 mg p.o. 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 Peterson's consultation note 09/22/17 - appreciate her input regarding anticoagulation for this patient Discussed Condition With Dr. Alvarez and patient . Physician Certification 2 Midnight Certification Type: Admission for Inpatient Services Order for Inpatient Services The services are ordered in accordance with Medicare regulations or non- Medicare payer requirements, as applicable. In the case of services not specified as inpatient-only, they are appropriately provided as inpatient services in accordance with the 2-midnight benchmark. Estimated LOS (days): 5 days is the estimated time the patient will need to remain in the hospital, assuming treatment plan goals are met and no additional complications. Post-Hospital Plan: Not yet determined Dalia Watkins Nov 04, 2017 04:45
[2017-11-04] MEDS ORDERED: SODIUM CHLORIDE 0.65% NASAL SPRAY 45 ML BTL EACH NARE PRN (05:00)
[2017-11-04] MEDS ORDERED: RESP: ALBUTEROL 2.5 MG/IPRATROPIUM 0.5 MG NEB (PRN) NEB (05:00)
[2017-11-04] MEDS: CLOPIDOGREL 75 MG TAB PO SCH ×2 (05:38→07:39)
[2017-11-04] MEDS: ASPIRIN EC 81 MG TABEC PO SCH ×2 (05:38→07:40)
[2017-11-04 05:56] LABS: BANDS 6 % (0-6); BASOPHILS 1 % (0-2); MONOCYTES 14 % (0-8); NEUTROPHIL # MANUAL DIFF 0.7 TH/MM3 (1.8-7.7); POLYS (SEG NEUTROPHILS) 39 % (16-70)
[2017-11-04 05:57] LABS: LYMPHOCYTES 40 % (9-44)
[2017-11-04 05:58] LABS: OVALOCYTES 1+ (NORMAL)
[2017-11-04] MEDS: SODIUM CHLORIDE 0.9% FLUSH 10 ML FLUSH IV FLUSH SCH ×2 (08:55→21:00)
[2017-11-04] MEDS ORDERED: ASPIRIN EC 81 MG TABEC PO SCH (09:00)
[2017-11-04] MEDS ORDERED: CLOPIDOGREL 75 MG TAB PO SCH (09:00)
[2017-11-04] MEDS ORDERED: METOPROLOL TARTRATE 100 MG TAB PO SCH (09:00)
[2017-11-04] MEDS ORDERED: RESP: ALBUTEROL 2.5 MG/IPRATROPIUM 0.5 MG NEB (SCH) NEB (10:00)
[2017-11-04] MEDS: DILTIAZEM-CD 120 MG CAP ER PO SCH (11:15)
--- NOTE | 2017-11-04 11:42 | MB ---
cc: BARBARA MATHIAS DATE OF CONSULTATION 11/04/2017 REASON FOR CONSULTATION Atrial fibrillation with a rapid ventricular response. HISTORY OF PRESENT ILLNESS The patient is a 72-year-old white female, followed in our office by Dr. Mindy Peterson, with a history of multiple medical problems including coronary artery disease, paroxysmal atrial fibrillation, hypertension, hyperlipidemia, COPD, lung cancer who presented to the hospital with pounding, racing, irregular palpitations. She was found to be in atrial fibrillation with rapid ventricular response and admitted for further evaluation and treatment. She has been placed on intravenous Cardizem and oral metoprolol with reduction in her heart rates and resolution of her palpitations. The patient denies any recent angina, pedal edema, lightheadedness, syncope, near-syncope, fevers, or wheezing. In the last [id number] months, she has had considerable difficulties with dyspnea, although without significant increase recently. She also denies paroxysmal nocturnal dyspnea and orthopnea. PAST MEDICAL HISTORY 1. Coronary disease status post bypass surgery 2010, status post stent of the vein graft to the posterolateral branch with a 2.5-mm Resolute Jarret stent 08/03/[address] Cuong Gunn. At that time, heart catheterization showed minimal left main disease, totally occluded mid left anterior descending, totally occluded mid left circumflex, totally occluded mid obtuse marginal, 80% mid right coronary artery stenosis, subtotally occluded posterior descending artery, patent left internal mammary artery to the LAD, patent vein graft to the first obtuse marginal and patent vein graft to the second obtuse marginal, 90% lesion in the proximal portion of the vein graft to the posterolateral branch, known chronically occluded vein graft to the diagonal. 2. Asthma 3. Paroxysmal atrial fibrillation 4. Hyperlipidemia 5. Hypertension 6. COPD 7. 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 Plavix 75 mg daily. Cardizem CD 360 mg daily. Metoprolol tartrate 100 mg b.i.d. ALLERGIES EPINEPHRINE, LISINOPRIL FAMILY HISTORY Noncontributory SOCIAL HISTORY The patient quit smoking 30 years ago. She denies alcohol abuse. REVIEW OF SYSTEMS As in the history of present illness, otherwise negative or noncontributory. She also denies abdominal pain, dyspepsia, diarrhea, melena, bright red blood per rectum. PHYSICAL EXAMINATION VITAL SIGNS: Blood pressure 120/80 with a pulse of 93, respirations 18. GENERAL: She is a well-developed, well-nourished white female in no acute distress HEENT: Jugular venous pressure is normal. Carotid pulses are 2+ bilaterally and without bruits. CHEST: Examination of the chest reveals diminished breath sounds diffusely. CARDIAC: On cardiac examination, she has an irregular, irregular rhythm without S3 or murmur. ABDOMEN: On abdominal examination, she has a soft, nontender abdomen. Bowel sounds are present. There is no definite hepatosplenomegaly. EXTREMITIES: Examination of extremities reveals no clubbing, cyanosis or edema. LABORATORY DATA Includes WBC 1.5, hemoglobin 9.2, platelets 185. Potassium 4.0, BUN 10, creatinine 0.45, AST 24, ALT 22, negative cardiac enzymes. Chest x-ray shows bilateral consolidation, perihilar on the right and basilar on the left. EKG shows atrial fibrillation, borderline poor R-wave progression, leftward axis, nonspecific high lateral T-wave abnormalities. IMPRESSION Elevated heart rates in this 72-year-old white female with a history of coronary disease, COPD, paroxysmal atrial fibrillation, lung cancer, hypertension. At this time, her heart rates are slightly to mildly elevated. Her symptoms (palpitations, dyspnea) have overall improved since admission. There is no definitive evidence for congestive heart failure. There is no evidence for acute coronary syndrome. The patient has had some difficulties with hypotension with the AV anais suppressing drugs used to control her heart rates. At this time, she is normotensive on intravenous Cardizem and metoprolol. 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 Mindy Peterson. Her thromboembolic risk is at least moderately elevated. At this time, she continues to decline oral anticoagulation therapy and wishes to remain on clopidogrel and aspirin. RECOMMENDATIONS 1. Start amiodarone, more so for heart rate control. 2. Continue the metoprolol and Cardizem as her blood pressures tolerate. 3. Consider the addition of digoxin. MD KANE Byrne/SELWYN /10:59 AM /11:45 AM LC
[2017-11-04] MEDS: ACETAMINOPHEN/HYDROcodone 325 MG/5 MG TAB PO PRN (11:51)
[2017-11-04 11:54] LABS: TROPONIN I 0.03 NG/ML (0.02-0.05)
[2017-11-04] MEDS ORDERED: AMIODARONE INJ 150 MG in DEXTROSE 5% IN WATER 100ML INJ 100 ML IV ONE ×4 (12:00→20:35)
[2017-11-04] MEDS ORDERED: AMIODARONE INJ 450 MG in DEXTROSE 5% IN WATE(EXCEL) INJ 241 ML IV PRN ×4 (12:00→20:45)
[2017-11-04] MEDS ORDERED: DIGOXIN 0.5 MG/2 ML VIAL IV PUSH ONE ×2 (12:00→16:00)
[2017-11-04] MEDS ORDERED: SODIUM CHLOR 0.9% 1000 ML INJ 1,000 ML IV ONE (12:45)
--- NOTE | 2017-11-04 12:50 | MB ---
cc: DALTONFlorinSeverino JANEE DATE OF CONSULTATION 11/04/2017 HISTORY Ms. Stratton is a 72-year-old white female known to me from July when she presented with dyspnea and a large right paramediastinal mass. That was biopsied and it was a squamous cell cancer. She initiated chemotherapy and radiation therapy and developed neutropenia so further treatments is being held until her counts recover. She presented to the emergency room yesterday though because she was having palpitations and she was noted to be in rapid atrial fibrillation. That was first identified in August during a hospitalization and she has been followed by Dr. Peterson on Metoprolol and Cardizem. She was placed on aspirin and Plavix. She refused other anticoagulation. She was a prior smoker. She does have underlying COPD but that has been fairly stable at home on a nebulizer. She has had no unusual cough. No purulent sputum or hemoptysis and she was mildly short of breath on presentation but she really came in because of the palpitations. She had a CTA on presentation which reveals no evidence of pulmonary embolism, but she has a large right upper lobe paramediastinal mass noted previously and also potential thrombosis within the superior vena cava. I have a call in to radiology about that to clarify whether or not there is thrombosis or not. PAST MEDICAL HISTORY 1. COPD 2. Atrial fibrillation 3. Recent onset of lung cancer. 4. Coronary artery disease status post bypass and stent placement about three months ago. 5. Hypertension 6. Hyperlipidemia 7. She has had an appendectomy. 8. Tubal ligation in the past. 9. A breast biopsy. 10. Apezss-S-Jbpl placement in August 2017. ALLERGIES EPINEPHRINE AND LISINOPRIL MEDICATIONS Medications reviewed in the EMR. SOCIAL HISTORY Prior smoker, but quit years ago. No significant alcohol use. PHYSICAL EXAMINATION Temperature 98, blood pressure 120/80, respirations 18, pulse 90-100 irregular. HEAD, EYES, EARS, NOSE, AND THROAT: Sclerae anicteric. NECK: Neck veins are not grossly distended. CHEST: She has an [id number] in on the right. Chest is diminished, but entirely clear. No wheezes or rales. HEART: Heart rate is irregular. No harsh murmur. ABDOMEN: Obese, but soft. EXTREMITIES: She has no peripheral edema or calf tenderness. DISCUSSION Ms. Stratton presents with rapid atrial fibrillation. Cardiology is seeing her and is making some adjustments in her medications. Pulmonary status is actually stable. She has an abnormality on CT scan now though suggesting that she may be forming thrombus in the superior vena cava. I have a call into radiology to discuss that as she may need more thorough anticoagulation if oncology and cardiology agree. I am going to stop her albuterol, leave her on Atrovent in light of the tachycardia. Further diagnostic and/or therapeutic intervention will depend on her ongoing clinical course. R. MD FELISHA Bartlett/SELWYN /12:20 PM /12:35 PM
[2017-11-04] MEDS ORDERED: SODIUM CHLOR 0.9% 1000 ML INJ 1,000 ML IV PRN (13:45)
[2017-11-04] MEDS ORDERED: RESP: IPRATROPIUM 0.5 MG/2.5 ML NEB NEB PRN (14:00)
[2017-11-04] MEDS: ENOXAPARIN SODIUM 60 MG/0.6 ML SYRINGE SQ SCH (14:34)
--- NOTE | 2017-11-04 14:46 | MB ---
cc: RUBY WHALEN RUBY ANNE E. M.D. DATE OF CONSULTATION 11/04/2017 DATE OF [address] Whalen[address] CHIEF COMPLAINT [address] Whalen requests a consultation for Ms. Stratton regarding non-small cell lung cancer. HISTORY OF PRESENT ILLNESS Ms. Stratton is a 72-year-old woman, well-known patient of Dr. Mindy Peterson. She presented with shortness of breath. She was found to have a right mediastinal mass, pretracheal and pericardial adenopathy. Biopsy showed a non-small cell lung cancer with squamous cell histology. She has been under care of Dr. Gonzalez and myself receiving concurrent chemotherapy and radiation. She was seen in the clinic yesterday. She was hypotensive with systolic blood pressure in the 40s. She was neutropenic. Chemotherapy was held. She was receiving carboplatin and Taxol as radiation sensitizing chemotherapy. Because of the hypotension she was advised to hold her Cardizem dose in the p.m. She was on Cardizem CD 120 mg in the morning and 240 mg in the afternoon. The case was discussed with Dr. Mindy Peterson who concurred with the plan because of the hypotension. She was advised to call Dr. Peterson. She presented to the emergency room with palpitations. Her blood pressure on admission was 104/65, heart rate in the 120s. She was given IV fluids and a bolus of Cardizem. Her pulse improved but then began to rise again. She was subsequently admitted. A CT angiogram was performed to rule out a pulmonary embolism. There is a possible clot in the superior vena cava. She had been on aspirin and Plavix. She is on the [facility] oncology floor. She offers no complaints. She was stable in bed, talking on the phone. Her systolic blood pressure was 79. She is being started on fluid bolus and amiodarone as recommended by cardiology. Oncology is consulted because of the non-small cell lung cancer for which she was receiving concurrent chemotherapy and radiation. REVIEW OF SYSTEMS She denies any fevers, chills or night sweats. She denies any chest pain. She has chronic shortness of breath from COPD and from the lung mass. The rest of her review of systems is negative. PAST MEDICAL HISTORY 1. Locally advanced non-small cell lung cancer. 2. Atrial fibrillation with rapid ventricular response. 3. Hypotension/hypertension. 4. History of malignant melanoma. 5. Previous TIA. 6. Anemia, chemotherapy induced. 7. Arthritis. 8. Leukopenia/neutropenia. PAST SURGICAL HISTORY 1. CT-guided biopsy. 2. Appendectomy. 3. Port placement. 4. Tubal ligation. 5. Colonoscopy. 6. Heart bypass 2010. 7. Breast biopsy 1979. FAMILY HISTORY Family history is significant for father who of metastatic head and neck cancer age 57. SOCIAL HISTORY She lives alone. She has a brother nearby and in [place]. She denies any alcohol or illicit drug use. She quit smoking 30 years ago. ALLERGIES 1. EPINEPHRINE. 2. LISINOPRIL. MEDICATIONS Current medications include: 1. Digoxin. 2. Lipitor. 3. Atrovent. 4. Amiodarone. 5. Diltiazem. 6. Metoprolol. 7. Aspirin. 8. Plavix. 9. [place] p.r.n. PHYSICAL EXAMINATION VITAL SIGNS: Temperature 98.5, heart rate 105, respiratory rate 24, blood pressure 94/65. GENERAL: Ms. Stratton is a well-developed, well-nourished woman who looks thinner than previous exam. HEENT: Her pupils are round and reactive to light and accommodation. Alopecia is noted. NECK: Supple. LUNGS: Clear anteriorly. CARDIOVASCULAR: Rate-controlled irregular rhythm. ABDOMEN: Large and benign. EXTREMITIES: Lower extremities with chronic changes. No edema. NEUROLOGIC: Nonfocal. She is wake and alert. Moves all four extremities. LABORATORY Significant for leukopenia, white blood cell count 1.5, ANC 800, hemoglobin 9.2, BUN 10, creatinine 0.45. ASSESSMENT AND PLAN Ms. Stratton is a 72-year-old woman with locally advanced non-small cell lung cancer receiving concurrent chemotherapy and radiation. Concurrent chemotherapy was held yesterday because of neutropenia. ANC is only 800. She was also hypotensive. Because of the hypotension she was advised to stop her Cardizem or to hold it. This is the same advice given to her by Dr. Peterson. She was to follow-up with Dr. Peterson but she decompensated overnight and presented to the emergency room and was subsequently admitted. Cardiology is consulting. They are making recommendations to control her heart rate and manage the blood pressure. Chemotherapy will continue to be placed on hold. We will continue to monitor her cytopenias. Radiation per Dr. Gonzalez. The case will be discussed. Her CT angiogram was discussed with the clinical team lead. There is no pulmonary emboli; however, there is a large right upper lobe paramediastinal mass that is smaller than previous. There is mediastinal adenopathy that is decreased in size. There is concern about the superior vena cava, potential thrombosis versus tumor. MRI of the heart is being evaluated. Will consult with radiation oncology to see whether or not this lesion is included in the field. In the meantime anticoagulant therapy is initiated with low molecular weight heparin. Her questions were answered to her satisfaction. Rupali Sosa MD RAD/BT /1:54 PM /2:19 PM
--- NOTE | 2017-11-04 15:40 | HHI.PR ---
Subjective Remarks Ms. Stratton is a pleasant 72-year-old female with a history of lung cancer, CAD status post CABG, hypertension, hyperlipidemia who presented to the emergency department due to palpitations. She was on Cardizem for atrial fibrillation. However due to low blood pressure she was advised not to take Cardizem. Upon admission patient was started on heart is of drip due to atrial fibrillation with RVR. On 11/04/2017, during the course of treatment in the morning patient's blood pressure dropped to 70 systolic. Objective Vitals Vital Signs Date Time Temp Pulse Resp B/P (MAP) Pulse Ox O2 Delivery O2 Flow Rate FiO2 11/04/17 14:50 107 110/84 (93) 11/04/17 13:53 94/65 (75) 11/04/17 13:34 91/60 (70) 11/04/17 13:04 89/67 (74) 11/04/17 12:50 83/60 (68) 11/04/17 12:15 72/54 (60) 11/04/17 12:00 98.5 97 20 85/63 (70) 97 11/04/17 08:50 97.6 93 18 120/80 (93) 97 11/04/17 08:45 97 Nasal Cannula 2.00 11/04/17 06:00 104 11/04/17 05:00 98.1 94 20 116/82 (93) 96 11/04/17 05:00 102 11/04/17 04:00 100 11/04/17 03:00 111 11/04/17 03:00 98.0 104 20 129/81 (97) 95 11/04/17 02:30 98.0 104 20 129/81 (97) 95 11/04/17 02:15 102 22 122/77 (92) 99 11/04/17 01:00 112 24 146/70 (95) 100 Nasal Cannula 3.00 11/04/17 00:30 110 22 142/83 (102) 98 Nasal Cannula 3.00 11/04/17 00:00 104 24 124/79 (94) 100 Nasal Cannula 3.00 11/03/17 23:30 106 23 148/82 (104) 100 Nasal Cannula 3.00 11/03/17 23:25 105 24 127/98 (108) 99 Nasal Cannula 3.00 11/03/17 23:10 105 24 136/77 (96) 97 Nasal Cannula 3.00 11/03/17 20:15 Nasal Cannula 3.00 11/03/17 20:13 100 Nasal Cannula 3.00 11/03/17 20:08 98.5 120 24 104/65 (78) 100 I/O 11/03/17 11/03/17 11/03/17 11/04/17 11/04/17 11/04/17 07:00 15:00 23:00 07:00 15:00 23:00 Intake Total 1240 ml 100 ml Output Total 500 ml Balance 740 ml 100 ml Intake Oral 240 ml IV Total 1000 ml 100 ml Output Urine Total 500 ml Result Diagram: 11/04/17 0322 11/04/17 0322 Imaging Last Impressions Chest X-Ray 11/03/172008 Signed Impressions: Service Date/Time: Friday, November 03, 2017 20:31 - CONCLUSION: No significant change. Fernando Hines MD CT Angiography 11/03/172008 Signed Impressions: Service Date/Time: Friday, November 03, 2017 22:21 - CONCLUSION: 1. No pulmonary embolus. 2. Large right upper lobe paramediastinal mass again noted, slightly smaller in the interim. The mediastinal adenopathy has decreased slightly in the interim as well. 3. 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 Please see above and correlate clinically. If this is a real finding, I believe there is thrombus that extends into the right atrium. No filling defects are seen of the other cardiac chambers. Fernando Hines MD Objective Remarks GENERAL: Alert, oriented 3, NAD. SKIN: Warm and dry. HEAD: Normocephalic. EYES: No scleral icterus. No injection or drainage. NECK: Supple, trachea midline. No JVD or lymphadenopathy. CARDIOVASCULAR: Irregularly irregular, tachycardic without murmurs, gallops, or rubs. RESPIRATORY: Breath sounds equal bilaterally. No accessory muscle use. GASTROINTESTINAL: Abdomen soft, non-tender, nondistended. MUSCULOSKELETAL: No cyanosis, or edema. BACK: Nontender without obvious deformity. No CVA tenderness. Procedures None A/P Problem List: (1) Atrial fibrillation with RVR ICD Code: I48.91 - Unspecified atrial fibrillation (2) Non-small cell cancer of right lung ICD Code: C34.91 - Malignant neoplasm of unspecified part of right bronchus or lung Status: Acute (3) COPD (chronic obstructive pulmonary disease) ICD Code: J44.9 - Chronic obstructive pulmonary disease, unspecified (4) CAD (coronary artery disease) ICD Code: I25.10 - Atherosclerotic heart disease of [place] coronary artery without angina pectoris (5) Hypotension ICD Code: I95.9 - Hypotension, unspecified Assessment and Plan Miss Stratton is a 72-year-old female with a history of lung cancer, CAD status post CABG, atrial fibrillation who presented to the emergency department on 11/04 due to palpitations. She was found to have atrial fibrillation with RVR. She was started on Cardizem drip. During the course of treatment for atrial fibrillation with RVR, patient was given beta [place] and she remained on Cardizem drip. Her blood pressure dropped to 72/54 with MAP of 60. I evaluated patient and discussed with patient 's nurse. Patient was started on IV fluid bolus. Given her history up cardiac disease we carefully provided IV fluid to bring her blood pressure up. We stopped her Cardizem drip. I discussed with cardiology who initially wanted to start patient on digoxin IV as well as amiodarone drip. However given patient' s hypotension, we did not initiate amiodarone drip as it may cause further hypotension. We provided patient IV digoxin 1 dose. Patient received beta [place] in the morning before hypotension happened. We will continue to hold beta [place] and calcium channel [place] for now. Later on patient's blood pressure improved 110/84. If her blood pressure remains in the reasonable range , we'll start patient on small dose of beta [place]. Total critical care time spent more than 35 minutes. On going medical conditions. - Atrial fibrillation with RVR - Currently heart rate is reasonably controlled. Her crit remains from 88 to about 117 - We'll continue digoxin. - Continue calcium channel [place] Cardizem 120 mg long-acting once a day with holding parameters. - DC metoprolol 100 mg twice a day and start metoprolol tartrate 12.5 mg every 12 hours with holding parameters - COPD exacerbation - Lung cancer (non-small cell). - Appreciate pulmonology input. We switched DuoNeb to Atrovent nebulizer treatment. - CAD status post CABG - Recent cardiac stent placed approximately 12 weeks ago. - We'll continue aspirin, Plavix, beta [place]. - Superior vena cava thrombosis - Appreciate hematology input. By hematology patient is now on Lovenox 60 mg twice a day Full code. Lovenox. Discussed with Oncology CHANO, RN. Saurabh Whalen DO Nov 04, 2017 3:40 pm
[2017-11-04] MEDS ORDERED: PILL SPLITTER OTHER PRN (15:45)
[2017-11-04] MEDS: RESP: IPRATROPIUM 0.5 MG/2.5 ML NEB NEB SCH (20:59)
--- NOTE | 2017-11-04 21:20 | EKG ---
Date Performed: 11/04/2017 Time Performed: 02:39:22 PTAGE: 72 years EKG: Sinus tachycardia with PAC(s) Left axis deviation Poor R wave progression - probable normal variant Lateral ST-T changes are nonspecific Borderline ECG PREVIOUS TRACING : 11/03/2017 20.07 Compared to prior tracing no significant change DOCTOR: Magnolia Arias Interpretating Date/Time 11/04/2017 21:19:36
--- NOTE | 2017-11-04 21:44 | EKG ---
Date Performed: 11/03/2017 Time Performed: 20:07:21 PTAGE: 72 years EKG: ATRIAL FIBRILLATION WITH RAPID VENTRICULAR RESPONSE POSSIBLE ANTERIOR MYOCARDIAL INFARCTION ABNORMAL ECG Compared to the PREVIOUS TRACING rate faster DOCTOR: Magnolia Arias Interpretating Date/Time 11/04/2017 21:44:28
[2017-11-04] MEDS: ATORVASTATIN 40 MG TAB PO SCH (21:54)
[2017-11-04] MEDS: METOPROLOL TARTRATE 25 MG TAB PO SCH (21:55)
[2017-11-05] VITALS (16 sets, daily range): BP systolic 106–132; BP diastolic 72–87; PULSE 92–114; RESP 16–20; TEMP 97.9–98.7; O2SAT 97–100
[2017-11-05] MEDS: ENOXAPARIN SODIUM 60 MG/0.6 ML SYRINGE SQ SCH ×2 (03:55→15:15)
--- NOTE | 2017-11-05 07:30 | PD.CARD.PN ---
Subjective Subjective Remarks Denies palpitations, CP, dizziness. Dyspnea slightly better. Able to sleep sporadically. Objective Medications Item Value Date Time Digoxin 0.125 mg 11/05/17 0900 (Lanoxin) DAILY/PO Atorvastatin 40 mg 11/04/17 2100 Calcium HS/PO 11/04/172153 (Lipitor) Metoprolol 12.5 mg 11/04/17 2100 Tartrate Q12HR/PO 11/04/17 215 (Lopressor) Enoxaparin Sodium 60 mg 11/04/17 1500 (Lovenox Inj) Q12H/SQ 11/05/17 0355 Diltiazem HCl 120 mg 11/04/17 1115 (Cardizem Cd) DAILY/PO Aspirin 81 mg 11/04/17 0500 (Ecotrin Ec) DAILY/PO Clopidogrel 75 mg 11/04/17 0500 Bisulfate DAILY/PO (Plavix) Current Medications Medications (Trade) Dose Ordered Sig/Ramakrishna Route Start Time Stop Time Status Last Admin (NS Flush) 2 ml UNSCH PRN IV FLUSH 11/03/17 23:30 (NS Flush) 2 ml BID IV FLUSH 11/04/17 09:00 11/04/17 21:00 (Narcan Inj) 0.4 mg UNSCH PRN IV PUSH 11/03/17 23:30 (Lipitor) 40 mg HS PO 11/04/17 21:00 11/04/17 21:54 (Ecotrin Ec) 81 mg DAILY PO 11/04/17 05:00 11/04/17 05:38 (Plavix) 75 mg DAILY PO 11/04/17 05:00 11/04/17 05:38 ([place]) 2 spray Q4H PRN EACH NARE 11/04/17 05:00 11/04/17 11:51 ([place] 5-325 Mg) 1 tab Q4H PRN PO 11/04/17 05:00 11/04/17 11:51 Amiodarone HCl 450 mg/Dextrose 250 ml @ 33.33 mls/ hr Q7H31M PRN IV 11/04/17 12:00 (Cardizem Cd) 120 mg DAILY PO 11/04/17 11:15 (Lanoxin) 0.125 mg DAILY PO 11/05/17 09:00 (Atrovent Neb) 0.5 mg TID NEB NEB 11/04/17 14:00 11/04/17 20:59 (Atrovent Neb) 0.5 mg Q4HR NEB PRN NEB 11/04/17 14:00 (Lovenox Inj) 60 mg Q12H SQ 11/04/17 15:00 11/05/17 03:55 (Lopressor) 12.5 mg Q12HR PO 11/04/17 21:00 11/04/17 21:55 (Pill Splitter) 1 ea UNSCH PRN OTHER 11/04/17 15:45 Amiodarone HCl 450 mg/Dextrose 250 ml @ 33.33 mls/ hr Q7H31M PRN IV 11/04/17 20:45 Vital Signs / I&O Vital Signs Date Time Temp Pulse Resp B/P (MAP) Pulse Ox O2 Delivery O2 Flow Rate FiO2 11/05/17 04:02 98.3 105 20 114/74 (87) 98 11/04/17 21:02 94 Nasal Cannula 11/04/17 20:00 86 11/04/17 20:00 98.7 117 20 113/72 (86) 99 11/04/17 18:06 98.8 98 20 113/76 (88) 99 11/04/17 17:51 96 11/04/17 15:00 88 11/04/17 14:50 107 110/84 (93) 11/04/17 14:00 84 11/04/17 13:53 94/65 (75) 11/04/17 13:34 91/60 (70) 11/04/17 13:04 89/67 (74) 11/04/17 13:00 100 11/04/17 12:50 83/60 (68) 11/04/17 12:15 72/54 (60) 11/04/17 12:00 98.5 97 20 85/63 (70) 97 11/04/17 12:00 86 11/04/17 12:00 112 11/04/17 11:00 94 11/04/17 10:00 103 11/04/17 09:00 94 11/04/17 08:50 97.6 93 18 120/80 (93) 97 11/04/17 08:45 97 Nasal Cannula 2.00 11/04/17 08:00 92 11/04/17 08:00 109 I/O 11/04/17 11/04/17 11/04/17 11/05/17 11/05/17 11/05/17 07:00 15:00 23:00 07:00 15:00 23:00 Intake Total 1240 ml 1100 ml 240 ml Output Total 500 ml 350 ml 300 ml Balance 740 ml 1100 ml -110 ml -300 ml Intake Oral 240 ml 240 ml IV Total 1000 ml 1100 ml Output Urine Total 500 ml 350 ml 300 ml Physical Exam GENERAL: Well developed, well nourished. No acute distress. HEENT: Jugular venous pressure is normal. CHEST: Clear lung foy anteriorly. CARDIAC: Irregular rate and rhythm without S3, S4, or murmur. ABDOMEN: Soft, nontender, no hepatosplenomegaly. Bowel sounds present. EXTREMITIES: No clubbing, cyanosis, or edema. Laboratory Laboratory Tests Test 11/04/17 11:00 Total Creatine Kinase 33 U/L Troponin I 0.03 NG/ML Assessment and Plan Problem List: (1) Paroxysmal atrial fibrillation ICD Codes: I48.0 - Paroxysmal atrial fibrillation Status: Acute Plan: Overall improving HR's. Continues on oral metoprolol, oral digoxin. Attempted to start IV Amiodarone last night, never got started. Remains normotensive. REC IV Amiodarone, continue oral metoprolol and digoxin continue aspirin as patient declines oral anticoagulation therapy (2) CAD (coronary artery disease) ICD Codes: I25.10 - Atherosclerotic heart disease of [place] coronary artery without angina pectoris Status: Chronic Plan: History of CABG. History of stent SV to PL branch 07/2017. Stable CAD status. No recent angina. Cardiac enzymes negative for DE. Continue clopidogrel, aspirin. Code Status full code Discussed Condition With patient Problem Qualifiers (1) CAD (coronary artery disease): Qualified Codes: I25.10 - Atherosclerotic heart disease of [place] coronary artery without angina pectoris Edgar Damon MD Nov 05, 2017 07:30
[2017-11-05] MEDS: DILTIAZEM-CD 120 MG CAP ER PO SCH (09:00)
[2017-11-05] MEDS ORDERED: DIGOXIN 0.125 MG TAB PO SCH (09:00)
[2017-11-05] MEDS: RESP: IPRATROPIUM 0.5 MG/2.5 ML NEB NEB SCH ×3 (09:03→20:34)
--- NOTE | 2017-11-05 09:31 | PD.ONC.PN ---
Subjective Subjective Remarks Afebrile overnight. Patient resting in room. reporting she feels better today. No complaints. Objective Data Date Time Temp Pulse Resp B/P (MAP) Pulse Ox O2 Delivery O2 Flow Rate FiO2 11/05/17 09:05 100 Nasal Cannula 2.50 11/05/17 08:09 108 11/05/17 06:00 114 11/05/17 04:02 98.3 105 20 114/74 (87) 98 11/05/17 04:00 112 11/05/17 03:00 98 11/05/17 02:00 98 11/05/17 01:00 92 11/05/17 00:00 98 11/04/17 23:00 102 11/04/17 22:00 126 11/04/17 21:02 94 Nasal Cannula 11/04/17 21:00 116 11/04/17 20:00 114 11/04/17 20:00 86 11/04/17 20:00 98.7 117 20 113/72 (86) 99 11/04/17 19:00 100 11/04/17 18:06 98.8 98 20 113/76 (88) 99 11/04/17 17:51 96 11/04/17 15:00 88 11/04/17 14:50 107 110/84 (93) 11/04/17 14:00 84 11/04/17 13:53 94/65 (75) 11/04/17 13:34 91/60 (70) 11/04/17 13:04 89/67 (74) 11/04/17 13:00 100 11/04/17 12:50 83/60 (68) 11/04/17 12:15 72/54 (60) 11/04/17 12:00 98.5 97 20 85/63 (70) 97 11/04/17 12:00 86 11/04/17 12:00 112 11/04/17 11:00 94 11/04/17 10:00 103 11/05/17 11/05/17 11/05/17 07:00 15:00 23:00 Output Total 300 ml 300 ml Balance -300 ml -300 ml Result Diagram: 11/04/17 0322 11/04/17 0322 Laboratory Results Laboratory Tests Test 11/04/17 11:00 Total Creatine Kinase 33 U/L Troponin I 0.03 NG/ML Imaging Studies Last Impressions Chest X-Ray 11/03/172008 Signed Impressions: Service Date/Time: Friday, November 03, 2017 20:31 - CONCLUSION: No significant change. Fernando Hines MD CT Angiography 11/03/172008 Signed Impressions: Service Date/Time: Friday, November 03, 2017 22:21 - CONCLUSION: 1. No pulmonary embolus. 2. Large right upper lobe paramediastinal mass again noted, slightly smaller in the interim. The mediastinal adenopathy has decreased slightly in the interim as well. 3. 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 Please see above and correlate clinically. If this is a real finding, I believe there is thrombus that extends into the right atrium. No filling defects are seen of the other cardiac chambers. Fernando Hines MD Administered Medications Medications (Trade) Dose Ordered Sig/Ramakrishna Route PRN Reason Start Time Stop Time Status Last Admin Dose Admin Sodium Chloride (NS Flush) 2 ml BID IV FLUSH 11/04/17 09:00 11/04/17 21:00 Atorvastatin Calcium (Lipitor) 40 mg HS PO 11/04/17 21:00 11/04/17 21:54 Aspirin (Ecotrin Ec) 81 mg DAILY PO 11/04/17 05:00 11/04/17 05:38 Clopidogrel Bisulfate (Plavix) 75 mg DAILY PO 11/04/17 05:00 11/04/17 05:38 Sodium Chloride ([place]) 2 spray Q4H PRN EACH NARE NASAL CONGESTION 11/04/17 05:00 11/04/17 11:51 Acetaminophen/ Hydrocodone Bitart ([place] 5-325 Mg) 1 tab Q4H PRN PO pain 3 - 10 11/04/17 05:00 11/04/17 11:51 Ipratropium [place] (Atrovent Neb) 0.5 mg TID NEB NEB 11/04/17 14:00 11/05/17 09:03 Enoxaparin Sodium (Lovenox Inj) 60 mg Q12H SQ 11/04/17 15:00 11/05/17 03:55 Metoprolol Tartrate (Lopressor) 12.5 mg Q12HR PO 11/04/17 21:00 11/04/17 21:55 Objective Remarks GENERAL: Pleasant elderly female, sitting up in bed in nad SKIN: Warm and dry. HEAD: Normocephalic. EYES: No injection or drainage. NECK: Supple, trachea midline. CARDIOVASCULAR: IRR RESPIRATORY: diminished at bases, anterior foy with occasional rhonchi. GASTROINTESTINAL: Abdomen soft, non-tender, nondistended. EXTREMITIES: No cyanosis NEUROLOGICAL: No obvious focal deficit. Awake, alert, and oriented x3. Assessment/Plan Problem List: (1) Non-small cell cancer of right lung ICD Codes: C34.91 - Malignant neoplasm of unspecified part of right bronchus or lung Status: Acute Plan: --was found to have a right mediastinal mass, pretracheal and pericardial adenopathy. Biopsy showed a non-small cell lung cancer with squamous cell histology. -- receiving carboplatin and Taxol as radiation sensitizing chemotherapy. (was hold on 11/03 d/t neutropenia) (2) Bicytopenia ICD Codes: D75.89 - Other specified diseases of blood and blood-forming organs Plan: --d/t chemotherapy --anemia and leukopenia (3) Acute thrombosis of superior vena cava ICD Codes: I82.210 - Acute embolism and thrombosis of superior vena cava Plan: --on Lovenox 60mg SQ q 12 --await MRI, if confirmed as thrombus, will ask CTS for evaluation Assessment 72y/o female with non-small cell lung cancer admitted with afib w/RVR h/o Locally advanced non-small cell lung cancer. Atrial fibrillation with rapid ventricular response. Hypotension/hypertension. History of malignant melanoma. Previous TIA. Anemia, chemotherapy induced. Arthritis. Leukopenia/neutropenia. Plan 1. await MRI 2. continue anticoagulation with LMWH 3. monitor cytopenias Attending Statement The exam, history, and the medical decision-making described in the above note were completed with the assistance of the mid-level provider. I reviewed and agree with the findings presented. I attest that I had a [id number] encounter with the patient on the same day, and personally performed and documented my assessment and findings in the medical record. Discussed the CTA findings- tumor vs clot. Ok with LMWH in case this is a clot. Discussed need for MRI for better visualization. Treatment options to be discussed by the team. Discussed w/ rad onc, suspect the area maybe in the field.. Delilah Cole Nov 05, 2017 09:31 Rupali Sosa MD Nov 05, 2017 15:43
[2017-11-05] MEDS: CLOPIDOGREL 75 MG TAB PO SCH (10:19)
[2017-11-05] MEDS: METOPROLOL TARTRATE 25 MG TAB PO SCH (10:19)
[2017-11-05] MEDS: ASPIRIN EC 81 MG TABEC PO SCH (10:20)
[2017-11-05] MEDS: SODIUM CHLORIDE 0.9% FLUSH 10 ML FLUSH IV FLUSH SCH ×2 (10:24→21:00)
[2017-11-05] MEDS ORDERED: DILTIAZEM HCL 25 MG/5 ML VIAL ONE (11:19)
[2017-11-05] MEDS ORDERED: GADODIAMIDE PF 287 MG/ML 20 ML VIAL (for RAD MRI) IVCONTRAST ONE (14:09)
[2017-11-05 15:22] LABS: AUTOMATED NEUTROPHIL # 0.9 TH/MM3 (1.8-7.7); BASOPHIL % 0.8 % (0.0-2.0); EOSINOPHIL % 0.5 % (0.0-4.0); HEMATOCRIT 27.6 % (35.0-46.0); HEMOGLOBIN 9.3 GM/DL (11.6-15.3); LYMPH % 20.7 % (9.0-44.0); LYMPHOCYTE # 0.3 TH/MM3 (1.0-4.8); MEAN CELL VOLUME 85.7 FL (80.0-100.0); MEAN CORPUSCULAR HEMOGLOBIN 28.8 PG (27.0-34.0); MEAN CORPUSCULAR HGB CONC 33.6 % (32.0-36.0); MEAN PLATELET VOLUME 6.9 FL (7.0-11.0); MONO % 23.9 % (0.0-8.0); MONOCYTE # 0.4 TH/MM3 (0-0.9); NEUT % 54.1 % (16.0-70.0); PLATELET COUNT 216 TH/MM3 (150-450); RED BLOOD COUNT 3.23 MIL/MM3 (4.00-5.30); RED CELL DISTRIBUTION WIDTH 17.9 % (11.6-17.2); WHITE BLOOD COUNT 1.7 TH/MM3 (4.0-11.0)
[2017-11-05 15:28] LABS: BICARBONATE 31.6 MEQ/L (21.0-32.0); CREATININE 0.5 MG/DL (0.50-1.00)
--- NOTE | 2017-11-05 15:42 | HHI.PR ---
Subjective Remarks Follow up for NSCLC, Afib with RVR. Patient is currently doing well. She returned from radiology after undergoing cardiac MRI. She denies any fever, chills. Objective Vitals Vital Signs Date Time Temp Pulse Resp B/P (MAP) Pulse Ox O2 Delivery O2 Flow Rate FiO2 11/05/17 15:00 97.9 101 17 131/81 (98) 98 11/05/17 11:00 98.3 102 17 132/87 (102) 97 11/05/17 10:08 98.3 102 20 132/87 (102) 97 11/05/17 09:05 100 Nasal Cannula 2.50 11/05/17 08:09 108 11/05/17 06:00 114 11/05/17 04:02 98.3 105 20 114/74 (87) 98 11/05/17 04:00 112 11/05/17 03:00 98 11/05/17 02:00 98 11/05/17 01:00 92 11/05/17 00:00 98 11/04/17 23:00 102 11/04/17 22:00 126 11/04/17 21:02 94 Nasal Cannula 11/04/17 21:00 116 11/04/17 20:00 114 11/04/17 20:00 86 11/04/17 20:00 98.7 117 20 113/72 (86) 99 11/04/17 19:00 100 11/04/17 18:06 98.8 98 20 113/76 (88) 99 11/04/17 17:51 96 I/O 11/04/17 11/04/17 11/04/17 11/05/17 11/05/17 11/05/17 07:00 15:00 23:00 07:00 15:00 23:00 Intake Total 1240 ml 1100 ml 240 ml Output Total 500 ml 350 ml 300 ml 300 ml Balance 740 ml 1100 ml -110 ml -300 ml -300 ml Intake Oral 240 ml 240 ml IV Total 1000 ml 1100 ml Output Urine Total 500 ml 350 ml 300 ml 300 ml Result Diagram: 11/05/17 1425 11/05/17 1425 Imaging Last Impressions Cardiac MRI 11/05/17 0000 Signed Impressions: Service Date/Time: October 12:31 - CONCLUSION: 1. No mass or thrombus in the right atrium. This was artifact from unopacified blood. 2. Mediastinal mass. 3. Small right pleural effusion. 4. Small myocardial infarctions as described above. Mumtaz Jang MD Chest X-Ray 11/03/172008 Signed Impressions: Service Date/Time: Friday, November 03, 2017 20:31 - CONCLUSION: No significant change. Fernando Hines MD CT Angiography 11/03/172008 Signed Impressions: Service Date/Time: Friday, November 03, 2017 22:21 - CONCLUSION: 1. No pulmonary embolus. 2. Large right upper lobe paramediastinal mass again noted, slightly smaller in the interim. The mediastinal adenopathy has decreased slightly in the interim as well. 3. 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 Please see above and correlate clinically. If this is a real finding, I believe there is thrombus that extends into the right atrium. No filling defects are seen of the other cardiac chambers. Fernando Hines MD Objective Remarks GENERAL: Alert, oriented 3, NAD. SKIN: Warm and dry. HEAD: Normocephalic. EYES: No scleral icterus. No injection or drainage. NECK: Supple, trachea midline. No JVD or lymphadenopathy. CARDIOVASCULAR: Irregularly irregular, tachycardic without murmurs, gallops, or rubs. RESPIRATORY: Breath sounds equal bilaterally. No accessory muscle use. GASTROINTESTINAL: Abdomen soft, non-tender, nondistended. MUSCULOSKELETAL: No cyanosis, or edema. BACK: Nontender without obvious deformity. No CVA tenderness. Procedures None A/P Problem List: (1) Atrial fibrillation with RVR ICD Code: I48.91 - Unspecified atrial fibrillation (2) Non-small cell cancer of right lung ICD Code: C34.91 - Malignant neoplasm of unspecified part of right bronchus or lung Status: Acute (3) COPD (chronic obstructive pulmonary disease) ICD Code: J44.9 - Chronic obstructive pulmonary disease, unspecified (4) CAD (coronary artery disease) ICD Code: I25.10 - Atherosclerotic heart disease of [place] coronary artery without angina pectoris Status: Chronic (5) Hypotension ICD Code: I95.9 - Hypotension, unspecified Assessment and Plan Ms. Stratton is a 72-year-old female with a history of lung cancer, CAD status post CABG, atrial fibrillation who presented to the emergency department on 11/04 due to palpitations. She was found to have atrial fibrillation with RVR. She was started on Cardizem drip. - Atrial fibrillation with RVR - Continue Amiodarone drip per cardiology. - Continue Digoxin, Diltiazem CD, low dose metoprolol. Increase metoprolol to 25mg BID. - [id number] score is at least 2. She would benefit from anticoagulation. Consider Apixaban 5mg BID. - Currently patient is on Lovenox 60mg BID. - COPD exacerbation - Lung cancer (non-small cell). - Appreciate pulmonology input. We switched DuoNeb to Atrovent nebulizer treatment. - Titrate O2 down to keep O2 sat > 90%. - CAD status post CABG - Recent cardiac stent placed approximately 12 weeks ago. - We'll continue aspirin, Plavix, beta [place]. 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 However, Cardiac MRI shows no thrombus. - Cardiac MRI images reviewed. - CT images likely were related to artifact. - We can likely discontinue Lovenox - will wait for further input from heme/ onc. Full code. Lovenox. Problem Qualifiers (1) CAD (coronary artery disease): Qualified Codes: I25.10 - Atherosclerotic heart disease of [place] coronary artery without angina pectoris Saurabh Whalen DO Nov 05, 2017 15:42
[2017-11-05 16:18] LABS: BANDS 3 % (0-6); BASOPHILS 1 % (0-2); CORRECTED NUCLEATED RBC 1 /100 WBC (0-0); LYMPHOCYTES 18 % (9-44); METAMYELOCYTES 2 % (0-1); MONOCYTES 15 % (0-8); NEUTROPHIL # MANUAL DIFF 1.1 TH/MM3 (1.8-7.7); NUCLEATED RED BLOOD CELL 1 (0-0); POLYS (SEG NEUTROPHILS) 61 % (16-70)
[2017-11-05 16:20] LABS: OVALOCYTES 1+ (NORMAL)
--- NOTE | 2017-11-05 16:40 | RADRPT ---
EXAM DATE/TIME: 11/05/2017 12:31 INDICATIONS : Mediastinal mass. CONTRAST: 20 cc Omniscan (gadodiamide) IV GFR: Date: Nov 04 2017 MEDICAL HISTORY : Carcinoma, lung. Hypertension. Emphysema. COPD. SURGICAL HISTORY : CABG Appendectomy. Tubal ligation. ENCOUNTER: Subsequent ACUITY: 3 day PAIN SCORE: 0/10 LOCATION: chest. TECHNIQUE: Multiplanar, multisequence MRI of the heart with and without contrast. FINDINGS: Imaging through the heart is obtained. No mass is seen within the right atrium. This appears to be re lated to artifact on previous CT scan and likely nonenhancing of unopacified blood. No thrombus or ma ss identified. There is hypokinesia of portions of the lateral wall with areas a myocardial infarctio n approximately one half transmural thickness. There is also a sub-endocardial infarct in the septum. Ejection fraction approximately 45-50%. There is a large mass within the mediastinum as seen on prev ious CT scan. Small right pleural effusion. No enhancement. No pericardial abnormalities. . CONCLUSION: 1. No mass or thrombus in the right atrium. This was artifact from unopacified blood. 2. Mediastinal mass. 3. Small right pleural effusion. 4. Small myocardial infarctions as described above. Mumtaz Jang MD on November 05, 2017 at 16:31 Board Certified Radiologist. This report was verified electronically.
[2017-11-05] MEDS ORDERED: METOPROLOL TARTRATE 25 MG TAB PO SCH (21:00)
[2017-11-05] MEDS: ATORVASTATIN 40 MG TAB PO SCH (21:09)
[2017-11-06] VITALS (8 sets, daily range): BP systolic 97–137; BP diastolic 62–82; PULSE 92–115; RESP 14–18; TEMP 98–98.4; O2SAT 95–98
[2017-11-06] MEDS: ENOXAPARIN SODIUM 60 MG/0.6 ML SYRINGE SQ SCH (03:34)
--- NOTE | 2017-11-06 07:46 | PD.CARD.PN ---
Subjective Subjective Remarks Denies palpitations, CP, dizziness, abdominal pain, nausea. Mild dyspnea at rest. Objective Medications Item Value Date Time Digoxin 0.125 mg 11/05/17 0900 (Lanoxin) DAILY/PO Atorvastatin 40 mg 11/04/17 2100 Calcium HS/PO 11/04/17 2154 (Lipitor) Metoprolol 12.5 mg 11/04/17 2100 Tartrate Q12HR/PO 11/04/17 215 (Lopressor) Enoxaparin Sodium 60 mg 11/04/17 1500 (Lovenox Inj) Q12H/SQ 11/05/17 0355 Diltiazem HCl 120 mg 11/04/17 1115 (Cardizem Cd) DAILY/PO Aspirin 81 mg 11/04/17 0500 (Ecotrin Ec) DAILY/PO Clopidogrel 75 mg 11/04/17 0500 Bisulfate DAILY/PO (Plavix) Metoprolol 25 mg 11/05/17 2100 Tartrate Q12HR/PO 11/05/17 210 (Lopressor) Digoxin 0.125 mg 11/05/17 0900 (Lanoxin) DAILY/PO 11/05/17 1020 Atorvastatin 40 mg 11/04/17 2100 Calcium HS/PO 11/05/17 210 (Lipitor) Enoxaparin Sodium 60 mg 11/04/17 1500 (Lovenox Inj) Q12H/SQ 11/06/17 0334 Diltiazem HCl 120 mg 11/04/17 1115 (Cardizem Cd) DAILY/PO 11/05/17 0900 Aspirin 81 mg 11/04/17 0500 (Ecotrin Ec) DAILY/PO 11/05/17 1020 Clopidogrel 75 mg 11/04/17 0500 Bisulfate DAILY/PO 11/05/17 1019 (Plavix) Current Medications Medications (Trade) Dose Ordered Sig/Ramakrishna Route Start Time Stop Time Status Last Admin (NS Flush) 2 ml UNSCH PRN IV FLUSH 11/03/17 23:30 (NS Flush) 2 ml BID IV FLUSH 11/04/17 09:00 11/05/17 21:00 (Narcan Inj) 0.4 mg UNSCH PRN IV PUSH 11/03/17 23:30 (Lipitor) 40 mg HS PO 11/04/17 21:00 11/05/17 21:09 (Ecotrin Ec) 81 mg DAILY PO 11/04/17 05:00 11/05/17 10:20 (Plavix) 75 mg DAILY PO 11/04/17 05:00 11/05/17 10:19 ([place]) 2 spray Q4H PRN EACH NARE 11/04/17 05:00 11/04/17 11:51 ([place] 5-325 Mg) 1 tab Q4H PRN PO 11/04/17 05:00 11/04/17 11:51 Amiodarone HCl 450 mg/Dextrose 250 ml @ 33.33 mls/ hr Q7H31M PRN IV 11/04/17 12:00 (Cardizem Cd) 120 mg DAILY PO 11/04/17 11:15 11/05/17 09:00 (Lanoxin) 0.125 mg DAILY PO 11/05/17 09:00 11/05/17 10:20 (Atrovent Neb) 0.5 mg TID NEB NEB 11/04/17 14:00 11/05/17 20:34 (Atrovent Neb) 0.5 mg Q4HR NEB PRN NEB 11/04/17 14:00 (Lovenox Inj) 60 mg Q12H SQ 11/04/17 15:00 11/06/17 03:34 ([place]ill Spl[place]) 1 ea UNSCH PRN OTHER 11/04/17 15:45 Amiodarone HCl 450 mg/Dextrose 250 ml @ 33.33 mls/ hr Q7H31M PRN IV 11/04/17 20:45 (Lopressor) 25 mg Q12HR PO 11/05/17 21:00 11/05/17 21:09 Vital Signs / I&O Vital Signs Date Time Temp Pulse Resp B/P (MAP) Pulse Ox O2 Delivery O2 Flow Rate FiO2 11/06/17 03:00 97 11/06/17 03:00 98.0 97 18 97/62 (74) 97 11/05/17 23:00 98.7 104 18 106/72 (83) 98 11/05/17 23:00 104 11/05/17 20:34 99 Nasal Cannula 3.00 11/05/17 19:00 114 11/05/17 19:00 97.9 114 16 127/85 (99) 98 11/05/17 16:46 98 Nasal Cannula 3.00 11/05/17 15:00 97.9 101 17 131/81 (98) 98 11/05/17 11:00 98.3 102 17 132/87 (102) 97 11/05/17 10:08 98.3 102 20 132/87 (102) 97 11/05/17 09:05 100 Nasal Cannula 2.50 11/05/17 08:09 108 I/O 11/05/17 11/05/17 11/05/17 11/06/17 11/06/17 11/06/17 07:00 15:00 23:00 07:00 15:00 23:00 Intake Total 200 ml 960 ml Output Total 300 ml 300 ml 800 ml 750 ml Balance -300 ml -300 ml -600 ml 210 ml Intake Oral 200 ml 960 ml Output Urine Total 300 ml 300 ml 800 ml 750 ml # Bowel Movements 0 0 Physical Exam GENERAL: Well developed, well nourished. No acute distress. HEENT: Jugular venous pressure is normal. CHEST: Clear lung foy anteriorly. CARDIAC: Irregular rate and rhythm without S3, S4, or murmur. ABDOMEN: Soft, nontender, no hepatosplenomegaly. Bowel sounds present. EXTREMITIES: No clubbing, cyanosis, or edema. Laboratory Laboratory Tests Test 11/05/17 14:25 White Blood Count 1.7 TH/MM3 Red Blood Count 3.23 MIL/MM3 Hemoglobin 9.3 GM/DL Hematocrit 27.6 % Mean Corpuscular Volume 85.7 FL Mean Corpuscular Hemoglobin 28.8 PG Mean Corpuscular Hemoglobin Concent 33.6 % Red Cell Distribution Width 17.9 % Platelet Count 216 TH/MM3 Mean Platelet Volume 6.9 FL Neutrophils (%) (Auto) 54.1 % Lymphocytes (%) (Auto) 20.7 % Monocytes (%) (Auto) 23.9 % Eosinophils (%) (Auto) 0.5 % Basophils (%) (Auto) 0.8 % Neutrophils # (Auto) 0.9 TH/MM3 Lymphocytes # (Auto) 0.3 TH/MM3 Monocytes # (Auto) 0.4 TH/MM3 Eosinophils # (Auto) 0.0 TH/MM3 Basophils # (Auto) 0.0 TH/MM3 CBC Comment AUTO DIFF Differential Total Cells Counted 100 Neutrophils % (Manual) 61 % Band Neutrophils % 3 % Lymphocytes % 18 % Monocytes % 15 % Basophils % 1 % Neutrophils # (Manual) 1.1 TH/MM3 Metamyelocytes 2 % Nucleated Red Blood Cells 1 /100 WBC Differential Comment FINAL DIFF MANUAL Platelet Estimate NORMAL Platelet Morphology Comment NORMAL Ovalocytes 1+ Blood Urea Nitrogen 7 MG/DL Creatinine 0.50 MG/DL Random Glucose 89 MG/DL Calcium Level 8.0 MG/DL Sodium Level 142 MEQ/L Potassium Level 4.1 MEQ/L Chloride Level 105 MEQ/L Carbon Dioxide Level 31.6 MEQ/L Anion Gap 5 MEQ/L Estimat Glomerular Filtration Rate 122 ML/MIN Imaging Last 48 hours Impressions Cardiac MRI 11/05/17 0000 Signed Impressions: Service Date/Time: October 12:31 - CONCLUSION: 1. No mass or thrombus in the right atrium. This was artifact from unopacified blood. 2. Mediastinal mass. 3. Small right pleural effusion. 4. Small myocardial infarctions as described above. Mumtaz Jang MD Assessment and Plan Problem List: (1) Paroxysmal atrial fibrillation ICD Codes: I48.0 - Paroxysmal atrial fibrillation Status: Acute Plan: Fluctuating HR's, mostly slightly to mildly elevated. Continues on oral metoprolol/digoxin/diltiazem. Apparently not tolerating Amiodarone. REC increase digoxin dosing, continue metoprolol/diltiazem consider additional IVF continue aspirin as patient declines oral anticoagulation therapy Dr. Beauchamp to see patient as needed over the long holiday weekend (2) CAD (coronary artery disease) ICD Codes: I25.10 - Atherosclerotic heart disease of [place] coronary artery without angina pectoris Status: Chronic Plan: History of CABG. History of stent SV to PL branch 07/2017. Stable CAD status. No recent angina. Cardiac enzymes negative for [place]. Continue clopidogrel, aspirin. Code Status full code Discussed Condition With patient Problem Qualifiers (1) CAD (coronary artery disease): Qualified Codes: I25.10 - Atherosclerotic heart disease of [place] coronary artery without angina pectoris Edgar Damon MD Nov 06, 2017 07:46
[2017-11-06] MEDS: RESP: IPRATROPIUM 0.5 MG/2.5 ML NEB NEB SCH ×3 (08:33→19:27)
[2017-11-06] MEDS: ASPIRIN EC 81 MG TABEC PO SCH (08:57)
[2017-11-06] MEDS: METOPROLOL TARTRATE 50 MG TAB PO SCH ×2 (08:57→21:11)
[2017-11-06] MEDS: CLOPIDOGREL 75 MG TAB PO SCH (08:57)
[2017-11-06] MEDS: SODIUM CHLORIDE 0.9% FLUSH 10 ML FLUSH IV FLUSH SCH ×2 (08:58→21:00)
[2017-11-06] MEDS: DILTIAZEM-CD 120 MG CAP ER PO SCH (08:58)
[2017-11-06] MEDS: DIGOXIN 0.25 MG TAB PO SCH (08:58)
[2017-11-06] MEDS: ACETAMINOPHEN/HYDROcodone 325 MG/5 MG TAB PO PRN (12:41)
[2017-11-06] MEDS ORDERED: ONDANSETRON HCL 4 MG/2 ML VIAL ONE (13:18)
[2017-11-06] MEDS: FILGRASTIM 300 MCG/ML VIAL SQ SCH (13:23)
--- NOTE | 2017-11-06 14:23 | PD.ONC.PN ---
Subjective Subjective Remarks Afebrile overnight. Patient resting in bed. Feeling fatigued and mildly nauseated. Wants to get SQ shot in back of arm instead of abdomen. Objective Data Date Time Temp Pulse Resp B/P (MAP) Pulse Ox O2 Delivery O2 Flow Rate FiO2 11/06/17 11:00 110 11/06/17 11:00 98.2 110 16 110/82 (91) 11/06/17 08:33 97 Nasal Cannula 3.00 11/06/17 07:00 98.3 115 16 137/80 (99) 11/06/17 07:00 115 11/06/17 03:00 97 11/06/17 03:00 98.0 97 18 97/62 (74) 97 11/05/17 23:00 98.7 104 18 106/72 (83) 98 11/05/17 23:00 104 11/05/17 20:34 99 Nasal Cannula 3.00 11/05/17 19:00 114 11/05/17 19:00 97.9 114 16 127/85 (99) 98 11/05/17 16:46 98 Nasal Cannula 3.00 11/05/17 15:00 97.9 101 17 131/81 (98) 98 11/06/17 11/06/17 11/06/17 07:00 15:00 23:00 Intake Total 960 ml Output Total 750 ml Balance 210 ml Result Diagram: 11/05/17 1425 11/05/17 1425 Laboratory Results Laboratory Tests Test 11/05/17 14:25 White Blood Count 1.7 TH/MM3 Red Blood Count 3.23 MIL/MM3 Hemoglobin 9.3 GM/DL Hematocrit 27.6 % Mean Corpuscular Volume 85.7 FL Mean Corpuscular Hemoglobin 28.8 PG Mean Corpuscular Hemoglobin Concent 33.6 % Red Cell Distribution Width 17.9 % Platelet Count 216 TH/MM3 Mean Platelet Volume 6.9 FL Neutrophils (%) (Auto) 54.1 % Lymphocytes (%) (Auto) 20.7 % Monocytes (%) (Auto) 23.9 % Eosinophils (%) (Auto) 0.5 % Basophils (%) (Auto) 0.8 % Neutrophils # (Auto) 0.9 TH/MM3 Lymphocytes # (Auto) 0.3 TH/MM3 Monocytes # (Auto) 0.4 TH/MM3 Eosinophils # (Auto) 0.0 TH/MM3 Basophils # (Auto) 0.0 TH/MM3 CBC Comment AUTO DIFF Differential Total Cells Counted 100 Neutrophils % (Manual) 61 % Band Neutrophils % 3 % Lymphocytes % 18 % Monocytes % 15 % Basophils % 1 % Neutrophils # (Manual) 1.1 TH/MM3 Metamyelocytes 2 % Nucleated Red Blood Cells 1 /100 WBC Differential Comment FINAL DIFF MANUAL Platelet Estimate NORMAL Platelet Morphology Comment NORMAL Ovalocytes 1+ Blood Urea Nitrogen 7 MG/DL Creatinine 0.50 MG/DL Random Glucose 89 MG/DL Calcium Level 8.0 MG/DL Sodium Level 142 MEQ/L Potassium Level 4.1 MEQ/L Chloride Level 105 MEQ/L Carbon Dioxide Level 31.6 MEQ/L Anion Gap 5 MEQ/L Estimat Glomerular Filtration Rate 122 ML/MIN Imaging Studies Last Impressions Cardiac MRI 11/05/17 0000 Signed Impressions: Service Date/Time: October 12:31 - CONCLUSION: 1. No mass or thrombus in the right atrium. This was artifact from unopacified blood. 2. Mediastinal mass. 3. Small right pleural effusion. 4. Small myocardial infarctions as described above. Mumtaz Jang MD Chest X-Ray 11/03/172008 Signed Impressions: Service Date/Time: Friday, November 03, 2017 20:31 - CONCLUSION: No significant change. Fernando Hines MD CT Angiography 11/03/172008 Signed Impressions: Service Date/Time: Friday, November 03, 2017 22:21 - CONCLUSION: 1. No pulmonary embolus. 2. Large right upper lobe paramediastinal mass again noted, slightly smaller in the interim. The mediastinal adenopathy has decreased slightly in the interim as well. 3. 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 Please see above and correlate clinically. If this is a real finding, I believe there is thrombus that extends into the right atrium. No filling defects are seen of the other cardiac chambers. Fernando Hines MD Administered Medications Medications (Trade) Dose Ordered Sig/Ramakrishna Route PRN Reason Start Time Stop Time Status Last Admin Dose Admin Sodium Chloride (NS Flush) 2 ml BID IV FLUSH 11/04/17 09:00 11/06/17 08:58 Atorvastatin Calcium (Lipitor) 40 mg HS PO 11/04/17 21:00 1/11/18 21:09 Aspirin (Ecotrin Ec) 81 mg DAILY PO 11/04/17 05:00 11/06/17 08:57 Clopidogrel Bisulfate (Plavix) 75 mg DAILY PO 11/04/17 05:00 11/06/17 08:57 Sodium Chloride ([place]) 2 spray Q4H PRN EACH NARE NASAL CONGESTION 11/04/17 05:00 11/04/17 11:51 Acetaminophen/ Hydrocodone Bitart ([place] 5-325 Mg) 1 tab Q4H PRN PO pain 3 - 10 11/04/17 05:00 11/06/17 12:41 Diltiazem HCl (Cardizem Cd) 120 mg DAILY PO 11/04/17 11:15 11/06/17 08:58 Ipratropium [place] (Atrovent Neb) 0.5 mg TID NEB NEB 11/04/17 14:00 11/06/17 08:33 Digoxin (Lanoxin) 0.25 mg DAILY PO 11/06/17 09:00 11/06/17 08:58 Metoprolol Tartrate (Lopressor) 50 mg Q12HR PO 11/06/17 09:00 11/06/17 08:57 Filgrastim (Neupogen Inj) 300 mcg DAILY@14 SQ 11/06/17 14:00 11/06/17 13:23 Objective Remarks GENERAL: Pleasant female, upright in bed in nad. SKIN: Warm and dry. HEAD: Normocephalic. EYES: No injection or drainage. NECK: Supple, trachea midline. CARDIOVASCULAR: IRR RESPIRATORY: scattered rhonchi, diminished at bases. GASTROINTESTINAL: Abdomen soft, non-tender, nondistended. EXTREMITIES: No cyanosis NEUROLOGICAL: awake and alert, normal speech. moving all extremities. Assessment/Plan Problem List: (1) Non-small cell cancer of right lung ICD Codes: C34.91 - Malignant neoplasm of unspecified part of right bronchus or lung Status: Acute Plan: --was found to have a right mediastinal mass, pretracheal and pericardial adenopathy. Biopsy showed a non-small cell lung cancer with squamous cell histology. -- receiving carboplatin and Taxol as radiation sensitizing chemotherapy. (was hold on 11/03 d/t neutropenia) (2) Bicytopenia ICD Codes: D75.89 - Other specified diseases of blood and blood-forming organs Plan: --d/t chemotherapy --anemia and leukopenia Assessment 72y/o female with non-small cell lung cancer admitted with afib w/RVR h/o Locally advanced non-small cell lung cancer. Atrial fibrillation with rapid ventricular response. Hypotension/hypertension. History of malignant melanoma. Previous TIA. Anemia, chemotherapy induced. Arthritis. Leukopenia/neutropenia. Plan 1. MRI shows no thrombus. will reduce Lovenox to prophylactic dosing only ( 40mg SQ daily) 2. Neutropenia: will give Neupogen 300mg SQ x 2 doses starting today 3. monitor CBC. Attending Statement The exam, history, and the medical decision-making described in the above note were completed with the assistance of the mid-level provider. I reviewed and agree with the findings presented. I attest that I had a [id number] encounter with the patient on the same day, and personally performed and documented my assessment and findings in the medical record. REviewed MRI and CT scan images. No thrombus or tumor. Ok to resume dVT prophylaxis. Defer to cardiology tx A fib. GCSF for 2 days for neutropenia. Anticipate resume chemo/xrt next week. Delilah Cole Nov 06, 2017 14:23 Rupali Sosa MD Nov 06, 2017 15:53
--- NOTE | 2017-11-06 14:35 | HHI.PR ---
Subjective Remarks Follow up for NSCLC, Afib with RVR. Patient is currently doing well. No acute concerns. However, she requested her vitamins to be re-started. Objective Vitals Vital Signs Date Time Temp Pulse Resp B/P (MAP) Pulse Ox O2 Delivery O2 Flow Rate FiO2 11/06/17 11:00 110 11/06/17 11:00 98.2 110 16 110/82 (91) 11/06/17 08:33 97 Nasal Cannula 3.00 11/06/17 07:00 98.3 115 16 137/80 (99) 11/06/17 07:00 115 11/06/17 03:00 97 11/06/17 03:00 98.0 97 18 97/62 (74) 97 11/05/17 23:00 98.7 104 18 106/72 (83) 98 11/05/17 23:00 104 11/05/17 20:34 99 Nasal Cannula 3.00 11/05/17 19:00 114 11/05/17 19:00 97.9 114 16 127/85 (99) 98 11/05/17 16:46 98 Nasal Cannula 3.00 11/05/17 15:00 97.9 101 17 131/81 (98) 98 I/O 11/05/17 11/05/17 11/05/17 11/06/17 11/06/17 11/06/17 07:00 15:00 23:00 07:00 15:00 23:00 Intake Total 200 ml 960 ml Output Total 300 ml 300 ml 800 ml 750 ml Balance -300 ml -300 ml -600 ml 210 ml Intake Oral 200 ml 960 ml Output Urine Total 300 ml 300 ml 800 ml 750 ml # Bowel Movements 0 0 Result Diagram: 11/05/17 1425 11/05/17 1425 Objective Remarks GENERAL: Alert, oriented 3, NAD. SKIN: Warm and dry. HEAD: Normocephalic. EYES: No scleral icterus. No injection or drainage. NECK: Supple, trachea midline. No JVD or lymphadenopathy. CARDIOVASCULAR: Irregularly irregular, tachycardic without murmurs, gallops, or rubs. RESPIRATORY: Breath sounds equal bilaterally. No accessory muscle use. GASTROINTESTINAL: Abdomen soft, non-tender, nondistended. MUSCULOSKELETAL: No cyanosis, or edema. BACK: Nontender without obvious deformity. No CVA tenderness. Procedures None A/P Problem List: (1) Atrial fibrillation with RVR ICD Code: I48.91 - Unspecified atrial fibrillation (2) Non-small cell cancer of right lung ICD Code: C34.91 - Malignant neoplasm of unspecified part of right bronchus or lung Status: Acute (3) COPD (chronic obstructive pulmonary disease) ICD Code: J44.9 - Chronic obstructive pulmonary disease, unspecified (4) CAD (coronary artery disease) ICD Code: I25.10 - Atherosclerotic heart disease of [place] coronary artery without angina pectoris Status: Chronic (5) Hypotension ICD Code: I95.9 - Hypotension, unspecified Assessment and Plan Ms. Stratton is a 72-year-old female with a history of lung cancer, CAD status post CABG, atrial fibrillation who presented to the emergency department on 11/04 due to palpitations. She was found to have atrial fibrillation with RVR. She was started on Cardizem drip. - Atrial fibrillation with RVR - Continue Amiodarone drip per cardiology. - Continue Digoxin, Diltiazem CD, low dose metoprolol. Increase metoprolol to 25mg BID. - [id number] score is at least 2. She would benefit from anticoagulation. Consider Apixaban 5mg BID. - Lovenox 60mg BID discontinued by hematology. - COPD exacerbation - Lung cancer (non-small cell). - Appreciate pulmonology input. We switched DuoNeb to Atrovent nebulizer treatment. - Titrate O2 down to keep O2 sat > 90%. - CAD status post CABG - Recent cardiac stent placed approximately 12 weeks ago. - We'll continue aspirin, Plavix, beta [place]. 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 However, Cardiac MRI shows no thrombus. - Cardiac MRI images reviewed. - CT images likely were related to artifact. - Start patient's home medications (vitamins). Full code. Lovenox. Discharge pending hematology/Oncology clearance. Problem Qualifiers (1) CAD (coronary artery disease): Qualified Codes: I25.10 - Atherosclerotic heart disease of [place] coronary artery without angina pectoris Saurabh Whalen DO Nov 06, 2017 14:35
[2017-11-06] MEDS ORDERED: B COMPLEX VITAMINS PO SCH (14:45)
[2017-11-06] MEDS ORDERED: ASCORBIC ACID 500 MG TAB PO ONE (15:45)
[2017-11-06] MEDS: CYANOCOBALAMIN 1,000 MCG TAB PO SCH (16:43)
[2017-11-06] MEDS: CHOLECALCIFEROL (VIT D3) 1000 UNIT TAB PO SCH (16:43)
[2017-11-06 16:47] LABS: AUTOMATED NEUTROPHIL # 1.8 TH/MM3 (1.8-7.7); BASOPHIL % 0.4 % (0.0-2.0); EOSINOPHIL % 0.7 % (0.0-4.0); HEMATOCRIT 29.2 % (35.0-46.0); HEMOGLOBIN 9.6 GM/DL (11.6-15.3); LYMPH % 14.1 % (9.0-44.0); LYMPHOCYTE # 0.4 TH/MM3 (1.0-4.8); MEAN CORPUSCULAR HEMOGLOBIN 28.4 PG (27.0-34.0); MEAN PLATELET VOLUME 6.6 FL (7.0-11.0); MONO % 17.6 % (0.0-8.0); MONOCYTE # 0.5 TH/MM3 (0-0.9); NEUT % 67.2 % (16.0-70.0); PLATELET COUNT 220 TH/MM3 (150-450); RED CELL DISTRIBUTION WIDTH 18.6 % (11.6-17.2); WHITE BLOOD COUNT 2.6 TH/MM3 (4.0-11.0)
[2017-11-06] MEDS: ATORVASTATIN 40 MG TAB PO SCH (21:11)
[2017-11-07] VITALS (9 sets, daily range): BP systolic 108–118; BP diastolic 64–86; PULSE 98–126; RESP 14–22; TEMP 98–98.5; O2SAT 92–100
[2017-11-07 05:00] LABS: BASOPHIL % 0.4 % (0.0-2.0); EOSINOPHIL % 0.5 % (0.0-4.0); HEMATOCRIT 27.8 % (35.0-46.0); HEMOGLOBIN 9.2 GM/DL (11.6-15.3); LYMPH % 8.4 % (9.0-44.0); LYMPHOCYTE # 0.4 TH/MM3 (1.0-4.8); MEAN CELL VOLUME 85.8 FL (80.0-100.0); MEAN CORPUSCULAR HEMOGLOBIN 28.5 PG (27.0-34.0); MEAN CORPUSCULAR HGB CONC 33.2 % (32.0-36.0); MEAN PLATELET VOLUME 6.6 FL (7.0-11.0); MONO % 15.1 % (0.0-8.0); MONOCYTE # 0.8 TH/MM3 (0-0.9); NEUT % 75.6 % (16.0-70.0); PLATELET COUNT 216 TH/MM3 (150-450); RED BLOOD COUNT 3.24 MIL/MM3 (4.00-5.30); RED CELL DISTRIBUTION WIDTH 18.6 % (11.6-17.2); WHITE BLOOD COUNT 5.3 TH/MM3 (4.0-11.0)
[2017-11-07] MEDS: RESP: IPRATROPIUM 0.5 MG/2.5 ML NEB NEB SCH ×3 (07:47→20:50)
[2017-11-07] MEDS: DILTIAZEM-CD 120 MG CAP ER PO SCH ×2 (09:00→09:58)
[2017-11-07] MEDS: METOPROLOL TARTRATE 50 MG TAB PO SCH ×4 (09:00→20:19)
[2017-11-07] MEDS: SODIUM CHLORIDE 0.9% FLUSH 10 ML FLUSH IV FLUSH SCH ×2 (09:56→20:21)
[2017-11-07] MEDS: ENOXAPARIN SODIUM 40 MG/0.4 ML SYRINGE SQ SCH (09:57)
[2017-11-07] MEDS: CHOLECALCIFEROL (VIT D3) 1000 UNIT TAB PO SCH (09:57)
[2017-11-07] MEDS: ASPIRIN EC 81 MG TABEC PO SCH (09:57)
[2017-11-07] MEDS: CLOPIDOGREL 75 MG TAB PO SCH (09:57)
[2017-11-07] MEDS: DIGOXIN 0.25 MG TAB PO SCH (09:58)
[2017-11-07] MEDS: CYANOCOBALAMIN 1,000 MCG TAB PO SCH (09:58)
[2017-11-07] MEDS: ASCORBIC ACID 500 MG TAB PO SCH (09:58)
--- NOTE | 2017-11-07 13:31 | PD.ONC.PN ---
Subjective Subjective Remarks Afebrile Pt reports feeling better overall Breathing is "the same its always been" Patient happy to hear she is no longer neutropenic Objective Data Date Time Temp Pulse Resp B/P (MAP) Pulse Ox O2 Delivery O2 Flow Rate FiO2 11/07/17 11:00 113 11/07/17 11:00 98.5 113 22 117/75 (89) 97 11/07/17 07:47 98 Nasal Cannula 3.00 11/07/17 07:00 98.0 126 20 115/72 (86) 92 11/07/17 07:00 126 11/07/17 03:00 106 11/07/17 03:00 98.2 106 14 114/73 (87) 96 11/06/17 23:00 98.0 92 14 122/74 (90) 96 11/06/17 23:00 92 11/06/17 19:28 95 Nasal Cannula 3.00 11/06/17 19:00 98.0 97 14 113/62 (79) 98 11/06/17 19:00 97 11/06/17 15:00 98.4 100 15 99/65 (76) 11/06/17 15:00 100 11/06/17 14:34 16 11/07/17 11/07/17 11/07/17 07:00 15:00 23:00 Intake Total 480 ml Balance 480 ml Result Diagram: 11/07/17 0440 11/05/17 1425 Laboratory Results Laboratory Tests Test 11/06/17 16:10 11/07/17 04:40 White Blood Count 2.6 TH/MM3 5.3 TH/MM3 Red Blood Count 3.40 MIL/MM3 3.24 MIL/MM3 Hemoglobin 9.6 GM/DL 9.2 GM/DL Hematocrit 29.2 % 27.8 % Mean Corpuscular Volume 86.0 FL 85.8 FL Mean Corpuscular Hemoglobin 28.4 PG 28.5 PG Mean Corpuscular Hemoglobin Concent 33.0 % 33.2 % Red Cell Distribution Width 18.6 % 18.6 % Platelet Count 220 TH/MM3 216 TH/MM3 Mean Platelet Volume 6.6 FL 6.6 FL Neutrophils (%) (Auto) 67.2 % 75.6 % Lymphocytes (%) (Auto) 14.1 % 8.4 % Monocytes (%) (Auto) 17.6 % 15.1 % Eosinophils (%) (Auto) 0.7 % 0.5 % Basophils (%) (Auto) 0.4 % 0.4 % Neutrophils # (Auto) 1.8 TH/MM3 4.0 TH/MM3 Lymphocytes # (Auto) 0.4 TH/MM3 0.4 TH/MM3 Monocytes # (Auto) 0.5 TH/MM3 0.8 TH/MM3 Eosinophils # (Auto) 0.0 TH/MM3 0.0 TH/MM3 Basophils # (Auto) 0.0 TH/MM3 0.0 TH/MM3 CBC Comment DIFF FINAL DIFF FINAL Differential Comment Administered Medications Medications (Trade) Dose Ordered Sig/Ramakrishna Route PRN Reason Start Time Stop Time Status Last Admin Dose Admin Sodium Chloride (NS Flush) 2 ml BID IV FLUSH 11/04/17 09:00 11/07/17 09:56 Atorvastatin Calcium (Lipitor) 40 mg HS PO 11/04/17 21:00 11/06/17 21:11 Aspirin (Ecotrin Ec) 81 mg DAILY PO 11/04/17 05:00 11/07/17 09:57 Clopidogrel Bisulfate (Plavix) 75 mg DAILY PO 11/04/17 05:00 11/07/17 09:57 Sodium Chloride ([employer] [place]) 2 spray Q4H PRN EACH NARE NASAL CONGESTION 11/04/17 05:00 11/04/17 11:51 Acetaminophen/ Hydrocodone Bitart ([place] 5-325 Mg) 1 tab Q4H PRN PO pain 3 - 10 11/04/17 05:00 11/06/17 12:41 Diltiazem HCl (Cardizem Cd) 120 mg DAILY PO 11/04/17 11:15 11/06/17 08:58 Ipratropium [place] (Atrovent Neb) 0.5 mg TID NEB NEB 11/04/17 14:00 11/07/17 13:12 Digoxin (Lanoxin) 0.25 mg DAILY PO 11/06/17 09:00 11/07/17 09:58 Metoprolol Tartrate (Lopressor) 50 mg Q12HR PO 11/06/17 09:00 11/06/17 21:11 Filgrastim (Neupogen Inj) 300 mcg DAILY@14 SQ 11/06/17 14:00 11/07/17 14:01 11/06/17 13:23 Enoxaparin Sodium (Lovenox Inj) 40 mg DAILY SQ 11/07/17 09:00 11/07/17 09:57 Cholecalciferol (Vitamin D3) 2,000 units DAILY PO 11/06/17 16:00 11/07/17 09:57 Cyanocobalamin (Vitamin B12) 1,000 mcg DAILY PO 11/06/17 16:00 11/07/17 09:58 Ascorbic Acid (Vitamin C) 500 mg DAILY PO 11/07/17 09:00 11/07/17 09:58 Objective Remarks GENERAL: Pleasant female, sitting up in chair at bedside in no acute distress SKIN: Warm and dry. HEAD: Normocephalic. EYES: No injection or drainage. NECK: Supple, trachea midline. CARDIOVASCULAR: Irregular rate rhythm. RESPIRATORY: Scattered rhonchi anteriorly. Patient currently getting a breathing treatment GASTROINTESTINAL: Abdomen soft, non-tender, nondistended. EXTREMITIES: No cyanosis. No significant edema NEUROLOGICAL: A&O 3. No obvious focal deficit. Assessment/Plan Problem List: (1) Non-small cell cancer of right lung ICD Codes: C34.91 - Malignant neoplasm of unspecified part of right bronchus or lung Status: Acute Plan: --was found to have a right mediastinal mass, pretracheal and pericardial adenopathy. Biopsy showed a non-small cell lung cancer with squamous cell histology. -- receiving carboplatin and Taxol as radiation sensitizing chemotherapy. (was hold on 11/03 d/t neutropenia) (2) Bicytopenia ICD Codes: D75.89 - Other specified diseases of blood and blood-forming organs Plan: --d/t chemotherapy --anemia and leukopenia Assessment 72y/o female with non-small cell lung cancer admitted with afib w/RVR h/o Locally advanced non-small cell lung cancer. Atrial fibrillation with rapid ventricular response. Hypotension/hypertension. History of malignant melanoma. Previous TIA. Anemia, chemotherapy induced. Arthritis. Leukopenia/neutropenia. Plan 1. D/C Neutropenic Precautions 2. Will give last dose of Neupogen today 3. Monitor CBC 4. Okay for discharge from oncology standpoint Attending Statement The exam, history, and the medical decision-making described in the above note were completed with the assistance of the mid-level provider. I reviewed and agree with the findings presented. I attest that I had a [id number] encounter with the patient on the same day, and personally performed and documented my assessment and findings in the medical record NSCLC XRT and Carbo Taxol hypotension/neutropenia treatment on hold afib rate 130s. cardiology following on Cardizem and digoxin and metoprolol Neupogen ANC 4000 afebrile D/C when cleared by cardiology continue PT d/w rn o/n events reviewed Elizabeth Henry Nov 07, 2017 13:31 Gerard Humphreys MD Nov 07, 2017 15:55
[2017-11-07] MEDS: FILGRASTIM 300 MCG/ML VIAL SQ SCH (14:18)
--- NOTE | 2017-11-07 15:01 | HHI.PR ---
Subjective Remarks This is a pleasant 72 y/o Female with NSCLC who states she was a heavy smoker of one pack and a quarter of cigarettes for more than 20 years She has Atrial Fibrillation followed by Cardiology, she has CAD status post CABG , came to ER due to palpitations, not able to tolerate Amiodarone continue Digoxin, Diltiazem CD, Low dose Metoprolol, but due to Hypotension her medicines were not given in am will be given in the afternoon, as per medical charge entry specialist okay to discharge home after Neupogen dose given this afternoon, Objective Vital Signs Date Time Temp Pulse Resp B/P (MAP) Pulse Ox O2 Delivery O2 Flow Rate FiO2 11/07/17 11:00 113 11/07/17 11:00 98.5 113 22 117/75 (89) 97 11/07/17 07:47 98 Nasal Cannula 3.00 11/07/17 07:00 98.0 126 20 115/72 (86) 92 11/07/17 07:00 126 11/07/17 03:00 106 11/07/17 03:00 98.2 106 14 114/73 (87) 96 11/06/17 23:00 98.0 92 14 122/74 (90) 96 11/06/17 23:00 92 11/06/17 19:28 95 Nasal Cannula 3.00 11/06/17 19:00 98.0 97 14 113/62 (79) 98 11/06/17 19:00 97 11/06/17 15:00 98.4 100 15 99/65 (76) 11/06/17 15:00 100 I/O 11/06/17 11/06/17 11/06/17 11/07/17 11/07/17 11/07/17 07:00 15:00 23:00 07:00 15:00 23:00 Intake Total 960 ml 250 ml 480 ml Output Total 750 ml Balance 210 ml 250 ml 480 ml Intake Oral 960 ml 250 ml 480 ml Output Urine Total 750 ml # Voids 3 3 # Bowel Movements 0 0 Result Diagram: 11/07/17 0440 11/05/17 1425 Imaging Last Impressions Cardiac MRI 11/05/17 0000 Signed Impressions: Service Date/Time: October 12:31 - CONCLUSION: 1. No mass or thrombus in the right atrium. This was artifact from unopacified blood. 2. Mediastinal mass. 3. Small right pleural effusion. 4. Small myocardial infarctions as described above. Mumtaz Jang MD Chest X-Ray 11/03/172008 Signed Impressions: Service Date/Time: Friday, November 03, 2017 20:31 - CONCLUSION: No significant change. Fernando Hines MD CT Angiography 11/03/172008 Signed Impressions: Service Date/Time: Friday, November 03, 2017 22:21 - CONCLUSION: 1. No pulmonary embolus. 2. Large right upper lobe paramediastinal mass again noted, slightly smaller in the interim. The mediastinal adenopathy has decreased slightly in the interim as well. 3. 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 Please see above and correlate clinically. If this is a real finding, I believe there is thrombus that extends into the right atrium. No filling defects are seen of the other cardiac chambers. Fernando Hines MD Procedures None Other Results Laboratory Tests Test 11/03/17 21:00 11/03/17 21:50 11/04/17 03:22 11/04/17 11:00 Plasma Cells 1 % Acanthocytes OCC Prothrombin Time 11.8 SEC Prothromb Time International Ratio 1.2 RATIO Activated Partial Thromboplast Time 36.6 SEC Blood Urea Nitrogen 14 MG/DL Creatinine 0.57 MG/DL Random Glucose 97 MG/DL Total Protein 6.2 GM/DL Albumin 2.6 GM/DL Calcium Level 8.1 MG/DL Alkaline Phosphatase 99 U/L Aspartate Amino Transf (AST/SGOT) 24 U/L Alanine Aminotransferase (ALT/SGPT) 22 U/L Total Bilirubin 0.6 MG/DL Sodium Level 141 MEQ/L Potassium Level 3.8 MEQ/L Chloride Level 105 MEQ/L Carbon Dioxide Level 29.1 MEQ/L Urine Color LIGHT-YELLOW Urine Turbidity CLEAR Urine pH 7.0 Urine Specific [place] 1.007 Urine Protein NEG mg/dL Urine Glucose (UA) NEG mg/dL Urine Ketones NEG mg/dL Urine Occult Blood NEG Urine Nitrite NEG Urine Bilirubin NEG Urine Urobilinogen LESS THAN 2.0 MG/DL Urine Leukocyte Esterase TRACE Urine WBC 2 /hpf Urine Squamous Epithelial Cells <1 /hpf Urine Mucus FEW /lpf Microscopic Urinalysis Comment CULT NOT INDICATED Atypical Lymphocytes % Basophilic Stippling FAINT Total Creatine Kinase 33 U/L Troponin I 0.03 NG/ML Test 11/05/17 14:25 11/07/17 04:40 Differential Total Cells Counted 100 Neutrophils % (Manual) 61 % Band Neutrophils % 3 % Lymphocytes % 18 % Monocytes % 15 % Basophils % 1 % Neutrophils # (Manual) 1.1 TH/MM3 Metamyelocytes 2 % Nucleated Red Blood Cells 1 /100 WBC Platelet Estimate NORMAL Platelet Morphology Comment NORMAL Ovalocytes 1+ Blood Urea Nitrogen 7 MG/DL Creatinine 0.50 MG/DL Random Glucose 89 MG/DL Calcium Level 8.0 MG/DL Sodium Level 142 MEQ/L Potassium Level 4.1 MEQ/L Chloride Level 105 MEQ/L Carbon Dioxide Level 31.6 MEQ/L Anion Gap 5 MEQ/L Estimat Glomerular Filtration Rate 122 ML/MIN White Blood Count 5.3 TH/MM3 Red Blood Count 3.24 MIL/MM3 Hemoglobin 9.2 GM/DL Hematocrit 27.8 % Mean Corpuscular Volume 85.8 FL Mean Corpuscular Hemoglobin 28.5 PG Mean Corpuscular Hemoglobin Concent 33.2 % Red Cell Distribution Width 18.6 % Platelet Count 216 TH/MM3 Mean Platelet Volume 6.6 FL Neutrophils (%) (Auto) 75.6 % Lymphocytes (%) (Auto) 8.4 % Monocytes (%) (Auto) 15.1 % Eosinophils (%) (Auto) 0.5 % Basophils (%) (Auto) 0.4 % Neutrophils # (Auto) 4.0 TH/MM3 Lymphocytes # (Auto) 0.4 TH/MM3 Monocytes # (Auto) 0.8 TH/MM3 Eosinophils # (Auto) 0.0 TH/MM3 Basophils # (Auto) 0.0 TH/MM3 CBC Comment DIFF FINAL Differential Comment Objective Remarks GENERAL: Alert, oriented 3, NAD. SKIN: Warm and dry. HEAD: Normocephalic. EYES: No scleral icterus. No injection or drainage. NECK: Supple, trachea midline. No JVD or lymphadenopathy. CARDIOVASCULAR: Irregularly irregular, tachycardic without murmurs, gallops, or rubs. RESPIRATORY: Breath sounds equal bilaterally. No accessory muscle use. GASTROINTESTINAL: Abdomen soft, non-tender, nondistended. MUSCULOSKELETAL: No cyanosis, or edema. BACK: Nontender without obvious deformity. No CVA tenderness. Medications and IVs Laboratory Tests Test 11/03/17 21:00 11/03/17 21:50 11/04/17 03:22 11/04/17 11:00 Plasma Cells 1 % Acanthocytes OCC Prothrombin Time 11.8 SEC Prothromb Time International Ratio 1.2 RATIO Activated Partial Thromboplast Time 36.6 SEC Blood Urea Nitrogen 14 MG/DL Creatinine 0.57 MG/DL Random Glucose 97 MG/DL Total Protein 6.2 GM/DL Albumin 2.6 GM/DL Calcium Level 8.1 MG/DL Alkaline Phosphatase 99 U/L Aspartate Amino Transf (AST/SGOT) 24 U/L Alanine Aminotransferase (ALT/SGPT) 22 U/L Total Bilirubin 0.6 MG/DL Sodium Level 141 MEQ/L Potassium Level 3.8 MEQ/L Chloride Level 105 MEQ/L Carbon Dioxide Level 29.1 MEQ/L Urine Color LIGHT-YELLOW Urine Turbidity CLEAR Urine pH 7.0 Urine Specific [place] 1.007 Urine Protein NEG mg/dL Urine Glucose (UA) NEG mg/dL Urine Ketones NEG mg/dL Urine Occult Blood NEG Urine Nitrite NEG Urine Bilirubin NEG Urine Urobilinogen LESS THAN 2.0 MG/DL Urine Leukocyte Esterase TRACE Urine WBC 2 /hpf Urine Squamous Epithelial Cells <1 /hpf Urine Mucus FEW /lpf Microscopic Urinalysis Comment CULT NOT INDICATED Atypical Lymphocytes % Basophilic [place] FAINT Total Creatine Kinase 33 U/L Troponin I 0.03 NG/ML Test 11/05/17 14:25 11/07/17 04:40 Differential Total Cells Counted 100 Neutrophils % (Manual) 61 % Band Neutrophils % 3 % Lymphocytes % 18 % Monocytes % 15 % Basophils % 1 % Neutrophils # (Manual) 1.1 TH/MM3 Metamyelocytes 2 % Nucleated Red Blood Cells 1 /100 WBC Platelet Estimate NORMAL Platelet Morphology Comment NORMAL Ovalocytes 1+ Blood Urea Nitrogen 7 MG/DL Creatinine 0.50 MG/DL Random Glucose 89 MG/DL Calcium Level 8.0 MG/DL Sodium Level 142 MEQ/L Potassium Level 4.1 MEQ/L Chloride Level 105 MEQ/L Carbon Dioxide Level 31.6 MEQ/L Anion Gap 5 MEQ/L Estimat Glomerular Filtration Rate 122 ML/MIN White Blood Count 5.3 TH/MM3 Red Blood Count 3.24 MIL/MM3 Hemoglobin 9.2 GM/DL Hematocrit 27.8 % Mean Corpuscular Volume 85.8 FL Mean Corpuscular Hemoglobin 28.5 PG Mean Corpuscular Hemoglobin Concent 33.2 % Red Cell Distribution Width 18.6 % Platelet Count 216 TH/MM3 Mean Platelet Volume 6.6 FL Neutrophils (%) (Auto) 75.6 % Lymphocytes (%) (Auto) 8.4 % Monocytes (%) (Auto) 15.1 % Eosinophils (%) (Auto) 0.5 % Basophils (%) (Auto) 0.4 % Neutrophils # (Auto) 4.0 TH/MM3 Lymphocytes # (Auto) 0.4 TH/MM3 Monocytes # (Auto) 0.8 TH/MM3 Eosinophils # (Auto) 0.0 TH/MM3 Basophils # (Auto) 0.0 TH/MM3 CBC Comment DIFF FINAL Differential Comment A/P Assessment and Plan 1. Atrial Fibrillation with RVR. not able to tolerate Amiodarone, continue on Digoxin, Diltiazem and Beta Blockers but not given all her medicines in am due to Hypotension, discussed with nurse will give her medicines now and follow recommendations by Cardiology as per medical charge entry specialist okay to discharge home after Neupogen today but not yet cleared by Cardiology. discontinued Lovenox 2. COPD exacerbation stable continue with mild expiratory wheezing. 3. Lung cancer Non small cell as per talent management specialist switched DuoNeb to Atrovent nebulizer treatment. Titrate Oxygen down to keep Oxygen over 90% 4. CAD status post CABG, Recent Cardiac Stent placement approximately 12 weeks ago to continue Aspirin, Plavix and Beta Kevin. 5. 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 Lovenox. Discharge Planning Clear for discharge by science specialist awaiting final by Cardiology continue with Atrial Fibrillation with RVR, not yet controlled due to not able to give the medicines due to Hypotension. Teddy Heredia MD Nov 07, 2017 15:01
[2017-11-07] MEDS: ATORVASTATIN 40 MG TAB PO SCH (20:19)
[2017-11-07] MEDS ORDERED: DILTIAZEM-CD 120 MG CAP ER PO ONE (22:15)
[2017-11-08 00:05] VITALS: BP 134/76; PULSE 88; RESP 18; TEMP 97.3; O2SAT 99
[2017-11-08 05:08] VITALS: BP 120/66; PULSE 82; RESP 16; TEMP 97.7; O2SAT 97
[2017-11-08] MEDS: RESP: IPRATROPIUM 0.5 MG/2.5 ML NEB NEB SCH ×2 (08:00→14:00)
--- NOTE | 2017-11-08 08:06 | HHI.PR ---
Subjective Remarks This is a pleasant 72 y/o Female with NSCLC who states she was a heavy smoker of one pack and a quarter of cigarettes for more than 20 years She has Atrial Fibrillation followed by Cardiology, she has CAD status post CABG , came to ER due to palpitations, not able to tolerate Amiodarone continue Digoxin, Diltiazem CD, Low dose Metoprolol, but due to Hypotension her medicines were not given in am will be given in the afternoon, as per insurance claims specialist okay to discharge home after Neupogen dose given this afternoon. 11/08: Seen in her bedroom, discussed with Nurse, with Gardening Manager Miss Curiel and with Oncology's GASOLINE SERVICE ATTENDANT Miss Elizabeth Henry states she is been cleared for discharge, and as per business development specialist no further management, no reason to keep the patient Hospitalized, she will go to Oncology clinic [facility] Thursday11/10/17 for Chemotherapy. no nausea, vomit or diarrhea. Objective Vital Signs Date Time Temp Pulse Resp B/P (MAP) Pulse Ox O2 Delivery O2 Flow Rate FiO2 11/08/17 05:08 97.7 82 16 120/66 (84) 97 11/08/17 00:05 88 11/08/17 00:05 97.3 88 18 134/76 (95) 99 11/07/17 22:00 118 112/86 (95) 11/07/17 20:50 99 Nasal Cannula 3.00 11/07/17 20:15 114 11/07/17 20:00 98.0 99 18 108/80 (89) 100 11/07/17 15:55 98.4 98 18 118/64 (82) 96 11/07/17 11:00 113 11/07/17 11:00 98.5 113 22 117/75 (89) 97 I/O 11/07/17 11/07/17 11/07/17 11/08/17 11/08/17 11/08/17 07:00 15:00 23:00 07:00 15:00 23:00 Intake Total 480 ml 360 ml 720 ml Balance 480 ml 360 ml 720 ml Intake Oral 480 ml 360 ml 720 ml # Voids 3 1 2 Result Diagram: 11/07/17 0440 11/05/17 1425 Imaging Last Impressions Cardiac MRI 11/05/17 0000 Signed Impressions: Service Date/Time: October 12:31 - CONCLUSION: 1. No mass or thrombus in the right atrium. This was artifact from unopacified blood. 2. Mediastinal mass. 3. Small right pleural effusion. 4. Small myocardial infarctions as described above. Mumtaz Jang MD Chest X-Ray 11/03/172008 Signed Impressions: Service Date/Time: Friday, November 03, 2017 20:31 - CONCLUSION: No significant change. Fernando Hines MD CT Angiography 11/03/172008 Signed Impressions: Service Date/Time: Friday, November 03, 2017 22:21 - CONCLUSION: 1. No pulmonary embolus. 2. Large right upper lobe paramediastinal mass again noted, slightly smaller in the interim. The mediastinal adenopathy has decreased slightly in the interim as well. 3. 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 Please see above and correlate clinically. If this is a real finding, I believe there is thrombus that extends into the right atrium. No filling defects are seen of the other cardiac chambers. Fernando Hines MD Procedures None Other Results Laboratory Tests Test 11/03/17 21:00 11/03/17 21:50 11/04/17 03:22 11/04/17 11:00 Plasma Cells 1 % Acanthocytes OCC Prothrombin Time 11.8 SEC Prothromb Time International Ratio 1.2 RATIO Activated Partial Thromboplast Time 36.6 SEC Blood Urea Nitrogen 14 MG/DL Creatinine 0.57 MG/DL Random Glucose 97 MG/DL Total Protein 6.2 GM/DL Albumin 2.6 GM/DL Calcium Level 8.1 MG/DL Alkaline Phosphatase 99 U/L Aspartate Amino Transf (AST/SGOT) 24 U/L Alanine Aminotransferase (ALT/SGPT) 22 U/L Total Bilirubin 0.6 MG/DL Sodium Level 141 MEQ/L Potassium Level 3.8 MEQ/L Chloride Level 105 MEQ/L Carbon Dioxide Level 29.1 MEQ/L Urine Color LIGHT-YELLOW Urine Turbidity CLEAR Urine pH 7.0 Urine Specific [place] 1.007 Urine Protein NEG mg/dL Urine Glucose (UA) NEG mg/dL Urine Ketones NEG mg/dL Urine Occult Blood NEG Urine Nitrite NEG Urine Bilirubin NEG Urine Urobilinogen LESS THAN 2.0 MG/DL Urine Leukocyte Esterase TRACE Urine WBC 2 /hpf Urine Squamous Epithelial Cells <1 /hpf Urine Mucus FEW /lpf Microscopic Urinalysis Comment CULT NOT INDICATED Atypical Lymphocytes % Basophilic [place] FA[place] Total Creatine Kinase 33 U/L Troponin I 0.03 NG/ML Test 11/05/17 14:25 11/07/17 04:40 Differential Total Cells Counted 100 Neutrophils % (Manual) 61 % Band Neutrophils % 3 % Lymphocytes % 18 % Monocytes % 15 % Basophils % 1 % Neutrophils # (Manual) 1.1 TH/MM3 Metamyelocytes 2 % Nucleated Red Blood Cells 1 /100 WBC Platelet Estimate NORMAL Platelet Morphology Comment NORMAL Ovalocytes 1+ Blood Urea Nitrogen 7 MG/DL Creatinine 0.50 MG/DL Random Glucose 89 MG/DL Calcium Level 8.0 MG/DL Sodium Level 142 MEQ/L Potassium Level 4.1 MEQ/L Chloride Level 105 MEQ/L Carbon Dioxide Level 31.6 MEQ/L Anion Gap 5 MEQ/L Estimat Glomerular Filtration Rate 122 ML/MIN White Blood Count 5.3 TH/MM3 Red Blood Count 3.24 MIL/MM3 Hemoglobin 9.2 GM/DL Hematocrit 27.8 % Mean Corpuscular Volume 85.8 FL Mean Corpuscular Hemoglobin 28.5 PG Mean Corpuscular Hemoglobin Concent 33.2 % Red Cell Distribution Width 18.6 % Platelet Count 216 TH/MM3 Mean Platelet Volume 6.6 FL Neutrophils (%) (Auto) 75.6 % Lymphocytes (%) (Auto) 8.4 % Monocytes (%) (Auto) 15.1 % Eosinophils (%) (Auto) 0.5 % Basophils (%) (Auto) 0.4 % Neutrophils # (Auto) 4.0 TH/MM3 Lymphocytes # (Auto) 0.4 TH/MM3 Monocytes # (Auto) 0.8 TH/MM3 Eosinophils # (Auto) 0.0 TH/MM3 Basophils # (Auto) 0.0 TH/MM3 CBC Comment DIFF FINAL Differential Comment Objective Remarks GENERAL: Alert, oriented 3, NAD. SKIN: Warm and dry. HEAD: Normocephalic. EYES: No scleral icterus. No injection or drainage. NECK: Supple, trachea midline. No JVD or lymphadenopathy. CARDIOVASCULAR: Irregularly irregular, tachycardic without murmurs, gallops, or rubs. RESPIRATORY: Breath sounds equal bilaterally. No accessory muscle use. GASTROINTESTINAL: Abdomen soft, non-tender, nondistended. MUSCULOSKELETAL: No cyanosis, or edema. BACK: Nontender without obvious deformity. No CVA tenderness. Medications and IVs Current Medications Medications (Trade) Dose Ordered Sig/Ramakrishna Route Start Time Stop Time Status Last Admin (NS Flush) 2 ml UNSCH PRN IV FLUSH 11/03/17 23:30 (NS Flush) 2 ml BID IV FLUSH 11/04/17 09:00 11/07/17 20:21 (Narcan Inj) 0.4 mg UNSCH PRN IV PUSH 11/03/17 23:30 (Lipitor) 40 mg HS PO 11/04/17 21:00 11/07/17 20:19 (Ecotrin Ec) 81 mg DAILY PO 11/04/17 05:00 11/07/17 09:57 (Plavix) 75 mg DAILY PO 11/04/17 05:00 11/07/17 09:57 ([place]) 2 spray Q4H PRN EACH NARE 11/04/17 05:00 11/04/17 11:51 ([place] 5-325 Mg) 1 tab Q4H PRN PO 11/04/17 05:00 11/06/17 12:41 Amiodarone HCl 450 mg/Dextrose 250 ml @ 33.33 mls/ hr Q7H31M PRN IV 11/04/17 12:00 (Cardizem Cd) 120 mg DAILY PO 11/04/17 11:15 11/06/17 08:58 (Atrovent Neb) 0.5 mg TID NEB NEB 11/04/17 14:00 11/07/17 20:50 (Atrovent Neb) 0.5 mg Q4HR NEB PRN NEB 11/04/17 14:00 (Pill Splitter) 1 ea UNSCH PRN OTHER 11/04/17 15:45 Amiodarone HCl 450 mg/Dextrose 250 ml @ 33.33 mls/ hr Q7H31M PRN IV 11/04/17 20:45 (Lanoxin) 0.25 mg DAILY PO 11/06/17 09:00 11/07/17 09:58 (Lopressor) 50 mg Q12HR PO 11/06/17 09:00 11/07/17 20:19 (Lovenox Inj) 40 mg DAILY SQ 11/07/17 09:00 11/07/17 09:57 (Vitamin D3) 2,000 units DAILY PO 11/06/17 16:00 11/07/17 09:57 (Vitamin B12) 1,000 mcg DAILY PO 11/06/17 16:00 11/07/17 09:58 (Vitamin C) 500 mg DAILY PO 11/07/17 09:00 11/07/17 09:58 A/P Assessment and Plan 1. Atrial Fibrillation with RVR. not able to tolerate Amiodarone, continue on Digoxin, Diltiazem and Beta Blockers but not given all her medicines in am due to Hypotension, discussed with nurse will give her medicines now and follow recommendations by Cardiology as per insurance claims specialist okay to discharge home after Neupogen today but not yet cleared by Cardiology. discontinued Lovenox Stable today to go Home with [facility]. 2. COPD exacerbation stable Improved her Expiratory Wheezing, continue Bronchodilator, Mucolytic and Incentive spirometry at home. 3. Lung cancer Non small cell as per demolition specialist switched DuoNeb to Atrovent nebulizer treatment. Titrate Oxygen down to keep Oxygen over 90%. 4. CAD status post CABG, Recent Cardiac Stent placement approximately 12 weeks ago to continue Aspirin, Plavix and Beta Kevin. 5. 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 Discussed with Nurse and Charge Nurse Estephania Cohen Discussed with Gardening Manager Miss Curiel Discussed with Oncology's GASOLINE SERVICE ATTENDANT Elizabeth Henry Full code. Lovenox. Discharge Planning Clear for discharge by development specialist no further management as per business development specialist okay to go home on [facility] Teddy Heredia MD Nov 08, 2017 08:06
[2017-11-08 09:00] VITALS: BP 108/70; PULSE 95; RESP 20; TEMP 97.9; O2SAT 97
[2017-11-08] MEDS: CHOLECALCIFEROL (VIT D3) 1000 UNIT TAB PO SCH (10:11)
[2017-11-08] MEDS: ENOXAPARIN SODIUM 40 MG/0.4 ML SYRINGE SQ SCH (10:11)
[2017-11-08] MEDS: CYANOCOBALAMIN 1,000 MCG TAB PO SCH (10:12)
[2017-11-08] MEDS: ASCORBIC ACID 500 MG TAB PO SCH (10:12)
[2017-11-08] MEDS: ASPIRIN EC 81 MG TABEC PO SCH (10:12)
[2017-11-08] MEDS: CLOPIDOGREL 75 MG TAB PO SCH (10:12)
[2017-11-08] MEDS: SODIUM CHLORIDE 0.9% FLUSH 10 ML FLUSH IV FLUSH SCH (10:13)
[2017-11-08] MEDS: DIGOXIN 0.25 MG TAB PO SCH (10:13)
[2017-11-08] MEDS: DILTIAZEM-CD 120 MG CAP ER PO SCH (10:13)
[2017-11-08] MEDS: METOPROLOL TARTRATE 50 MG TAB PO SCH (10:13)
--- NOTE | 2017-11-08 12:11 | HHI.FF ---
Face to Face Verification Diagnosis: (1) COPD (chronic obstructive pulmonary disease) (2) Atrial fibrillation with RVR (3) Non-small cell cancer of right lung Occupational Therapy Order: Evaluate and Treat Home Health Nursing Order: Medical education Signs/symptoms of disease process Medication education-adverse effect Nursing assessment with vital signs I have seen patient Julisa Stratton on 11/08/17. My clinical findings support the need for the requested home health care services because: Ltd mobility - disease progression I certify that my clinical findings support that this patient is homebound because: Unsafe to leave home unassisted Teddy Heredia MD Nov 08, 2017 12:11
--- NOTE | 2017-11-08 12:13 | HHI.DS ---
Discharge Summary Admission Date Nov 03, 2017 at 23:22 Discharge Date: Nov 08, 2017 Admitting Diagnosis Afib with RVR (1) Atrial fibrillation with RVR ICD Code: I48.91 - Unspecified atrial fibrillation Diagnosis: Principal (2) Non-small cell cancer of right lung ICD Code: C34.91 - Malignant neoplasm of unspecified part of right bronchus or lung Diagnosis: Principal Status: Acute (3) COPD (chronic obstructive pulmonary disease) ICD Code: J44.9 - Chronic obstructive pulmonary disease, unspecified Diagnosis: Principal (4) CAD (coronary artery disease) ICD Code: I25.10 - Atherosclerotic heart disease of [place] coronary artery without angina pectoris Diagnosis: Principal Status: Chronic (5) Hypotension ICD Code: I95.9 - Hypotension, unspecified Diagnosis: Principal Procedures None Brief History - From Admission 72-year-old female with a past medical history significant for 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 Peterson), hypertension and hyperlipidemia presents with palpitations that started 2017 while she was watching television. She had her first known episode of atrial fibrillation with RVR in August 2017 and was started on Cardizem for his well as metoprolol. She had not taken her Cardizem and there is some question of whether the oncologist may have recommended that she stopped due to low blood pressure. She was in atrial fibrillation with RVR in the ED and is admitted on Cardizem drip for rate control. The patient is seen in her hospital room. She is short of breath with minimal exertion and with conversation. CT pulmonary angiogram showed no PE, large right upper lobe paramediastinal mass that was slightly smaller since prior study and mediastinal adenopathy that was also slightly decreased in size since prior study. There was a questionable thrombus of these. Vena cava possibly extending into the right atrium versus a shadow from contrast injected into the [id number]-[id number]. Her chest x-ray showed no significant change from prior study. She denies any associated chest pain. She denies any recent fevers, chills, nausea, vomiting, or cold or flu symptoms. She does report some diarrhea that was managed with a prescription medication. Her last episode was yesterday morning. CBC/BMP: 11/07/17 0440 11/05/17 1425 Significant Findings Laboratory Tests Test 11/05/17 14:25 11/06/17 16:10 11/07/17 04:40 White Blood Count 1.7 TH/MM3 (4.0-11.0) 2.6 TH/MM3 (4.0-11.0) Red Blood Count 3.23 MIL/MM3 (4.00-5.30) 3.40 MIL/MM3 (4.00-5.30) 3.24 MIL/MM3 (4.00-5.30) Hemoglobin 9.3 GM/DL (11.6-15.3) 9.6 GM/DL (11.6-15.3) 9.2 GM/DL (11.6-15.3) Hematocrit 27.6 % (35.0-46.0) 29.2 % (35.0-46.0) 27.8 % (35.0-46.0) Red Cell Distribution Width 17.9 % (11.6-17.2) 18.6 % (11.6-17.2) 18.6 % (11.6-17.2) Mean Platelet Volume 6.9 FL (7.0-11.0) 6.6 FL (7.0-11.0) 6.6 FL (7.0-11.0) Monocytes (%) (Auto) 23.9 % (0.0-8.0) 17.6 % (0.0-8.0) 15.1 % (0.0-8.0) Neutrophils # (Auto) 0.9 TH/MM3 (1.8-7.7) Lymphocytes # (Auto) 0.3 TH/MM3 (1.0-4.8) 0.4 TH/MM3 (1.0-4.8) 0.4 TH/MM3 (1.0-4.8) Monocytes % 15 % (0-8) Neutrophils # (Manual) 1.1 TH/MM3 (1.8-7.7) Metamyelocytes 2 % (0-1) Nucleated Red Blood Cells 1 /100 WBC (0-0) Ovalocytes 1+ (NORMAL) Calcium Level 8.0 MG/DL (8.5-10.1) Neutrophils (%) (Auto) 75.6 % (16.0-70.0) Lymphocytes (%) (Auto) 8.4 % (9.0-44.0) Imaging Last Impressions Cardiac MRI 11/05/17 0000 Signed Impressions: Service Date/Time: October 12:31 - CONCLUSION: 1. No mass or thrombus in the right atrium. This was artifact from unopacified blood. 2. Mediastinal mass. 3. Small right pleural effusion. 4. Small myocardial infarctions as described above. Mumtaz Jang MD Chest X-Ray 11/03/172008 Signed Impressions: Service Date/Time: Friday, November 03, 2017 20:31 - CONCLUSION: No significant change. Fernando Hines MD CT Angiography 11/03/172008 Signed Impressions: Service Date/Time: Friday, November 03, 2017 22:21 - CONCLUSION: 1. No pulmonary embolus. 2. Large right upper lobe paramediastinal mass again noted, slightly smaller in the interim. The mediastinal adenopathy has decreased slightly in the interim as well. 3. 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 Please see above and correlate clinically. If this is a real finding, I believe there is thrombus that extends into the right atrium. No filling defects are seen of the other cardiac chambers. Fernando Hines MD PE at Discharge GENERAL: Alert, oriented 3, NAD. SKIN: Warm and dry. HEAD: Normocephalic. EYES: No scleral icterus. No injection or drainage. NECK: Supple, trachea midline. No JVD or lymphadenopathy. CARDIOVASCULAR: Irregularly irregular, tachycardic without murmurs, gallops, or rubs. RESPIRATORY: Breath sounds equal bilaterally. No accessory muscle use. GASTROINTESTINAL: Abdomen soft, non-tender, nondistended. MUSCULOSKELETAL: No cyanosis, or edema. BACK: Nontender without obvious deformity. No CVA tenderness. Hospital Course This is a pleasant 72 y/o Female with NSCLC who states she was a heavy smoker of one pack and a quarter of cigarettes for more than 20 years She has Atrial Fibrillation followed by Cardiology, she has CAD status post CABG , came to ER due to palpitations, not able to tolerate Amiodarone continue Digoxin, Diltiazem CD, Low dose Metoprolol, but due to Hypotension her medicines were not given in am will be given in the afternoon, as per credit administration specialist okay to discharge home after Neupogen dose given this afternoon. 11/08: Seen in her bedroom, discussed with Nurse, with Energy Infrastructure Engineer Veena and with Oncology's SALES TEAM RECRUITER Miss Elizabeth PalaciosSeverino Henry states she is been cleared for discharge, and as per librarian specialist no further management, no reason to keep the patient Hospitalized, she will go to Oncology clinic [facility] Thursday11/10/17 for Chemotherapy. no nausea, vomit or diarrhea. Assessment and Plan 1. Atrial Fibrillation with RVR. not able to tolerate Amiodarone, continue on Digoxin, Diltiazem and Beta Blockers but not given all her medicines in am due to Hypotension, discussed with nurse will give her medicines now and follow recommendations by Cardiology as per credit administration specialist okay to discharge home after Neupogen today but not yet cleared by Cardiology. discontinued Lovenox Stable today to go Home with [facility]. 2. COPD exacerbation stable Improved her Expiratory Wheezing, continue Bronchodilator, Mucolytic and Incentive spirometry at home. 3. Lung cancer Non small cell as per operating room specialist switched DuoNeb to Atrovent nebulizer treatment. Titrate Oxygen down to keep Oxygen over 90%. 4. CAD status post CABG, Recent Cardiac Stent placement approximately 12 weeks ago to continue Aspirin, Plavix and Beta Kevin. 5. 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 Discussed with Nurse and Charge Nurse Miss Estephania Cohen Discussed with Energy Infrastructure Engineer Miss Curiel Discussed with Oncology's SALES TEAM RECRUITER Miss Elizabeth PalaciosSeverino Carl Full code. Lovenox. Discharge Planning Clear for discharge by software implementation specialist no further management as per librarian specialist okay to go home on [facility] Pt Condition on Discharge: Stable Discharge Disposition: Disch w/ Home Health Serv Discharge Time: > 30 minutes Discharge Instructions DIET: Follow Instructions for: As Tolerated, No Restrictions Activities you can perform: Regular-No Restrictions Teddy Heredia MD Nov 08, 2017 12:13
[2017-11-08] MEDS ORDERED: METO-309 PO (12:17)
[2017-11-08] MEDS ORDERED: DILT120C50 PO (12:17)
[2017-11-08] MEDS ORDERED: HYDR-3516 PO (12:17)
[2017-11-08] MEDS ORDERED: DIGO0.25 PO (12:17)
[2017-11-08 12:30] VITALS: BP 110/68; PULSE 90; RESP 18; TEMP 98; O2SAT 95
[2017-11-08] MEDS ORDERED: SODIUM CHLORIDE 0.9% FLUSH 10 ML FLUSH IV FLUSH PRN (13:30)
== END 2017-11-08 17:56 | disposition home health service (06) | DRG 309 ==
LOC: NEPC 19:55 → NEDA 23:22 → HCIN 11-04 02:16 → HCVI 11-05 10:55 → HCIN 11-07 14:42
PROVIDERS: ADMIT Internal Medicine; ATTEND Internal Medicine
DX: I48.91 Unspecified atrial fibrillation (principal); C34.91 Malignant neoplasm of unspecified part of right bronchus or lung; D64.81 Anemia due to antineoplastic chemotherapy; T45.1X5A Adverse effect of antineoplastic and immunosuppressive drugs, initial encounter; I95.9 Hypotension, unspecified; D70.9 Neutropenia, unspecified; J44.1 Chronic obstructive pulmonary disease with (acute) exacerbation; I25.10 Atherosclerotic heart disease of native coronary artery without angina pectoris; Z95.1 Presence of aortocoronary bypass graft; Z95.5 Presence of coronary angioplasty implant and graft; I10 Essential (primary) hypertension; E78.5 Hyperlipidemia, unspecified; K44.9 Diaphragmatic hernia without obstruction or gangrene; Z79.02 Long term (current) use of antithrombotics/antiplatelets; Z79.82 Long term (current) use of aspirin; M19.90 Unspecified osteoarthritis, unspecified site; Z86.73 Personal history of transient ischemic attack (TIA), and cerebral infarction without residual deficits; Z87.891 Personal history of nicotine dependence; Z85.820 Personal history of malignant melanoma of skin
CPT/HCPCS: 71045; 71275; 75561; 80048; 80053; 81001; 82550; 84484; 85007; 85025; 85027; 85610; 85730; 93005; 94640; 94664; 96361; 96374; 96376; A9579; J1160; J1442; J1642; J1650; J2405; J7030; J7644; Q9967

== ENCOUNTER 2017-11-17 03:07 | Emergency (ER) | payer MEDICARE, BC ==
[~2017-11-17] VITALS: Ht 165.1 cm; Wt 77.0 kg
[~2017-11-17 03:07] MED LIST changes: +DIGO0.25 PO; +DILT120C50 PO; -DILT300C3 PO; +HYDR-3516 PO; -LOSA25TA PO; -SYMB160A INH
[2017-11-17 03:17] VITALS: BP 140/61; PULSE 85; RESP 18; TEMP 98.1; O2SAT 99
[2017-11-17 04:12] VITALS: BP 107/71; PULSE 76; RESP 16; O2SAT 97
--- NOTE | 2017-11-17 04:34 | PD ---
HPI Chief Complaint: OD/ Ingestion Time Seen by Provider: 03:23 Travel History International Travel<30 days: No Contact w/Intl Traveler<30days: No Traveled to known affect area: No History of Present Illness HPI 72-year-old female came to the emergency room brought by EMS after she accidentally took 2 of her Cardizem pills at 1 AM this morning. Each pill was 240 mg strength. EMS had called poison control and were recommended that he should bring her to the emergency room to be evaluated. Patient is otherwise feeling okay. Vital signs are stable. No history of vomiting after taking the pills. PFSH Past Medical History Narrative Medical List of her past medical, surgical, social and family history is reviewed from the nursing note Hx Anticoagulant Therapy: Yes (PLAVIX) Arthritis: Yes Asthma: Yes Atrial Fibrillation: Yes Anxiety: Yes Depression: Yes Heart Rhythm Problems: Yes (AFIB) Cancer: Yes (MELANOMA, LUNG) Cardiac Catheterization: Yes Cardiovascular Problems: Yes Chemotherapy: Yes (LAST CHEMO TOMORROW) COPD: Yes Coronary Artery Disease: Yes Diabetes: No Diminished Hearing: No Endocrine: No Gastrointestinal Disorders: Yes (HIATAL HERNIA) Genitourinary: No Hiatal Hernia: Yes Hypertension: Yes Immune Disorder: No Implanted Vascular Access Dvce: Yes (RIGHT SIDE) Musculoskeletal: Yes Neurologic: Yes Psychiatric: Yes Reproductive: No Respiratory: Yes Radiation Therapy: Yes Thyroid Disease: No Menopausal: Yes Past Surgical History Abdominal Surgery: Yes (appendectomy as a child) Appendectomy: Yes Body Medical Devices: CARDIAC STENTS Cardiac Surgery: Yes (CABG x5 2010, stent 3 months ago) Coronary Artery Bypass Graft: Yes Thoracic Surgery: Yes Other Surgery: Yes (RIGHT LUNG BIOPSY) Social History Alcohol Use: No Tobacco Use: No Substance Use: No Allergies-Medications (Allergen,Severity, Reaction): Coded Allergies: epinephrine (Verified Adverse Reaction, Severe, Hypotension, 11/17/17) lisinopril (Verified Adverse Reaction, Severe, Cough, 11/17/17) Comments List of her allergies reviewed from the nursing note. Reported Meds & Prescriptions Reported Meds & Active Scripts Active Hydrocodone-Acetamin 5-325 mg (Hydrocodone/Acetaminophen) 5 Mg-325 Mg Tablet 1 Tab PO Q4H PRN DO NOT TAKE THIS MEDICINE IF YOU WILL DRIVE A CAR OR USE A MACHINE, ONLY USE IT WHEN RESTING AT HOME. Diltiazem CD 24 HR 120 Mg Caper 120 Mg PO DAILY Lopressor (Metoprolol Tartrate) 50 Mg Tab 50 Mg PO Q12HR Digoxin 0.25 Mg Tab 0.25 Mg PO DAILY Duoneb (Ipratropium-Albuterol Neb) 0.5-2.5 Mg/3 Ml Neb 1 Nebule INH Q4HR NEB Oxygen (O2) Device Liter RODO.CANULA CONTINUOUS Oxygen Concentrator Portable Gaseous 2 L/min via Nasal Canula Continuous For 99 months Albuterol Neb (Albuterol Sulfate) 1.25 Mg/3 Ml Neb 1.25 Mg NEB Q6HR NEB PRN Reported Probiotic (Lactobacillus Acidophilus) 10 Billion Cell Cap 1 Cap PO DAILY Psyllium Powder 100 % Pow 1 Scoop PO BID PRN 1 rounded TEASPOON in 8 oz of liquid at the first sign of irregularity. Vitamin B-12 (Cyanocobalamin) 500 Mcg Tab 1,000 Mcg PO DAILY B Complex (B-Complex Vitamins) 1 Cap 2 Cap PO DAILY Katharine-C 500 mg Tablet (Ascorbate Calcium/Bioflavonoid) 500 Mg-200 Mg Tablet DAILY Vitamin D3 (Cholecalciferol) 2,000 Unit Cap 2,000 Units PO DAILY Msm (Methylsulfonylmethane) 1,000 Mg Cap 1,500 Mg PO DAILY Mirtazapine 15 Mg Tab 22 Mg PO HS Plavix (Clopidogrel Bisulfate) 75 Mg Tab 75 Mg PO DAILY Nitrostat SL (Nitroglycerin) 0.4 Mg Subl 0.4 Mg SL DIRECTED PRN 1 tablet under the tongue as needed for chest pain. Repeat every 5 minutes for a total of 3 DOSES or call 911 if NO relief. Glucosamine (Glucosamine Sulfate) 750 Mg Cap 1,500 Mg PO DAILY Atorvastatin (Atorvastatin Calcium) 40 Mg Tab 40 Mg PO HS Aspirin EC (Aspirin) 81 Mg Tabdr 81 Mg PO DAILY Narrative Medication List of her home medications reviewed from the nursing note. Review of Systems Except as stated in HPI: all other systems reviewed are Neg Physical Exam Narrative GENERAL: Awake, alert, no obvious distress SKIN: Focused skin assessment warm/dry. HEAD: Atraumatic. Normocephalic. EYES: Pupils equal and round. No scleral icterus. No injection or drainage. ENT: No nasal bleeding or discharge. Mucous membranes pink and moist. NECK: Trachea midline. No JVD. CARDIOVASCULAR: Regular rate and rhythm. No murmur appreciated. RESPIRATORY: No accessory muscle use. Clear to auscultation. Breath sounds equal bilaterally. GASTROINTESTINAL: Abdomen soft, non-tender, nondistended. Hepatic and splenic margins not palpable. MUSCULOSKELETAL: No obvious deformities. No clubbing. No cyanosis. No edema. NEUROLOGICAL: Awake and alert. No obvious cranial nerve deficits. Motor grossly within normal limits. Normal speech. PSYCHIATRIC: Appropriate mood and affect; insight and judgment normal. Data Data Last Documented VS Vital Signs Date Time Temp Pulse Resp B/P (MAP) Pulse Ox O2 Delivery O2 Flow Rate FiO2 11/17/17 08:25 74 16 115/72 (86) 97 Nasal Cannula 3.00 11/17/17 03:17 98.1 Orders Orders Call Poison Control (11/17/17 03:23) Electrocardiogram (11/17/17 ) Blood Glucose (11/17/17 05:27) Ecg Monitoring (11/17/17 05:27) Iv Access Insert/Monitor (11/17/17 05:27) Oximetry (11/17/17 05:27) Oxygen Administration (11/17/17 05:27) Sodium Chlor 0.9% 1000 Ml Inj (Ns 1000 M (11/17/17 05:30) Ed Discharge Order (11/17/17 07:05) [facility] Medical Decision Making Medical Screen Exam Complete: Yes Emergency Medical Condition: Yes Medical Record Reviewed: Yes Interpretation(s) Twelve-lead EKG was reviewed by me. Atrial fibrillation. Heart rate of 83 bpm. Differential Diagnosis Accidental overdose Narrative Course 4:44 AM poison control was called and the recommendation is to observe her on telemetry for another couple hours. I plan to observe her till 7 AM. If vital signs remained stable she will be discharged. 5:18 AM I told the patient about being observed until 7 AM for which she is not entirely happy since she has her chemotherapy at 9 AM scheduled. So far she has remained hemodynamically stable. 7:04 AM patient continues to be hemodynamically stable. I'll discharge her home. Procedures EKG Prior to Arrival: No Diagnosis Primary Impression: Cardizem overdose accidental Additional Impression: Accidental medication overdose Qualified Codes: T50.901A - Poisoning by unspecified drugs, medicaments and biological substances, accidental (unintentional), initial encounter Referrals: Primary Care Physician 2 days Additional Instructions: Be careful taking her medications. Return to ER if condition worsens or any other new concerns. Otherwise follow-up with your primary care. Med/Other Pt SpecificInfo: No Change to Meds Disposition: 01 DISCHARGE HOME Condition: Stable Iain Jarrett MD Nov 17, 2017 04:34
[2017-11-17 05:06] VITALS: BP 114/76; PULSE 79; RESP 16; O2SAT 100
[2017-11-17] MEDS ORDERED: SODIUM CHLOR 0.9% 1000 ML INJ 1,000 ML IV ONE (05:30)
[2017-11-17 06:53] VITALS: BP 125/72; PULSE 73; RESP 16; O2SAT 97
[2017-11-17 08:25] VITALS: BP 115/72
--- NOTE | 2017-11-17 17:27 | EKG ---
Date Performed: 11/17/2017 Time Performed: 03:48:28 PTAGE: 72 years EKG: ATRIAL FIBRILLATION MARKED LEFT AXIS DEVIATION POSSIBLE ANTERIOR MYOCARDIAL INFARCTION ABNO RMAL ECG PREVIOUS TRACING : 11/04/2017 02.39 DOCTOR: Danny Roberts Interpretating Date/Time 11/17/2017 17:22:44
== END 2017-11-17 08:26 | disposition home or self-care (01) ==
LOC: NEPE 03:07
DX: T46.1X1A Poisoning by calcium-channel blockers, accidental (unintentional), initial encounter (principal); R94.31 Abnormal electrocardiogram [ECG] [EKG]; I10 Essential (primary) hypertension; I25.10 Atherosclerotic heart disease of native coronary artery without angina pectoris; I48.91 Unspecified atrial fibrillation; J44.9 Chronic obstructive pulmonary disease, unspecified; F41.9 Anxiety disorder, unspecified; F32.9 Major depressive disorder, single episode, unspecified
CPT/HCPCS: 93005; 99283